=== PATIENT | male | born 1940 | race Caucasian/White ===

== ENCOUNTER 2023-04-24 10:33 | Emergency (ER) | payer MEDICARE, BC, SELFPAY ==
[2023-04-24 10:34] VITALS: BP 146/92; PULSE 73; RESP 14; TEMP 35.7; O2SAT 97; BMI 31.5
--- NOTE | 2023-04-24 11:03 | EKG12_ITS ---
Test Reason : SOB Blood Pressure : / mmHG Vent. Rate : 070 BPM Atrial Rate : 070 BPM P-R Int : 166 ms QRS Dur : 102 ms QT Int : 424 ms P-R-T Axes : 000 011 245 degrees QTc Int : 457 ms Atrial-paced rhythm Inferior infarct , age undetermined ST & T wave abnormality, consider lateral ischemia Abnormal ECG Confirmed by ANCA DAVISON, CASSIE ([id number]), continuity editor YESSI VALDEZ ([id number]) on 04/29/2023 12:28:07 PM Referred By: Confirmed By:CASSIE MARCH MD
--- NOTE | 2023-04-24 11:17 | EDS_ITS ---
HPI HPI - URI History of Present Illness Chief Complaint: Cough Detail of Chief Complaint: Cough with hemoptysis. Informant: patient and family Onset/Context/Timing Onset: Days Context: Gradual Onset Timing: Intermittent Maximum Severity: Mild Narrative Narrative: 80-year-old male history of asbestos ptosis, four-way CABG, cardiac stents and a pacemaker. He has had a cough for the last 3 days. Today he coughed up some blood. No significant chest pain. Only mild shortness of breath. No fever. No vomiting. No recent travel or surgery. No history of DVT or PE. He is not on any blood thinners besides aspirin. He has no history of prior lung cancer. Prior similar symptoms: No Recent Illness/Hospitalization: No ROS ROS ED ROS Narrative Cough. Review of Systems ROS Unobtainable: Denies due to encephalopathy Constitutional Constitutional ED: Denies chills or fever(s) Eyes Eyes: Denies blurry vision ENT ENT ED: Denies ear pain Cardiovascular Cardiovascular: Denies chest pain Respiratory/Chest Respiratory/Chest: Denies cough or dyspnea Gastrointestinal Gastrointestinal: Denies abdominal pain Genitourinary Genitourinary ED: Denies dysuria Musculoskeletal Musculoskeletal: Denies arthralgias Integumentary Denies abscess or Abrasions Neurologic Neurologic: Denies headache(s) Psychiatric Psychiatric: Denies anxiety or depression Endocrine Endocrinology: Denies cold intolerance Hematologic/Lymphatic Hematologic/Lymphatic: Denies easy bleeding or easy bruising Allergic/Immunologic Allergic/Immunologic ED: Denies mouth swelling or tongue swelling PFSH PFSH Allergy/AdvReac Type Severity Reaction Status Date / Time No Known Allergies Allergy Verified 04/24/23 10:34 EXAM Physical Exam Narrative Exam Narrative: Well-appearing 82-year-old male. Vital signs stable afebrile. Pulse ox 97% on room air no signs hypoxia. H EENT exam unremarkable. Neck nontender. Lungs clear to auscultation bilaterally. Heart regular rhythm rate about 70 no murmur appreciated. Chest wall nontender. Abdomen soft nontender. Moving all 4 extremities. Calves are nontender without edema or cords. Neurologically he is awake and alert. No focal motor deficits. Const Vital Signs: 04/24/23 10:34 04/24/23 11:03 04/24/23 12:00 Temperature 96.3 F L Temperature Source Temporal Pulse Rate 73 68 Respiratory Rate 14 18 Respiratory Effort Short of Breath Blood Pressure 146/92 H 141/73 H Blood Pressure Mean 110 95 Pulse Ox 97 94 Oxygen Delivery Method Room Air Room Air 04/24/23 15:00 Temperature Temperature Source Pulse Rate 61 Respiratory Rate Respiratory Effort Blood Pressure Blood Pressure Mean Pulse Ox 94 Oxygen Delivery Method Room Air Positive well nourished and well developed; Negative for cachectic or contractures General Appearance ED: well developed and NAD; Negative for cachectic, contractures, cyanotic, diaphoretic or pallor Nutritional Appearance: Negative for cachectic HEENT Reports moist mucous membranes normocephalic and atraumatic Face and Sinus: Negative for sinus tenderness or maxillary instability Throat: posterior oropharynx normal; Negative for tonsils abnormal or posterior oropharynx abnormal Eyes PERRL and EOMs intact bilaterally General Eye ED: Negative for pale conjunctiva or scleral icterus Neck no lymphadenopathy, supple, no meningeal signs and no JVD General: Negative for anterior neck swelling or lymphadenopathy Resp normal respiratory effort and clear to auscultation bilaterally Effort and Inspection: Negative for retractions or pain with movement Auscultation: Negative for rales, rhonchi, wheezes or diminished lung sounds Cardio S1 normal heart sound, S2 normal heart sound and no murmurs Rate: regular rate Rhythm: regular rhythm GI non-tender, non-distended and no masses Inspection: Negative for abdominal distention Auscultation: normoactive bowel sounds Palpation: soft; Negative for tender or guarding Back/Spine no CVA tenderness and normal ROM General Back: Negative for CVA tenderness Cervical Spine: Negative for cervical spine tenderness Thoracic Spine / Upper Back: Negative for thoracic spinal tenderness Lumbar Spine / Lower Back: Negative for lumbar spinal tenderness Sacrum: Negative for tenderness Extremity normal to inspection and full ROM General Extremety ED: Negative for cyanosis or tenderness General Extremity: Negative for cyanosis Neuro oriented x3 and CN's II-XII intact bilaterally Sensorium / Orientation: alert, oriented to person, oriented to place and oriented to time; Negative for orientation impaired Motor Exam: strength 5/5 throughout Psych mental status grossly normal Attitude: No agitated Mood & Affect: Negative for depressed, anxious or tearful Skin General Skin Exam: Negative for jaundice or pallor Lesions: no lesions Rashes: no rashes MDM MDM MDM Narrative Medical decision making narrative: 82-year-old with cough and hemoptysis. No DVT or PE risk factors. He is on aspirin but no other blood thinners. I think this could just be from him coughing and possibly broke a small blood vessel in his lung. Obviously PE, pneumonia or malignancy are possibilities. Chest x-ray and labs are pending. Repeat exam patient doing well at 4:20 PM. I went over all the test results and CAT scan with both the patient and his and son. He will be discharged home. Started on Zithromax for suspected right-sided pneumonia. Follow-up with his primary care physician. He will be given his first dose of Zithromax here. Prescription sent to the pharmacy. Return if he is feeling worse. History & Record Review Discussion w/independent historian: Patient Additional record(s) reviewed:: Prior inpatient record, Prior outpatient record, Prior ED visit and Prior labs Lab Data Attestation: I reviewed the patient's lab results. Lab results narrative: CBC shows a white count 9.2. H&H of 13.9 and 43. Platelets 173. Chemistries show gap of 1. Normal BUN and creatinine of 12 and 1.1. Glucose 124. No old labs available for comparison at this time. D-dimer elevated at 0.82. CAT scan of the chest shows no PE. Suspected right- sided pneumonia. Chronic changes and scarring. Labs: Laboratory Results - last 24 hr 04/24/23 11:20 WBC 9.2 RBC 4.21 L Hgb 13.9 Hct 43.0 MCV 102.1 H MCH 33.0 H MCHC 32.3 RDW Std Deviation 47.9 H RDW Coeff of Harvinder 12.9 Plt Count 173 MPV 9.7 Immature Gran % (Auto) 0.300 Neut % (Auto) 73.1 H Lymph % (Auto) 12.8 L [place] % (Auto) 12.7 H Eos % (Auto) 0.8 Baso % (Auto) 0.3 Absolute Neuts (auto) 6.8 Absolute Lymphs (auto) 1.18 Nucleated RBC % 0 D-Dimer Quant (PE/DVT) 0.82 H* Sodium 140 Potassium 4.2 Chloride 109 H Carbon Dioxide 30.0 Anion Gap 1 L BUN 12 Creatinine 1.11 Estim Creat Clear Calc 44.63 Est GFR (MDRD) Af Amer 82 Est GFR (MDRD) Non-Af 67 BUN/Creatinine Ratio 10.8 Glucose 124 H Calcium 8.7 Radiography Chest X-Ray - ED: 1 View, Read by ED Physician, Read by Radiologist, Heart, Mediastinum, Bony Structures and Chronic Changes Diagnostic Testing: Clinical Impression(s) from Imaging Studies Chest X-Ray 04/24/23 11:30 IMPRESSION: Findings suggestive of a right perihilar mass with a scarring and/or infiltrate in the right lung and scarring at the left lung base with calcified pleural plaques. Correlation with a CT scan is recommended for further evaluation. Electronically Signed: Valentin Ovalle MD at 12:05 EDT , Chest CTA 04/24/23 12:13 IMPRESSION: Bilateral pleural effusions right greater than left with bibasilar atelectasis superimposed on scarring at the lung bases. Focal areas of irregular infiltrate seen in the right hemithorax as described superimposed on chronic changes. Radiographic follow-up is recommended. No evidence of pulmonary embolism. Electronically Signed: Valentin Ovalle MD at 12:56 EDT , Chest x-ray, portable, single view interpreted myself and radiologist was concerning for possible right hilar mass or infiltrate. Prior sternotomy. Left-sided pacemaker. CAT scan is pending. Rhythm Strip Rhythm Strip: Paced Rate: 70 Ectopy: None EKG Initial EKG: Attestation: I personally reviewed and interpreted this EKG as follows: Interpretation: Paced Comments: Paced rhythm. Rate is 70. Discharge Plan Triage Chief Complaint: Cough ED Provider: Thor Doherty Dx/Rx/DC Orders Primary Care Provider: Gino Hardin Referrals: Gino Hardin DO [Primary Care Provider] -
[2023-04-24 11:29] LABS: Absolute Lymphocyte Count 1.18 X10^3/uL (0.83-4.51); Absolute Neutrophil Count 6.8 X10^3/uL (2.0-7.7); Basophil# 0.03 X10^3/uL; Basophil% 0.3 % (0-1); Eosinophil# 0.07 X10^3/uL; Eosinophils% 0.8 % (0-5); Hemoglobin 13.9 g/dL (13.0-16.5); Lymphocyte # 1.18 X10^3/ul (0.83-4.51); Lymphocyte % 12.8 % (19-41); Mean Corp Hgb Conc 32.3 g/dL (32-36); Mean Corpuscular Volume 102.1 fL (80-94); Mean Platelet Vol. 9.7 fl (6.2-12.0); Monocyte# 1.17 X10^3/uL; Monocyte% 12.7 % (0-10); NRBC Flagged by Analyzer 0 % (0-5); Neutrophil # 6.76 X10^3/uL (2.7-7.7); Neutrophil % 73.1 % (47-70); Platelet Count 173 K/mm3 (150-450); RBC Distribution Width CV 12.9 % (11.6-14.6); RBC Distribution Width SD 47.9 fl (35.1-43.9); Red Blood Count 4.21 M/mm3 (4.6-6.2); White Blood Count 9.2 K/mm3 (4.4-11.0)
--- NOTE | 2023-04-24 11:30 | RAD_ITS ---
STUDY: X-RAY CHEST REASON FOR EXAM: Male, 82 years old. Cough and hemoptysis TECHNIQUE: PA and lateral views of the chest. COMPARISON: None. FINDINGS: Elevation of the right hemidiaphragm. There is a 2.8 cm x 2.6 cm rounded nodular mass in the medial right upper lobe adjacent to the right hilum. Diffuse increased interstitial markings in the right lung suggestive of scarring with superimposed infiltrate and/or atelectasis. Scarring at the left lung base. Calcified left pleural plaques. Sternal cerclage wires and vascular clips are present from a prior sternotomy and coronary artery bypass graft procedure (CABG). Cardiomegaly. A left-sided dual-chamber pacemaker is seen. Normal mediastinum and jose guadalupe. Normal visualized pulmonary arteries. There is atherosclerotic calcification of the aortic arch with tortuosity. There are diffuse degenerative changes of the visualized thoracic spine. Normal visualized ribs, clavicles, and shoulders. There is no demonstrated abnormality of the visualized soft tissue structures of the upper abdomen. RAD/Chest PA and Lateral IMPRESSION: Findings suggestive of a right perihilar mass with a scarring and/or infiltrate in the right lung and scarring at the left lung base with calcified pleural plaques. Correlation with a CT scan is recommended for further evaluation. Electronically Signed: Valentin Ovalle MD at 12:05 EDT ,
[2023-04-24 11:41] LABS: Anion Gap 1 (5-15); BUN 12 mg/dL (7-18); BUN/Creat Ratio 10.8 RATIO (10-20); Calcium,Total 8.7 mg/dL (8.5-10.1); Chloride 109 mmol/L (98-107); Creatinine, Serum 1.11 mg/dL (0.70-1.30); EST Glomerular Filtration Rate 67 mL/min (>60); Est Glom Filt Rate - Afr Amer 82 mL/min (>60); Estimated Creatinine Clearance 44.63 ml/min; Glucose 124 mg/dL (74-106); Potassium 4.2 mmol/L (3.5-5.1); Sodium Level 140 mmol/L (136-145)
[2023-04-24 12:00] VITALS: BP 141/73; PULSE 68; RESP 18; O2SAT 94
[2023-04-24 12:00] LABS: D-Dimer Quantitative (DVT/PE) 0.82 FEU/ug/m (0.27-0.49)
--- NOTE | 2023-04-24 12:13 | CT_ITS ---
STUDY: CTA CHEST REASON FOR EXAM: Male, 82 years old. hemoptysis. Pneumonia vs Mass vs PE RADIATION DOSAGE (If Supplied By Facility): CTDIvol = ( 17.05 ) mGy, DLP = ( 413.75 ) mGycm TECHNIQUE: The examination was performed with the intravenous administration of IV 100mL Isovue-370. Post-processing of the angiographic images was performed, with multiplanar reformation and 3D reconstruction. Individualized dose optimization techniques were used for this CT. COMPARISON: Comparison is made with prior chest radiograph done earlier in the day. FINDINGS: Normal enhancement of the main pulmonary artery and right and left pulmonary arteries. Normal enhancement of the bilateral peripheral pulmonary arteries. There is no demonstrated pulmonary embolism. Normal thoracic aorta and visualized great vessels. There is no demonstrated aortic dissection. There are calcifications of the coronary arteries. There is cardiomegaly. A left-sided dual-chamber pacemaker is seen. Normal mediastinum. Normal hilar regions. Normal visualized trachea and bronchi. The lungs are well expanded. Infiltrates are seen in the right upper lobe superimposed on scarring. There is also evidence of a irregular infiltrate in the anterior aspect of the right upper lobe. This may represent a focal area of pneumonia superimposed on scarring. No signs of bronchiectasis. Patchy irregular infiltrate is also seen in the posterior aspect of the right upper lobe adjacent to the minor fissure. Increased interstitial markings at the right lung base. Increased linear markings at the left lung base. Small bilateral pleural effusions right greater than left. Calcified pleural plaques bilaterally. Normal chest wall structures. There are degenerative changes of thoracic spine. Demineralization of the thoracic vertebrae with minimal loss of height of an upper dorsal vertebrae. Findings suggestive of tiny gallstones in the gallbladder lumen. CT/CTA Chest W/WO Contrast IMPRESSION: Bilateral pleural effusions right greater than left with bibasilar atelectasis superimposed on scarring at the lung bases. Focal areas of irregular infiltrate seen in the right hemithorax as described superimposed on chronic changes. Radiographic follow-up is recommended. No evidence of pulmonary embolism. Electronically Signed: Valentin Ovalle MD at 12:56 EDT ,
[2023-04-24 15:00] VITALS: PULSE 61; O2SAT 94
[2023-04-24] MEDS: Azithromycin 250 MG Tablet 500 MG PO (16:39)
[2023-04-24 16:44] VITALS: RESP 65; O2SAT 96
== END 2023-04-24 16:46 | disposition home or self-care (01) ==
PROVIDERS: Emergency Provider Emergency Medicine; PCP Family Medicine; Visit Provider Emergency Medicine
DX: R05.9 Cough, unspecified (principal); R04.2 Hemoptysis; Z95.5 Presence of coronary angioplasty implant and graft; Z95.1 Presence of aortocoronary bypass graft; Z95.0 Presence of cardiac pacemaker
CPT/HCPCS: 71046; 71275; 80048; 85025; 85379; 87811; 93005; 99283; Q9967

== ENCOUNTER → 2023-07-30 | Outpatient (CLI) | payer MEDICARE, BC, SELFPAY ==
--- NOTE | 2023-07-30 14:03 | ECHOD_ITS ---
Reason For Study: Ischemic CM Procedure This was a 2D Doppler, Color Flow transthoracic echocardiogram. Exam performed in department. Left Ventricle Normal LV size. Mild concentric left ventricular hypertrophy. Left ventricular systolic function is lower limits of normal. The estimated ejection fraction is 50 %. There are regional wall motion abnormalities as specified. Posterior-Basal: Akinetic. Mid-Posterior: Hypokinetic. Basal inferoseptal: Hypokinetic. Right Ventricle Normal RV size. ICD or pacer leads identified within the right ventricle. Normal systolic function. Atria The left atrium is mildly enlarged. Normal right atrium. Mitral Valve Bileaflet diffuse mitral valve thickening. Moderate (2+) eccentric mitral valve insufficiency. Tricuspid Valve Normal tricuspid valve. Moderate (2+) tricuspid valve insufficiency. Pulmonary artery systolic pressure is 54 mmHg. Aortic Valve Trisinus/trileaflet aortic valve. Mild (1+) eccentric aortic valve insufficiency. Pulmonic Valve Normal pulmonic valve. Mild (1+) pulmonic valve insufficiency. Great Vessels Normal aortic root. Pericardium/Pleural No pericardial effusion. MMode/2D Measurements & Calculations LVIDd: 6.0 cm IVSd: 1.2 cm Ao root diam: 3.6 cm LVIDs: 5.2 cm LVPWd: 1.2 cm RVDd: 4.3 cm FS: 13.4 % LAV(MOD-bp): 87.6 ml LVAd ap4: 26.0 cm2 LVAd ap2: 32.3 cm2 LAV(MOD-bp) Indexed: 46.3 ml/m2 LVLd ap4: 7.6 cm LVLd ap2: 8.0 cm LAV(MOD-sp2): 90.4 ml EDV(MOD-sp4): 74.4 ml EDV(MOD-sp2): 112.5 ml LAV(MOD-sp4): 82.5 ml EDV(sp4-el): 75.0 ml EDV(sp2-el): 110.7 ml LVAs ap4: 16.3 cm2 LVAs ap2: 20.9 cm2 LVLs ap4: 6.4 cm LVLs ap2: 7.1 cm ESV(MOD-sp4): 35.7 ml ESV(MOD-sp2): 54.9 ml ESV(sp4-el): 35.5 ml ESV(sp2-el): 52.1 ml EF(MOD-sp4): 52.1 % EF(MOD-sp2): 51.2 % EF(sp4-el): 52.8 % SV(MOD-sp4): 38.8 ml SV(MOD-sp2): 57.6 ml SV(sp4-el): 39.6 ml LA dimension(2D): 5.6 cm LA A4 area: 25.7 cm2 RA A4 area: 19.2 cm2 TAPSE: 1.9 cm Time Measurements MV dec time: 0.17 sec Doppler Measurements & Calculations MV E max slick: 94.4 cm/sec Lat Peak E' Slick: 6.3 cm/sec Med Peak E' Slick: 4.5 cm/sec MV A max slick: 33.1 cm/sec E/E' lat: 14.9 E/E' med: 20.8 MV E/A: 2.9 MV dec slope: 546.3 cm/sec2 Ao V2 max: 94.4 cm/sec AI max slick: 358.4 cm/sec Ao max P.6 mmHg AI max P.4 mmHg Ao V2 mean: 67.2 cm/sec AI dec slope: 188.3 cm/sec2 Ao mean P.0 mmHg AI P1/2t: 557.6 msec Ao V2 VTI: 19.9 cm AV (velocity ratio): 0.87 LV V1 max: 83.3 cm/sec PA V2 max: 75.6 cm/sec PI end-d slick: 139.9 cm/sec LV V1 max P.8 mmHg LV V1 mean P.6 mmHg LV V1 mean: 60.0 cm/sec LV V1 VTI: 17.2 cm TR max slick: 358.8 cm/sec TR max P.5 mmHg ECHO/Echo Complete Interpretation Summary Normal LV size. Left ventricular systolic function is lower limits of normal. The estimated ejection fraction is 50 %. Moderate (2+) eccentric mitral valve insufficiency. Mild (1+) eccentric aortic valve insufficiency. Mild concentric left ventricular hypertrophy. Pulmonary artery systolic pressure is 54 mmHg. Ordering Physician: Selene Orellana Referring Physician: Gino Hardin Performed By: Charis Tristan RDCS, RVT
== END | disposition home or self-care (01) ==
LOC: CVS 14:01
PROVIDERS: PCP Family Medicine; Referring Provider Nurse Practitioner Family; Visit Provider Nurse Practitioner Family
DX: I25.5 Ischemic cardiomyopathy (principal)
CPT/HCPCS: 93306

== ENCOUNTER 2024-03-02 03:12 | Emergency (ER) | payer MEDICARE, BC, SELFPAY ==
[2024-03-02 03:12] VITALS: BP 165/92; PULSE 72; RESP 18; TEMP 36.8; O2SAT 98; BMI 31.4
--- NOTE | 2024-03-02 03:30 | CT_ITS ---
EXAM: CT ABDOMEN AND PELVIS WITH INTRAVENOUS CONTRAST CLINICAL INDICATION: abd pain abd pain TECHNIQUE: Helically acquired images were obtained of the abdomen and pelvis with intravenous contrast. This CT exam was performed using one or more of the following dose reduction techniques: automated exposure control, adjustment of the mA and/or kV according to patient size, and/or use of iterative reconstruction technique. CONTRAST: IV 100mL Isovue-370 RADIATION DOSE: CTDIvol = 21.27 mGy, DLP = 1015.17 mGy-cm COMPARISON: CTA chest 04/24/2023. FINDINGS: LOWER THORAX: There are calcified pleural plaques within the visualized lower lung ayoub. There are small bilateral pleural effusions. There are coronary artery calcifications. No cardiomegaly. ABDOMEN: LIVER: There are small cysts in the right lobe of the liver, for which no further evaluation is necessary. Is a calcified granuloma in the right lobe of the liver. GALLBLADDER AND BILE DUCTS: There are multiple gallstones. No gallbladder distention or wall edema. No intra- or extrahepatic biliary ductal dilation. PANCREAS: Unremarkable. No focal cystic or solid mass. SPLEEN: Unremarkable. Normal size without focal cystic or solid mass. ADRENALS: Unremarkable. No nodules. KIDNEYS AND URETERS: As seen on axial images 96-97, there is a 2.5 mm wide distal left ureteral calculus at the ureterovesical junction. There is associated left hydroureter and mild hydronephrosis left kidney as well as left perinephric fat infiltration. There is a 3.5 mm nonobstructive left renal calculus. There is simple appearing renal cysts as well as cysts are too small to reliably characterize. No follow-up imaging is necessary for simple renal cysts or cysts that are too small to characterize. Normal renal size and position. STOMACH AND BOWEL: There is a 1.8 cm diverticulum of the duodenal sweep. There is no evidence for diverticulitis. There are colonic diverticula. There is no evidence for colonic diverticulitis. No stomach or bowel distention. PELVIS: APPENDIX: A normal-appearing appendix is seen on axial images 72-81. BLADDER: Unremarkable. REPRODUCTIVE: The prostate gland is enlarged. ABDOMEN and PELVIS: INTRAPERITONEAL SPACE: Unremarkable. No ascites or other fluid collection. No free air. BONES/JOINTS: There are multilevel degenerative changes in the visualized spine. No suspicious lytic or blastic abnormality. SOFT TISSUES: Unremarkable. No discrete abdominal or pelvic wall hernia. VASCULATURE: There is atherosclerotic calcification of the abdominal aorta. LYMPH NODES: Unremarkable. No enlarged lymph nodes. TUBES, LINES AND DEVICES: There is an atrioventricular pacemaker. CT/Abdomen/Pelvis W IV Cont ONLY IMPRESSION: 1. 2.5 mm wide distal left ureteral calculus in the UVJ. There is associated mild left hydronephrosis. 2. Small nonobstructive left renal calculus. 3. Small bilateral pleural effusions and bilateral pleural plaques, also present on 2022 study. 4. Gallstones. 5. Enlarged prostate. 6. Atherosclerosis. 7. Colonic and duodenal diverticula. No evidence for acute diverticulitis. Electronically Signed: Jeff Webster MD at 4:59 EDT Reading Location ID and State: [facility] / [place] , Service support ,
[2024-03-02 03:39] LABS: Bacteria 0 SEEN /hpf (None Seen); Mucous, Urine 0 SEEN /hpf (<or=2+); Squamous Epithelial Cells - UA 0 SEEN /hpf (0-5); White Blood Cells 0 SEEN /hpf (0-5)
[2024-03-02] MEDS: Morphine 4 MG/ML Syringe IV (03:41)
[2024-03-02] MEDS: Ondansetron 4 MG/2 ML Vial IV (03:42)
[2024-03-02] MEDS: 0.9% Normal Saline (500mL Bag) 500 ML 999 ML IV (03:42)
[2024-03-02 03:43] LABS: Absolute Lymphocyte Count 1.32 X10^3/uL (0.83-4.51); Absolute Neutrophil Count 7.7 X10^3/uL (2.0-7.7); Basophil# 0.03 X10^3/uL; Basophil% 0.3 % (0-1); Hematocrit 43.9 % (40-54); Hemoglobin 14.3 g/dL (13.0-16.5); Lymphocyte # 1.32 X10^3/ul (0.83-4.51); Lymphocyte % 13.1 % (19-41); Mean Corp Hgb Conc 32.6 g/dL (32-36); Mean Corpuscular Hgb 33.3 pg (27.0-32.0); Mean Corpuscular Volume 102.1 fL (80-94); Mean Platelet Vol. 9.7 fl (6.2-12.0); Monocyte# 0.96 X10^3/uL; Monocyte% 9.5 % (0-10); NRBC Flagged by Analyzer 0 % (0-5); Neutrophil # 7.71 X10^3/uL (2.7-7.7); Neutrophil % 76.7 % (47-70); Platelet Count 156 K/mm3 (150-450); RBC Distribution Width CV 12.8 % (11.6-14.6); RBC Distribution Width SD 48.5 fl (35.1-43.9); White Blood Count 10.1 K/mm3 (4.4-11.0)
[2024-03-02 03:44] LABS: Color, Urine Yellow (Yellow); Glucose, Dipstick Normal (Normal); Ketone-Dipstick 5 mg/dl (Negative); Leukocyte Esterase-Dipstick Negative /ul (Negative); Nitrite-Dipstick Negative (Negative); Occult Blood-Urine 250 /ul (Negative); Protein-Dipstick 100 mg/dl (Negative); Specific Gravity, Urine 1.015 (1.002-1.030); Urine Bilirubin Dipstick Negative (Negative); Urine Clarity Clear (Clear); Urine Urobilinogen 4 mg/dl (Normal)
[2024-03-02 03:49] VITALS: O2SAT 86
[2024-03-02 03:51] VITALS: O2SAT 96
[2024-03-02 04:00] LABS: AST(SGOT) 17 U/L (15-37); Alanine Aminotransfer ALT/SGPT 21 U/L (16-61); Albumin, Serum 3.3 g/dL (3.2-5.0); Alkaline Phosphatase 78 U/L (45-117); Anion Gap 5 (5-15); BUN 19 mg/dL (7-18); BUN/Creat Ratio 13.5 RATIO (10-20); Bilirubin, Direct 0.58 mg/dL (0.00-0.30); Calcium,Total 8.8 mg/dL (8.5-10.1); Chloride 106 mmol/L (98-107); Creatinine, Serum 1.41 mg/dL (0.70-1.30); EST Glomerular Filtration Rate 51 mL/min (>60); Est Glom Filt Rate - Afr Amer 62 mL/min (>60); Estimated Creatinine Clearance 39.99 ml/min; Globulin 3.1 g/dL (2.2-4.2); Glucose 133 mg/dL (74-106); Lipase 30 U/L (13-75); Potassium 4.1 mmol/L (3.5-5.1); Protein, Total 6.4 g/dL (6.4-8.2); Sodium Level 138 mmol/L (136-145)
[2024-03-02 04:19] LABS: Red Blood Cells-Urine 25-50 SEEN /hpf (0-5)
[2024-03-02 05:12] VITALS: BP 139/74; PULSE 64; RESP 16; O2SAT 92
--- NOTE | 2024-03-02 05:25 | EX.ED.DYSGE1 ---
HPI History of Present Illness Chief Complaint: Abd Pain Informant: patient Narrative Narrative: Patient is an 83-year-old male with past medical history of CAD and hyperlipidemia and BPH and previous pacemaker placement. He states roughly 5 to 6 hours prior to arrival he noticed abdominal pain that was more sharp in nature and located around the left lower quadrant. He states that there is mild nausea associated with the pain but denies any vomiting he also denies any diarrhea dysuria hematuria or constipation. However as the pain has continued to worsen he presents for evaluation [facility] Medical History (Updated 03/03/24 @ 02:[address] Kelvin Odell DO) Skin cancer Myocardial infarction Presence of combination internal cardiac defibrillator (ICD) and pacemaker Home Medications ?Medication ?Instructions ?Recorded ?Last Taken ?Type aspirin 81 mg capsule 81 mg PO DAILY 03/02/24 Unknown History famotidine 40 mg tablet 40 mg PO DAILY 03/02/24 Unknown History hydralazine 100 mg tablet 100 mg PO BID 03/02/24 Unknown History isosorbide mononitrate 30 mg 30 mg PO DAILY 03/02/24 Unknown History tablet,extended release 24 hr ketorolac 10 mg tablet 10 mg PO 4X/DAY PRN pain 5 days 03/02/24 Unknown Rx #20 tabs metoprolol tartrate 100 mg tablet 100 mg PO BID 03/02/24 Unknown History ondansetron 4 mg disintegrating 4 mg PO TID PRN nausea and 03/02/24 Unknown Rx tablet vomiting #21 tabs oxycodone-acetaminophen 5 mg-325 1 tab PO Q6H PRN pain 3 days #12 03/02/24 Unknown Rx mg tablet (Percocet) tabs ramipril 10 mg capsule 10 mg PO BID 03/02/24 Unknown History rosuvastatin 40 mg tablet 40 mg PO DAILY 03/02/24 Unknown History tamsulosin 0.4 mg capsule 0.4 mg PO DAILY 03/02/24 Unknown History Allergy/AdvReac Type Severity Reaction Status Date / Time No Known Allergies Allergy Verified 03/02/24 03:13 Surgical History (Updated 03/02/24 @ 03:19 by Basilia Andersen) S/P triple vessel bypass Social History Smoking Status: Never smoker ROS ROS ED Constitutional Constitutional ED: Denies chills or fever(s) ENT ENT ED: Denies sore throat Cardiovascular Cardiovascular: Denies chest pain, palpitations or racing heartbeat Respiratory/Chest Respiratory/Chest: Denies cough or dyspnea Gastrointestinal Gastrointestinal: Reports abdominal pain and nausea; Denies constipation, diarrhea or vomiting Genitourinary Genitourinary ED: Denies dysuria or hematuria Musculoskeletal Musculoskeletal: Denies back pain or myalgias Integumentary Denies rash Neurologic Neurologic: Denies headache(s) Hematologic/Lymphatic Hematologic/Lymphatic: Denies easy bleeding or easy bruising EXAM Physical Exam Const Vital Signs: 03/02/24 03:12 03/02/24 03:49 03/02/24 03:51 Temperature 98.2 F Temperature Source Oral Pulse Rate 72 Respiratory Rate 18 Blood Pressure 165/92 H Blood Pressure Mean 116 Pulse Ox 98 86 96 Oxygen Delivery Method Room Air Room Air Nasal Cannula Oxygen Flow Rate (L/min) 2 03/02/24 05:12 03/02/24 05:43 Temperature 98.3 F Temperature Source Pulse Rate 64 67 Respiratory Rate 16 18 Blood Pressure 139/74 H 150/77 H Blood Pressure Mean 95 101 Pulse Ox 92 94 Oxygen Delivery Method Room Air Oxygen Flow Rate (L/min) Positive well nourished and well developed General Appearance ED: well developed; Negative for pallor HEENT Reports moist mucous membranes HEENT Narrative: No tongue or lip swelling no oral lesions no airway edema or compromise No signs of infection noted in the posterior pharynx Eyes PERRL and EOMs intact bilaterally General Eye ED: Negative for scleral icterus Neck supple and no JVD Neck Narrative: No nuchal rigidity or meningeal signs Chest Wall palpation of chest normal Resp normal respiratory effort and clear to auscultation bilaterally Cardio regular rate and regular rhythm Rate: other Other Details: Radial and carotid pulses are equal and symmetric GI GI Narrative: Abdomen is slightly distended with hypoactive bowel sounds. There is mild diffuse pain on palpation but this is greatest in the left lower quadrant with mild guarding at the site. No fluid wave or pulsatile mass. Auscultation: normoactive bowel sounds Palpation: soft Back/Spine Back/Spine Narrative: Left CVA pain is noted as well Extremity normal to inspection Extremity Narrative: Negative Homans' sign bilaterally Neuro oriented x3, CN's II-XII intact bilaterally and no sensory deficits noted Sensorium / Orientation: alert Motor Exam: strength 5/5 throughout Psych mental status grossly normal Skin no rashes or lesions noted General Skin Exam: Negative for jaundice or pallor MDM MDM MDM Narrative Medical decision making narrative: Patient presented to ER hypertensive but otherwise with stable vitals. He reported persistent abdominal pain greatest in the left lower quadrant without trauma or excessive activity. Differential diagnosis is for small bowel obstruction versus pancreatitis versus biliary colic or acute cholecystitis versus diverticulitis or kidney stone or UTI or pyelonephritis. Secondary to this basic lab work was obtained with urine sample and a CT scan with IV contrast was ordered. CT scan showed a kidney stone on the left side causing hydroureteronephrosis which would correlate with his left-sided pain. There is no signs of perforation or obstruction and laboratory studies do not show findings concerning for acute kidney injury or urosepsis. After patient was given Toradol and morphine his pain improved to a value of a 2. Therefore at this time as he does not have acute kidney injury or urosepsis and his pain is controlled there is no need for admission or emergent urology consultation and patient is otherwise safe for discharge with outpatient follow-up History & Record Review Discussion w/independent historian: Patient Lab Data Attestation: I reviewed the patient's lab results. Labs: Laboratory Results - last 24 hr 03/02/24 03/02/24 03/02/24 03:27 03:32 03:38 WBC 10.1 RBC 4.30 L Hgb 14.3 Hct 43.9 MCV 102.1 H MCH 33.3 H MCHC 32.6 RDW Std Deviation 48.5 H RDW Coeff of Harvinder 12.8 Plt Count 156 MPV 9.7 Immature Gran % (Auto) 0.400 Neut % (Auto) 76.7 H Lymph % (Auto) 13.1 L Hyde % (Auto) 9.5 Eos % (Auto) 0.0 Baso % (Auto) 0.3 Absolute Neuts (auto) 7.7 Absolute Lymphs (auto) 1.32 Nucleated RBC % 0 Sodium 138 Potassium 4.1 Chloride 106 Carbon Dioxide 27.0 Anion Gap 5 BUN 19 H Creatinine 1.41 H Estim Creat Clear Calc 39.99 Est GFR (MDRD) Af Amer 62 Est GFR (MDRD) Non-Af 51 L BUN/Creatinine Ratio 13.5 Glucose 133 H Lactic Acid 2.0 Calcium 8.8 Total Bilirubin 1.70 H Direct Bilirubin 0.58 H AST 17 ALT 21 Alkaline Phosphatase 78 Total Protein 6.4 Albumin 3.3 Globulin 3.1 Lipase 30 Urine Color Yellow Urine Clarity Clear Urine pH 7.0 Ur Specific [place] 1.015 Urine Protein 100 H Urine Glucose (UA) Normal Urine Ketones 5 H Urine Occult Blood 250 H Urine Nitrite Negative Urine Bilirubin Negative Urine Urobilinogen 4 H Ur Leukocyte Esterase Negative Urine RBC 25-50 SEEN Urine WBC 0 SEEN Ur Squamous Epith Cells 0 SEEN Urine Bacteria 0 SEEN Urine Mucus 0 SEEN Radiography Diagnostic Testing: Clinical Impression(s) from Imaging Studies Abdomen/Pelvis CT 03/02/24 03:30 IMPRESSION: 1. 2.5 mm wide distal left ureteral calculus in the UVJ. There is associated mild left hydronephrosis. 2. Small nonobstructive left renal calculus. 3. Small bilateral pleural effusions and bilateral pleural plaques, also present on 2022 study. 4. Gallstones. 5. Enlarged prostate. 6. Atherosclerosis. 7. Colonic and duodenal diverticula. No evidence for acute diverticulitis. Electronically Signed: Jeff Webster MD at 4:59 EDT , Discharge Plan Triage Chief Complaint: Abd Pain ED Provider: Kelvin Odell Dx/Rx/DC Orders Clinical Impression: Kidney stone on left side, Renal colic, Hypertension, Benign prostatic hyperplasia, Hyperlipidemia Instructions: ED Kidney Stone with Pain Prescriptions: New oxycodone-acetaminophen [Percocet] 5-325 mg tablet 1 tab PO Q6H PRN (Reason: pain) 3 Days Qty: 12 0RF ketorolac 10 mg tablet 10 mg PO 4X/DAY PRN (Reason: pain) 5 Days Qty: 20 0RF ondansetron 4 mg tablet,disintegrating 4 mg PO TID PRN (Reason: nausea and vomiting) Qty: 21 0RF No Action ramipril 10 mg capsule 10 mg PO BID tamsulosin 0.4 mg capsule 0.4 mg PO DAILY hydralazine 100 mg tablet 100 mg PO BID metoprolol tartrate 100 mg tablet 100 mg PO BID famotidine 40 mg tablet 40 mg PO DAILY isosorbide mononitrate 30 mg tablet extended release 24 hr 30 mg PO DAILY rosuvastatin 40 mg tablet 40 mg PO DAILY aspirin 81 mg capsule 81 mg PO DAILY Primary Care Provider: Gino Hardin Referrals: Gino Hardin DO [Primary Care Provider] - Toy العلي MD [Med Staff - Active Staff] - Activity Restrictions/Additional Instructions: Please take 1 Percocet and 1 Toradol together to help control pain. Continue all of your other medications as directed by your doctor. Follow-up with urology for repeat evaluation and to discuss the possibility of stent placement if you do not pass your kidney stone spontaneously. If you develop a fever of 100.4 or higher or your pain is not controlled to prescribed medication please return to the ER for repeat evaluation. Print Language: [place] Disposition Disposition: Home, Self Care Discharge Date/Time: 03/02/24 06:09
[2024-03-02] MEDS: Ketorolac 15 MG/ML Vial IV (05:41)
[2024-03-02 05:43] VITALS: BP 150/77; PULSE 67; RESP 18; TEMP 36.8; O2SAT 94
[2024-03-02 07:41] LABS: Reflex Lactate? Y
== END 2024-03-02 06:09 | disposition home or self-care (01) ==
PROVIDERS: Emergency Provider Emergency Medicine; PCP Family Medicine; Visit Provider Emergency Medicine
DX: N13.2 Hydronephrosis with renal and ureteral calculous obstruction (principal); I25.10 Atherosclerotic heart disease of native coronary artery without angina pectoris; N23 Unspecified renal colic; I10 Essential (primary) hypertension; N40.0 Benign prostatic hyperplasia without lower urinary tract symptoms; E78.5 Hyperlipidemia, unspecified; I25.2 Old myocardial infarction; Z79.82 Long term (current) use of aspirin; Z79.899 Other long term (current) drug therapy; Z95.810 Presence of automatic (implantable) cardiac defibrillator
CPT/HCPCS: 74177; 80048; 80076; 81001; 83605; 83690; 85025; 96361; 96374; 96375; 96376; 99283; J7030; Q9967; A4216; J2405

== ENCOUNTER → 2024-04-21 | Outpatient (CLI) | payer MEDICARE, BC, SELFPAY ==
--- NOTE | 2024-04-21 06:41 | ECHOD_ITS ---
Reason For Study: SOB Procedure This was a 2D Doppler, Color Flow transthoracic echocardiogram. Exam performed in department. Left Ventricle Normal LV size. The left ventricular ejection fraction is 50 %. Mild to moderate segmental systolic dysfunction (see wall motion). Stage 2 diastolic dysfunction. Infero-Basal: Akinetic. Mid-Posterior: Mildly hypokinetic. Mid-Inferior: Mildly hypokinetic. Basal inferoseptal: Hypokinetic. Right Ventricle Normal RV size. ICD or pacer leads identified within the right ventricle. Normal systolic function. Atria The left atrium is mildly enlarged. The right atrium is mildly enlarged. Mitral Valve Normal mitral valve. Mild-Moderate (1-2+) eccentric mitral valve insufficiency. Tricuspid Valve Normal tricuspid valve. Moderate (2+) tricuspid valve insufficiency. Pulmonary artery systolic pressure is 70 mmHg. Moderate pulmonary hypertension. Aortic Valve Normal aortic valve. Trisinus/trileaflet aortic valve. Mild (1+) aortic valve insufficiency. Pulmonic Valve Normal pulmonic valve. Great Vessels Normal aortic root. The pulmonary artery is normal size. Normal inferior vena cava. Pericardium/Pleural No pericardial effusion. MMode/2D Measurements & Calculations RVDd: 3.9 cm Ao root diam: 3.4 cm LAV(MOD-bp): 101.3 ml LAV(MOD-bp) Indexed: 53.6 ml/m2 LAV(MOD-sp2): 102.6 ml LAV(MOD-sp4): 99.5 ml SV(MOD-sp4): 53.0 ml SV(sp4-el): 56.0 ml LVAd ap4: 32.9 cm2 LVLd ap4: 7.6 cm EDV(MOD-sp4): 117.6 ml EDV(sp4-el): 120.7 ml LVAs ap4: 22.9 cm2 LVLs ap4: 6.9 cm ESV(MOD-sp4): 64.6 ml ESV(sp4-el): 64.7 ml EF(MOD-sp4): 45.0 % EF(sp4-el): 46.4 % LA A4 area: 28.3 cm2 LA dimension(2D): 4.0 cm RA A4 area: 26.3 cm2 TAPSE: 1.6 cm Time Measurements MV dec time: 0.17 sec Doppler Measurements & Calculations MV E max slick: 88.5 cm/sec Lat Peak E' Slick: 5.6 cm/sec Med Peak E' Slick: 5.3 cm/sec MV A max slick: 41.0 cm/sec E/E' lat: 15.7 E/E' med: 16.6 MV E/A: 2.2 Ao V2 max: 88.3 cm/sec AI max slick: 394.0 cm/sec LV V1 max: 89.5 cm/sec Ao max P.1 mmHg AI max P.1 mmHg LV V1 max P.2 mmHg AI dec slope: 272.0 cm/sec2 AI P1/2t: 424.2 msec PA V2 max: 73.2 cm/sec TR max slick: 397.5 cm/sec TR max P.2 mmHg ECHO/Echo Complete Interpretation Summary The left ventricular ejection fraction is 50 %. Normal LV size. Mild to moderate segmental systolic dysfunction (see wall motion). Stage 2 diastolic dysfunction. Pulmonary artery systolic pressure is 70 mmHg. Moderate pulmonary hypertension. Compared to previous study, the left ventricular systolic function is the same. . Ordering Physician: Selene Orellana Referring Physician: HOLLY YODER Performed By: Marianna Coleman RDCS
--- NOTE | 2024-04-22 13:56 | STRESSREP ---
Stress Test Report Date: 04/21/2004 Procedure: Pharmacologic stress nuclear imaging study Indications: CAD, dyspnea Consent: Per the patient Procedure: The patient underwent pharmacologic (Regadenoson) evaluation with a peak heart rate of 80 beats per minute (58%predicted maximal heart rate) and a peak blood pressure of 142/80 mmHg. The baseline ECG demonstrated atrial paced rhythm, left bundle branch block. EKG during lexiscan infusion revealed no significant ischemic changes. EKG post infusion revealed no significant ischemic changes [There were no cardiac dysrhythmias pretest, during pharmacologic infusion, or recovery]. [There was no complaint of chest discomfort during pharmacologic infusion or recovery]. The examination was discontinued secondary to completion of protocol. Impression: 1. Lexiscan stress test test is negative for Lexiscan infusion induced EKG changes of ischemia. 2. Lexiscan stress test test is negative for Lexiscan infusion induced chest pain. 3. Results of the nuclear portion of the test is as below Myocardial perfusion imaging study: Technique: The patient was injected with 11.4 millicuries of technetium 99m Cardiolite and subsequently rest SPECT Cardiolite nuclear imaging was obtained in the horizontal long, vertical long, and short axis views. The patient underwent pharmacologic [Regadenoson 0.4mg] evaluation. Please see above for details. The patient was injected with 34.1 millicuries of technetium 99m Cardiolite and subsequently stress SPECT Cardiolite nuclear imaging was obtained in the horizontal long, vertical long, and short axis views. A gated Cardiolite study at peak stress was obtained. Interpretation: Rest and stress SPECT Cardiolite nuclear imaging status post realignment, normalization, and attenuation correction demonstrate moderate decrease in the radioisotope uptake in the inferior wall on the rest images that is mildly worse on the stress images suggestive of prior inferior myocardial infarction with mild mundo-infarct ischemia. Gated images reveal hypokinesis of the inferior wall and septum. The reported LVEF is 42%. Impression: 1. There is evidence of prior inferior NC with mild mundo-infarct ischemia. 2. Estimated ejection fraction is 42%. This note was generated with [place] [employer] software. It may contain incorrect words, spelling, and punctuation that were not noted in checking the note before signing.
== END | disposition home or self-care (01) ==
LOC: CVS 06:41
PROVIDERS: PCP Family Medicine; Referring Provider Nurse Practitioner Family; Visit Provider Nurse Practitioner Family
DX: I34.0 Nonrheumatic mitral (valve) insufficiency (principal); I11.0 Hypertensive heart disease with heart failure; I50.22 Chronic systolic (congestive) heart failure; I47.20 Ventricular tachycardia, unspecified; R06.02 Shortness of breath; I25.10 Atherosclerotic heart disease of native coronary artery without angina pectoris; I25.5 Ischemic cardiomyopathy
CPT/HCPCS: 78452; 93017; 93306; A9500; A4216; J2785

== ENCOUNTER 2024-09-20 12:44 | Inpatient (IN) | payer MEDICARE, BC, SELFPAY ==
[2024-09-20] VITALS (40 sets, daily range): BP systolic 52–170; BP diastolic 27–95; PULSE 61–81; RESP 10–22; TEMP 36.3–37.9; O2SAT 65–100; BMI 34.1; BMI 31.1
--- NOTE | 2024-09-20 12:46 | CT_ITS ---
EXAM: BRAIN/HEAD WITHOUT CONTRAST CLINICAL HISTORY: Head injury due to syncopal episode. COMPARISON: None TECHNIQUE: Multiple axial tomographic images were obtained without intravenous contrast administration. Coronal and sagittal reconstruction was obtained as well. FINDINGS: There is a mild degree of cerebral atrophy in keeping with the patient's age. There is evidence of decreased attenuation in the periventricular white matter bilaterally suggestive of chronic ischemic small- vessel disease. No acute abnormality is seen. CT/Brain/Head without Contrast IMPRESSION: Cerebral atrophy in keeping with patient's age. No acute abnormality is seen. Reading Location: [id number]
--- NOTE | 2024-09-20 12:46 | EKG12_ITS ---
Test Reason : CODE BLUE Blood Pressure : */* mmHG Vent. Rate : 79 BPM Atrial Rate : 79 BPM P-R Int : 216 ms QRS Dur : 166 ms QT Int : 502 ms P-R-T Axes : 87 -12 139 degrees QTcB Int : 575 ms Sinus rhythm with 1st degree A-V block Left bundle branch block Abnormal ECG Confirmed by Beto Connell ([id number]), editor sound SOFI MARIE ([id number]) on 09/21/2024 10:59:54 AM Referred By: Confirmed By: Beto Connell
--- NOTE | 2024-09-20 12:50 | EX.ED.DYSGE1 ---
HPI History of Present Illness Chief Complaint: CPR Limited: other (altered LOC) Narrative Narrative: 83-year-old male came into the ER to be with his who is a new patient here, allegedly has been ill and his is here for respiratory illness. According to staff, he walked into the room awake and alert, but then passed out, losing postural stability falling to the floor and hitting his head, was able to talk with nurses right after this, telling them that he was on a blood thinner, but then lost consciousness. I evaluated him stat in his 's ED room. Allegedly on a blood thinner, although 81 mg aspirin is the only antiplatelet or anticoagulant on his EMR preexisting list. [facility] Medical History Skin cancer Myocardial infarction Presence of combination internal cardiac defibrillator (ICD) and pacemaker Home Medications ?Medication ?Instructions ?Recorded ?Last Taken ?Type aspirin 81 mg capsule 81 mg PO DAILY 03/02/24 Unknown History famotidine 40 mg tablet 40 mg PO DAILY 03/02/24 Unknown History hydralazine 100 mg tablet 100 mg PO BID 03/02/24 Unknown History isosorbide mononitrate 30 mg 30 mg PO DAILY 03/02/24 Unknown History tablet,extended release 24 hr ketorolac 10 mg tablet 10 mg PO 4X/DAY PRN pain 5 days 03/02/24 Unknown Rx #20 tabs metoprolol tartrate 100 mg tablet 100 mg PO BID 03/02/24 Unknown History ondansetron 4 mg disintegrating 4 mg PO TID PRN nausea and 03/02/24 Unknown Rx tablet vomiting #21 tabs oxycodone-acetaminophen 5 mg-325 1 tab PO Q6H PRN pain 3 days #12 03/02/24 Unknown Rx mg tablet (Percocet) tabs ramipril 10 mg capsule 10 mg PO BID 03/02/24 Unknown History rosuvastatin 40 mg tablet 40 mg PO DAILY 03/02/24 Unknown History tamsulosin 0.4 mg capsule 0.4 mg PO DAILY 03/02/24 Unknown History amiodarone 200 mg tablet 200 mg PO Q12H 09/20/24 Unknown History rivaroxaban 20 mg tablet (Xarelto) 20 mg PO DAILY 09/20/24 Unknown History Allergy/AdvReac Type Severity Reaction Status Date / Time No Known Allergies Allergy Verified 03/02/24 03:13 Surgical History S/P triple vessel bypass Social History Smoking Status: Never smoker ROS ROS ED Review of Systems ROS Unobtainable: due to mental status EXAM Physical Exam Const Vital Signs: 09/20/24 12:47 09/20/24 12:57 09/20/24 13:11 Temperature 97.4 F L Temperature Source Temporal Pulse Rate 71 Respiratory Rate 10 L Respiratory Pattern Gasping Blood Pressure 159/27 H Blood Pressure Mean 71 Pulse Ox 70 Oxygen Delivery Method Nasal Cannula Ambu-Bag Oxygen Flow Rate (L/min) 2 09/20/24 13:15 09/20/24 13:30 09/20/24 13:52 Temperature Temperature Source Pulse Rate 68 61 80 Respiratory Rate 22 H Respiratory Pattern Blood Pressure 142/76 H 121/85 H 82/53 L Blood Pressure Mean 98 97 62 Pulse Ox 86 78 Oxygen Delivery Method Mechanical Ventilator Mechanical Ventilator Oxygen Flow Rate (L/min) 09/20/24 13:52 09/20/24 14:02 09/20/24 14:17 Temperature Temperature Source Pulse Rate 81 81 Respiratory Rate Respiratory Pattern Blood Pressure 74/52 L 64/48 L 82/49 L Blood Pressure Mean 59 53 60 Pulse Ox 80 71 Oxygen Delivery Method Mechanical Ventilator Mechanical Ventilator Oxygen Flow Rate (L/min) 09/20/24 14:21 Temperature Temperature Source Pulse Rate 81 Respiratory Rate Respiratory Pattern Blood Pressure 63/45 L Blood Pressure Mean 51 Pulse Ox 65 Oxygen Delivery Method Oxygen Flow Rate (L/min) Positive well nourished and well developed Constitutional Narrative: Obtunded. Couple dry heaves during initial evaluation. General Appearance ED: well developed HEENT Reports moist mucous membranes HEENT Narrative: Dentures upper and lower present. No intraoral lesions or abnormalities. Poor gag reflex but present. normocephalic and atraumatic Eyes PERRL Eyes Narrative: No nystagmus. No forced deviation. Neck full ROM and supple Resp Resp Narrative: Sonorous shallow breathing, not especially slow or fast. Lungs are equal and relatively clear but limited evaluation due to not taking deep breaths. Cardio regular rate and regular rhythm Rate: other Other Details: Faint heart sounds present. Thready pulses present. GI non-tender and non-distended Auscultation: normoactive bowel sounds Palpation: soft Back/Spine no CVA tenderness General Back: other FROM Extremity normal to inspection General Extremety ED: Negative for edema, pulses abnormal or tenderness General Extremity: Negative for edema or pulses abnormal Neuro Siva Coma Scale: document GCS findings None Withdraws to Pain None 6 Sensorium / Orientation: stuporous Skin no rashes or lesions noted Skin Narrative: Abrasions on top of scalp without boggy hematoma or palpable depression/crepitance, no lacerations to repair no active bleeding Sepsis Attestation Sepsis Alert: Yes Sepsis Attestation: Agree w/Sepsis Date exam was performed: 09/20/24 Time exam was performed: 14:00 Possible Source of Sepsis: Pulmonary Sepsis Organ Dysfunction Criteria Present: SBP < 90 mmHg or MAP < 65 mmHg and Acute Respiratory Failure (New need for BiPAP/CPAP or MV) Fluid Resuscitation Fluid resuscitation indicated?: Yes Fluid Resuscitation ordered: 30 ml/kg fluid bolus ordered Sepsis Note Date exam was performed: 09/20/24 Time exam was performed: 14:25 Sepsis Attestation: Sepsis re-evaluation was performed Response to fluids: Non Fluid responsive hypotension and Vasopressors started MDM MDM MDM Narrative Medical decision making narrative: Seemed to be withdrawing to pain initially, poor gag reflex, but breathing. CT was available, and so nurses supported him with oxygen, had a finger on his pulse, and escorted him to CT for emergent imaging of the brain. Upon coming back he started to breathe poorly, and I already had respiratory setting up for intubation as he left for CT. He has a paced rhythm and capture on the monitor in the 70s, in and out of pacing. Nursing bagged him with BVM while we were continuing to prep for intubation emergently, and then he seemed to stop exerting effort to breathe on his own. In feeling a carotid at this time he has no pulse and nursing is not able to feel a radial, so we started CPR immediately and gave the patient a milligram of epinephrine, intubating him at the first rhythm check, at which point he has a pulse. He did code after dropping his blood pressure again, again with a pulse in the 70s paced on the monitor, responded well to 1 round of CPR and a dose of epinephrine so I ordered an epinephrine drip and placed a central line see the procedure note this was uncomplicated. At that point we had a chest x-ray performed, one-view portable on my interpretation shows bilateral severe pneumonia in addition to good ETT placement and good central line placement without pneumothorax. At this point family arrived discussed all this with them and brought them up to date, they state that he has been feeling ill for the last few days or a week or so, but was more concerned about his who is also a patient here for respiratory illness. While on the ventilator, we had trouble with his oxygen saturations, so I adjusted his ramp down, tidal volume up, RR up, and PEEP up to 14 (all incrementally). He was given a milligram of Ativan since you starting to wake up and follow commands in order to tolerate this better. Discussed with intensive care, hospitalist, he started dropping his pressure little later so we started the epinephrine drip and give him another half milligram bolus of epinephrine. I had nursing query his pacemaker, the company called us with the interpretation, he is having episodes of A-fib which family confirms that is why he was on Xarelto, no events. Therefore I suspect he passed out due to either hypoxemia, hypotension, or both. ABG shows hypoxemia but he is not significantly hypercapnic and his pH is just a little low. EKG shows no STEMI. He has a left bundle branch block. I discussed with hospitalist we both agree that since we are continuing to suction amount of blood from his ETT, and with the significant difficulty of oxygenating him and the appearance of fluid in both lungs of his x-ray, we are giving him Kcentra to reverse his anticoagulation. Lab Data Attestation: I reviewed the patient's lab results. Labs: Laboratory Results - last 24 hr 09/20/24 12:50 WBC 8.3 RBC 3.69 L Hgb 12.8 L Hct 39.2 L MCV 106.2 H MCH 34.7 H MCHC 32.7 RDW Std Deviation 57.4 H RDW Coeff of Harvinder 14.6 Plt Count 130 L MPV 9.9 Immature Gran % (Auto) 0.500 Neut % (Auto) 64.4 Lymph % (Auto) 22.8 [place] % (Auto) 12.2 H Eos % (Auto) 0.0 Baso % (Auto) 0.1 Absolute Neuts (auto) 5.4 Absolute Lymphs (auto) 1.89 Nucleated RBC % 0.2 PT 32.5 H INR 3.1 APTT 41.5 H Sodium 138 Potassium 4.1 Chloride Direct 103 Carbon Dioxide 19.8 L Anion Gap 15 BUN 25 H Creatinine 1.57 H Estim Creat Clear Calc 37.38 L Est GFR (MDRD) Non-Af 43 L BUN/Creatinine Ratio 16.1 Glucose 100 H Calcium 8.7 Troponin T High Sens 64 H* ABG Data ABG results: ABG 09/20/24 14:12 Specimen Type ART Sample Site R Brach pH 7.26 L Bicarbonate Actual 16.9 L Total CO2 18 Base Excess -10 L O2 Saturation 87 L O2 % 100.0 ABG pCO2 37.3 ABG pO2 59 L Respiration Rate 16 O2 Delivery Device Adult Vent Vent Mode AC Tidal Volume 600.0 POC PEEP 14 Radiography Diagnostic Testing: Clinical Impression(s) from Imaging Studies Brain CT 09/20/24 12:46 IMPRESSION: Cerebral atrophy in keeping with patient's age. No acute abnormality is seen. Reading Location: [facility] Chest X-Ray 09/20/24 13:40 IMPRESSION: 1. High positioning of the endotracheal tube at the thoracic inlet, recommend advancement of 4-5 cm for optimal placement with radiographic confirmation. Otherwise appropriate positioning of support apparatus. No visible pneumothorax. 2. Patchy bilateral opacities are new/increased from 04/24/2023 and may reflect multifocal pneumonia and/or pulmonary edema. Given vaguely nodular appearance on the left, recommend follow-up to radiographic resolution to ensure no underlying lesion. 3. Cardiomegaly with suspected trace to small left pleural effusion. 4. Additional description as above. Reading Location: [facility] Rhythm Strip Rhythm Strip: afib, intermittent vent pacing Rate: 72 Ectopy: None EKG Initial EKG: Attestation: I personally reviewed and interpreted this EKG as follows: Interpretation: Sinus Rhythm, No Acute Injury Pattern and LBBB Management Discussion w/another healthcare provider: Hospitalist and Curtain Worker (lucy mendez) Procedures Intubations Intubation Method: orotracheal (8.0F ETT, placed via GlideScope, there was blood at the cords without active bleeding prior to intubating, which was done without medications, patient taking slow breaths, and to visualize passing through the cords as he attempted to inhale and abducted the cords.) Intubation Verification: Positive color change and Bilateral breath sounds confirmed (Along with blood in the ETT which is suctioned by respiratory) Intubation Complications: no complications (1 view chest x-ray shows good ETT placement on my interpretation; tip is a little high, at 22 cm so I had respiratory push at 1 cm further and at 23 at the lip.) Other Procedures Procedure(s): Central line placement: Central line indicated due to persistent hypotension. Informed consent not obtainable, emergent procedure. Right internal jugular vein site prepped and draped in a sterile fashion, full body sheet placed, locally anesthetized with 4 cc of plain 1% lidocaine, found dark red nonpulsatile blood via finder needle under direct visualization using sterile vascular ultrasound with Doppler and visualizing needle entering the vein. 16 cm triple-lumen catheter placed via modified Seldinger technique, all 3 ports vince back dark red nonpulsatile blood and flushed easily. Chlorhexidine disc placed at the site of entry against the skin, sutured into place, and dressed with a Tegaderm. 1 view chest x-ray confirms placement and no sign of pneumothorax/complication on my interpretation. Tolerated well, no complications. Critical Care Time Critical Care Time: Yes Critical care time (excluding procedures): 30-74 minutes (41 min, not including procedure time), Including time spent:, Discussing w/Patient &/or Family/Public Affairs Specialist, Discussing w/Consultants, Arranging Admission or Transfer and Performing Direct Patient Care at Bedside Discharge Plan Dx/Rx/DC Orders Clinical Impression: Septic shock, Pneumonia, Acute hypoxemic respiratory failure, Cardiopulmonary arrest with successful resuscitation, Paroxysmal A-fib Disposition Disposition: Acute Care [facility]
--- NOTE | 2024-09-20 12:54 | ED.RN ---
daughter called by this RN
[2024-09-20] MEDS: 0.9% Normal Saline (1000mL) 1,000 ML 999 ML IV ×2 (13:10→14:10)
--- NOTE | 2024-09-20 13:15 | ED.RN ---
pt. returned from CT scan at 1256 and appeared cyanotic with agonal breathing
[2024-09-20 13:21] LABS: Absolute Lymphocyte Count 1.89 X10^3/uL (0.83-4.51); Absolute Neutrophil Count 5.4 X10^3/uL (2.0-7.7); Basophil# 0.01 X10^3/uL; Basophil% 0.1 % (0-1); Hematocrit 39.2 % (40-54); Hemoglobin 12.8 g/dL (13.0-16.5); Lymphocyte # 1.89 X10^3/ul (0.83-4.51); Lymphocyte % 22.8 % (19-41); Mean Corp Hgb Conc 32.7 g/dL (32-36); Mean Corpuscular Hgb 34.7 pg (27.0-32.0); Mean Corpuscular Volume 106.2 fL (80-94); Mean Platelet Vol. 9.9 fl (6.2-12.0); Monocyte# 1.01 X10^3/uL; Monocyte% 12.2 % (0-10); NRBC Flagged by Analyzer 0.2 % (0-5); Neutrophil # 5.35 X10^3/uL (2.7-7.7); Neutrophil % 64.4 % (47-70); Platelet Count 130 K/mm3 (150-450); RBC Distribution Width CV 14.6 % (11.6-14.6); RBC Distribution Width SD 57.4 fl (35.1-43.9); Red Blood Count 3.69 M/mm3 (4.6-6.2); White Blood Count 8.3 K/mm3 (4.4-11.0)
[2024-09-20 13:28] LABS: International Normalized Ratio 3.1; Partial Thromboplast Time 41.5 Seconds (24.1-36.2); Prothrombin Time (Protime)PT. 32.5 SECONDS (11.7-14.9)
[2024-09-20 13:35] LABS: Anion Gap 15 (5-15); BUN 25 mg/dL (4-19); BUN/Creat Ratio 16.1 RATIO (10-20); Calcium 8.7 mg/dL (7.6-11.0); Carbon Dioxide 19.8 mmol/L (22.0-29.0); Chloride 103 mmol/L (96-108); Creatinine, Serum 1.57 mg/dL (0.70-1.20); EST Glomerular Filtration Rate 43 (>60); Estimated Creatinine Clearance 37.38 ml/min (50-250); Glucose 100 mg/dL (70-99); Potassium 4.1 mmol/L (3.3-5.1); Sodium Level 138 mmol/L (133-145)
--- NOTE | 2024-09-20 13:40 | RAD_ITS ---
PROCEDURE: CHEST 1 VIEW (PORTABLE) REASON FOR EXAM: syncope TECHNIQUE: Single portable frontal view of the chest. COMPARISON: 04/24/2023 FINDINGS: Lines/devices: Endotracheal tube tip projects over the proximal thoracic trachea, roughly 8.5 cm from the ammy. Right IJ CVC with tip projecting over the mid SVC. Enteric tube extends into the stomach and below the field of view. Heart/mediastinum: Similar cardiomegaly and left chest wall dual lead pacer/defibrillator. Sternotomy. Aortic atherosclerosis. Lungs/pleura: Increased interstitial and alveolar opacities bilaterally, greatest in the right mid and upper lung. More focal area of vaguely nodular consolidation in the left mid lung is also probably new from prior although this region was previously obscured by the pacer/defibrillator generator. Suspect trace to small left pleural effusion. Areas of pleural thickening/calcification again noted. No sizable right pleural effusion or visible pneumothorax. Bones: Suspected demineralization. Subacute left lateral rib fracture inferiorly. RAD/Chest 1 View (Portable) IMPRESSION: 1. High positioning of the endotracheal tube at the thoracic inlet, recommend a dvancement of 4-5 cm for optimal placement with radiographic confirmation. Otherwise appropriate positioning of support appara tus. No visible pneumothorax. 2. Patchy bilateral opacities are new/increased from 04/24/2023 and may reflect multifocal pneumonia and/or pulmonary edema. Given vaguely nodular appearance on the left, recommend follow-up to radiograph ic resolution to ensure no underlying lesion. 3. Cardiomegaly with suspected trace to small left pleural effusion. 4. Additional description as above. Reading Location: [facility]
[2024-09-20 13:58] LABS: Troponin T High Sensitivity 64 ng/L (<=22)
[2024-09-20] MEDS: NORMAL SALINE 0.9% CONT INF (14:05)
[2024-09-20] MEDS: EPINEPHRINE CONT INF (14:05)
[2024-09-20] MEDS: Lorazepam 2 MG/ML WCH Syringe 1 MG IV (14:07)
[2024-09-20] MEDS: Norepinephrine 8 MG in 0.9% Normal Saline (250mL Bag) 242 ML 9.4 MG CONT INF (14:16)
[2024-09-20 14:17] LABS: Base Excess -10 mmol/L (-2 to +2); Bicarbonate 16.9 mmol/L (22-26); Blood Gas Specimen Type ART; Mode AC; O2 Delivery Device Adult Vent; PEEP 14; PO2 59 mmHG (75-100); RR 16; SITE R Brach; SO2 87 % (95-99); Total Carbon Dioxide 18 mmol/L; pCO2 37.3 mmHg (35-45); pH 7.26 (7.35-7.45)
[2024-09-20] MEDS: Ceftriaxone 2 GM in 0.9% Normal Saline (50mL MB+) 50 ML IV (14:23)
--- NOTE | 2024-09-20 14:44 | ECHOD_ITS ---
Reason For Study Reason For Study: CHF Procedure This was a 2D Doppler, Color Flow transthoracic echocardiogram. The study was technically difficult. Exam performed portable in ED. Left Ventricle Normal LV size. Mild concentric left ventricular hypertrophy. Severe LV systolic dysfunction. Posterior basal and inferior akinesis. Severe septal hypokinesis. Estimated LVEF 20-25%. Stage III diastolic dysfunction. Increased left atrial filling pressures. Septal wall motion consistent with RV volume and pressure overload. Right Ventricle Normal RV size. ICD or pacer leads identified within the right ventricle. Moderate RV systolic dysfunction. Atria The left atrium is moderately enlarged. The right atrium is mildly enlarged. ICD or pacer leads identified within the right atrium. Mitral Valve Moderate (2+) posteriorly directed mitral valve insufficiency. Tricuspid Valve Mild tricuspid valve insufficiency. Right ventricular systolic pressure estimated to be 52 mmHg. Aortic Valve Trisinus/trileaflet aortic valve. Trivial aortic valve insufficiency. Pulmonic Valve The pulmonic valve is not well visualized. Great Vessels Normal sized aortic root. Pericardium/Pleural Trivial pericardial effusion. MMode/2D Measurements & Calculations LVIDd: 5.5 cm IVSd: 1.3 cm Ao root diam: 3.3 cm LVIDs: 4.5 cm LVPWd: 1.3 cm RVDd: 3.6 cm FS: 19.3 % LAV(MOD-bp): 65.6 ml LVAd ap4: 22.2 cm2 SV(MOD-sp4): 23.4 ml LAV(MOD-bp) Indexed: 32.8 ml/m2 LVLd ap4: 7.0 cm SI(MOD-sp4): 11.7 ml/m2 LAV(MOD-sp2): 63.3 ml EDV(MOD-sp4): 58.1 ml LAV(MOD-sp4): 57.9 ml EDV(sp4-el): 59.4 ml LVAs ap4: 16.1 cm2 LVLs ap4: 6.3 cm ESV(MOD-sp4): 34.6 ml ESV(sp4-el): 34.8 ml EF(MOD-sp4): 40.4 % EF(sp4-el): 41.5 % SV(sp4-el): 24.6 ml LA A4 area: 20.9 cm2 LA dimension(2D): 3.5 cm RA A4 area: 18.4 cm2 TAPSE: 1.3 cm Time Measurements MV dec time: 0.19 sec Doppler Measurements & Calculations MV E max slick: 71.8 cm/sec Lat Peak E' Slick: 7.8 cm/sec Med Peak E' Slick: 7.7 cm/sec MV A max slick: 56.0 cm/sec E/E' lat: 9.2 E/E' med: 9.3 MV E/A: 1.3 Ao V2 max: 86.8 cm/sec LV V1 max: 87.0 cm/sec PA V2 max: 88.6 cm/sec Ao max P.0 mmHg LV V1 max P.0 mmHg TR max slick: 344.6 cm/sec TR max P.5 mmHg ECHO/Echo Complete Interpretation Summary Severe LV systolic dysfunction. Posterior basal and inferior akinesis. Severe s eptal hypokinesis. Estimated LVEF 20-25%. Stage III diastolic dysfunction. Increased left atrial filling pressures. Septal wall motion consistent with RV volume and pressure overload. Moderate RV systolic dysfunction. The left atrium is moderately enlarged. The right atrium is mildly enlarged. Moderate (2+) posteriorly directed mitral valve insufficiency. Mild tricuspid valve insufficiency. Right ventricular systolic pressure estimated to be 52 mmHg. Ordering Physician: Dileep Stanton Referring Physician: HOLLY YODER Performed By: Marianna Coleman RDCS
--- NOTE | 2024-09-20 14:47 | ED.RN ---
son in law took pt. car keys. Pt. will be transported to ICU with his dentures, 2 hearing aids, watch, glasses, wallet, and remaining clothes that were not cut off during CPR
[2024-09-20 14:49] LABS: Pro- Brain NATRIURETIC PEPTIDE 4777 pg/mL (<=1800)
[2024-09-20 14:54] LABS: Bacteria 0 SEEN /hpf (None Seen); Mucous, Urine 0 SEEN /hpf (<or=2+); Squamous Epithelial Cells - UA 0 SEEN /hpf (0-5)
[2024-09-20] MEDS: VIAFLEX IV (14:55)
[2024-09-20] MEDS: HUM PROTHROMBIN CPLX LANS IV (14:55)
[2024-09-20 14:56] LABS: Color, Urine Amber (Yellow); Glucose, Dipstick 50 mg/dl (Normal); Ketone-Dipstick Negative (Negative); Leukocyte Esterase-Dipstick 25 /ul (Negative); Nitrite-Dipstick Negative (Negative); Occult Blood-Urine 250 /ul (Negative); Protein-Dipstick 500 mg/dl (Negative); Specific Gravity, Urine 1.015 (1.002-1.030); Urine Bilirubin Dipstick Negative (Negative); Urine Clarity Sl. Cloudy (Clear); Urine Urobilinogen 8 mg/dl (Normal)
[2024-09-20 15:03] LABS: Lactic Acid 5.5 mmol/L (0.0-2.0)
[2024-09-20] MEDS: Azithromycin 500 MG in 0.9% Normal Saline (250mL Bag) 250 ML 255 MG IV (15:10)
[2024-09-20] MEDS: Furosemide 40 MG/4 ML Vial IV (15:24)
[2024-09-20] MEDS: Lorazepam 2 MG/ML WCH Syringe 0.5 MG IV (15:29)
--- NOTE | 2024-09-20 15:32 | CHAPLAIN ---
Type of Pastoral Visit ___ Initial Visit ___ Follow-up Visit ___ On-call Visit ___ General Patient Visit ___ Spiritual Assessment ___ Family Conference ___ Bereavement ___ Rapid Response _x__ Code Blue ___ Other (describe below) Pastoral Care Referral From ___ Patient ___ Family ___ Nurse ___ Physician ___ Contact Clerk ___ Mold Clamper _x__ Other (describe below) Sacrament/Intervention ___ Active listening ___ Anointing ___ Episcopalian ___ Bereavement ___ Communion ___ Arminda exploration ___ ___ Life review ___ Prayer ___ Reconciliation ___ Sacrament of Sick _x__ Supportive presence ___ Wedding ___ Other (describe below) Pastoral Comments arrived in the ED for this code blue and was told that he had collapsed in the room where his was being treated; sat with the spouse for a time as team worked on this patient; went back and forth occasionally to check on this patient and what was needed for spiritual care there; was present during arrival of other family members; offered support to daughter and son-in-law; stayed with spouse of this patient as process unfolded; will stay available as needed for this family
--- NOTE | 2024-09-20 15:34 | ED.RN ---
1333 triple lumen CVC cath placed in right IF 1341 pt. following commands, trying to speak around tube. Pt. is redirectable
[2024-09-20] MEDS: MethylPREDNISolone 125 MG/2 ML Vial IV (15:47)
[2024-09-20 15:48] LABS: White Blood Cells 0-5 SEEN /hpf (0-5)
[2024-09-20 15:49] LABS: Red Blood Cells-Urine > 100 SEEN /hpf (0-5)
[2024-09-20 15:50] LABS: Coarse Granular Cast 0-5 SEEN /lpf (0-5 /lpf); Fine Granular Cast- Urine 0-5 SEEN /lpf (0-5); Hyaline Cast 0-5 SEEN /lpf (0-5)
--- NOTE | 2024-09-20 15:51 | ED.RN ---
pt daughter took his wallet and pocket knife home
[2024-09-20 15:59] LABS: Base Excess -7 mmol/L (-2 to +2); Bicarbonate 19.1 mmol/L (22-26); Blood Gas Specimen Type ART; Mode AC; O2 Delivery Device Adult Vent; PEEP 14; PO2 51 mmHG (75-100); RR 20; SITE R Brach; SO2 84 % (95-99); Total Carbon Dioxide 20 mmol/L; pCO2 34.8 mmHg (35-45); pH 7.35 (7.35-7.45)
[2024-09-20 16:01] LABS: Bedside Glucose 106 mg/dL (74-106)
--- NOTE | 2024-09-20 16:22 | CASEMGMT ---
Care Management Face to Face with patient for initial transition planning/care coordination assessment in the ED. This telegraphic typewriter repairer introduced self and role at [facility] to patient's daughter, Eliza, who was bedside. Patient on a ventilator following CPR; patient's daughter willing to participate in assessment and is able to answer all questions appropriately. Care providers, pharmacy, and demographics verified. Admitting Diagnosis: Septic shock, Pneumonia, Acute hypoxemic respiratory failure Other diagnosis history: Skin cancer, Myocardial infarction PCP: Gino Hardin Specialists: Shannan Skin, wwe wrestler. Mona, qa internship. Preferred Pharmacy: [facility] ([place]) Insurance: Medicare A B (primary). [place] (secondary). Prescription Benefit: yes Living Will/HPOA: (daughter Eliza is bringing in paperwork; it is believed that Daina is listed first followed by children, Eliza and Gene, though order is unknown; daughter Eliza did express interest in redoing paperwork should patient agree and be able to be considered alert and oriented). LNOK: Daina. DaughterEliza. Son, Gene. Living Arrangements: with in a split level home; 4 steps to enter main level (with kitchen and living room); 7 or 8 steps up to bedroom and bathroom; independent at baseline. Transportation: patient drives DME: pacemaker, blood pressure cuff HHC: none SNF/Rehab: none Community Resources: none Patient goals: Patient's daughter states patient will likely wish to discharge home, but patient's daughter states a desire for patient to go to a SNF. Disposition Plan: admission to acute; RN CM/SW to follow for discharge planning needs that may arise. Irina Hudson, MICRO PALEONTOLOGIST, STAKING TECHNICIAN
[2024-09-20] MEDS: Propofol 10MG/Ml 1,000 MG/100 ML Bottle 5.6 MG CONT INF (16:23)
--- NOTE | 2024-09-20 17:05 | CM.ED ---
Social work Reason for referral: code blue 1315: This SW responded to code graciela called in [facility] ED. Patient was reportedly present in patient's 's room when patient collapsed and went into cardiac arrest. Patient was undergoing CPR when SW arrived to patient's room. Dacia MCHUGH asked this SW to call patient's daughter, Eliza, to update Eliza on patient's current status as Eliza had only been told of patient's collapse and loss of consciousness. This SW called Eliza ([phone]) and updated Eliza on patient's status. Eliza stated being on her way to [facility] ED, but currently being about 30 minutes away due to coming from [place]. Eliza stated Eliza's , Aftab Red, would be arriving before Eliza as Aftab was coming from [place]. This SW encouraged Eliza to drive safely and waited for Aftab's arrival. Aftab arrived a short time later and received an update from this SW and Dacia MCHUGH. This SW provided active listening and supportive presence to Aftab as necessary. 1350: Eliza arrived and this SW greeted Eliza and prepared Eliza to see patient, who was on the ventilator. Eliza and Aftab were updated by Dacia MCHUHG and Dr. Wilkinson on patient's status. This SW provided active listening and supportive presence to Eliza and Aftab as necessary, as well as offered further supports. Throughout time spent with this SW, Eliza asked about HCPOA paperwork and whether or not patient would be alert and oriented enough to make changes to the documents. Eliza shared belief that patient's , Daina, was listed as primary HCPOA with either Eliza or patient's son, Gene, listed next. Eliza voiced feeling as if Daina may not be able to make decisions for patient due to Daina's condition (also present in the ED). This SW encouraged Eliza to bring in current HCPOA paperwork to start and advised Eliza that patient's doctor would help make the determination on whether or not patient could make patient's own medical decisions and change current HCPOA paperwork. SW provided education that acute SWs could help with patient completing new advance directives should patient desire to do so. Eliza stated understanding. Eliza stated patient's son, Gene, should be arriving from [place] around 0500 on 09/21/24. Eliza also stated patient would likely want to go home despite going into cardiac arrest today, though Eliza stated desire for patient to go to SNF upon discharge. SW educated Eliza that patient would undergo PT/OT evaluations that would help to determine necessary discharge plans and acute RN CM/SW team would be available to help facilitate discharge. SW to follow as needed. Irina Hudson, SHEET METAL WORK FURNACE INSTALLER, JEWELRY DRILLING MACHINE OPERATOR
[2024-09-20 17:34] LABS: TROPONIN VARIANCE 2 HR 5; Troponin T High Sens 2 HR 69 ng/L (<=22)
[2024-09-20 17:57] LABS: Allen Test Positive; Base Excess -5 mmol/L (-2 to +2); Bicarbonate 18.7 mmol/L (22-26); Blood Gas Specimen Type ART; Mode AC; O2 Delivery Device Adult Vent; PEEP 14; PO2 83 mmHG (75-100); RR 20; SITE R Radial; SO2 97 % (95-99); Total Carbon Dioxide 20 mmol/L; pCO2 27.7 mmHg (35-45); pH 7.44 (7.35-7.45)
[2024-09-20] MEDS: TITRATION PARAMETER CHANGE 1 EACH IV (18:45)
[2024-09-20 19:33] LABS: Lactic Acid 1.5 mmol/L (0.0-2.0)
[2024-09-20] MEDS: Oseltamivir Phosphate 30 MG Capsule GT (21:34)
[2024-09-21] VITALS (49 sets, daily range): BP systolic 88–147; BP diastolic 58–82; PULSE 60–83; RESP 16–17; TEMP 37.1–37.9; O2SAT 93–100; BMI 30.4
--- NOTE | 2024-09-21 00:16 | PCM.HP.STD ---
HPI - General General Date of Admission: 09/20/24 Date of Service: 09/20/24 Chief Complaint: URI symptoms HPI Narrative JD COSBY, is a 83 M who presented to [facility] ED on 09/20/2024 with worsening URI symptoms. Patient presented to the ED with his who also had URI symptoms. He was able to walk into the ED on his own. Shortly after arrival here, patient passed out and fell to the floor and hit his head. He did wake up and was able to talk to nurses right after this and told them that he was on a blood thinner, but he then lost consciousness. At that time ED physician noted that he was breathing and protecting his airway and withdrawing to pain, so with oxygen support he was transported over to CT. CT brain showed no concerning findings. On arrival back to the room he had poor respiratory excursion and he was emergently intubated at that time. Started after intubation, he was found to have no pulse and CPR was initiated. 1 round of CPR was done and patient was given a dose of epinephrine with recovery of a pulse. Further labs and imaging were obtained and chest x-ray showed severe pulmonary infiltrates bilaterally. He was found to be positive for influenza A. Patient had a central line placed and was initially started on epinephrine drip and then transitioned over to a Levophed drip. He did regain consciousness postintubation and was interacting with staff. However, his oxygen saturations were fairly poor despite being on 100% oxygen so sedation was initiated to improve his oxygen level. He was also given a dose of IV Lasix for this reason. Given these findings, hospitalist was contacted for admission. I saw the patient at bedside in the ED. Patient's was only a few rooms over and the patient's daughter and son-in-law were with her. I spoke with all of them in the 's room at that time. notably has Parkinson disease and is very hard of hearing and did not have her hearing aids in. I spoke primarily to the daughter who was able to write some things down for the , who would then write questions on paper for me. Noted to them that the patient is very sick and is on multiple forms of life support at this time. They were understanding of this. I did clarify CODE STATUS with them and they noted that patient would wish to be full code at this time. Will be admitted for further management. [facility] Medical History Skin cancer Myocardial infarction Presence of combination internal cardiac defibrillator (ICD) and pacemaker Home Medications ?Medication ?Instructions ?Recorded ?Last Taken ?Type aspirin 81 mg capsule 81 mg PO DAILY 03/02/24 Unknown History famotidine 40 mg tablet 40 mg PO DAILY 03/02/24 Unknown History hydralazine 100 mg tablet 100 mg PO BID 03/02/24 Unknown History isosorbide mononitrate 30 mg 30 mg PO DAILY 03/02/24 Unknown History tablet,extended release 24 hr ketorolac 10 mg tablet 10 mg PO 4X/DAY PRN pain 5 days 03/02/24 Unknown Rx #20 tabs metoprolol tartrate 100 mg tablet 100 mg PO BID 03/02/24 Unknown History ondansetron 4 mg disintegrating 4 mg PO TID PRN nausea and 03/02/24 Unknown Rx tablet vomiting #21 tabs oxycodone-acetaminophen 5 mg-325 1 tab PO Q6H PRN pain 3 days #12 03/02/24 Unknown Rx mg tablet (Percocet) tabs ramipril 10 mg capsule 10 mg PO BID 03/02/24 Unknown History rosuvastatin 40 mg tablet 40 mg PO DAILY 03/02/24 Unknown History tamsulosin 0.4 mg capsule 0.4 mg PO DAILY 03/02/24 Unknown History amiodarone 200 mg tablet 200 mg PO Q12H 09/20/24 Unknown History rivaroxaban 20 mg tablet (Xarelto) 20 mg PO DAILY 09/20/24 Unknown History Allergy/AdvReac Type Severity Reaction Status Date / Time No Known Allergies Allergy Verified 03/02/24 03:13 Surgical History S/P triple vessel bypass Social History Smoking Status: Never smoker ROS Review of Systems ROS Unobtainable: due to endotracheal tube Vital Signs Vital Signs Vital Signs: 09/20/24 12:47 09/20/24 12:57 09/20/24 13:11 Temperature 97.4 F L Temperature Source Temporal Pulse Rate 71 Pulse Rate [1] Respiratory Rate 10 L Respiratory Rate [2] Respiratory Effort Respiratory Depth Respiratory Pattern Gasping Blood Pressure 159/27 H Blood Pressure [1] Blood Pressure [2] Blood Pressure Mean 71 Blood Pressure Source Blood Pressure Position Blood Pressure Location Pulse Ox 70 Oxygen Delivery Method Nasal Cannula Ambu-Bag Oxygen Flow Rate (L/min) 2 Fraction of Inspired Oxygen (FIO2) 09/20/24 13:15 09/20/24 13:20 09/20/24 13:30 Temperature Temperature Source Pulse Rate 68 70 61 Pulse Rate [1] Respiratory Rate 22 H 22 H Respiratory Rate [2] Respiratory Effort Respiratory Depth Respiratory Pattern Blood Pressure 142/76 H 121/85 H Blood Pressure [1] Blood Pressure [2] Blood Pressure Mean 98 97 Blood Pressure Source Blood Pressure Position Blood Pressure Location Pulse Ox 92 86 Oxygen Delivery Method Mechanical Ventilator Oxygen Flow Rate (L/min) Fraction of Inspired Oxygen (FIO2) 100 09/20/24 13:52 09/20/24 13:52 09/20/24 14:02 Temperature Temperature Source Pulse Rate 80 81 Pulse Rate [1] Respiratory Rate Respiratory Rate [2] Respiratory Effort Respiratory Depth Respiratory Pattern Blood Pressure 82/53 L 74/52 L 64/48 L Blood Pressure [1] Blood Pressure [2] Blood Pressure Mean 62 59 53 Blood Pressure Source Blood Pressure Position Blood Pressure Location Pulse Ox 78 80 Oxygen Delivery Method Mechanical Ventilator Mechanical Ventilator Oxygen Flow Rate (L/min) Fraction of Inspired Oxygen (FIO2) 09/20/24 14:09 09/20/24 14:14 09/20/24 14:17 Temperature Temperature Source Pulse Rate 77 79 81 Pulse Rate [1] Respiratory Rate Respiratory Rate [2] Respiratory Effort Respiratory Depth Respiratory Pattern Blood Pressure 170/87 H 90/51 L 82/49 L Blood Pressure [1] Blood Pressure [2] Blood Pressure Mean 114 64 60 Blood Pressure Source Blood Pressure Position Blood Pressure Location Pulse Ox 74 72 71 Oxygen Delivery Method Mechanical Ventilator Mechanical Ventilator Oxygen Flow Rate (L/min) Fraction of Inspired Oxygen (FIO2) 09/20/24 14:21 09/20/24 14:26 09/20/24 14:26 Temperature Temperature Source Pulse Rate 81 Pulse Rate [1] 66 Respiratory Rate Respiratory Rate [2] 21 H Respiratory Effort Respiratory Depth Respiratory Pattern Blood Pressure 63/45 L 76/51 L Blood Pressure [1] 76/45 L Blood Pressure [2] 52/42 L Blood Pressure Mean 51 59 Blood Pressure Source Blood Pressure Position Blood Pressure Location Pulse Ox 65 Oxygen Delivery Method Room Air Oxygen Flow Rate (L/min) Fraction of Inspired Oxygen (FIO2) 09/20/24 14:27 09/20/24 14:30 09/20/24 14:30 Temperature Temperature Source Pulse Rate 80 80 75 Pulse Rate [1] Respiratory Rate 20 H Respiratory Rate [2] Respiratory Effort Respiratory Depth Respiratory Pattern Normal Blood Pressure 93/59 L 93/59 L Blood Pressure [1] Blood Pressure [2] Blood Pressure Mean 70 70 Blood Pressure Source Monitor Blood Pressure Position Blood Pressure Location Pulse Ox 73 Oxygen Delivery Method Mechanical Ventilator Oxygen Flow Rate (L/min) Fraction of Inspired Oxygen (FIO2) 100 09/20/24 14:45 09/20/24 14:49 09/20/24 14:52 Temperature 97.4 F L Temperature Source Axillary Pulse Rate 77 Pulse Rate [1] Respiratory Rate 20 H Respiratory Rate [2] Respiratory Effort Respiratory Depth Respiratory Pattern Blood Pressure 110/70 110/70 Blood Pressure [1] Blood Pressure [2] Blood Pressure Mean 83 83 Blood Pressure Source Monitor Blood Pressure Position Blood Pressure Location Pulse Ox 76 Oxygen Delivery Method Mechanical Ventilator Oxygen Flow Rate (L/min) Fraction of Inspired Oxygen (FIO2) 100 09/20/24 15:00 09/20/24 15:00 09/20/24 15:15 Temperature Temperature Source Pulse Rate 77 79 78 Pulse Rate [1] Respiratory Rate Respiratory Rate [2] Respiratory Effort Respiratory Depth Respiratory Pattern Blood Pressure 121/69 H 113/95 H 113/95 H Blood Pressure [1] Blood Pressure [2] Blood Pressure Mean 86 101 101 Blood Pressure Source Monitor Monitor Blood Pressure Position Blood Pressure Location Pulse Ox Oxygen Delivery Method Oxygen Flow Rate (L/min) Fraction of Inspired Oxygen (FIO2) 09/20/24 15:30 09/20/24 15:30 09/20/24 15:52 Temperature Temperature Source Pulse Rate 77 77 76 Pulse Rate [1] Respiratory Rate 20 H 20 H Respiratory Rate [2] Respiratory Effort Respiratory Depth Respiratory Pattern Blood Pressure 126/78 H 126/78 H 108/72 Blood Pressure [1] Blood Pressure [2] Blood Pressure Mean 94 94 84 Blood Pressure Source Monitor Blood Pressure Position Blood Pressure Location Pulse Ox 83 82 Oxygen Delivery Method Mechanical Ventilator Mechanical Ventilator Oxygen Flow Rate (L/min) Fraction of Inspired Oxygen (FIO2) 100 100 09/20/24 16:00 09/20/24 16:00 09/20/24 16:03 Temperature Temperature Source Pulse Rate 70 77 Pulse Rate [1] Respiratory Rate 20 H Respiratory Rate [2] Respiratory Effort Respiratory Depth Respiratory Pattern Blood Pressure 127/77 H 127/77 H Blood Pressure [1] Blood Pressure [2] Blood Pressure Mean 93 93 Blood Pressure Source Monitor Blood Pressure Position Blood Pressure Location Pulse Ox 85 88 Oxygen Delivery Method Mechanical Ventilator Mechanical Ventilator Oxygen Flow Rate (L/min) Fraction of Inspired Oxygen (FIO2) 100 09/20/24 16:15 09/20/24 16:30 09/20/24 17:14 Temperature 97.4 F L Temperature Source Pulse Rate 78 80 Pulse Rate [1] Respiratory Rate 20 H Respiratory Rate [2] Respiratory Effort Respiratory Depth Respiratory Pattern Blood Pressure 130/85 H 128/77 H 112/51 L Blood Pressure [1] Blood Pressure [2] Blood Pressure Mean 100 94 71 Blood Pressure Source Monitor Monitor Blood Pressure Position Blood Pressure Location Pulse Ox 88 Oxygen Delivery Method Oxygen Flow Rate (L/min) Fraction of Inspired Oxygen (FIO2) 09/20/24 17:15 09/20/24 17:30 09/20/24 17:45 Temperature 98.8 F 98.8 F Temperature Source Core Core Pulse Rate 79 77 63 Pulse Rate [1] Respiratory Rate 14 18 18 Respiratory Rate [2] Respiratory Effort Respiratory Depth Respiratory Pattern Blood Pressure 144/86 H 122/79 H 106/73 Blood Pressure [1] Blood Pressure [2] Blood Pressure Mean 105 93 84 Blood Pressure Source Monitor Monitor Monitor Blood Pressure Position Semi-Fowlers Semi-Fowlers Semi-Fowlers Blood Pressure Location Left Arm Left Arm Left Arm Pulse Ox 97 96 99 Oxygen Delivery Method Mechanical Ventilator Mechanical Ventilator Mechanical Ventilator Oxygen Flow Rate (L/min) Fraction of Inspired Oxygen (FIO2) 100 100 100 09/20/24 17:55 09/20/24 18:00 09/20/24 18:00 Temperature 99.1 F Temperature Source Core Pulse Rate 74 74 Pulse Rate [1] Respiratory Rate 20 H 16 Respiratory Rate [2] Respiratory Effort Mechanically Ventilated Respiratory Depth Normal Respiratory Pattern Normal Normal Blood Pressure 109/70 Blood Pressure [1] Blood Pressure [2] Blood Pressure Mean 83 Blood Pressure Source Monitor Blood Pressure Position Semi-Fowlers Blood Pressure Location Left Arm Pulse Ox 99 98 Oxygen Delivery Method Mechanical Ventilator Mechanical Ventilator Oxygen Flow Rate (L/min) Fraction of Inspired Oxygen (FIO2) 90 90 90 09/20/24 18:00 03/03/25 18:30 09/20/24 19:00 Temperature Temperature Source Pulse Rate 73 74 Pulse Rate [1] Respiratory Rate 16 Respiratory Rate [2] Respiratory Effort Respiratory Depth Respiratory Pattern Blood Pressure 105/65 123/75 H Blood Pressure [1] Blood Pressure [2] Blood Pressure Mean 78 91 Blood Pressure Source Monitor Blood Pressure Position Blood Pressure Location Pulse Ox 99 Oxygen Delivery Method Mechanical Ventilator Oxygen Flow Rate (L/min) Fraction of Inspired Oxygen (FIO2) 100 09/20/24 19:59 09/20/24 20:00 09/20/24 20:00 Temperature 99.8 F H Temperature Source Core Pulse Rate 81 66 Pulse Rate [1] Respiratory Rate 16 16 Respiratory Rate [2] Respiratory Effort Mechanically Ventilated Respiratory Depth Normal Respiratory Pattern Normal Normal Blood Pressure 110/67 Blood Pressure [1] Blood Pressure [2] Blood Pressure Mean 81 Blood Pressure Source Monitor Blood Pressure Position Blood Pressure Location Pulse Ox 99 100 Oxygen Delivery Method Mechanical Ventilator Oxygen Flow Rate (L/min) Fraction of Inspired Oxygen (FIO2) 80 100 09/20/24 21:00 09/20/24 22:00 09/20/24 23:00 Temperature 100.3 F H Temperature Source Core Pulse Rate 66 65 69 Pulse Rate [1] Respiratory Rate 16 16 16 Respiratory Rate [2] Respiratory Effort Respiratory Depth Respiratory Pattern Blood Pressure 122/72 H 127/71 H 140/75 H Blood Pressure [1] Blood Pressure [2] Blood Pressure Mean 88 89 96 Blood Pressure Source Monitor Monitor Monitor Blood Pressure Position Blood Pressure Location Pulse Ox 99 99 99 Oxygen Delivery Method Mechanical Ventilator Mechanical Ventilator Mechanical Ventilator Oxygen Flow Rate (L/min) Fraction of Inspired Oxygen (FIO2) 80 80 80 09/20/24 23:30 09/20/24 23:45 09/21/24 00:00 Temperature 100.2 F H Temperature Source Core Pulse Rate 68 71 68 Pulse Rate [1] Respiratory Rate 16 Respiratory Rate [2] Respiratory Effort Respiratory Depth Respiratory Pattern Blood Pressure 136/76 H 126/75 H 126/72 H Blood Pressure [1] Blood Pressure [2] Blood Pressure Mean 96 92 90 Blood Pressure Source Monitor Monitor Monitor Blood Pressure Position Blood Pressure Location Pulse Ox 99 Oxygen Delivery Method Mechanical Ventilator Oxygen Flow Rate (L/min) Fraction of Inspired Oxygen (FIO2) 70 09/21/24 00:00 Temperature 100.2 F H Temperature Source Core Pulse Rate 68 Pulse Rate [1] Respiratory Rate 16 Respiratory Rate [2] Respiratory Effort Respiratory Depth Respiratory Pattern Blood Pressure 126/72 H Blood Pressure [1] Blood Pressure [2] Blood Pressure Mean 90 Blood Pressure Source Monitor Blood Pressure Position Blood Pressure Location Pulse Ox 99 Oxygen Delivery Method Mechanical Ventilator Oxygen Flow Rate (L/min) Fraction of Inspired Oxygen (FIO2) 70 Weight Weight: 84.822 kg Body Mass Index (BMI) 31.1 Physical Exam Const Constitutional Narrative: Intubated and sedated, not following commands. HEENT HEENT Narrative: Small abrasions noted on top of scalp, no lacerations to repair. ET tube in place. Neck supple Resp normal respiratory effort and no use of accessory muscles Resp Narrative: Breathing comfortably on mechanical ventilation. Significant decreased breath sounds bilaterally with crackles noted throughout. Cardio regular rate, regular rhythm and no murmurs GI normal to inspection, nondistended, normoactive bowel sounds, soft to palpation and non-distended Extremity normal to inspection Results Lab / Micro Data 09/20/24 12:50 09/20/24 12:50 Labs: Laboratory Results - last 24 hr 09/20/24 12:49: POC Glucose 106 09/20/24 12:50: WBC 8.3, RBC 3.69 L, Hgb 12.8 L, Hct 39.2 L, MCV 106.2 H, MCH 34.7 H, MCHC 32.7, RDW Std Deviation 57.4 H, RDW Coeff of Harvinder 14.6, Plt Count 130 L, MPV 9.9, Immature Gran % (Auto) 0.500, Neut % (Auto) 64.4, Lymph % (Auto) 22.8, [place] % (Auto) 12.2 H, Eos % (Auto) 0.0, Baso % (Auto) 0.1, Absolute Neuts (auto) 5.4, Absolute Lymphs (auto) 1.89, Nucleated RBC % 0.2, PT 32.5 H, INR 3.1, APTT 41.5 H, Sodium 138, Potassium 4.1, Chloride Direct 103, Carbon Dioxide 19.8 L, Anion Gap 15, BUN 25 H, Creatinine 1.57 H, Estim Creat Clear Calc 37.38 L, Est GFR (MDRD) Non-Af 43 L, BUN/Creatinine Ratio 16.1, Glucose 100 H, Calcium 8.7, Troponin T High Sens 64 H*, B-Natriuretic Peptide Cancelled, NT pro BNP II 4777 H 09/20/24 13:49: Lactic Acid 5.5 H* 09/20/24 14:00: Urine Color Carley, Urine Clarity Sl. Cloudy, Urine pH 6.0, Ur Specific [place] 1.015, Urine Protein 500 H, Urine Glucose (UA) 50 H, Urine Ketones Negative, Urine Occult Blood 250 H, Urine Nitrite Negative, Urine Bilirubin Negative, Urine Urobilinogen 8 H, Ur Leukocyte Esterase 25 H, Urine RBC > 100 SEEN, Urine WBC 0-5 SEEN, Ur Squamous Epith Cells 0 SEEN, Urine Bacteria 0 SEEN, Hyaline Casts 0-5 SEEN, Fine Granular Casts 0-5 SEEN, Coarse Granular Casts 0-5 SEEN, Urine Mucus 0 SEEN 09/20/24 15:40: Troponin T Hi Sens 2 Hr 69 H*, Troponin T Hi Sens 2Hr Delta 5 09/20/24 18:50: Lactic Acid 1.5 Micro: Microbiology 09/20/24 14:00 Urine Catheter - Rowe Legionella Antigen - Final 09/20/24 14:00 Urine Catheter - Rowe Streptococcus pneumoniae Antigen (M - Final 09/20/24 13:49 Mucosa - Nose SARS-CoV-2, Influenza & RSV (PCR) - Final Influenzae A ABG Data ABG results: ABG 09/20/24 09/20/24 09/20/24 14:12 15:35 17:53 Specimen Type ART ART ART Sample Site R Brach R Brach R Radial pH 7.26 L 7.35 7.44 Bicarbonate Actual 16.9 L 19.1 L 18.7 L Total CO2 18 20 20 Base Excess -10 L -7 L -5 L O2 Saturation 87 L 84 L 97 O2 % 100.0 100.0 100.0 ABG pCO2 37.3 34.8 L 27.7 L ABG pO2 59 L 51 L 83 Jamari Test N/A Positive Respiration Rate 16 20 20 O2 Delivery Device Adult Vent Adult Vent Adult Vent Vent Mode AC AC AC Tidal Volume 600.0 600.0 600.0 POC PEEP 14 14 14 Rhythm Strip Rhythm Strip: afib, intermittent vent pacing Rate: 72 Ectopy: None Imaging Radiology Impression Brain CT 09/20/24 12:46 IMPRESSION: Cerebral atrophy in keeping with patient's age. No acute abnormality is seen. Reading Location: [id number] Chest X-Ray 09/20/24 13:40 IMPRESSION: 1. High positioning of the endotracheal tube at the thoracic inlet, recommend advancement of 4-5 cm for optimal placement with radiographic confirmation. Otherwise appropriate positioning of support apparatus. No visible pneumothorax. 2. Patchy bilateral opacities are new/increased from 04/24/2023 and may reflect multifocal pneumonia and/or pulmonary edema. Given vaguely nodular appearance on the left, recommend follow-up to radiographic resolution to ensure no underlying lesion. 3. Cardiomegaly with suspected trace to small left pleural effusion. 4. Additional description as above. Reading Location: [id number] Assessment & Plan Assessment/Plan (1) Influenza A: (2) Cardiopulmonary arrest with successful resuscitation: (3) Acute hypoxemic respiratory failure: (4) Septic shock: (5) Pneumonia: PLAN: Plan Patient is an 83-year-old male who presented [facility] ED on 09/20/2024 with worsening upper respiratory symptoms. 1. Acute hypoxic respiratory failure suspected secondary to influenza A infection with concern for ARDS; cardiac arrest; undifferentiated shock ? Admit under patient status to ICU. Airline Flight Attendant consulted. Patient had cardiac arrest x 2 in the ED requiring 2 doses of epinephrine and 2 rounds of CPR. Chest x-ray with severe bilateral infiltrates concerning for ARDS. Influenza A positive in the ED. Continue mechanical ventilation and wean supplemental oxygen as able. Suspect primarily due to bilateral pneumonia but cannot rule out cardiogenic shock. Stat echo obtained in the ED, read pending. Continue treatment with Levophed for now, wean as able. Treat influenza A infection with Tamiflu. Will continue IV ceftriaxone and azithromycin for antibiotic coverage as well. Appreciate track grinder operator recommendations. 2. Paroxysmal A-fib on Xarelto ? Heart rate normal sinus rhythm in the ED. Did have an elevated INR of 3.1 and patient notably did have blood output from both the ET tube with suctioning and from his urinary catheter. Because of this, was given a dose of Kcentra in the ED. Holding Xarelto for now. Holding home Lopressor as well. Continue cardiac monitoring. 3. Elevated creatinine ? Creatinine 1.57 on admit, baseline unclear but appears to be around 1.2-1.4. Monitor daily BMP and urine output. 4. History of OH, history of pacemaker and ICD placement, hypertension, hyperlipidemia ? Pacemaker was interrogated in the ED and there were no signs of cardiac arrhythmia. Holding home antihypertensives for now in setting of shock. Continue home statin. 5. BPH with obstructive symptoms ? Holding home Flomax for now. 6. Class I obesity ? BMI 31 on admit. Complicates hospital course, care and prognosis. DVT prophylaxis: SCDs CODE STATUS: Full code, verified Expected disposition: TBD Total clinical time spent by myself addressing the patient's medical issues, reviewing all the data, and collaborating with patient's care team: 75 minutes. Charges/Coding Visit Charges Inpatient E&M: 55276 Init Hosp L3
[2024-09-21 03:30] LABS: CPK Total, Creatine Kinase 511 U/L (24-195); Triglycerides 81 mg/dL
[2024-09-21] MEDS: 0.9% Saline Lock 10 ML Syringe IV (03:50)
[2024-09-21] MEDS: Propofol 10MG/Ml 1,000 MG/100 ML Bottle 5.1 MG CONT INF ×2 (03:50→15:33)
[2024-09-21 04:18] LABS: Hemoglobin 10.8 g/dL (13.0-16.5); Mean Corp Hgb Conc 33.8 g/dL (32-36); Mean Corpuscular Hgb 35.1 pg (27.0-32.0); Mean Corpuscular Volume 103.9 fL (80-94); Mean Platelet Vol. 10.1 fl (6.2-12.0); Platelet Count 123 K/mm3 (150-450); RBC Distribution Width SD 56.6 fl (35.1-43.9); Red Blood Count 3.08 M/mm3 (4.6-6.2); White Blood Count 12.2 K/mm3 (4.4-11.0)
[2024-09-21 05:18] LABS: Anion Gap 15 (5-15); BUN 37 mg/dL (4-19); BUN/Creat Ratio 21.4 RATIO (10-20); Calcium,Total 7.8 mg/dL (7.6-11.0); Carbon Dioxide 19.6 mmol/L (21.0-32.0); Chloride 105 mmol/L (98-108); Creatinine, Serum 1.75 mg/dL (0.70-1.20); EST Glomerular Filtration Rate 38 (>60); Estimated Creatinine Clearance 31.42 ml/min (50-250); Glucose 134 mg/dL (70-99); Potassium 3.9 mmol/L (3.3-5.1); Sodium Level 139 mmol/L (133-145)
[2024-09-21] MEDS: Norepinephrine 8 MG in 0.9% Normal Saline (250mL Bag) 242 ML 9.4 MG CONT INF (05:51)
--- NOTE | 2024-09-21 07:38 | EX.PCM.CONCC ---
Assessment & Plan Assessment/Plan (1) Acute hypoxemic respiratory failure: (2) Influenza A: PLAN: Plan RECOMMENDATIONS: 1. Continue to wean FiO2 and PEEP to maintain saturations at or above 90%. 2. Continue to wean Levophed to maintain a mean arterial pressure at or above 65 mmHg. 3. Continue empiric antimicrobials. 4. Continue to hold Xarelto. 5. Continue PPI therapy twice daily. 6. Continue Tamiflu to complete treatment course. 7. Obtain cardiology consultation. Device interrogation was completed yesterday. IMPRESSIONS: 1. Acute hypoxemic respiratory failure The patient was initially evaluated in the emergency department after developing a syncopal event of unclear etiology, with resultant acute hypoxemic respiratory failure, which is likely the consequence of influenza A coupled with possible superimposed decompensated congestive heart failure. The patient does have a known history of coronary artery disease status post CABG and is status post ICD. In light of his presenting symptoms, device interrogation was completed. He did demonstrate an acute drop in his LVEF on echocardiogram, for which cardiology consultation will be obtained. In the interim, the patient will be maintained on Tamiflu. Although there is lower suspicion for secondary bacterial pneumonia, we will continue empiric antibiotics, pending culture results. Given improving respiratory status, recommend holding off on diuresis, given ongoing need for Levophed and evidence of renal insufficiency. 2. Undifferentiated shock I do suspect that this is likely the consequence of the vasodilatory properties of the sedation regimen that the patient is currently on while being ventilated. However, underlying sepsis related to pneumonia and for influenza A is a possibility as well. The patient remains on antimicrobial therapy, pending culture results. Lastly, a cardiogenic etiology is also a possibility, given the patient's acute change in his LVEF. Will await review by cardiology regarding the patient's device interrogation. 3. Acute decompensated congestive heart failure/brief cardiac arrest with ROSC Continue current supportive measures. Given the patient's acute change in his LVEF noted on echocardiogram, will obtain cardiology consultation. 4. Acute on chronic kidney disease Most likely prerenal in etiology in the setting of #2. Continue supportive measures including vasopressor support to maintain hemodynamic stability. Continue to hold nephrotoxic medications. Will continue to monitor urine output. There is no current indication for renal replacement therapy. 5. Anemia/thrombocytopenia The patient did develop blood output from his endotracheal and OG tubes overnight in the setting of systemic anticoagulation with Xarelto, which has been placed on hold. The patient's hemoglobin did drop 2 g over the last 24 hours. Gastroenterology consultation is currently pending. Will continue PPI therapy twice daily for now. 6. History of atrial fibrillation/history of four-vessel CABG/hypertension/hyperlipidemia Complicates care, management, recovery and prognosis. Agree with holding Xarelto. Continue supportive measures as noted above. Antihypertensives will remain on hold. TIME: 42 minutes of critical care time, independent of procedures, was spent addressing the patient's acute hypoxemic respiratory failure, undifferentiated shock, acute decompensated heart failure, acute on chronic kidney disease, anemia, review of all data and collaboration with the care team. HPI Consult Data Date of Consult: 09/21/24 HPI Narrative Reason for Consultation: Respiratory failure HPI Narrative: The patient is an 83-year-old male, with a history as outlined below, who was initially visiting his while in the emergency department on September 20, only to develop a syncopal event which led to him falling to the floor and hitting his head. The patient was immediately attended to by ED personnel. According to family, the patient, much like his , has been dealing with URI symptoms over the course of the last week. The patient has a known history of paroxysmal atrial fibrillation on Xarelto along with history of myocardial infarction status post pacemaker and ICD placement. His family was able to confirm to me that the patient underwent a four-vessel CABG approximately 20 years ago and is currently followed by a celebrity manager at [facility]. Shortly after his initial evaluation by the ED provider, the patient became pulseless and ACLS was initiated. We did receive 1 round of epinephrine with subsequent ROSC. The patient was ultimately intubated in this process. Following ROSC, the patient was persistently hypotensive, for which Levophed was initiated and a central venous catheter was placed. Laboratory evaluation was notable for a normal white blood cell count. Hemoglobin was within normal limits. Platelet count was low at 130,000. Coagulation profile was notable for an INR of 3.1. Initial arterial blood gas was notable for a pH of 7.26 with a pCO2 of 37 and pO2 of 59. Chemistry profile was notable for a bicarbonate of 20, BUN of 25 and creatinine of 1.57. Lactate was elevated at 5.5. Troponin was increased at 64 with a BNP of 4777. CT head revealed no acute intracranial abnormality. Chest x-ray demonstrated cardiomegaly with bilateral pulmonary opacities. Influenza A PCR was positive. The patient was placed on antimicrobials and admitted to the medical intensive care unit for further management. Surface echocardiogram demonstrated mild concentric LVH with severe LV dysfunction and an ejection fraction of 20 to 25%. Right ventricular systolic pressure was estimated to be 52 mmHg. Previously, in April 2024, the patient was noted to have an ejection fraction of approximately 50%. This morning, the patient's respiratory status is slowly improving. He remains on assist-control mode mechanical ventilation with an FiO2 requirement of 40% and PEEP of 10. He remains sedated on propofol but is alert and appropriately interactive. He remains on Levophed at 5 mcg/min. Overnight, the patient did have bright red blood noted from his endotracheal tube and OG tube. His hemoglobin has dropped approximately 2 g since yesterday. His creatinine has increased to 1.75. His home Xarelto is on hold, accordingly. [facility] Medical History Skin cancer Myocardial infarction Presence of combination internal cardiac defibrillator (ICD) and pacemaker Home Medications ?Medication ?Instructions ?Recorded ?Last Taken ?Type aspirin 81 mg capsule 81 mg PO DAILY heart 03/02/24 Unknown History famotidine 40 mg tablet 40 mg PO DAILY gi 03/02/24 Unknown History hydralazine 100 mg tablet 100 mg PO BID bp 03/02/24 Unknown History isosorbide mononitrate 30 mg 30 mg PO DAILY heart 03/02/24 Unknown History tablet,extended release 24 hr metoprolol tartrate 100 mg tablet 100 mg PO BID bp 03/02/24 Unknown History ramipril 10 mg capsule 10 mg PO BID heart 03/02/24 Unknown History rosuvastatin 40 mg tablet 40 mg PO DAILY cholestrol 03/02/24 Unknown History tamsulosin 0.4 mg capsule 0.4 mg PO DAILY bph 03/02/24 Unknown History amiodarone 200 mg tablet 200 mg PO DAILY cardiac 09/20/24 Unknown History rivaroxaban 20 mg tablet (Xarelto) 20 mg PO DAILY blood thinner 09/20/24 Unknown History Allergy/AdvReac Type Severity Reaction Status Date / Time No Known Allergies Allergy Verified 03/02/24 03:13 Surgical History S/P triple vessel bypass Social History Smoking Status: Never smoker ROS Review of Systems ROS Unobtainable: due to endotracheal tube Physical Exam Const Constitutional Narrative: Intubated, sedated and mechanically ventilated. No ventilator dyssynchrony noted. HEENT head/scalp atraumatic and moist oral mucous membranes Mouth: endotracheal tube in place and OG tube in place Eyes EOMs intact bilaterally and conjunctivae normal Neck supple General: trachea midline and CVC in place Chest inspection of chest normal Resp normal respiratory effort Auscultation: diminished lung sounds Cardio regular rate and regular rhythm GI soft to palpation and non-tender Extremity General Extremity: edema bilateral lower extremity; Negative for clubbing Skin no rashes or lesions noted Neuro no focal motor deficits Sensorium / Orientation: sedated on vent Lab / Micro Data 09/21/24 03:55 09/21/24 03:55 Labs: Laboratory Results - last 24 hr 09/20/24 12:49: POC Glucose 106 09/20/24 12:50: WBC 8.3, RBC 3.69 L, Hgb 12.8 L, Hct 39.2 L, MCV 106.2 H, MCH 34.7 H, MCHC 32.7, RDW Std Deviation 57.4 H, RDW Coeff of Harvinder 14.6, Plt Count 130 L, MPV 9.9, Immature Gran % (Auto) 0.500, Neut % (Auto) 64.4, Lymph % (Auto) 22.8, [place] % (Auto) 12.2 H, Eos % (Auto) 0.0, Baso % (Auto) 0.1, Absolute Neuts (auto) 5.4, Absolute Lymphs (auto) 1.89, Nucleated RBC % 0.2, PT 32.5 H, INR 3.1, APTT 41.5 H, Sodium 138, Potassium 4.1, Chloride Direct 103, Carbon Dioxide 19.8 L, Anion Gap 15, BUN 25 H, Creatinine 1.57 H, Estim Creat Clear Calc 37.38 L, Est GFR (MDRD) Non-Af 43 L, BUN/Creatinine Ratio 16.1, Glucose 100 H, Calcium 8.7, Total Creatine Kinase 511 H, Troponin T High Sens 64 H*, B-Natriuretic Peptide Cancelled, NT pro BNP II 4777 H, Triglycerides 81 09/20/24 13:49: Lactic Acid 5.5 H* 09/20/24 14:00: Urine Color Carley, Urine Clarity Sl. Cloudy, Urine pH 6.0, Ur Specific [place] 1.015, Urine Protein 500 H, Urine Glucose (UA) 50 H, Urine Ketones Negative, Urine Occult Blood 250 H, Urine Nitrite Negative, Urine Bilirubin Negative, Urine Urobilinogen 8 H, Ur Leukocyte Esterase 25 H, Urine RBC > 100 SEEN, Urine WBC 0-5 SEEN, Ur Squamous Epith Cells 0 SEEN, Urine Bacteria 0 SEEN, Hyaline Casts 0-5 SEEN, Fine Granular Casts 0-5 SEEN, Coarse Granular Casts 0-5 SEEN, Urine Mucus 0 SEEN 09/20/24 15:40: Troponin T Hi Sens 2 Hr 69 H*, Troponin T Hi Sens 2Hr Delta 5 09/20/24 18:50: Lactic Acid 1.5 09/21/24 03:55: WBC 12.2 H, RBC 3.08 L, Hgb 10.8 L, Hct 32.0 L, MCV 103.9 H, MCH 35.1 H, MCHC 33.8, RDW Std Deviation 56.6 H, RDW Coeff of Harvinder 15.0 H, Plt Count 123 L, MPV 10.1, Sodium 139, Potassium 3.9, Chloride 105, Carbon Dioxide 19.6 L, Anion Gap 15, BUN 37 H, Creatinine 1.75 H, Estim Creat Clear Calc 31.42 L, Est GFR (MDRD) Non-Af 38 L, BUN/Creatinine Ratio 21.4 H, Glucose 134 H, Calcium 7.8 Micro: Microbiology 09/20/24 14:00 Urine Catheter - Rowe Legionella Antigen - Final 09/20/24 14:00 Urine Catheter - Rowe Streptococcus pneumoniae Antigen (M - Final 09/20/24 13:49 Mucosa - Nose SARS-CoV-2, Influenza & RSV (PCR) - Final Influenzae A ABG Data ABG results: ABG 09/20/24 09/20/24 09/20/24 14:12 15:35 17:53 Specimen Type ART ART ART Sample Site R Brach R Brach R Radial pH 7.26 L 7.35 7.44 Bicarbonate Actual 16.9 L 19.1 L 18.7 L Total CO2 18 20 20 Base Excess -10 L -7 L -5 L O2 Saturation 87 L 84 L 97 O2 % 100.0 100.0 100.0 ABG pCO2 37.3 34.8 L 27.7 L ABG pO2 59 L 51 L 83 Jamari Test N/A Positive Respiration Rate 16 20 20 O2 Delivery Device Adult Vent Adult Vent Adult Vent Vent Mode AC AC AC Tidal Volume 600.0 600.0 600.0 POC PEEP 14 14 14 Rhythm Strip Rhythm Strip: afib, intermittent vent pacing Rate: 72 Ectopy: None Imaging Radiology Impression Brain CT 09/20/24 12:46 IMPRESSION: Cerebral atrophy in keeping with patient's age. No acute abnormality is seen. Reading Location: [facility] Chest X-Ray 09/20/24 13:40 IMPRESSION: 1. High positioning of the endotracheal tube at the thoracic inlet, recommend advancement of 4-5 cm for optimal placement with radiographic confirmation. Otherwise appropriate positioning of support apparatus. No visible pneumothorax. 2. Patchy bilateral opacities are new/increased from 04/24/2023 and may reflect multifocal pneumonia and/or pulmonary edema. Given vaguely nodular appearance on the left, recommend follow-up to radiographic resolution to ensure no underlying lesion. 3. Cardiomegaly with suspected trace to small left pleural effusion. 4. Additional description as above. Reading Location: [facility] Charges/Coding Procedures Hospitalists Procedures: 52368 Critical Care 1st Hr
[2024-09-21] MEDS: Ceftriaxone 2 GM in 0.9% Normal Saline (50mL MB+) 50 ML IV (07:40)
[2024-09-21] MEDS: Azithromycin 500 MG in 0.9% Normal Saline (250mL Bag) 250 ML 255 MG IV (07:51)
[2024-09-21] MEDS: OSELTAMIVIR PHOSPHATE 6 MG/ML BOTTLE 30 MG GT ×2 (08:28→20:33)
[2024-09-21] MEDS: Pantoprazole Sodium 40 MG in 0.9% Normal Saline (100mL MB+) 100 ML 330 MG IV ×2 (08:28→20:33)
[2024-09-21] MEDS: Chlorhexidine 15 ML PO ×2 (08:33→20:32)
--- NOTE | 2024-09-21 08:37 | PN.HOSP_ITS ---
Subjective Subjective Intubated seems a little bit alert today though. Indicating he is having some belly pain Objective Data Objective Data Vital Signs: Vital Signs Temp Pulse Resp BP Pulse Ox O2 Del Method O2 Flow Rate 98.8 F 66 16 115/68 98 Mechanical Ventilator 2 09/21/24 08:00 09/21/24 08:00 09/21/24 08:00 09/21/24 08:32 09/21/24 08:00 09/21/24 08:00 09/20/24 12:47 FiO2 40 09/21/24 08:00 Oxygen Flow Rate (L/min) 2 Oxygen Delivery Method Mechanical Ventilator Weight: 182 lb 12.211 oz Body Mass Index (BMI) 30.4 Intake & Output: Intake and Output for Last 24 Hours 09/20/24 09/21/24 09/22/24 03:59 03:59 03:59 Intake Total 2845.24 / 2855.49 111.20 / 111.20 Output Total 1150 / 1150 450 / 450 Balance 1695.24 / 1705.49 -338.80 / -338.80 Lab / Micro Data 09/21/24 03:55 09/21/24 03:55 Labs: Laboratory Results - last 24 hr 09/20/24 12:49: POC Glucose 106 09/20/24 12:50: WBC 8.3, RBC 3.69 L, Hgb 12.8 L, Hct 39.2 L, MCV 106.2 H, MCH 34.7 H, MCHC 32.7, RDW Std Deviation 57.4 H, RDW Coeff of Harvinder 14.6, Plt Count 130 L, MPV 9.9, Immature Gran % (Auto) 0.500, Neut % (Auto) 64.4, Lymph % (Auto) 22.8, [place] % (Auto) 12.2 H, Eos % (Auto) 0.0, Baso % (Auto) 0.1, Absolute Neuts (auto) 5.4, Absolute Lymphs (auto) 1.89, Nucleated RBC % 0.2, PT 32.5 H, INR 3.1, APTT 41.5 H, Sodium 138, Potassium 4.1, Chloride Direct 103, Carbon Dioxide 19.8 L, Anion Gap 15, BUN 25 H, Creatinine 1.57 H, Estim Creat Clear Calc 37.38 L, Est GFR (MDRD) Non-Af 43 L, BUN/Creatinine Ratio 16.1, Glucose 100 H, Calcium 8.7, Total Creatine Kinase 511 H, Troponin T High Sens 64 H*, B-Natriuretic Peptide Cancelled, NT pro BNP II 4777 H, Triglycerides 81 09/20/24 13:49: Lactic Acid 5.5 H* 09/20/24 14:00: Urine Color Carley, Urine Clarity Sl. Cloudy, Urine pH 6.0, Ur Specific [place] 1.015, Urine Protein 500 H, Urine Glucose (UA) 50 H, Urine Ketones Negative, Urine Occult Blood 250 H, Urine Nitrite Negative, Urine Bilirubin Negative, Urine Urobilinogen 8 H, Ur Leukocyte Esterase 25 H, Urine RBC > 100 SEEN, Urine WBC 0-5 SEEN, Ur Squamous Epith Cells 0 SEEN, Urine Bacteria 0 SEEN, Hyaline Casts 0-5 SEEN, Fine Granular Casts 0-5 SEEN, Coarse Granular Casts 0-5 SEEN, Urine Mucus 0 SEEN 09/20/24 15:40: Troponin T Hi Sens 2 Hr 69 H*, Troponin T Hi Sens 2Hr Delta 5 09/20/24 18:50: Lactic Acid 1.5 09/21/24 03:55: WBC 12.2 H, RBC 3.08 L, Hgb 10.8 L, Hct 32.0 L, MCV 103.9 H, MCH 35.1 H, MCHC 33.8, RDW Std Deviation 56.6 H, RDW Coeff of Harvinder 15.0 H, Plt Count 123 L, MPV 10.1, Sodium 139, Potassium 3.9, Chloride 105, Carbon Dioxide 19.6 L, Anion Gap 15, BUN 37 H, Creatinine 1.75 H, Estim Creat Clear Calc 31.42 L, Est GFR (MDRD) Non-Af 38 L, BUN/Creatinine Ratio 21.4 H, Glucose 134 H, Calcium 7.8 Micro: Microbiology 09/20/24 14:00 Urine Catheter - Rowe Legionella Antigen - Final 09/20/24 14:00 Urine Catheter - Rowe Streptococcus pneumoniae Antigen (M - Final 09/20/24 13:49 Mucosa - Nose SARS-CoV-2, Influenza & RSV (PCR) - Final Influenzae A ABG Data ABG results: ABG 09/20/24 09/20/24 09/20/24 14:12 15:35 17:53 Specimen Type ART ART ART Sample Site R Brach R Brach R Radial pH 7.26 L 7.35 7.44 Bicarbonate Actual 16.9 L 19.1 L 18.7 L Total CO2 18 20 20 Base Excess -10 L -7 L -5 L O2 Saturation 87 L 84 L 97 O2 % 100.0 100.0 100.0 ABG pCO2 37.3 34.8 L 27.7 L ABG pO2 59 L 51 L 83 Jamari Test N/A Positive Respiration Rate 16 20 20 O2 Delivery Device Adult Vent Adult Vent Adult Vent Vent Mode AC AC AC Tidal Volume 600.0 600.0 600.0 POC PEEP 14 14 14 Radiography Diagnostic Testing: Radiology Impression Brain CT 09/20/24 12:46 IMPRESSION: Cerebral atrophy in keeping with patient's age. No acute abnormality is seen. Reading Location: [id number] Chest X-Ray 09/20/24 13:40 IMPRESSION: 1. High positioning of the endotracheal tube at the thoracic inlet, recommend advancement of 4-5 cm for optimal placement with radiographic confirmation. Otherwise appropriate positioning of support apparatus. No visible pneumothorax. 2. Patchy bilateral opacities are new/increased from 04/24/2023 and may reflect multifocal pneumonia and/or pulmonary edema. Given vaguely nodular appearance on the left, recommend follow-up to radiographic resolution to ensure no underlying lesion. 3. Cardiomegaly with suspected trace to small left pleural effusion. 4. Additional description as above. Reading Location: [id number] Rhythm Strip Rhythm Strip: afib, intermittent vent pacing Rate: 72 Ectopy: None Physical Exam Const General Appearance: intubated and patient mechanically ventilated HEENT normocephalic Eyes PERRL and conjunctivae normal Neck supple and no JVD Resp normal respiratory effort, no retractions and no use of accessory muscles Auscultation: Negative for crackles, rales, rhonchi or wheezes Cardio regular rate, regular rhythm, S1 normal heart sound, S2 normal heart sound and no murmurs GI soft to palpation and non-distended; Negative for hepatosplenomegaly Extremity no clubbing, cyanosis or edema Skin no rashes or lesions noted Neuro Sensorium / Orientation: sedated on vent Psych Appearance: intubated Assessment & Plan Assessment/Plan (1) Influenza A: (2) Cardiopulmonary arrest with successful resuscitation: (3) Acute hypoxemic respiratory failure: (4) Septic shock: (5) Pneumonia: PLAN: Plan Patient is an 83-year-old male who presented [facility] ED on 09/20/2024 with worsening upper respiratory symptoms. 1. Acute hypoxic respiratory failure suspected secondary to influenza A infection with concern for ARDS; cardiac arrest; undifferentiated shock/GI bleed ? Admit under patient status to ICU. Audiovisual Technician consulted. Patient had cardiac arrest x 2 in the ED requiring 2 doses of epinephrine and 2 rounds of CPR. Chest x-ray with severe bilateral infiltrates concerning for ARDS. Influenza A positive in the ED. Continue mechanical ventilation and wean supplemental oxygen as able. Suspect primarily due to bilateral pneumonia but cannot rule out cardiogenic shock. Stat echo obtained in the ED, read pending. Continue treatment with Levophed for now, wean as able. Treat influenza A infection with Tamiflu. Will continue IV ceftriaxone and azithromycin for antibiotic coverage as well. Appreciate production machine operator recommendations. 09/21/2024: Remain intubated today, appreciate production machine operator assistance. Will consult gastroenterology for possibility of a bedside EGD given the blood coming out of the NG tube, there is some discrepancy as to whether or not there was bleeding before her after CPR was initiated and the emergency room. Continue with PPI 2. Paroxysmal A-fib on Xarelto ? Heart rate normal sinus rhythm in the ED. Did have an elevated INR of 3.1 and patient notably did have blood output from both the ET tube with suctioning and from his urinary catheter. Because of this, was given a dose of Kcentra in the ED. Holding Xarelto for now. Holding home Lopressor as well. Continue cardiac monitoring. 09/21/2024: Continue to hold Xarelto as well as his aspirin secondary to blood in his NG tube. 3. Elevated creatinine ? Creatinine 1.57 on admit, baseline unclear but appears to be around 1.2-1.4. Monitor daily BMP and urine output. 4. History of UT, history of pacemaker and ICD placement, hypertension, hyperlipidemia ? Pacemaker was interrogated in the ED and there were no signs of cardiac arrhythmia. Holding home antihypertensives for now in setting of shock. Continue home statin. 5. BPH with obstructive symptoms ? Holding home Flomax for now. 6. Class I obesity ? BMI 31 on admit. Complicates hospital course, care and prognosis. DVT: SCDs Charges/Coding Visit Charges Inpatient E&M: 32229 Subs Hosp L2
--- NOTE | 2024-09-21 10:41 | CASEMGMT ---
Addendum entered by Sherley Valdez 09/21/24 12:52: Social Work SW did send initial clinical information to check on bed availability for pt, and they would have a bed for pt. SW will continue to follow. CEZAR Noe Original Note: Social Work SW participated in ICU rounds, then spoke w/son Gene, daughter Eliza and daughter in law Maynor after rounds. Family does feel pt will need to go to SNF after his hospital stay, but will push to go home. Pt normally takes care of his at home. She is currently in the hospital as well and plan will be for SNF for her. SW did provide to family a list from [facility] of care home facilities in network with pt's insurance, in pt's preferred geographic area, and complete w/quality and resource use data. Family states they would want pt to go to [facility]. They also think pt and need 24/7 care at home and want to ecourage this. SW explained will make referral when appropriate. SW will continue to follow. CEZAR Noe
--- NOTE | 2024-09-21 12:49 | CON.PCM.CA_ITS ---
Assessment & Plan Assessment/Plan (1) Paroxysmal A-fib: PLAN: We are having the ICD device interrogated to see if we can determine the duration of his atrial fibrillation and when it started. It does not appear that he had a ventricular arrhythmia as witnessed during the resuscitation effort. However we should be able to determine that by evaluating the electrograms from the device. The patient was on amiodarone in the home environment and Xarelto suggesting that his atrial fibrillation was probably at least paroxysmal if not longstanding. I did obtain the report from the device interrogation the patient has 2 VT zones of greater than 170 bpm. He has been 100% atrial fibs flutter from May to July 2024. Since that time he has been 32% in atrial tach atrial flutter. He has a controlled ventricular rate of 70 bpm when he goes into atrial tach. He is 90% atrially paced and 15% ventricular paced. There was no VT or VF on the day of his arrest. (2) Cardiopulmonary arrest with successful resuscitation: PLAN: Patient arrested in the emergency department when he was there with his . He fell and hit his head but his CT was negative for any intracranial new event. He is now alert intubated and awake. Initially his lactic acid was 5.5 it did come down to normal range. And his renal function has deteriorated slightly. (3) Acute hypoxemic respiratory failure: PLAN: Patient remains intubated on the ventilator he is being weaned and managed by the security operations center operator. (4) Influenza A: PLAN: Patient's nasal swab was positive for influenza A. (5) HFrEF (heart failure with reduced ejection fraction): PLAN: Patient's EF is dropped down to around 20%. He is already on good guideline directed medical therapy with combination hydralazine and Isorbid mononitrate he is also on metoprolol ramipril and amiodarone to control his rhythm. The only thing left to consider would be adding an SGLT2 inhibitor and/or spironolactone. Given his rising renal insufficiency I would defer spironolactone at this time. (6) CAD (coronary atherosclerotic disease) without angina pectoris: QUALIFIERS: Coronary Disease-Associated Artery/Lesion type: [place] artery [place] vs. transplanted heart: [place] heart Qualified Code(s): I25.10 - Atherosclerotic heart disease of [place] coronary artery without angina pectoris PLAN: Patient status post remote four-vessel coronary bypass graft surgery receiving a JUDD to the LAD vein graft to the OM branch of the circumflex and vein graft to the diagonal branch he also had a radial graft to the distal right coronary which did not develop completely. His last catheterization was 2017 that showed all the graft to be patent but the radial graft was underdeveloped but patent. The patient historically has had an old inferior wall infarct EF was 45% on an echocardiogram done back in 2023. I do not feel that the minimal increase in his high-sensitivity troponin T's represent a primary ischemic event. He does have small vessel distal disease and with his arrest you would expect some bump in his enzymes. His EKG is not consistent with an acute coronary STEMI. PLAN: Plan 1. The patient's LV dysfunction will need to be addressed with aggressive guideline directed medical therapy. 2. The patient's CHILLER HAND-D appears to be functioning normally. He is 32% of the time in atrial fibs/atrial tachycardia. When he goes into this rate his ventricular rate defaults to 70 bpm biventricular pacing BiV. Normally he is atrially paced 90% of the time and ventricular paced 15% of the time. Usually for someone to get maximum benefit from resynchronization therapy they need to be 95 to 99% of the time ventricular paced. This will be addressed by the patient's EP physicians at [facility]. 3. I will follow-up with you as directed once the patient is extubated he should be able to be followed up by his primary under cutting machine operator at [facility] in [place]. HPI Consult Data Date of Consult: 09/21/24 HPI Narrative Reason for Consultation: Presumed PEA arrest. HPI Narrative: JD COSBY, is a 83 M who presents patient presented yesterday to the hospital with his who had influenza. While in the hospital the patient became dizzy he had a syncopal episode and hit his head. He was alert and then went out again CTA did not show any significant intracerebral issues. His device which was an ICD did not fire his best anyone could tell. It did not appear that he was in a tachyarrhythmia at the time of his event. Interrogation of the device was performed I am trying to review the device materials and get an automotive center manager to evaluate this as well. Currently the patient is intubated he is alert and can write answers to questions on the piece of paper. He is aware of who his physicians are at [facility] and I was able to get some information. The patient had remote bypass graft surgery receiving a JUDD to the LAD a vein graft to the diagonal and a vein graft to the OM branch of the circumflex as well as a radial graft to the right coronary artery. He had a repeat catheterization in 2017 which showed the JUDD graft in the to vein graft to be widely patent. His radial graft was underdeveloped but patent. It goes to a PDA which is occluded and he had a 50-60% in-stent restenosis of an old stent in the right coronary artery. This was unchanged from a previous catheterization. The patient's last office visit he was noted to be complaining of some dyspnea on exertion which apparently has been chronic but progressive. He had an echocardiogram done April 2024 which showed an LV ejection fraction of 50% with inferior wall wall motion abnormalities. He had mild mitral and tricuspid regurgitation with a pulmonary artery pressure estimated 70 mmHg. The patient is echocardiogram done on this admission showed a significant fall and his ejection fraction to 20%. He had RV changes consistent with volume and pressure overload his pulmonary artery pressure was estimated 52. He did have stage III diastolic dysfunction and severe global as well as segmental wall motion abnormality of his left ventricle. Currently the patient is resting comfortably remains intubated but alert. [facility] Medical History Skin cancer Myocardial infarction Presence of combination internal cardiac defibrillator (ICD) and pacemaker Home Medications ?Medication ?Instructions ?Recorded ?Last Taken ?Type aspirin 81 mg capsule 81 mg PO DAILY heart 4 Unknown History famotidine 40 mg tablet 40 mg PO DAILY gi 03/02/24 U nknown History hydralazine 100 mg tablet 100 mg PO BID bp 03/02/24 Un known History isosorbide mononitrate 30 mg 30 mg PO DAILY heart 02/18 10/11 Unknown History tablet,extended release 24 hr metoprolol tartrate 100 mg tablet 100 mg PO BID bp Unknown History ramipril 10 mg capsule 10 mg PO BID heart 03/02/24 Unknown History rosuvastatin 40 mg tablet 40 mg PO DAILY cholestrol Unknown History tamsulosin 0.4 mg capsule 0.4 mg PO DAILY bph 03/02/24 Unknown History amiodarone 200 mg tablet 200 mg PO DAILY cardiac 10/12 Unknown History rivaroxaban 20 mg tablet (Xarelto) 20 mg PO DAILY bloo d thinner 09/20/24 Unknown History Allergy/AdvReac Type Severity Reaction Status Date / Time No Known Allergies Allergy Verified 03/02/24 03:13 Surgical History S/P triple vessel bypass Social History Smoking Status: Never smoker ROS Review of Systems ROS Unobtainable: due to endotracheal tube Physical Exam Narrative Patient is intubated but can respond by writing answers to some questions. The patient's upper extremity show multiple ecchymotic areas and are mildly edematous. Const Constitutional Narrative: Arousable HEENT normocephalic HEENT Narrative: Endotracheal tube in place. Eyes PERRL Neck no JVD Chest Chest: midline sternotomy incision and left pectoral incision Resp normal respiratory effort Resp Narrative: Scattered rhonchi due to the endotracheal intubation. Cardio Cardio Narrative: Distant heart tones and difficult to auscultate but no obvious murmurs. Rate: regular rate Rhythm: regular rhythm Heart Sounds: S1 normal and S2 normal; Negative for click, gallop or murmur GI soft to palpation Extremity General Extremity: edema bilateral lower extremity Details: trace Skin General Skin Exam: ecchymosis Psych Psych Narrative: Patient is intubated. Risk Stratification Risk Stratification Applicable: Yes Age >/= 65: Yes >/= 3 CAD Risk Factors (HTN, HLD, DM, family hx of CAD, or current smoker): Yes Aspirin Use in the Past 7 Days: Yes Severe Angina (>/= episodes in 24 hours): No EKG ST Changes >/= 0.5mm: No Positive Cardiac Marker: Yes GABY Risk Stratification Score: 4 GABY % Risk: 20% Risk Charges/Coding Visit Charges Inpatient E&M: 60125 Init Hosp L3 Objective Data Vital Signs: Vital Signs Temp Pulse Resp BP Pulse Ox O2 Del Method O2 Flow Rate 98.9 F 81 16 108/61 98 Mechanical Ventilator 2 09/21/24 12:00 09/21/24 12:05 09/21/24 12:09/21/24 12:00 09/21/24 12:05 09/21/24 12:00 09/20/24 12:47 FiO2 40 09/21/24 12:05 Oxygen Flow Rate (L/min) 2 Oxygen Delivery Method Mechanical Ventilator Weight: 182 lb 12.211 oz Body Mass Index (BMI) 30.4 Intake & Output: Intake and Output for Last 24 Hours 09/19/24 09/20/24 09/21/24 23:59 23:59 23:59 Intake Total 2767.09 / 2804.54 569.65 / 569.65 Output Total 800 / 1150 925 / 925 Balance 1967.09 / 1654.54 -355.35 / -355.35 Lab / Micro Data Attestation: I reviewed the patient's lab results. 09/21/24 13:35 09/21/24 03:55 Labs: Laboratory Results - last 24 hr 09/20/24 12:49: POC Glucose 106 09/20/24 12:50: WBC 8.3, RBC 3.69 L, Hgb 12.8 L, Hct 39.2 L, MCV 106.2 H, MCH 34.7 H, MCHC 32.7, RDW Std Deviation 57.4 H, RDW Coeff of Harvinder 14.6, Plt Count 130 L, MPV 9.9, Immature Gran % (Auto) 0.500, Neut % (Auto) 64.4, Lymph % (Auto) 22.8, [place] % (Auto) 12.2 H, Eos % (Auto) 0.0, Baso % (Auto) 0.1, Absolute Neuts (auto) 5.4, Absolute Lymphs (auto) 1.89, Nucleated RBC % 0.2, PT 32.5 H, INR 3.1, APTT 41.5 H, Sodium 138, Potassium 4.1, Chloride Direct 103, Carbon Dioxide 19.8 L, Anion Gap 15, BUN 25 H, Creatinine 1.57 H, Estim Creat Clear Calc 37.38 L, Est GFR (MDRD) Non-Af 43 L, BUN/Creatinine Ratio 16.1, Glucose 100 H, Calcium 8.7, Total Creatine Kinase 511 H, Troponin T High Sens 64 H*, B-Natriuretic Peptide Cancelled, NT pro BNP II 4777 H, Triglycerides 81 09/20/24 13:49: Lactic Acid 5.5 H* 09/20/24 14:00: Urine Color Carley, Urine Clarity Sl. Cloudy, Urine pH 6.0, Ur Specific [place] 1.015, Urine Protein 500 H, Urine Glucose (UA) 50 H, Urine Ketones Negative, Urine Occult Blood 250 H, Urine Nitrite Negative, Urine Bilirubin Negative, Urine Urobilinogen 8 H, Ur Leukocyte Esterase 25 H, Urine RBC > 100 SEEN, Urine WBC 0-5 SEEN, Ur Squamous Epith Cells 0 SEEN, Urine Bacteria 0 SEEN, Hyaline Casts 0-5 SEEN, Fine Granular Casts 0-5 SEEN, Coarse Granular Casts 0-5 SEEN, Urine Mucus 0 SEEN 09/20/24 15:40: Troponin T Hi Sens 2 Hr 69 H*, Troponin T Hi Sens 2Hr Delta 5 09/20/24 18:50: Lactic Acid 1.5 09/21/24 03:55: WBC 12.2 H, RBC 3.08 L, Hgb 10.8 L, Hct 32.0 L, MCV 103.9 H, MCH 35.1 H, MCHC 33.8, RDW Std Deviation 56.6 H, RDW Coeff of Harvinder 15.0 H, Plt Count 123 L, MPV 10.1, Sodium 139, Potassium 3.9, Chloride 105, Carbon Dioxide 19.6 L, Anion Gap 15, BUN 37 H, Creatinine 1.75 H, Estim Creat Clear Calc 31.42 L, Est GFR (MDRD) Non-Af 38 L, BUN/Creatinine Ratio 21.4 H, Glucose 134 H, Calcium 7.8 Micro: Microbiology 09/20/24 14:00 Urine Catheter - Rowe Legionella Antigen - Final 09/20/24 14:00 Urine Catheter - Rowe Streptococcus pneumoniae Antigen (M - Final 09/20/24 13:49 Mucosa - Nose SARS-CoV-2, Influenza & RSV (PCR) - Final Influenzae A ABG Data ABG results: ABG 09/20/24 09/20/24 09/20/24 14:12 15:35 17:53 Specimen Type ART ART ART Sample Site R Brach R Brach R Radial pH 7.26 L 7.35 7.44 Bicarbonate Actual 16.9 L 19.1 L 18.7 L Total CO2 18 20 20 Base Excess -10 L -7 L -5 L O2 Saturation 87 L 84 L 97 O2 % 100.0 100.0 100.0 ABG pCO2 37.3 34.8 L 27.7 L ABG pO2 59 L 51 L 83 Jamari Test N/A Positive Respiration Rate 16 20 20 O2 Delivery Device Adult Vent Adult Vent Adult Vent Vent Mode AC AC AC Tidal Volume 600.0 600.0 600.0 POC PEEP 14 14 14 Rhythm Strip Rhythm Strip: afib, intermittent vent pacing Rate: 72 Ectopy: None Cardiology Labs/Tests 09/20/24 12:50: WBC 8.3, RBC 3.69 L, Hgb 12.8 L, Hct 39.2 L, MCV 106.2 H, MCH 34.7 H, MCHC 32.7, Plt Count 130 L, MPV 9.9, Immature Gran % (Auto) 0.500, Neut % (Auto) 64.4, Lymph % (Auto) 22.8, [place] % (Auto) 12.2 H, Eos % (Auto) 0.0, Baso % (Auto) 0.1, Absolute Neuts (auto) 5.4, Nucleated RBC % 0.2, PT 32.5 H, INR 3.1, APTT 41.5 H, Sodium 138, Potassium 4.1, Carbon Dioxide 19.8 L, Anion Gap 15, BUN 25 H, Creatinine 1.57 H, Est GFR (MDRD) Non-Af 43 L, BUN/Creatinine Ratio 16.1, Glucose 100 H, Calcium 8.7, B-Natriuretic Peptide Cancelled, Triglycerides 81 09/20/24 13:49: Lactic Acid 5.5 H* 09/20/24 14:00: Urine Color Carley, Urine Clarity Sl. Cloudy, Urine pH 6.0, Ur Specific [place] 1.015, Urine Protein 500 H, Urine Glucose (UA) 50 H, Urine Ketones Negative, Urine Occult Blood 250 H, Urine Nitrite Negative, Urine Bilirubin Negative, Urine Urobilinogen 8 H, Ur Leukocyte Esterase 25 H, Urine RBC > 100 SEEN, Urine WBC 0-5 SEEN 09/20/24 14:12: pH 7.26 L, Bicarbonate Actual 16.9 L, Base Excess -10 L, O2 Saturation 87 L, ABG pCO2 37.3, ABG pO2 59 L 09/20/24 15:35: pH 7.35, Bicarbonate Actual 19.1 L, Base Excess -7 L, O2 Saturation 84 L, ABG pCO2 34.8 L, ABG pO2 51 L, Jamari Test N/A 09/20/24 17:53: pH 7.44, Bicarbonate Actual 18.7 L, Base Excess -5 L, O2 Saturation 97, ABG pCO2 27.7 L, ABG pO2 83, Jamari Test Positive 09/20/24 18:50: Lactic Acid 1.5 09/21/24 03:55: WBC 12.2 H, RBC 3.08 L, Hgb 10.8 L, Hct 32.0 L, MCV 103.9 H, MCH 35.1 H, MCHC 33.8, Plt Count 123 L, MPV 10.1, Sodium 139, Potassium 3.9, Chloride 105, Carbon Dioxide 19.6 L, Anion Gap 15, BUN 37 H, Creatinine 1.75 H, Est GFR (MDRD) Non-Af 38 L, BUN/Creatinine Ratio 21.4 H, Glucose 134 H, Calcium 7.8 Rhythm: EKG: ECHO: Stress Test: Cardiac Cath: PCI: CT Surgery: Holter monitor: EPS: PPM: CXR: Chest CT Scan: Radiography Diagnostic Testing: Radiology Impression Brain CT 09/20/24 12:46 IMPRESSION: Cerebral atrophy in keeping with patient's age. No acute abnormality is seen. Reading Location: [facility] Chest X-Ray 09/20/24 13:40 IMPRESSION: 1. High positioning of the endotracheal tube at the thoracic inlet, recommend advancement of 4-5 cm for optimal placement with radiographic confirmation. Otherwise appropriate positioning of support apparatus. No visible pneumothorax. 2. Patchy bilateral opacities are new/increased from 04/24/2023 and may reflect multifocal pneumonia and/or pulmonary edema. Given vaguely nodular appearance on the left, recommend follow-up to radiographic resolution to ensure no underlying lesion. 3. Cardiomegaly with suspected trace to small left pleural effusion. 4. Additional description as above. Reading Location: [facility] Echocardiogram 09/20/24 14:44 Interpretation Summary Severe LV systolic dysfunction. Posterior basal and inferior akinesis. Severe septal hypokinesis. Estimated LVEF 20-25%. Stage III diastolic dysfunction. Increased left atrial filling pressures. Septal wall motion consistent with RV volume and pressure overload. Moderate RV systolic dysfunction. The left atrium is moderately enlarged. The right atrium is mildly enlarged. Moderate (2+) posteriorly directed mitral valve insufficiency. Mild tricuspid valve insufficiency. Right ventricular systolic pressure estimated to be 52 mmHg. Ordering Physician: Dileep Stanton Referring Physician: HOLLY YODER Performed By: Marianna Coleman RDCS
[2024-09-21 13:45] LABS: Hematocrit 30.3 % (40-54); Hemoglobin 10.4 g/dL (13.0-16.5)
--- NOTE | 2024-09-21 14:50 | CASEMGMT ---
Social Work Pt was accepted at [facility], SW called daughter Eliza to let her know. CEZAR Noe
--- NOTE | 2024-09-21 15:53 | CHAPLAIN ---
Type of Pastoral Visit ___ Initial Visit _x__ Follow-up Visit ___ On-call Visit ___ General Patient Visit ___ Spiritual Assessment ___ Family Conference ___ Bereavement ___ Rapid Response ___ Code Blue ___ Other (describe below) Pastoral Care Referral From ___ Patient _x__ Family ___ Nurse ___ Physician ___ [place] Boss ___ Orchestra Teacher ___ Other (describe below) Sacrament/Intervention _x__ Active listening ___ Anointing ___ Restoration ___ Bereavement ___ Communion ___ [place] exploration ___ ___ Life review _x__ Prayer ___ Reconciliation ___ Sacrament of Sick ___ Supportive presence ___ Wedding ___ Other (describe below) Pastoral Comments met several family members in the hallway who reported that patient is making improvement although still on the ventilator; offered support and assurance of follow up and prayers for the patient; later went to patient's room and he was 'sleeping'; gave a silent prayer and left a calling card
--- NOTE | 2024-09-21 18:03 | EX.PCM.CON.G ---
HPI Consult Data Date of Consult: 09/21/24 HPI Narrative Reason for Consultation: GI bleed HPI Narrative: JD OCSBY, is a 83 M who presented to [facility] ED on 09/20/2024 with worsening URI symptoms. Patient presented to the ED with his who also had URI symptoms. Shortly after arrival here, patient passed out and fell to the floor and hit his head. He did wake up and was able to talk to nurses right after this and told them that he was on a blood thinner, but he then lost consciousness. At that time ED physician noted that he was breathing and protecting his airway and withdrawing to pain, so with oxygen support he was transported over to CT. CT brain showed no concerning findings. On arrival back to the room he had poor respiratory excursion and he was emergently intubated at that time. Started after intubation, he was found to have no pulse and CPR was initiated. 1 round of CPR was done and patient was given a dose of epinephrine with recovery of a pulse. Further labs and imaging were obtained and chest x-ray showed severe pulmonary infiltrates bilaterally. He was found to be positive for influenza A. Patient had a central line placed and was initially started on epinephrine drip and then transitioned over to a Levophed drip. He did regain consciousness postintubation and was interacting with staff. However, his oxygen saturations were fairly poor despite being on 100% oxygen so sedation was initiated to improve his oxygen level. Cardiology is seeing him for history of proximal atrial fibrillation, cardiopulmonary arrest with successful resuscitation, history of VT status post AICD on appropriate medical therapy. The patient did develop blood output from his endotracheal and OG tubes overnight in the setting of systemic anticoagulation with Xarelto, which has been placed on hold. The patient's hemoglobin did drop 2 g over the last 24 hours. I was consulted to evaluate upper GI bleed so patient can be placed on anticoagulation. He is currently on PPI therapy at this time. [facility] Medical History Skin cancer Myocardial infarction Presence of combination internal cardiac defibrillator (ICD) and pacemaker Home Medications ?Medication ?Instructions ?Recorded ?Last Taken ?Type aspirin 81 mg capsule 81 mg PO DAILY heart 03/02/24 Unknown History famotidine 40 mg tablet 40 mg PO DAILY gi 03/02/24 Unknown History hydralazine 100 mg tablet 100 mg PO BID bp 03/02/24 Unknown History isosorbide mononitrate 30 mg 30 mg PO DAILY heart 03/02/24 Unknown History tablet,extended release 24 hr metoprolol tartrate 100 mg tablet 100 mg PO BID bp 03/02/24 Unknown History ramipril 10 mg capsule 10 mg PO BID heart 03/02/24 Unknown History rosuvastatin 40 mg tablet 40 mg PO DAILY cholestrol 03/02/24 Unknown History tamsulosin 0.4 mg capsule 0.4 mg PO DAILY bph 03/02/24 Unknown History amiodarone 200 mg tablet 200 mg PO DAILY cardiac 09/20/24 Unknown History rivaroxaban 20 mg tablet (Xarelto) 20 mg PO DAILY blood thinner 09/20/24 Unknown History Allergy/AdvReac Type Severity Reaction Status Date / Time No Known Allergies Allergy Verified 03/02/24 03:13 Surgical History S/P triple vessel bypass Social History Smoking Status: Never smoker ROS Review of Systems ROS Unobtainable: due to endotracheal tube Physical Exam Const General Appearance: intubated and patient mechanically ventilated HEENT normocephalic Eyes PERRL and conjunctivae normal Neck supple and no JVD Resp normal respiratory effort, no retractions and no use of accessory muscles Auscultation: Negative for crackles, rales, rhonchi or wheezes Cardio regular rate, regular rhythm, S1 normal heart sound, S2 normal heart sound and no murmurs GI soft to palpation and non-distended; Negative for hepatosplenomegaly Extremity no clubbing, cyanosis or edema Skin no rashes or lesions noted Neuro Sensorium / Orientation: sedated on vent Psych Appearance: intubated Lab / Micro Data 09/21/24 13:35 09/21/24 03:55 Labs: Laboratory Results - last 24 hr 09/20/24 12:50: Total Creatine Kinase 511 H, Triglycerides 81 09/20/24 18:50: Lactic Acid 1.5 09/21/24 03:55: WBC 12.2 H, RBC 3.08 L, Hgb 10.8 L, Hct 32.0 L, MCV 103.9 H, MCH 35.1 H, MCHC 33.8, RDW Std Deviation 56.6 H, RDW Coeff of Harvinder 15.0 H, Plt Count 123 L, MPV 10.1, Sodium 139, Potassium 3.9, Chloride 105, Carbon Dioxide 19.6 L, Anion Gap 15, BUN 37 H, Creatinine 1.75 H, Estim Creat Clear Calc 31.42 L, Est GFR (MDRD) Non-Af 38 L, BUN/Creatinine Ratio 21.4 H, Glucose 134 H, Calcium 7.8 09/21/24 13:35: Hgb 10.4 L, Hct 30.3 L Micro: Microbiology 09/20/24 17:15 Sputum, Induced/Lukens Gram Stain - Final 09/20/24 14:00 Urine Catheter - Rowe Legionella Antigen - Final 09/20/24 14:00 Urine Catheter - Rowe Streptococcus pneumoniae Antigen (M - Final 09/20/24 13:49 Mucosa - Nose SARS-CoV-2, Influenza & RSV (PCR) - Final Influenzae A Rhythm Strip Rhythm Strip: afib, intermittent vent pacing Rate: 72 Ectopy: None Imaging Radiology Impression Echocardiogram 09/20/24 14:44 Interpretation Summary Severe LV systolic dysfunction. Posterior basal and inferior akinesis. Severe septal hypokinesis. Estimated LVEF 20-25%. Stage III diastolic dysfunction. Increased left atrial filling pressures. Septal wall motion consistent with RV volume and pressure overload. Moderate RV systolic dysfunction. The left atrium is moderately enlarged. The right atrium is mildly enlarged. Moderate (2+) posteriorly directed mitral valve insufficiency. Mild tricuspid valve insufficiency. Right ventricular systolic pressure estimated to be 52 mmHg. Ordering Physician: Dileep Stanton Referring Physician: HOLLY YODER Performed By: Marianna Coleman RDCS Assessment & Plan Assessment/Plan (1) Influenza A: (2) Cardiopulmonary arrest with successful resuscitation: (3) Acute hypoxemic respiratory failure: (4) Septic shock: (5) Pneumonia: (6) Anemia: (7) Thrombocytopenia: PLAN: Plan Patient is an 83-year-old male who presented [facility] ED on 09/20/2024 with worsening upper respiratory symptoms. He went into acute respiratory failure likely secondary to influenza A with possible ARDS status post cardiac arrest and successful resuscitation currently intubated and sedated on the vent. He was placed on Xarelto therapy. He developed bleeding from OG tube. He will need to undergo an upper endoscopy to evaluate his upper GI tract. He is still on 100% FiO2 on Levophed and ceftriaxone azithromycin for influenza A and possible commune acquired pneumonia. Patient will likely undergo upper endoscopy tomorrow. Charges/Coding Visit Charges Inpatient E&M: 22819 Init Hosp L3
[2024-09-21] MEDS: Atorvastatin Calcium 80 MG Tablet GT (20:33)
[2024-09-22] VITALS (40 sets, daily range): BP systolic 118–152; BP diastolic 63–79; PULSE 63–85; RESP 16–26; TEMP 36.7–37.9; O2SAT 90–97; BMI 30.7
[2024-09-22] MEDS: 0.9% Saline Lock 10 ML Syringe IV ×2 (04:02→09:51)
[2024-09-22] MEDS: Propofol 10MG/Ml 1,000 MG/100 ML Bottle 5.1 MG CONT INF (04:02)
[2024-09-22 04:18] LABS: Absolute Neutrophil Count 8.1 X10^3/uL (2.0-7.7); Basophil# 0.01 X10^3/uL; Basophil% 0.1 % (0-1); Hematocrit 29.7 % (40-54); Hemoglobin 9.9 g/dL (13.0-16.5); Lymphocyte % 7.4 % (19-41); Mean Corp Hgb Conc 33.3 g/dL (32-36); Mean Corpuscular Hgb 34.1 pg (27.0-32.0); Mean Corpuscular Volume 102.4 fL (80-94); Mean Platelet Vol. 9.9 fl (6.2-12.0); Monocyte% 6.3 % (0-10); NRBC Flagged by Analyzer 0 % (0-5); Neutrophil # 8.07 X10^3/uL (2.7-7.7); Neutrophil % 85.5 % (47-70); Platelet Count 103 K/mm3 (150-450); RBC Distribution Width CV 14.7 % (11.6-14.6); RBC Distribution Width SD 55.4 fl (35.1-43.9); White Blood Count 9.5 K/mm3 (4.4-11.0)
[2024-09-22 04:37] LABS: Anion Gap 12 (5-15); BUN 46 mg/dL (4-19); BUN/Creat Ratio 28.9 RATIO (10-20); Calcium,Total 7.7 mg/dL (7.6-11.0); Carbon Dioxide 22.2 mmol/L (21.0-32.0); Chloride 109 mmol/L (98-108); EST Glomerular Filtration Rate 42 (>60); Estimated Creatinine Clearance 33.98 ml/min (50-250); Glucose 90 mg/dL (70-99); Potassium 3.8 mmol/L (3.3-5.1); Sodium Level 143 mmol/L (133-145)
--- NOTE | 2024-09-22 07:43 | PCM.PN.INT ---
Assessment & Plan Assessment/Plan (1) Acute hypoxemic respiratory failure: (2) Influenza A: PLAN: Plan RECOMMENDATIONS: 1. Continue to wean FiO2 and PEEP to maintain saturations at or above 90%. 2. Continue empiric antimicrobials and Tamiflu. 3. Continue to hold Xarelto. 4. Continue PPI therapy twice daily. 5. Defer spontaneous breathing trial until endoscopic evaluation is completed by gastroenterology. IMPRESSIONS: 1. Acute hypoxemic respiratory failure The patient was initially evaluated in the emergency department after developing a syncopal event of unclear etiology, with resultant acute hypoxemic respiratory failure, which is likely the consequence of influenza A coupled with possible superimposed decompensated congestive heart failure. The patient does have a known history of coronary artery disease status post CABG and is status post ICD. In light of his presenting symptoms, device interrogation was completed. He did demonstrate an acute drop in his LVEF on echocardiogram, for which cardiology was consulted. The patient will be continued on assist-control mode of mechanical ventilation with a goal to wean FiO2 to maintain saturations at or above 90%. Once the patient's hemodynamic status has improved, will initiate diuretics. The patient will be continued on Tamiflu to complete treatment course. Although there is lower suspicion for secondary bacterial pneumonia, we will continue empiric antibiotics, pending culture results. 2. Acute decompensated congestive heart failure/brief cardiac arrest with ROSC Continue current supportive measures. Given the patient's acute change in his LVEF noted on echocardiogram, cardiology is currently following to assist with medical management. There was no evidence of VT or VF noted on interrogation of his device on the day of his arrest. 3. Acute on chronic kidney disease Most likely prerenal in etiology in the setting of #2. Continue to hold nephrotoxic medications. Will continue to monitor urine output. There is no current indication for renal replacement therapy. 4. Anemia/thrombocytopenia The patient did develop blood output from his endotracheal and OG tubes shortly after intubation. Xarelto remains on hold, accordingly. Given the hemoglobin drop noted during this hospitalization, gastroenterology is tentatively planning to proceed with endoscopic evaluation. Will plan to continue PPI therapy for now. Continue to monitor blood counts and transfuse if hemoglobin drops below 7 g/dL. 5. History of atrial fibrillation/history of four-vessel CABG/hypertension/hyperlipidemia Complicates care, management, recovery and prognosis. Agree with holding Xarelto. Continue supportive measures as noted above. Antihypertensives will remain on hold. TIME: 35 minutes of critical care time, independent of procedures, was spent addressing the patient's acute hypoxemic respiratory failure, acute decompensated heart failure, acute on chronic kidney disease, anemia, review of all data and collaboration with the care team. Subjective Subjective The patient was seen and examined at the bedside this morning. Events from the last 24 hours have been reviewed. The patient is currently afebrile, hemodynamically stable and maintaining appropriate oxygen saturations on assist-control mode mechanical ventilation with an FiO2 requirement of 45% and PEEP of 5. White blood cell count is normal this morning. Hemoglobin is stable at 9.9 g/dL. Platelet count is low at 103,000. Creatinine has improved to 1.6. There are apparently plans for gastroenterology to proceed with endoscopic evaluation today. Therefore, plans to move forward with a spontaneous breathing trial were placed on hold until endoscopic evaluation is completed. Objective Data Objective Data The patient's most recent lab work, culture data and imaging studies have all been personally reviewed. Surface echocardiogram demonstrated severe LV systolic dysfunction with an ejection fraction of 20 to 25% Influenza A PCR was positive on September 20. Blood, urine and sputum cultures are pending. Vital Signs: Vital Signs Temp Pulse Resp BP Pulse Ox O2 Del Method O2 Flow Rate 98.1 F 67 16 118/70 91 Mechanical Ventilator 2 09/22/24 04:00 09/22/24 07:20 09/22/24 07:20 09/22/24 07:00 09/22/24 07:20 09/22/24 07:00 09/20/24 12:47 FiO2 45 09/22/24 07:20 Oxygen Flow Rate (L/min) 2 Oxygen Delivery Method Mechanical Ventilator Weight: 184 lb 11.958 oz Body Mass Index (BMI) 30.7 Intake & Output: Intake and Output for Last 24 Hours 09/20/24 09/21/24 09/22/24 23:59 23:59 23:59 Intake Total 2767.09 / 2804.54 770.86 / 775.96 40.80 / 40.80 Output Total 800 / 1150 1930 / 1930 300 / 300 Balance 1967.09 / 1654.54 -1159.14 / -1154.04 -259.20 / -259.20 Lab / Micro Data Attestation: I reviewed the patient's lab results. 09/22/24 04:00 09/22/24 04:00 Labs: Laboratory Results - last 24 hr 09/21/24 13:35: Hgb 10.4 L, Hct 30.3 L 09/22/24 04:00: WBC 9.5, RBC 2.90 L, Hgb 9.9 L, Hct 29.7 L, MCV 102.4 H, MCH 34.1 H, MCHC 33.3, RDW Std Deviation 55.4 H, RDW Coeff of Harvinder 14.7 H, Plt Count 103 L, MPV 9.9, Immature Gran % (Auto) 0.700, Neut % (Auto) 85.5 H, Lymph % (Auto) 7.4 L, [place] % (Auto) 6.3, Eos % (Auto) 0.0, Baso % (Auto) 0.1, Absolute Neuts (auto) 8.1 H, Absolute Lymphs (auto) 0.70 L, Nucleated RBC % 0, Sodium 143, Potassium 3.8, Chloride 109 H, Carbon Dioxide 22.2, Anion Gap 12, BUN 46 H, Creatinine 1.60 H, Estim Creat Clear Calc 33.98 L, Est GFR (MDRD) Non-Af 42 L, BUN/Creatinine Ratio 28.9 H, Glucose 90, Calcium 7.7 Micro: Microbiology 09/20/24 17:15 Sputum, Induced/Lukens Gram Stain - Final 09/20/24 14:00 Urine Catheter - Rowe Legionella Antigen - Final 09/20/24 14:00 Urine Catheter - Rowe Streptococcus pneumoniae Antigen (M - Final 09/20/24 13:49 Mucosa - Nose SARS-CoV-2, Influenza & RSV (PCR) - Final Influenzae A Radiography Diagnostic Testing: Radiology Impression Echocardiogram 09/20/24 14:44 Interpretation Summary Severe LV systolic dysfunction. Posterior basal and inferior akinesis. Severe septal hypokinesis. Estimated LVEF 20-25%. Stage III diastolic dysfunction. Increased left atrial filling pressures. Septal wall motion consistent with RV volume and pressure overload. Moderate RV systolic dysfunction. The left atrium is moderately enlarged. The right atrium is mildly enlarged. Moderate (2+) posteriorly directed mitral valve insufficiency. Mild tricuspid valve insufficiency. Right ventricular systolic pressure estimated to be 52 mmHg. Ordering Physician: Dileep Stanton Referring Physician: HOLLY YODER Performed By: Marianna Coleman RDCS Rhythm Strip Rhythm Strip: afib, intermittent vent pacing Rate: 72 Ectopy: None Physical Exam Const Constitutional Narrative: Intubated, sedated and mechanically ventilated. No ventilator dyssynchrony noted. HEENT head/scalp atraumatic and moist oral mucous membranes Mouth: endotracheal tube in place and OG tube in place Eyes EOMs intact bilaterally and conjunctivae normal Neck supple General: trachea midline and CVC in place Chest inspection of chest normal Resp normal respiratory effort Auscultation: diminished lung sounds Cardio regular rate and regular rhythm GI soft to palpation and non-tender Extremity General Extremity: edema bilateral lower extremity; Negative for clubbing Skin no rashes or lesions noted Neuro no focal motor deficits Sensorium / Orientation: sedated on vent Charges/Coding Procedures Hospitalists Procedures: 63791 Critical Care 1st Hr
--- NOTE | 2024-09-22 09:05 | PN.HOSP_ITS ---
Reason for Visit Reason for Visit: Diagnoses Sepsis, unspecified organism (09/20/24) Anemia, unspecified (09/20/24) Thrombocytopenia, unspecified (09/20/24) Atherosclerotic heart disease of [place] coronary artery without angina pectoris (09/20/24) Cardiac arrest, cause unspecified (09/20/24) Paroxysmal atrial fibrillation (09/20/24) Unspecified systolic (congestive) heart failure (09/20/24) Influenza due to other identified influenza virus with other respiratory manifestations (09/20/24) Pneumonia, unspecified organism (09/20/24) Acute respiratory failure with hypoxia (09/20/24) Severe sepsis with septic shock (09/20/24) Subjective Subjective Intubated on mechanical ventilation Appropriately responsive to questions and stimulation No apparent distress Objective Data Objective Data Vital Signs: Vital Signs Temp Pulse Resp BP Pulse Ox O2 Del Method O2 Flow Rate 98.4 F 69 16 141/74 H 93 Mechanical Ventilator 2 09/22/24 08:00 09/22/24 08:42 09/22/24 08:42 09/22/24 08:00 09/22/24 08:42 09/22/24 08:00 09/20/24 12:47 FiO2 45 09/22/24 08:42 Oxygen Flow Rate (L/min) 2 Oxygen Delivery Method Mechanical Ventilator Weight: 184 lb 11.958 oz Body Mass Index (BMI) 30.7 Intake & Output: Intake and Output for Last 24 Hours 09/20/24 09/21/24 09/22/24 23:59 23:59 23:59 Intake Total 2767.09 / 2804.54 770.86 / 775.96 100.80 / 100.80 Output Total 800 / 1150 1930 / 1930 300 / 300 Balance 1967.09 / 1654.54 -1159.14 / -1154.04 -199.20 / -199.20 Lab / Micro Data Attestation: I reviewed the patient's lab results. 09/22/24 04:00 09/22/24 04:00 Labs: Laboratory Results - last 24 hr 09/21/24 13:35: Hgb 10.4 L, Hct 30.3 L 09/22/24 04:00: WBC 9.5, RBC 2.90 L, Hgb 9.9 L, Hct 29.7 L, MCV 102.4 H, MCH 34.1 H, MCHC 33.3, RDW Std Deviation 55.4 H, RDW Coeff of Harvinder 14.7 H, Plt Count 103 L, MPV 9.9, Immature Gran % (Auto) 0.700, Neut % (Auto) 85.5 H, Lymph % (Auto) 7.4 L, [place] % (Auto) 6.3, Eos % (Auto) 0.0, Baso % (Auto) 0.1, Absolute Neuts (auto) 8.1 H, Absolute Lymphs (auto) 0.70 L, Nucleated RBC % 0, Sodium 143, Potassium 3.8, Chloride 109 H, Carbon Dioxide 22.2, Anion Gap 12, BUN 46 H, Creatinine 1.60 H, Estim Creat Clear Calc 33.98 L, Est GFR (MDRD) Non-Af 42 L, B UN/Creatinine Ratio 28.9 H, Glucose 90, Calcium 7.7 Micro: Microbiology 09/20/24 17:15 Sputum, Induced/Lukens Gram Stain - Final 09/20/24 14:00 Urine Catheter - Rowe Legionella Antigen - Final 09/20/24 14:00 Urine Catheter - Rowe Streptococcus pneumoniae Antigen (M - Final 09/20/24 13:49 Mucosa - Nose SARS-CoV-2, Influenza & RSV (PCR) - Final Influenzae A Radiography Diagnostic Testing: Radiology Impression Echocardiogram 09/20/24 14:44 Interpretation Summary Severe LV systolic dysfunction. Posterior basal and inferior akinesis. Severe septal hypokinesis. Estimated LVEF 20-25%. Stage III diastolic dysfunction. Increased left atrial filling pressures. Septal wall motion consistent with RV volume and pressure overload. Moderate RV systolic dysfunction. The left atrium is moderately enlarged. The right atrium is mildly enlarged. Moderate (2+) posteriorly directed mitral valve insufficiency. Mild tricuspid valve insufficiency. Right ventricular systolic pressure estimated to be 52 mmHg. Ordering Physician: Dileep Stanton Referring Physician: HOLLY YODER Performed By: Marianna Coleman, BRIAN Rhythm Strip Rhythm Strip: afib, intermittent vent pacing Rate: 72 Ectopy: None Physical Exam Const alert Constitutional Narrative: Intubated, ongoing sedation HEENT head/scalp atraumatic Eyes PERRL Neck no lymphadenopathy Resp Resp Narrative: Bilateral respiratory sounds well heard, minimal crepitations on the right side GI normal to inspection, nondistended, normoactive bowel sounds Extremity normal to inspection Extremity Narrative: Mild bilateral pitting edema Neuro Neuro Narrative: Ongoing sedation Assessment & Plan Assessment/Plan (1) HFrEF (heart failure with reduced ejection fraction): PLAN: Plan Patient is an 83-year-old male who presented [facility] ED on 09/20/2024 with worsening upper respiratory symptoms in the setting of severe underlying heart failure with reduced ejection fraction. Patient had cardiac arrest x 2 in the ED requiring 2 doses of epinephrine and 2 rounds of CPR. Given his overall presentation and clinical course,mostly patient had acute decompensated heart failure with volume overload that responded very well to positive pressure ventilation. He is off pressors and requiring minimal ventilatory support. #Acute hypoxic respiratory failure suspected secondary to influenza A infection #initial concerns for ARDS #Cardiogenic shock (resolved) -Appreciate management in the ICU, air intelligence specialist input -Continue mechanical ventilation and wean supplemental oxygen as able. -Given the severe underlying cardiac function, arrest in the ED, suspect ADHF secondary to the infection -No levophed requirement -Treat influenza A infection with Tamiflu. -continue IV ceftriaxone and azithromycin for antibiotic coverage as well. 09/21/2024: Remain intubated today, appreciate air intelligence specialist assistance. Will consult gastroenterology for possibility of a bedside EGD given the blood coming out of the NG tube, there is some discrepancy as to whether or not there was bleeding before her after CPR was initiated and the emergency room. Continue with PPI 09/22/24: Minimal ventilator requirement, PEEP of 5. Plan for EGD today. Off levophed. No significant drop in hemoglobin. #Paroxysmal A-fib on Xarelto ?Heart rate normal sinus rhythm in the ED. -Did have an elevated INR of 3.1 and patient notably did have blood output from both the ET tube with suctioning and from his urinary catheter. Because of this, was given a dose of Kcentra in the ED. Holding Xarelto for now. Holding home Lopressor as well. -Continue cardiac monitoring. 09/21/24: Continue to hold Xarelto as well as his aspirin secondary to blood in his NG tube. 09/22/24: Will restart Xarelto if EGD is normal #Acute on chronic anemia #Suspected upper GI bleeding -Presented to the ED and was found to have blood in his NG tube suction -No significant hemoglobin drop, but has been off anticoagulation and received Kcentra in the ED -Plan for EGD today in the ICU #MUSA ?Creatinine 1.57 on admit, baseline unclear but appears to be around 1.2-1.4. Monitor daily BMP and urine output. -Creatinine on 09/22/24 is 1.6 #Ischemic cardiomyopathy #AICD in place #Severe diastolic dysfunction #Heart failure reduced ejection fraction EF of 20% ? Pacemaker was interrogated in the ED and there were no signs of cardiac arrhythmia. - Holding home antihypertensives for now in setting of shock. Continue home statin. #BPH with obstructive symptoms ? Holding home Flomax for now. # Class I obesity ? BMI 31 on admit. Complicates hospital course, care and prognosis. # DVT prophylaxis -Not on any anticoagulation at this time given the concerns regarding GI bleed -Will restart home anticoagulation after the EGD Charges/Coding Visit Charges Inpatient E&M: 46336 Init Hosp L2
[2024-09-22] MEDS: Pantoprazole Sodium 40 MG in 0.9% Normal Saline (100mL MB+) 100 ML 330 MG IV ×2 (09:15→20:51)
[2024-09-22] MEDS: Ceftriaxone 2 GM in 0.9% Normal Saline (50mL MB+) 50 ML IV (09:50)
[2024-09-22] MEDS: Chlorhexidine 15 ML PO ×2 (09:51→20:51)
[2024-09-22] MEDS: Azithromycin 500 MG in 0.9% Normal Saline (250mL Bag) 250 ML 255 MG IV (10:41)
[2024-09-22] MEDS: 0.9% Normal Saline (100mL Bag) 100 ML 15 ML IV (10:43)
--- NOTE | 2024-09-22 13:07 | PCM.PN.BLA ---
Progress Note The patient is still intubated and sedated. Hemoglobin is slightly down to 9.9. Physical Exam Const alert Constitutional Narrative: Intubated, ongoing sedation HEENT head/scalp atraumatic Eyes PERRL Neck no lymphadenopathy Resp Resp Narrative: Bilateral respiratory sounds well heard, minimal crepitations on the right side GI normal to inspection, nondistended, normoactive bowel sounds Extremity normal to inspection Extremity Narrative: Mild bilateral pitting edema Neuro Neuro Narrative: Ongoing sedation Assessment & Plan Assessment/Plan (1) Influenza A: (2) Cardiopulmonary arrest with successful resuscitation: (3) Acute hypoxemic respiratory failure: (4) Septic shock: (5) Pneumonia: (6) Anemia: (7) Thrombocytopenia: PLAN: Plan Patient is an 83-year-old male who presented [facility] ED on 09/20/2024 with worsening upper respiratory symptoms. He went into acute respiratory failure likely secondary to influenza A with possible ARDS status post cardiac arrest and successful resuscitation currently intubated and sedated on the vent. He was placed on Xarelto therapy. He developed bleeding from OG tube. He will need to undergo an upper endoscopy to evaluate his upper GI tract. He is still on 100% FiO2 on Levophed and ceftriaxone azithromycin for influenza A and possible [place] acquired pneumonia. Patient will likely undergo upper endoscopy tomorrow. 09/22/2024-patient will undergo an upper endoscopy at the bedside. Further recommendation to follow after he undergoes an upper endoscopy. Visit Charges Inpatient E&M: 06607 Subs Hosp L2
--- NOTE | 2024-09-22 13:57 | OP.EGD_ITS ---
Patient Name: Patrick Mcgovern Procedure Date: 09/22/2024 1:28 PM Date of : 1940 Age: 83 Procedure: Upper GI endoscopy Indications: Coffee-ground emesis Providers: Urban Stanley DO Medicines: Monitored Anesthesia Care Patient Profile: This is an 83 year old male. Refer to note in patient chart for documentation of history and physical. Patient has symptoms of acute vomiting. Complications: No immediate complications. Procedure: Pre-Anesthesia Assessment: - Prior to the procedure, a History and Physical was performed, and patient medications and allergies were reviewed. The patient is competent. The risks and benefits of the procedure and the sedation options and risks were discussed with the patient. All questions were answered and informed consent was obtained. Patient identification and proposed procedure were verified by the physician in the pre-procedure area. Mental Status Examination: alert and oriented. Airway Examination: normal oropharyngeal airway and neck mobility. Respiratory Examination: clear to auscultation. CV Examination: normal. ASA Grade Assessment: IV - A patient with severe systemic disease that is a constant threat to life. After reviewing the risks and benefits, the patient was deemed in satisfactory condition to undergo the procedure. The anesthesia plan was to use moderate sedation / analgesia (conscious sedation). Immediately prior to administration of medications, the patient was re-assessed for adequacy to receive sedatives. The heart rate, respiratory rate, oxygen saturations, blood pressure, adequacy of pulmonary ventilation, and response to care were monitored throughout the procedure. The physical status of the patient was re-assessed after the procedure. After obtaining informed consent, the endoscope was passed under direct vision. Throughout the procedure, the patient's blood pressure, pulse, and oxygen saturations were monitored continuously. The Endoscope was introduced through the mouth, and advanced to the second part of duodenum. The upper GI endoscopy was accomplished without difficulty. The patient tolerated the procedure well. Moderate Sedation: Moderate (conscious) sedation was administered by the nurse and supervised by the endoscopist. The following parameters were monitored: oxygen saturation, heart rate, blood pressure, respiratory rate, EKG, adequacy of pulmonary ventilation, and response to care. Total physician intraservice time was 15 minutes. Scope In: 1:34:55 PM Scope Out: 1:41:52 PM Total Procedure Duration Time 0 hours 6 minutes 57 seconds Findings: Grade I varices were found in the upper third of the esophagus. They were 5 mm in largest diameter. Two oozing cratered gastric ulcers with a visible vessel were found in the cardia. The largest lesion was 10 mm in largest dimension. For hemostasis, one hemostatic clip was successfully placed. Clip enameler: [facility]. There was no bleeding at the end of the procedure. The second portion of the duodenum was normal. Impression: - Grade I esophageal varices. - Oozing gastric ulcers with a visible vessel. Clip was placed. Clip enameler: [employer]. - Normal second portion of the duodenum. - No specimens collected. Recommendation: - Return patient to ICU for ongoing care. - Resume previous diet today. - Continue present medications. Procedure Code(s): --- Professional --- 36168, Esophagogastroduodenoscopy, flexible, transoral; with control of bleeding, any method 96935, 59, Moderate sedation services provided by the same physician or other qualified health healthcare consultant performing the diagnostic or therapeutic service that the sedation supports, requiring the presence of an independent trained observer to assist in the monitoring of the patient's level of consciousness and physiological status; initial 15 minutes of intraservice time, patient age 5 years or older CPT copyright 2021 [employer]. All rights reserved. The codes documented in this report are preliminary and upon rolling machine tender review may be revised to meet current compliance requirements. Urban Stanley DO 09/22/2024 1:56:39 PM This report has been signed electronically. Number of Addenda: 0 Note Initiated On: 09/22/2024 1:28 PM
--- NOTE | 2024-09-22 13:57 | OP.CCLET_ITS ---
09/22/2024 Gino Hardin Re : Upper GI endoscopy procedure for Patrick Mcgovern Dear Wilfred This procedure was performed on Sunday, September 22, 2024. My impressions and recommendations are as follows: Impressions : - Grade I esophageal varices. - Oozing gastric ulcers with a visible vessel. Clip was placed. Clip orthopedic technician: [employer]. - Normal second portion of the duodenum. - No specimens collected. Recommendations : - Return patient to ICU for ongoing care. - Resume previous diet today. - Continue present medications. My findings are described in the full procedure note, which is enclosed. If I can be of further assistance, please feel free to contact me at . Sincerely, Urban Stanley, 09/22/2024 1:56:39 PM This report has been signed electronically.
[2024-09-22] MEDS: Propofol 10MG/Ml 1,000 MG/100 ML Bottle 7.6 MG CONT INF (16:16)
[2024-09-22] MEDS: OSELTAMIVIR PHOSPHATE 6 MG/ML BOTTLE 30 MG GT (20:51)
[2024-09-23] VITALS (35 sets, daily range): BP systolic 112–171; BP diastolic 61–115; PULSE 64–79; RESP 15–29; TEMP 37.5–37.9; O2SAT 89–100; BMI 30.4
[2024-09-23] MEDS: Propofol 10MG/Ml 1,000 MG/100 ML Bottle 7.6 MG CONT INF (03:39)
[2024-09-23 03:47] LABS: Absolute Lymphocyte Count 0.83 X10^3/uL (0.83-4.51); Absolute Neutrophil Count 5.5 X10^3/uL (2.0-7.7); Basophil# 0.01 X10^3/uL; Basophil% 0.1 % (0-1); Eosinophil# 0.01 X10^3/uL; Eosinophils% 0.1 % (0-5); Hematocrit 29.6 % (40-54); Hemoglobin 9.8 g/dL (13.0-16.5); Lymphocyte # 0.83 X10^3/ul (0.83-4.51); Lymphocyte % 11.8 % (19-41); Mean Corp Hgb Conc 33.1 g/dL (32-36); Mean Corpuscular Hgb 34.3 pg (27.0-32.0); Mean Corpuscular Volume 103.5 fL (80-94); Mean Platelet Vol. 9.8 fl (6.2-12.0); Monocyte# 0.58 X10^3/uL; Monocyte% 8.3 % (0-10); NRBC Flagged by Analyzer 0 % (0-5); Neutrophil # 5.52 X10^3/uL (2.7-7.7); Neutrophil % 78.8 % (47-70); Platelet Count 106 K/mm3 (150-450); RBC Distribution Width CV 14.6 % (11.6-14.6); Red Blood Count 2.86 M/mm3 (4.6-6.2)
[2024-09-23 04:48] LABS: Anion Gap 11 (5-15); BUN 36 mg/dL (4-19); BUN/Creat Ratio 26.3 RATIO (10-20); Calcium,Total 7.8 mg/dL (7.6-11.0); Carbon Dioxide 22.7 mmol/L (21.0-32.0); Chloride 111 mmol/L (98-108); Creatinine, Serum 1.36 mg/dL (0.70-1.20); EST Glomerular Filtration Rate 52 (>60); Estimated Creatinine Clearance 39.98 ml/min (50-250); Glucose 70 mg/dL (70-99); Potassium 3.8 mmol/L (3.3-5.1); Sodium Level 145 mmol/L (133-145)
--- NOTE | 2024-09-23 07:42 | PCM.PN.INT ---
Assessment & Plan Assessment/Plan (1) Acute hypoxemic respiratory failure: (2) Influenza A: PLAN: Plan RECOMMENDATIONS: 1. Proceed with a trial of extubation this morning. 2. Once extubated, wean supplemental oxygen to maintain saturations at or above 90%. 3. Swallow evaluation prior to advancement of diet. 4. Continue empiric antibiotics and Tamiflu. 5. Continue to hold Xarelto. 6. Continue PPI therapy. 7. Encourage incentive spirometer use and mobilize patient as tolerated. IMPRESSIONS: 1. Acute hypoxemic respiratory failure The patient was initially evaluated in the emergency department after developing a syncopal event of unclear etiology, with resultant acute hypoxemic respiratory failure, which is likely the consequence of influenza A coupled with possible superimposed decompensated congestive heart failure. The patient does have a known history of coronary artery disease status post CABG and is status post ICD. In light of his presenting symptoms, device interrogation was completed. He did demonstrate an acute drop in his LVEF on echocardiogram, for which cardiology was consulted. The patient has improved with supportive care from a respiratory perspective. He passed his spontaneous breathing trial this morning. Therefore, we will plan to proceed with extubation. The patient will be continued on Tamiflu and empiric antibiotics to complete treatment course. 2. Acute decompensated congestive heart failure/brief cardiac arrest with ROSC Continue current supportive measures. Given the patient's acute change in his LVEF noted on echocardiogram, cardiology is currently following to assist with medical management. There was no evidence of VT or VF noted on interrogation of his device on the day of his arrest. 3. Acute on chronic kidney disease Improving. Most likely prerenal in etiology in the setting of #2. Continue to hold nephrotoxic medications. Will continue to monitor urine output. There is no current indication for renal replacement therapy. 4. Anemia/thrombocytopenia The patient did develop blood output from his endotracheal and OG tubes shortly after intubation. Xarelto remains on hold, accordingly. The patient was evaluated by gastroenterology with EGD performed, which revealed grade 1 esophageal varices and an oozing gastric ulcer which was clipped. Will plan to continue PPI therapy. Continue to monitor blood counts and transfuse if hemoglobin drops below 7 g/dL. 5. History of atrial fibrillation/history of four-vessel CABG/hypertension/hyperlipidemia Complicates care, management, recovery and prognosis. Agree with holding Xarelto. Continue supportive measures as noted above. Antihypertensives will remain on hold. Physical therapy to continue to work with the patient. TIME: 33 minutes of critical care time, independent of procedures, was spent addressing the patient's acute hypoxemic respiratory failure, acute decompensated heart failure, acute on chronic kidney disease, anemia, review of all data and collaboration with the care team. Subjective Subjective The patient was seen and examined at the bedside this morning. Events from the last 24 hours have been reviewed. The patient currently has a low-grade fever but remains otherwise hemodynamically stable on assist-control mode mechanical ventilation with an FiO2 requirement of 35% and PEEP of 5. The patient underwent EGD yesterday which revealed grade 1 esophageal varices and an oozing gastric ulcer which was clipped. The patient did well this morning with his spontaneous awakening trial. He subsequently completed a spontaneous breathing trial without complication. White blood cell count remains normal. Hemoglobin is stable at 9.8 g/dL. Platelet count is stable at 106,000. Creatinine has improved to 1.36. Objective Data Objective Data The patient's most recent lab work, culture data and imaging studies have all been personally reviewed. Surface echocardiogram demonstrated severe LV systolic dysfunction with an ejection fraction of 20 to 25% Influenza A PCR was positive on September 20. Blood, urine and sputum cultures are pending. Vital Signs: Vital Signs Temp Pulse Resp BP Pulse Ox O2 Del Method O2 Flow Rate 100.3 F H 70 16 133/66 H 93 Mechanical Ventilator 2 09/23/24 06:00 09/23/24 07:00 09/23/24 07:00 09/23/24 07:00 09/23/24 07:00 09/23/24 07:00 09/20/24 12:47 FiO2 35 09/23/24 07:00 Oxygen Flow Rate (L/min) 2 Oxygen Delivery Method Mechanical Ventilator Weight: 182 lb 12.211 oz Body Mass Index (BMI) 30.4 Intake & Output: Intake and Output for Last 24 Hours 09/21/24 09/22/24 09/23/24 23:59 23:59 23:59 Intake Total 770.86 / 775.96 867.28 / 904.88 120.80 / 120.80 Output Total 1930 / 1930 1325 / 1725 800 / 800 Balance -1159.14 / -1154.04 -457.72 / -820.12 -679.20 / -679.20 Lab / Micro Data Attestation: I reviewed the patient's lab results. 09/23/24 03:35 09/23/24 03:35 Labs: Laboratory Results - last 24 hr 09/23/24 03:35: WBC 7.0, RBC 2.86 L, Hgb 9.8 L, Hct 29.6 L, MCV 103.5 H, MCH 34.3 H, MCHC 33.1, RDW Std Deviation 56.0 H, RDW Coeff of Harvinder 14.6, Plt Count 106 L, MPV 9.8, Immature Gran % (Auto) 0.900, Neut % (Auto) 78.8 H, Lymph % (Auto) 11.8 L, Wolfe % (Auto) 8.3, Eos % (Auto) 0.1, Baso % (Auto) 0.1, Absolute Neuts (auto) 5.5, Absolute Lymphs (auto) 0.83, Nucleated RBC % 0, Sodium 145, Potassium 3.8, Chloride 111 H, Carbon Dioxide 22.7, Anion Gap 11, BUN 36 H, Creatinine 1.36 H, Estim Creat Clear Calc 39.98 L, Est GFR (MDRD) Non-Af 52 L, BUN/Creatinine Ratio 26.3 H, Glucose 70, Calcium 7.8 Micro: Microbiology 09/20/24 13:53 Blood Culture (Wb) - Anticubital Right Blood Culture - Preliminary No growth in 48 hours. 09/20/24 13:49 Blood Culture (Wb) - Line Draw Blood Culture - Preliminary No growth in 48 hours. 09/20/24 14:00 Urine, Catheterized Urine Culture - Final Culture exhibits no growth. 09/20/24 17:15 Sputum, Induced/Lukens Gram Stain - Final 09/20/24 14:00 Urine Catheter - Rowe Legionella Antigen - Final 09/20/24 14:00 Urine Catheter - Rowe Streptococcus pneumoniae Antigen (M - Final 09/20/24 13:49 Mucosa - Nose SARS-CoV-2, Influenza & RSV (PCR) - Final Influenzae A Radiography Diagnostic Testing: Radiology Impression Echocardiogram 09/20/24 14:44 Interpretation Summary Severe LV systolic dysfunction. Posterior basal and inferior akinesis. Severe septal hypokinesis. Estimated LVEF 20-25%. Stage III diastolic dysfunction. Increased left atrial filling pressures. Septal wall motion consistent with RV volume and pressure overload. Moderate RV systolic dysfunction. The left atrium is moderately enlarged. The right atrium is mildly enlarged. Moderate (2+) posteriorly directed mitral valve insufficiency. Mild tricuspid valve insufficiency. Right ventricular systolic pressure estimated to be 52 mmHg. Ordering Physician: Dileep Stanton Referring Physician: HOLLY YODER Performed By: Marianna Coleman RDCS Rhythm Strip Rhythm Strip: afib, intermittent vent pacing Rate: 72 Ectopy: None Physical Exam Const Constitutional Narrative: Remains intubated and mechanically ventilated. HEENT head/scalp atraumatic and moist oral mucous membranes Mouth: endotracheal tube in place and OG tube in place Eyes EOMs intact bilaterally and conjunctivae normal Neck supple General: trachea midline and CVC in place Chest inspection of chest normal Resp normal respiratory effort Auscultation: diminished lung sounds Cardio regular rate and regular rhythm GI soft to palpation and non-tender Extremity General Extremity: edema bilateral lower extremity; Negative for clubbing Skin no rashes or lesions noted Neuro no focal motor deficits Neuro Narrative: Alert and able to follow simple commands. Charges/Coding Procedures Hospitalists Procedures: 42135 Critical Care 1st Hr
[2024-09-23] MEDS: OSELTAMIVIR PHOSPHATE 6 MG/ML BOTTLE 30 MG GT (08:09)
[2024-09-23] MEDS: Chlorhexidine 15 ML PO (08:10)
[2024-09-23] MEDS: Atorvastatin Calcium 80 MG Tablet GT (08:12)
[2024-09-23] MEDS: Pantoprazole Sodium 40 MG in 0.9% Normal Saline (100mL MB+) 100 ML 330 MG IV ×2 (08:12→20:16)
[2024-09-23] MEDS: Aspirin 81 MG TAB.CHEW GT (08:12)
[2024-09-23] MEDS: 0.9% Saline Lock 10 ML Syringe IV (08:20)
[2024-09-23] MEDS: Ceftriaxone 2 GM in 0.9% Normal Saline (50mL MB+) 50 ML IV (09:00)
[2024-09-23] MEDS: Azithromycin 500 MG in 0.9% Normal Saline (250mL Bag) 250 ML 255 MG IV (09:35)
--- NOTE | 2024-09-23 09:38 | PCM.PN.HOSP ---
Reason for Visit Reason for Visit: Diagnoses Sepsis, unspecified organism (09/20/24) Anemia, unspecified (09/20/24) Thrombocytopenia, unspecified (09/20/24) Atherosclerotic heart disease of [place] coronary artery without angina pectoris (09/20/24) Cardiac arrest, cause unspecified (09/20/24) Paroxysmal atrial fibrillation (09/20/24) Unspecified systolic (congestive) heart failure (09/20/24) Influenza due to other identified influenza virus with other respiratory manifestations (09/20/24) Pneumonia, unspecified organism (09/20/24) Acute respiratory failure with hypoxia (09/20/24) Severe sepsis with septic shock (09/20/24) Subjective Subjective Intubated, off of sedation, responding appropriately question Objective Data Objective Data Vital Signs: Vital Signs Temp Pulse Resp BP Pulse Ox O2 Del Method O2 Flow Rate 100.3 F H 73 16 133/66 H 94 Mechanical Ventilator 2 09/23/24 06:00 09/23/24 07:58 09/23/24 07:58 09/23/24 07:00 09/23/24 07:58 09/23/24 07:00 09/20/24 12:47 FiO2 35 09/23/24 07:58 Oxygen Flow Rate (L/min) 2 Oxygen Delivery Method Mechanical Ventilator Weight: 182 lb 12.211 oz Body Mass Index (BMI) 30.4 Intake & Output: Intake and Output for Last 24 Hours 09/21/24 09/22/24 09/23/24 23:59 23:59 23:59 Intake Total 770.86 / 775.96 867.28 / 904.88 286.50 / 286.50 Output Total 1930 / 1930 1325 / 1725 800 / 800 Balance -1159.14 / -1154.04 -457.72 / -820.12 -513.50 / -513.50 Lab / Micro Data 09/23/24 03:35 09/23/24 03:35 Labs: Laboratory Results - last 24 hr 09/23/24 03:35: WBC 7.0, RBC 2.86 L, Hgb 9.8 L, Hct 29.6 L, MCV 103.5 H, MCH 34.3 H, MCHC 33.1, RDW Std Deviation 56.0 H, RDW Coeff of Harvinder 14.6, Plt Count 106 L, MPV 9.8, Immature Gran % (Auto) 0.900, Neut % (Auto) 78.8 H, Lymph % (Auto) 11.8 L, Curry % (Auto) 8.3, Eos % (Auto) 0.1, Baso % (Auto) 0.1, Absolute Neuts (auto) 5.5, Absolute Lymphs (auto) 0.83, Nucleated RBC % 0, Sodium 145, Potassium 3.8, Chloride 111 H, Carbon Dioxide 22.7, Anion Gap 11, BUN 36 H, Creatinine 1.36 H, Estim Creat Clear Calc 39.98 L, Est GFR (MDRD) Non-Af 52 L, BUN/Creatinine Ratio 26.3 H, Glucose 70, Calcium 7.8 Micro: Microbiology 09/20/24 13:53 Blood Culture (Wb) - Anticubital Right Blood Culture - Preliminary No growth in 48 hours. 09/20/24 13:49 Blood Culture (Wb) - Line Draw Blood Culture - Preliminary No growth in 48 hours. 09/20/24 14:00 Urine, Catheterized Urine Culture - Final Culture exhibits no growth. 09/20/24 17:15 Sputum, Induced/Lukens Gram Stain - Final 09/20/24 14:00 Urine Catheter - Rowe Legionella Antigen - Final 09/20/24 14:00 Urine Catheter - Rowe Streptococcus pneumoniae Antigen (M - Final 09/20/24 13:49 Mucosa - Nose SARS-CoV-2, Influenza & RSV (PCR) - Final Influenzae A Rhythm Strip Rhythm Strip: afib, intermittent vent pacing Rate: 72 Ectopy: None Physical Exam Const alert, no apparent distress and average body habitus Neck no lymphadenopathy Resp normal respiratory effort Cardio regular rate and regular rhythm GI normal to inspection, nondistended, normoactive bowel sounds and soft to palpation Extremity normal to inspection Neuro CN's II-XII intact bilaterally, moves all extremities and no focal motor deficits Psych affect normal Assessment & Plan Assessment/Plan (1) Anemia: PLAN: Plan Patient is an 83-year-old male who presented to [facility] ED on 09/20/2024 with worsening upper respiratory symptoms in the setting of severe underlying heart failure with reduced ejection fraction. Patient had cardiac arrest x 2 in the ED requiring 2 doses of epinephrine and 2 rounds of CPR. Given his overall presentation and clinical course,mostly patient had acute decompensated heart failure with volume overload that responded very well to positive pressure ventilation. He is off pressors and requiring minimal ventilatory support. #Acute hypoxic respiratory failure suspected secondary to influenza A infection #initial concerns for ARDS #Cardiogenic shock (resolved) -Appreciate management in the ICU, antique clocks repairer input -Spontaneous breathing trial today -Given the severe underlying cardiac function, arrest in the ED, suspect ADHF secondary to the infection -No levophed requirement -Treat influenza A infection with Tamiflu. -continue IV ceftriaxone and azithromycin for antibiotic coverage as well. 09/21/2024: Remain intubated today, appreciate antique clocks repairer assistance. Will consult gastroenterology for possibility of a bedside EGD given the blood coming out of the NG tube, there is some discrepancy as to whether or not there was bleeding before her after CPR was initiated and the emergency room. Continue with PPI 09/22/24: Minimal ventilator requirement, PEEP of 5. EGD today. Off levophed. No significant drop in hemoglobin. 09/23/24: EGD done yesterday, gastric bleeding ulcer was clipped. Hemoglobin stable. Plan for spontaneous breathing trial today #Paroxysmal A-fib on Xarelto ?Heart rate normal sinus rhythm in the ED. -Did have an elevated INR of 3.1 and patient notably did have blood output from both the ET tube with suctioning and from his urinary catheter. Because of this, was given a dose of Kcentra in the ED. Holding Xarelto for now. Holding home Lopressor as well. -Continue cardiac monitoring. 09/21/24: Continue to hold Xarelto as well as his aspirin secondary to blood in his NG tube. 09/22/24: Will restart Xarelto if EGD is normal 09/23/24: Start Xarelto tomorrow [48 hours after intervention] #Acute on chronic anemia #Suspected upper GI bleeding -Presented to the ED and was found to have blood in his NG tube suction -No significant hemoglobin drop, but has been off anticoagulation and received Kcentra in the ED -Bleeding ulcer found in the stomach s/p hemostatic clip placement [09/22/2024] #MUSA ?Creatinine 1.57 on admit, baseline unclear but appears to be around 1.2-1.4. Monitor daily BMP and urine output. -Creatinine improved to 1.36 #Ischemic cardiomyopathy #AICD in place #Severe diastolic dysfunction #Heart failure reduced ejection fraction EF of 20% ? Pacemaker was interrogated in the ED and there were no signs of cardiac arrhythmia. - Continue home statin. -Will restart outpatient medications after extubation #BPH with obstructive symptoms ? Holding home Flomax for now. # Class I obesity ? BMI 31 on admit. Complicates hospital course, care and prognosis. # DVT prophylaxis -Restart Eliquis tomorrow
--- NOTE | 2024-09-23 11:12 | CASEMGMT ---
Discharge Planning Updates sent to Kel. Marcella Mata DC Planning Asst.
[2024-09-23] MEDS: hydrALAZINE 50 MG Tablet 100 MG PO ×2 (13:26→20:16)
--- NOTE | 2024-09-23 14:51 | CHAPLAIN ---
Type of Pastoral Visit ___ Initial Visit _x__ Follow-up Visit ___ On-call Visit ___ General Patient Visit ___ Spiritual Assessment ___ Family Conference ___ Bereavement ___ Rapid Response ___ Code Blue ___ Other (describe below) Pastoral Care Referral From ___ Patient _x__ Family ___ Nurse ___ Physician ___ Speech And Language Assistant ___ Partner Alliance Manager ___ Other (describe below) Sacrament/Intervention _x__ Active listening ___ Anointing ___ Advent ___ Bereavement ___ Communion ___ [place] exploration ___ ___ Life review _x__ Prayer ___ Reconciliation ___ Sacrament of Sick _x__ Supportive presence ___ Wedding ___ Other (describe below) Pastoral Comments met family members again as they were leaving room of this patient; pt was extubated this morning; family is encouraged and expresses gratitude and hope for care and answers to prayer; met with patient in the room as he was being moved to a chair; patient gives thumbs up and speaks in short phrases in answer to questions; pt sounds hopeful and gives credit to God who has brought me through again; pt welcomes presence and prayer
[2024-09-23] MEDS: Metoprolol Tartrate 100 MG Tablet PO (20:16)
[2024-09-23] MEDS: OSELTAMIVIR PHOSPHATE 6 MG/ML BOTTLE 30 MG PO (20:16)
[2024-09-24] VITALS (28 sets, daily range): BP systolic 112–159; BP diastolic 59–81; PULSE 64–84; RESP 20–28; TEMP 35.8–37.8; O2SAT 86–99; BMI 30.1
[2024-09-24 03:31] LABS: Absolute Lymphocyte Count 0.71 X10^3/uL (0.83-4.51); Absolute Neutrophil Count 5.6 X10^3/uL (2.0-7.7); Basophil# 0.02 X10^3/uL; Basophil% 0.3 % (0-1); Hematocrit 30.2 % (40-54); Lymphocyte # 0.71 X10^3/ul (0.83-4.51); Lymphocyte % 9.7 % (19-41); Mean Corp Hgb Conc 33.1 g/dL (32-36); Mean Corpuscular Hgb 34.1 pg (27.0-32.0); Mean Corpuscular Volume 103.1 fL (80-94); Monocyte# 0.79 X10^3/uL; Monocyte% 10.8 % (0-10); NRBC Flagged by Analyzer 0.3 % (0-5); Neutrophil # 5.64 X10^3/uL (2.7-7.7); Platelet Count 106 K/mm3 (150-450); RBC Distribution Width CV 14.4 % (11.6-14.6); Red Blood Count 2.93 M/mm3 (4.6-6.2); White Blood Count 7.3 K/mm3 (4.4-11.0)
[2024-09-24 06:04] LABS: Anion Gap 11 (5-15); BUN 26 mg/dL (4-19); BUN/Creat Ratio 26.2 RATIO (10-20); Calcium,Total 7.8 mg/dL (7.6-11.0); Carbon Dioxide 22.5 mmol/L (21.0-32.0); Chloride 112 mmol/L (98-108); Creatinine, Serum 0.99 mg/dL (0.70-1.20); EST Glomerular Filtration Rate 76 (>60); Estimated Creatinine Clearance 54.92 ml/min (50-250); Glucose 108 mg/dL (70-99); Potassium 3.7 mmol/L (3.3-5.1); Sodium Level 146 mmol/L (133-145)
--- NOTE | 2024-09-24 07:45 | PCM.PN.INT ---
Assessment & Plan Assessment/Plan (1) Acute hypoxemic respiratory failure: (2) Influenza A: PLAN: Plan RECOMMENDATIONS: 1. Supplemental oxygen to maintain saturations at or above 90%. 2. Gentle diuresis as tolerated by hemodynamics and renal function. 3. Continue antimicrobials and Tamiflu. 4. Continue to hold Xarelto. 5. Continue PPI therapy. 6. Encourage incentive spirometer use and mobilize patient as tolerated. IMPRESSIONS: 1. Acute hypoxemic respiratory failure The patient was initially evaluated in the emergency department after developing a syncopal event of unclear etiology, with resultant acute hypoxemic respiratory failure, which is likely the consequence of influenza A coupled with possible superimposed decompensated congestive heart failure. The patient does have a known history of coronary artery disease status post CABG and is status post ICD. In light of his presenting symptoms, device interrogation was completed. He did demonstrate an acute drop in his LVEF on echocardiogram, for which cardiology was consulted. The patient has improved with supportive care from a respiratory perspective. The patient was ultimately able to be extubated on September 23. The patient will be continued on Tamiflu and empiric antibiotics to complete treatment course. Continue to wean supplemental oxygen to maintain saturations at or above 90%. Encourage incentive spirometer use and mobilize patient as tolerated. 2. Acute decompensated congestive heart failure/brief cardiac arrest with ROSC Continue current supportive measures. Given the patient's acute change in his LVEF noted on echocardiogram, cardiology is currently following to assist with medical management. There was no evidence of VT or VF noted on interrogation of his device on the day of his arrest. Will attempt gentle diuresis today as tolerated by hemodynamics and renal function. 3. Anemia/thrombocytopenia The patient did develop blood output from his endotracheal and OG tubes shortly after intubation. Xarelto remains on hold, accordingly. The patient was evaluated by gastroenterology with EGD performed, which revealed grade 1 esophageal varices and an oozing gastric ulcer which was clipped. Will plan to continue PPI therapy. Continue to monitor blood counts and transfuse if hemoglobin drops below 7 g/dL. 4. History of atrial fibrillation/history of four-vessel CABG/hypertension/hyperlipidemia Complicates care, management, recovery and prognosis. Agree with holding Xarelto. Continue supportive measures as noted above. Physical therapy to continue to work with the patient. This note was generated with [employer]ation software. It may contain incorrect words, spelling, and punctuation that were not noted in checking the note before signing. Subjective Subjective The patient was seen and examined at the bedside this morning. Events from the last 24 hours have been reviewed. The patient is currently afebrile, hemodynamically stable and maintaining appropriate oxygen saturations on 5 L/min via nasal cannula. The patient is currently documented to be overall net -2.2 L for the hospitalization. White blood cell count is normal. Hemoglobin and platelet count are stable. Creatinine has normalized. Objective Data Objective Data The patient's most recent lab work, culture data and imaging studies have all been personally reviewed. Surface echocardiogram demonstrated severe LV systolic dysfunction with an ejection fraction of 20 to 25% Influenza A PCR was positive on September 20. Blood, urine and sputum cultures have not demonstrated any growth to date. Vital Signs: Vital Signs Temp Pulse Resp BP Pulse Ox O2 Del Method O2 Flow Rate 99.3 F H 69 21 H 152/70 H 97 High Flow 7 09/24/24 07:00 09/24/24 07:00 09/24/24 07:00 09/24/24 07:00 09/24/24 07:00 09/24/24 07:00 09/24/24 07:00 FiO2 35 09/23/24 09:00 Oxygen Flow Rate (L/min) 7 Oxygen Delivery Method High Flow Weight: 180 lb 12.465 oz Body Mass Index (BMI) 30.1 Intake & Output: Intake and Output for Last 24 Hours 09/22/24 09/23/24 09/24/24 23:59 23:59 23:59 Intake Total 867.28 / 904.88 973.50 / 973.50 Output Total 1325 / 1725 1950 / 1950 500 / 500 Balance -457.72 / -820.12 -976.50 / -976.50 -500 / -500 Lab / Micro Data Attestation: I reviewed the patient's lab results. 09/24/24 03:24 09/24/24 03:24 Labs: Laboratory Results - last 24 hr 09/24/24 03:24: WBC 7.3, RBC 2.93 L, Hgb 10.0 L, Hct 30.2 L, MCV 103.1 H, MCH 34.1 H, MCHC 33.1, RDW Std Deviation 54.0 H, RDW Coeff of Harvinder 14.4, Plt Count 106 L, MPV 10.0, Immature Gran % (Auto) 2.200 H, Neut % (Auto) 77.0 H, Lymph % (Auto) 9.7 L, Delta % (Auto) 10.8 H, Eos % (Auto) 0.0, Baso % (Auto) 0.3, Absolute Neuts (auto) 5.6, Absolute Lymphs (auto) 0.71 L, Nucleated RBC % 0.3, Sodium 146 H, Potassium 3.7, Chloride 112 H, Carbon Dioxide 22.5, Anion Gap 11, BUN 26 H, Creatinine 0.99, Estim Creat Clear Calc 54.92, Est GFR (MDRD) Non-Af 76, BUN/Creatinine Ratio 26.2 H, Glucose 108 H, Calcium 7.8 Micro: Microbiology 09/20/24 17:15 Sputum, Induced/Lukens Gram Stain - Final 09/20/24 17:15 Sputum, Induced/Lukens Respiratory Culture - Final Mixed normal respiratory sridhar. No Streptococcus pneumoniae, beta-hemolytic Streptococcus or Staphylococcus aureus isolated. 09/20/24 13:53 Blood Culture (Wb) - Anticubital Right Blood Culture - Preliminary No growth in 48 hours. 09/20/24 13:49 Blood Culture (Wb) - Line Draw Blood Culture - Preliminary No growth in 48 hours. 09/20/24 14:00 Urine, Catheterized Urine Culture - Final Culture exhibits no growth. 09/20/24 14:00 Urine Catheter - Rowe Legionella Antigen - Final 09/20/24 14:00 Urine Catheter - Rowe Streptococcus pneumoniae Antigen (M - Final 09/20/24 13:49 Mucosa - Nose SARS-CoV-2, Influenza & RSV (PCR) - Final Influenzae A Radiography Diagnostic Testing: Radiology Impression Echocardiogram 09/20/24 14:44 Interpretation Summary Severe LV systolic dysfunction. Posterior basal and inferior akinesis. Severe septal hypokinesis. Estimated LVEF 20-25%. Stage III diastolic dysfunction. Increased left atrial filling pressures. Septal wall motion consistent with RV volume and pressure overload. Moderate RV systolic dysfunction. The left atrium is moderately enlarged. The right atrium is mildly enlarged. Moderate (2+) posteriorly directed mitral valve insufficiency. Mild tricuspid valve insufficiency. Right ventricular systolic pressure estimated to be 52 mmHg. Ordering Physician: Dileep Stanton Referring Physician: HOLLY YODER Performed By: Marianna Coleman RDCS Rhythm Strip Rhythm Strip: afib, intermittent vent pacing Rate: 72 Ectopy: None Physical Exam Const alert and no apparent distress Constitutional Narrative: Hard of hearing. General Appearance: cooperative HEENT head/scalp atraumatic and moist oral mucous membranes Mouth: endotracheal tube in place Eyes EOMs intact bilaterally, conjunctivae normal and no scleral icterus Neck supple General: trachea midline and CVC in place Chest inspection of chest normal Resp normal respiratory effort Auscultation: rales and diminished lung sounds Cardio regular rate and regular rhythm GI soft to palpation and non-tender Extremity General Extremity: edema bilateral lower extremity; Negative for clubbing Skin no rashes or lesions noted Neuro CN's II-XII intact bilaterally, moves all extremities and no focal motor deficits Psych cooperative and affect normal Charges/Coding Visit Charges Inpatient E&M: 19514 Subs Hosp L3
[2024-09-24] MEDS: hydrALAZINE 50 MG Tablet 100 MG PO ×2 (08:43→21:39)
[2024-09-24] MEDS: Atorvastatin Calcium 80 MG Tablet PO (08:43)
[2024-09-24] MEDS: Furosemide 40 MG/4 ML Vial IV (08:43)
[2024-09-24] MEDS: Aspirin 81 MG TAB.CHEW PO (08:43)
[2024-09-24] MEDS: 0.9% Saline Lock 10 ML Syringe IV ×2 (08:43→16:36)
[2024-09-24] MEDS: Metoprolol Tartrate 100 MG Tablet PO ×2 (08:43→21:39)
[2024-09-24] MEDS: OSELTAMIVIR PHOSPHATE 6 MG/ML BOTTLE 30 MG PO ×2 (08:44→21:40)
[2024-09-24] MEDS: Pantoprazole Sodium 40 MG in 0.9% Normal Saline (100mL MB+) 100 ML 330 MG IV ×2 (08:44→21:40)
[2024-09-24] MEDS: Ceftriaxone 2 GM in 0.9% Normal Saline (50mL MB+) 50 ML IV (08:51)
[2024-09-24] MEDS: Azithromycin 500 MG in 0.9% Normal Saline (250mL Bag) 250 ML 255 MG IV (09:56)
--- NOTE | 2024-09-24 10:56 | PN.HOSP_ITS ---
Reason for Visit Reason for Visit: Diagnoses Sepsis, unspecified organism (09/20/24) Anemia, unspecified (09/20/24) Thrombocytopenia, unspecified (09/20/24) Atherosclerotic heart disease of [place] coronary artery without angina pectoris (09/20/24) Cardiac arrest, cause unspecified (09/20/24) Paroxysmal atrial fibrillation (09/20/24) Unspecified systolic (congestive) heart failure (09/20/24) Influenza due to other identified influenza virus with other respiratory manifestations (09/20/24) Pneumonia, unspecified organism (09/20/24) Acute respiratory failure with hypoxia (09/20/24) Severe sepsis with septic shock (09/20/24) Subjective Subjective Alert, has good appetite, subjective dyspnea is improved Objective Data Objective Data Vital Signs: Vital Signs Temp Pulse Resp BP Pulse Ox O2 Del Method O2 Flow Rate 99.4 F H 66 23 H 159/72 H 93 Nasal Cannula 8 09/24/24 09:00 09/24/24 09:00 09/24/24 09:00 09/24/24 09:00 09/24/24 10:00 09/24/24 10:00 09/24/24 10:00 FiO2 35 09/23/24 09:00 Oxygen Flow Rate (L/min) 8 Oxygen Delivery Method Nasal Cannula Weight: 180 lb 12.465 oz Body Mass Index (BMI) 30.1 Intake & Output: Intake and Output for Last 24 Hours 09/22/24 09/23/24 09/24/24 23:59 23:59 23:59 Intake Total 867.28 / 904.88 973.50 / 973.50 160 / 160 Output Total 1325 / 1725 1950 / 1950 1800 / 1800 Balance -457.72 / -820.12 -976.50 / -976.50 -1640 / -1640 Lab / Micro Data Attestation: I reviewed the patient's lab results. 09/24/24 03:24 09/24/24 03:24 Labs: Laboratory Results - last 24 hr 09/24/24 03:24: WBC 7.3, RBC 2.93 L, Hgb 10.0 L, Hct 30.2 L, MCV 103.1 H, MCH 34.1 H, MCHC 33.1, RDW Std Deviation 54.0 H, RDW Coeff of Harvinder 14.4, Plt Count 106 L, MPV 10.0, Immature Gran % (Auto) 2.200 H, Neut % (Auto) 77.0 H, Lymph % (Auto) 9.7 L, [place] % (Auto) 10.8 H, Eos % (Auto) 0.0, Baso % (Auto) 0.3, Absolute Neuts (auto) 5.6, Absolute Lymphs (auto) 0.71 L, Nucleated RBC % 0.3, S odium 146 H, Potassium 3.7, Chloride 112 H, Carbon Dioxide 22.5, Anion Gap 11, B UN 26 H, Creatinine 0.99, Estim Creat Clear Calc 54.92, Est GFR (MDRD) Non-Af 76, BUN/Creatinine Ratio 26.2 H, Glucose 108 H, Calcium 7.8 Micro: Microbiology 09/20/24 17:15 Sputum, Induced/Lukens Gram Stain - Final 09/20/24 17:15 Sputum, Induced/Lukens Respiratory Culture - Final Mixed normal respiratory sridhar. No Streptococcus pneumoniae, beta-hemolytic Streptococcus or Staphylococcus aureus isolated. 09/20/24 13:53 Blood Culture (Wb) - Anticubital Right Blood Culture - Preliminary No growth in 48 hours. 09/20/24 13:49 Blood Culture (Wb) - Line Draw Blood Culture - Preliminary No growth in 48 hours. 09/20/24 14:00 Urine, Catheterized Urine Culture - Final Culture exhibits no growth. 09/20/24 14:00 Urine Catheter - Rowe Legionella Antigen - Final 09/20/24 14:00 Urine Catheter - Rowe Streptococcus pneumoniae Antigen (M - Final 09/20/24 13:49 Mucosa - Nose SARS-CoV-2, Influenza & RSV (PCR) - Final Influenzae A Rhythm Strip Rhythm Strip: afib, intermittent vent pacing Rate: 72 Ectopy: None Physical Exam Const alert, oriented x3 and no apparent distress Eyes PERRL Neck no lymphadenopathy Resp Resp Narrative: Bilateral crepitations Auscultation: crackles bilateral Cardio regular rate and regular rhythm GI normal to inspection, nondistended, normoactive bowel sounds Extremity normal to inspection Neuro oriented x3, CN's II-XII intact bilaterally and no focal motor deficits Psych affect normal Assessment & Plan Assessment/Plan (1) HFrEF (heart failure with reduced ejection fraction): PLAN: Plan Patient is an 83-year-old male who presented to [facility] ED on 09/20/2024 with worsening upper respiratory symptoms in the setting of severe underlying heart failure with reduced ejection fraction. Patient had cardiac arrest x 2 in the ED requiring 2 doses of epinephrine and 2 rounds of CPR. Given his overall presentation and clinical course,mostly patient had acute decompensated heart failure with volume overload that responded very well to positive pressure ventilation. 09/21/2024: Remain intubated today, appreciate system operation superintendent assistance. Will consult gastroenterology for possibility of a bedside EGD given the blood coming out of the NG tube, there is some discrepancy as to whether or not there was bleeding before her after CPR was initiated and the emergency room. Continue with PPI 09/22/24: Minimal ventilator requirement, PEEP of 5. EGD today. Off levophed. No significant drop in hemoglobin. 09/23/24: EGD done yesterday, gastric bleeding ulcer was clipped. Hemoglobin stable. Plan for spontaneous breathing trial today 09/24/2024: Patient extubated yesterday, presently on nasal cannula using 6 to 8 L of oxygen, no other active concerns. Negative fluid balance maintained #Acute hypoxic respiratory failure suspected secondary to influenza A infection # Acute decompensated heart failure #Cardiogenic shock (resolved) -Appreciate management in the ICU, system operation superintendent input -Wean down oxygen requirement for target 88 to 92% saturation -Continue influenza A treatment with Tamiflu. -continue IV ceftriaxone and azithromycin for antibiotic coverage as well. -1 dose of Lasix 40 mg IV #Paroxysmal A-fib on Xarelto ?Heart rate normal sinus rhythm in the ED. -Did have an elevated INR of 3.1 and patient notably did have blood output from both the ET tube with suctioning and from his urinary catheter. Because of this, was given a dose of Kcentra in the ED. -Restart Xarelto today #Acute on chronic anemia #Suspected upper GI bleeding -Presented to the ED and was found to have blood in his NG tube suction -No significant hemoglobin drop, but has been off anticoagulation and received Kcentra in the ED -Bleeding ulcer found in the stomach s/p hemostatic clip placement [09/22/2024] -Hemoglobin has been stable # Cardiorenal syndrome # MUSA ?Creatinine 1.57 on admit, baseline unclear but appears to be around 1.2-1.4. Monitor daily BMP and urine output. -Creatinine improved to baseline #Ischemic cardiomyopathy #AICD in place #Severe diastolic dysfunction #Heart failure reduced ejection fraction EF of 20% ? Pacemaker was interrogated in the ED and there were no signs of cardiac arrhythmia. - Continue home statin. -Will restart outpatient medications once more stable and requiring less oxygen #BPH with obstructive symptoms ?Continue Flomax # Class I obesity ? BMI 31 on admit. Complicates hospital course, care and prognosis. # DVT prophylaxis -Xarelto restarted
--- NOTE | 2024-09-24 11:07 | CASEMGMT ---
THANH met with patient's daughter Eliza. Eliza said she spoke with patient about going to [facility] and he seemed okay with it. Eliza denied any further needs at this time. Plan: d/c to [facility] under skilled level of care when medically ready. Sanam Hale ANNUAL GIVING MANAGER SHAW
--- NOTE | 2024-09-24 12:12 | CASEMGMT ---
Patient and family were interested in completing Healthcare Power of Storeroom Attendant papers. SW assisted patient in completing document. Copies were made and given to patient along with original. A copy was also placed in patient's chart. Patient named his daughter Eliza and then as his first alternate. SW did talk with patient's daughter to obtain her and patient's son's addresses. Therefore she is aware documents were done. Sanam Hale PROFESSIONAL BONDSMAN SHAW
[2024-09-24] MEDS: Rivaroxaban 20 MG Tablet PO (13:32)
[2024-09-24] MEDS: Senna Tablet 1 TABLET PO ×2 (14:54→21:39)
[2024-09-24] MEDS: Polyethylene Glycol 3350 17 GM PACKET PO (14:55)
[2024-09-25] VITALS (9 sets, daily range): BP systolic 119–132; BP diastolic 60–76; PULSE 67–83; RESP 18; TEMP 35.9–36.9; O2SAT 90–94; BMI 29.3
[2024-09-25] MEDS: Acetaminophen 325 MG Tablet 650 MG PO (03:05)
--- NOTE | 2024-09-25 07:46 | PCM.PN.HOSP ---
Reason for Visit Reason for Visit: Diagnoses Sepsis, unspecified organism (09/20/24) Anemia, unspecified (09/20/24) Thrombocytopenia, unspecified (09/20/24) Atherosclerotic heart disease of [place] coronary artery without angina pectoris (09/20/24) Cardiac arrest, cause unspecified (09/20/24) Paroxysmal atrial fibrillation (09/20/24) Unspecified systolic (congestive) heart failure (09/20/24) Influenza due to other identified influenza virus with other respiratory manifestations (09/20/24) Pneumonia, unspecified organism (09/20/24) Acute respiratory failure with hypoxia (09/20/24) Severe sepsis with septic shock (09/20/24) Objective Data Objective Data Vital Signs: Vital Signs Temp Pulse Resp BP Pulse Ox O2 Del Method O2 Flow Rate 96.7 F L 83 18 131/69 H 94 High Flow 8 09/25/24 02:00 09/25/24 02:00 09/25/24 02:00 09/25/24 02:00 09/25/24 02:00 09/25/24 03:00 09/25/24 03:00 FiO2 35 09/23/24 09:00 Oxygen Flow Rate (L/min) 8 Oxygen Delivery Method High Flow Weight: 180 lb 12.465 oz Body Mass Index (BMI) 30.1 Intake & Output: Intake and Output for Last 24 Hours 09/23/24 09/24/24 09/25/24 23:59 23:59 23:59 Intake Total 973.50 / 973.50 1005 / 1005 100 / 100 Output Total 1950 / 1950 2600 / 2600 250 / 250 Balance -976.50 / -976.50 -1595 / -1595 -150 / -150 Lab / Micro Data 09/24/24 03:24 09/24/24 03:24 Micro: Microbiology 09/20/24 17:15 Sputum, Induced/Lukens Gram Stain - Final 09/20/24 17:15 Sputum, Induced/Lukens Respiratory Culture - Final Mixed normal respiratory sridhar. No Streptococcus pneumoniae, beta-hemolytic Streptococcus or Staphylococcus aureus isolated. 09/20/24 13:53 Blood Culture (Wb) - Anticubital Right Blood Culture - Preliminary No growth in 48 hours. 09/20/24 13:49 Blood Culture (Wb) - Line Draw Blood Culture - Preliminary No growth in 48 hours. 09/20/24 14:00 Urine, Catheterized Urine Culture - Final Culture exhibits no growth. 09/20/24 14:00 Urine Catheter - Rowe Legionella Antigen - Final 09/20/24 14:00 Urine Catheter - Rowe Streptococcus pneumoniae Antigen (M - Final 09/20/24 13:49 Mucosa - Nose SARS-CoV-2, Influenza & RSV (PCR) - Final Influenzae A Rhythm Strip Rhythm Strip: afib, intermittent vent pacing Rate: 72 Ectopy: None Physical Exam Narrative Did not move bowels since Friday. Passing flatus. Abdomen distended Physical exam: General: Alert, Oriented x3, Cooperative HEENT: Atraumatic, PERRLA, EOMI, Normocephalic Oral: No Gingival or Mucosal Lesions/ Ulcerations Neck: Supple, No JVD, Negative Carotid Bruits Chest wall/Lungs: Air entry diminished in bilateral lung bases. Mild coarse crepitation Cardiovascular: Sinus rhythm with PAC, irregular rhythm normal S1, Normal S2, systolic murmur right second ICS LSB Abdomen: Bowel Sounds Present, Soft, Non Tender, distended. Tympanic on percussion : No dysuria. No renal angle tenderness. No suprapubic tenderness. Extremities: No edema, Capillary Refill Less than 3 Seconds Skin: Ulcers over scalp covered with dressing. Has skin cancer, patient does not know details Musculoskeletal: No Tenderness to Palpation of Joints or Extremities Neurological: Cranial nerves II-XII grossly intact, DTR 2+/4. No acute focal neurological deficit. Psych/Mental Status: Flat affect Assessment & Plan Assessment/Plan (1) HFrEF (heart failure with reduced ejection fraction): PLAN: Plan Patient is an 83-year-old male who presented to [facility] ED on 09/20/2024 with worsening upper respiratory symptoms in the setting of severe underlying heart failure with reduced ejection fraction. Patient had cardiac arrest x 2 in the ED requiring 2 doses of epinephrine and 2 rounds of CPR. Given his overall presentation and clinical course,mostly patient had acute decompensated heart failure with volume overload that responded very well to positive pressure ventilation. Acute hypoxic respiratory failure secondary to influenza A infection and bilateral multifocal pneumonia: Patient was intubated on 09/21. Subsequently was extubated on 09/23. Still on high flow oxygen 8 L/min. Chest x-ray newly reviewed and shows patchy bilateral opacity, increased from 10/5 and pulmonary edema. Infectious workup shows mixed normal respiratory sridhar on sputum culture. Blood culture negative for 48 hours. Urine culture no growth. # Acute decompensated heart failure due to cardiogenic shock: Patient transferred to PCU yesterday. -Continue influenza A treatment with Tamiflu. -continue IV ceftriaxone and azithromycin for antibiotic coverage as well. -1 dose of Lasix 40 mg IV #Paroxysmal A-fib on Xarelto ?Heart rate normal sinus rhythm in the ED. -Did have an elevated INR of 3.1 and patient notably did have blood output from both the ET tube with suctioning and from his urinary catheter. Because of this, was given a dose of Kcentra in the ED. -Restart Xarelto today #Acute on chronic anemia due to suspected upper GI bleed: Patient had some blood in the NG tube suction on presentation in the ED. -No significant hemoglobin drop, but has been off anticoagulation and received Kcentra in the ED -Bleeding ulcer found in the stomach s/p hemostatic clip placement [09/22/2024] -Hemoglobin has been stable # Cardiorenal syndrome # MUSA ?Creatinine 1.57 on admit, baseline unclear but appears to be around 1.2-1.4. Monitor daily BMP and urine output. -Creatinine improved to baseline 09/25: #Ischemic cardiomyopathy #AICD in place #Severe diastolic dysfunction #Heart failure reduced ejection fraction EF of 20% ? Pacemaker was interrogated in the ED and there were no signs of cardiac arrhythmia. - Continue home statin. -Will restart outpatient medications once more stable and requiring less oxygen #BPH with obstructive symptoms ?Continue Flomax # Class I obesity ? BMI 31 on admit. Complicates hospital course, care and prognosis. # DVT prophylaxis -Xarelto restarted Charges/Coding Visit Charges Inpatient E&M: 93910 Subs Hosp L2
[2024-09-25] MEDS: Metoprolol Tartrate 100 MG Tablet PO ×2 (08:50→22:00)
[2024-09-25] MEDS: Polyethylene Glycol 3350 17 GM PACKET PO (08:50)
[2024-09-25] MEDS: Atorvastatin Calcium 80 MG Tablet PO (08:51)
[2024-09-25] MEDS: hydrALAZINE 50 MG Tablet 100 MG PO ×2 (08:51→22:01)
[2024-09-25] MEDS: Aspirin 81 MG TAB.CHEW PO (08:51)
[2024-09-25] MEDS: Senna Tablet 1 TABLET PO (08:52)
[2024-09-25] MEDS: Azithromycin 500 MG in 0.9% Normal Saline (250mL Bag) 250 ML 255 MG IV (09:05)
[2024-09-25] MEDS: Ceftriaxone 2 GM in 0.9% Normal Saline (50mL MB+) 50 ML IV (09:05)
--- NOTE | 2024-09-25 09:50 | RAD_ITS ---
PROCEDURE: ABD INC DECUB AND/OR ERECT REASON FOR EXAM: 83-year-old male, abdominal distention, concern for ileus. TECHNIQUE: Supine and upright views of the abdomen. COMPARISON: Chest radiograph 09/20/2024, CT abdomen pelvis 03/02/2024. FINDINGS: Partially visualized left chest wall cardiac conduction device. Prior median sternotomy. Endoscopic metallic clip overlying the stomach. Left lung pleural calcifications, unchanged. Partially visualized bilateral interstitial and alveolar opacities. The small bowel loops are decompressed. The large bowel loops are normal in caliber. No obvious pneumoperitoneum, however visualization is limited by pulmonary opacities. There are degenerative changes of the spine. Bilateral hip and SI joint arthrosis. Urinary catheter or temperature probe overlying the pelvis. RAD/Abd Inc Decub and/or Erect IMPRESSION: 1. No acute abdominal radiographic findings. 2. Partially visualized bilateral interstitial and alveolar opacities, grossly stable since comparison chest radiograph. Reading Location: [id number]
[2024-09-25] MEDS: Pantoprazole Sodium 40 MG in 0.9% Normal Saline (100mL MB+) 100 ML 330 MG IV ×2 (10:32→21:59)
[2024-09-25] MEDS: Bisacodyl 5 MG Tablet 10 MG PO (10:32)
[2024-09-25] MEDS: Senna Tablet 2 TABLET PO ×2 (10:32→22:00)
[2024-09-25] MEDS: Oseltamivir Phosphate 30 MG Capsule PO ×2 (10:43→22:00)
[2024-09-25] MEDS: guaiFENesin/D-Methorphan TAB.SR.12H 2 TABLET PO ×2 (11:21→21:59)
[2024-09-25] MEDS: Rivaroxaban 20 MG Tablet PO (17:05)
[2024-09-25] MEDS: 0.9% Saline Lock 10 ML Syringe IV (22:02)
[2024-09-26] VITALS (19 sets, daily range): BP systolic 107–137; BP diastolic 53–67; PULSE 60–82; RESP 18–20; TEMP 36.1–37.1; O2SAT 87–95; BMI 29.9
[2024-09-26 04:52] LABS: Absolute Lymphocyte Count 0.92 X10^3/uL (0.83-4.51); Absolute Neutrophil Count 8.6 X10^3/uL (2.0-7.7); Basophil# 0.02 X10^3/uL; Basophil% 0.2 % (0-1); Eosinophil# 0.02 X10^3/uL; Eosinophils% 0.2 % (0-5); Hematocrit 31.9 % (40-54); Hemoglobin 10.6 g/dL (13.0-16.5); Lymphocyte # 0.92 X10^3/ul (0.83-4.51); Lymphocyte % 8.3 % (19-41); Mean Corp Hgb Conc 33.2 g/dL (32-36); Mean Corpuscular Hgb 34.1 pg (27.0-32.0); Mean Corpuscular Volume 102.6 fL (80-94); Monocyte# 1.37 X10^3/uL; Monocyte% 12.3 % (0-10); NRBC Flagged by Analyzer 0.2 % (0-5); Neutrophil % 77.2 % (47-70); Platelet Count 177 K/mm3 (150-450); RBC Distribution Width CV 14.5 % (11.6-14.6); RBC Distribution Width SD 54.3 fl (35.1-43.9); Red Blood Count 3.11 M/mm3 (4.6-6.2); White Blood Count 11.1 K/mm3 (4.4-11.0)
[2024-09-26 06:10] LABS: Anion Gap 11 (5-15); BUN 27 mg/dL (4-19); BUN/Creat Ratio 25.9 RATIO (10-20); Calcium,Total 8.4 mg/dL (7.6-11.0); Carbon Dioxide 23.9 mmol/L (21.0-32.0); Chloride 109 mmol/L (98-108); Creatinine, Serum 1.04 mg/dL (0.70-1.20); EST Glomerular Filtration Rate 71 (>60); Estimated Creatinine Clearance 51.92 ml/min (50-250); Glucose 114 mg/dL (70-99); Potassium 3.4 mmol/L (3.3-5.1); Sodium Level 144 mmol/L (133-145)
[2024-09-26] MEDS: Albuterol 2.5 MG/3 ML VIAL.NEB. INHALATION (07:22)
--- NOTE | 2024-09-26 09:45 | PN.HOSP_ITS ---
Reason for Visit Reason for Visit: Diagnoses Sepsis, unspecified organism (09/20/24) Anemia, unspecified (09/20/24) Thrombocytopenia, unspecified (09/20/24) Atherosclerotic heart disease of [place] coronary artery without angina pectoris (09/20/24) Cardiac arrest, cause unspecified (09/20/24) Paroxysmal atrial fibrillation (09/20/24) Unspecified systolic (congestive) heart failure (09/20/24) Influenza due to other identified influenza virus with other respiratory manifestations (09/20/24) Pneumonia, unspecified organism (09/20/24) Acute respiratory failure with hypoxia (09/20/24) Severe sepsis with septic shock (09/20/24) Objective Data Objective Data Vital Signs: Vital Signs Temp Pulse Resp BP Pulse Ox O2 Del Method O2 Flow Rate 97.0 F L 76 20 H 125/62 H 93 Nasal Cannula 8 09/26/24 04:00 09/26/24 07:23 09/26/24 07:23 09/26/24 04:00 09/26/24 07:23 09/26/24 07:23 09/26/24 07:23 FiO2 92 09/25/24 13:56 Oxygen Flow Rate (L/min) 8 Oxygen Delivery Method Nasal Cannula Weight: 180 lb 1.883 oz Body Mass Index (BMI) 29.9 Intake & Output: Intake and Output for Last 24 Hours 09/24/24 09/25/24 09/27/24 23:59 23:59 00:59 Intake Total 1005 / 1005 1045 / 1045 Output Total 2600 / 2600 750 / 1100 750 / 750 Balance -1595 / -1595 295 / -55 -750 / -750 Lab / Micro Data 09/26/24 04:04 09/26/24 04:04 Labs: Laboratory Results - last 24 hr 09/26/24 04:04: WBC 11.1 H, RBC 3.11 L, Hgb 10.6 L, Hct 31.9 L, MCV 102.6 H, MCH 34.1 H, MCHC 33.2, RDW Std Deviation 54.3 H, RDW Coeff of Harvinder 14.5, Plt Count 177, MPV 11.0, Immature Gran % (Auto) 1.800 H, Neut % (Auto) 77.2 H, Lymph % (Auto) 8.3 L, [place] % (Auto) 12.3 H, Eos % (Auto) 0.2, Baso % (Auto) 0.2, A bsolute Neuts (auto) 8.6 H, Absolute Lymphs (auto) 0.92, Nucleated RBC % 0.2, Sodium 144, Potassium 3.4, Chloride 109 H, Carbon Dioxide 23.9, Anion Gap 11, B UN 27 H, Creatinine 1.04, Estim Creat Clear Calc 51.92, Est GFR (MDRD) Non-Af 71, BUN/Creatinine Ratio 25.9 H, Glucose 114 H, Calcium 8.4 Micro: Microbiology 09/20/24 13:49 Blood Culture (Wb) - Line Draw Blood Culture - Final No growth in 5 days. 09/20/24 13:53 Blood Culture (Wb) - Anticubital Right Blood Culture - Final No growth in 5 days. 09/20/24 17:15 Sputum, Induced/Lukens Gram Stain - Final 09/20/24 17:15 Sputum, Induced/Lukens Respiratory Culture - Final Mixed normal respiratory sridhar. No Streptococcus pneumoniae, beta-hemolytic Streptococcus or Staphylococcus aureus isolated. 09/20/24 14:00 Urine, Catheterized Urine Culture - Final Culture exhibits no growth. 09/20/24 14:00 Urine Catheter - Rowe Legionella Antigen - Final 09/20/24 14:00 Urine Catheter - Rowe Streptococcus pneumoniae Antigen (M - Final 09/20/24 13:49 Mucosa - Nose SARS-CoV-2, Influenza & RSV (PCR) - Final Influenzae A Radiography Diagnostic Testing: Radiology Impression Abdomen X-Ray 09/25/24 09:50 IMPRESSION: 1. No acute abdominal radiographic findings. 2. Partially visualized bilateral interstitial and alveolar opacities, grossly stable since comparison chest radiograph. Reading Location: [facility] Rhythm Strip Rhythm Strip: afib, intermittent vent pacing Rate: 72 Ectopy: None Physical Exam Narrative Did not move bowels since Friday. Had Dulcolax 10 mg oral and senna S still did not move bowel but passing flatus. Abdomen distended. Abdominal x-ray reviewed Physical exam: General: Alert, Oriented x3, Cooperative HEENT: Atraumatic, PERRLA, EOMI, Normocephalic Oral: No Gingival or Mucosal Lesions/ Ulcerations Neck: Supple, No JVD, Negative Carotid Bruits Chest wall/Lungs: Air entry diminished in bilateral lung bases. Mild coarse crepitation Cardiovascular: Sinus rhythm with PAC, irregular rhythm normal S1, Normal S2, systolic murmur right second ICS LSB Abdomen: Bowel Sounds Present, Soft, Non Tender, distended. Tympanic on percussion : No dysuria. No renal angle tenderness. No suprapubic tenderness. Extremities: No edema, Capillary Refill Less than 3 Seconds Skin: Ulcers over scalp covered with dressing. Has skin cancer, patient does not know details Musculoskeletal: No Tenderness to Palpation of Joints or Extremities Neurological: Cranial nerves II-XII grossly intact, DTR 2+/4. No acute focal neurological deficit. Psych/Mental Status: Flat affect Assessment & Plan Assessment/Plan (1) HFrEF (heart failure with reduced ejection fraction): PLAN: Plan Patient is an 83-year-old male who presented to [facility] ED on 09/20/2024 with worsening upper respiratory symptoms in the setting of severe underlying heart failure with reduced ejection fraction. Patient had cardiac arrest x 2 in the ED requiring 2 doses of epinephrine and 2 rounds of CPR. Given his overall presentation and clinical course,mostly patient had acute decompensated heart failure with volume overload that responded very well to positive pressure ventilation. Acute hypoxic respiratory failure secondary to influenza A infection and bilateral multifocal pneumonia: Patient was intubated on 09/21. Subsequently was extubated on 09/23. Still on high flow oxygen 8 L/min. Chest x-ray newly reviewed and shows patchy bilateral opacity, increased from 10/5 and pulmonary edema. Infectious workup shows mixed normal respiratory sridhar on sputum culture. Blood culture negative for 48 hours. Urine culture no growth. 09/26: Continue the antibiotic to complete 7 days. Azithromycin discontinued after 5 doses. Continue IV ceftriaxone for. Discussed with the pharmacist to make sure that he completes the full course of oseltamivir for influenza A # Acute decompensated heart failure due to cardiogenic shock: Patient transferred to PCU yesterday. -Continue influenza A treatment with Tamiflu. -continue IV ceftriaxone and azithromycin for antibiotic coverage as well. -1 dose of Lasix 40 mg IV Abdominal distention, did not move bowel for 6 to 7 days. Abdominal x-ray reviewed and shows nonspecific colonic gas shadow with fecal matter. No acute abdominal radiographic finding. Lactulose 30 mL, Dulcolax 10 mg and Dulcolax suppository ordered. Follow-up for bowel movement. #Paroxysmal A-fib on Xarelto ?Heart rate normal sinus rhythm in the ED. -Did have an elevated INR of 3.1 and patient notably did have blood output from both the ET tube with suctioning and from his urinary catheter. Because of this, was given a dose of Kcentra in the ED. -Restart Xarelto today #Acute on chronic anemia due to suspected upper GI bleed: Patient had some blood in the NG tube suction on presentation in the ED. -No significant hemoglobin drop, but has been off anticoagulation and received Kcentra in the ED -Bleeding ulcer found in the stomach s/p hemostatic clip placement [09/22/2024] -Hemoglobin has been stable # Cardiorenal syndrome # MUSA ?Creatinine 1.57 on admit, baseline unclear but appears to be around 1.2-1.4. Monitor daily BMP and urine output. -Creatinine improved to baseline 09/26: Creatinine normal. #Ischemic cardiomyopathy #AICD in place #Severe diastolic dysfunction #Heart failure reduced ejection fraction EF of 20% ? Pacemaker was interrogated in the ED and there were no signs of cardiac arrhythmia. - Continue home statin. -Will restart outpatient medications once more stable and requiring less oxygen #BPH with obstructive symptoms ?Continue Flomax # Class I obesity ? BMI 31 on admit. Complicates hospital course, care and prognosis. # DVT prophylaxis -Xarelto restarted Charges/Coding Visit Charges Inpatient E&M: 13362 [facility] Hosp L3
[2024-09-26] MEDS: guaiFENesin/D-Methorphan TAB.SR.12H 2 TABLET PO ×2 (10:09→23:35)
[2024-09-26] MEDS: Metoprolol Tartrate 100 MG Tablet PO ×2 (10:09→23:36)
[2024-09-26] MEDS: Aspirin 81 MG TAB.CHEW PO (10:10)
[2024-09-26] MEDS: Atorvastatin Calcium 80 MG Tablet PO (10:10)
[2024-09-26] MEDS: hydrALAZINE 50 MG Tablet 100 MG PO ×2 (10:10→23:36)
[2024-09-26] MEDS: Polyethylene Glycol 3350 17 GM PACKET PO (10:10)
[2024-09-26] MEDS: Senna Tablet 2 TABLET PO ×2 (10:10→23:36)
[2024-09-26] MEDS: Acetaminophen 325 MG Tablet 650 MG PO (10:23)
[2024-09-26] MEDS: Pantoprazole Sodium 40 MG in 0.9% Normal Saline (100mL MB+) 100 ML 330 MG IV ×2 (10:28→23:33)
--- NOTE | 2024-09-26 12:40 | RAD_ITS ---
PROCEDURE: CHEST 1 VIEW (PORTABLE) REASON FOR EXAM: 83-year-old male, increased oxygen requirement. TECHNIQUE: Frontal view of the chest. COMPARISON: Chest radiograph 09/20/2024. FINDINGS: Interval endotracheal and gastric tube removals. Stable right internal jugular central venous catheter and left chest wall pacemaker. Prior median sternotomy and CABG. Stable mild cardiomegaly with prominent vascular markings. Interval improvement in the patchy bilateral pulmonary opacities. Probable trace bilateral pleural effusions. No pneumothorax. Degenerative changes are identified within the thoracic spine. RAD/Chest 1 View (Portable) IMPRESSION: 1. Improvement in the patchy bilateral pulmonary opacities. 2. Development of probable trace bilateral pleural effusions. 3. Support devices as described. Reading Location: [id number]
[2024-09-26] MEDS: Ceftriaxone 2 GM in 0.9% Normal Saline (50mL MB+) 50 ML IV (12:54)
[2024-09-26] MEDS: Rivaroxaban 20 MG Tablet PO (17:35)
[2024-09-26] MEDS: 0.9% Saline Lock 10 ML Syringe IV (23:33)
[2024-09-27] VITALS (12 sets, daily range): BP systolic 105–120; BP diastolic 53–65; PULSE 69–85; RESP 15–23; TEMP 36.6–37.3; O2SAT 88–97
[2024-09-27 03:36] LABS: Absolute Lymphocyte Count 0.73 X10^3/uL (0.83-4.51); Absolute Neutrophil Count 8.1 X10^3/uL (2.0-7.7); Basophil# 0.02 X10^3/uL; Basophil% 0.2 % (0-1); Eosinophil# 0.05 X10^3/uL; Eosinophils% 0.5 % (0-5); Hematocrit 31.4 % (40-54); Hemoglobin 10.4 g/dL (13.0-16.5); Lymphocyte # 0.73 X10^3/ul (0.83-4.51); Mean Corp Hgb Conc 33.1 g/dL (32-36); Mean Corpuscular Volume 102.6 fL (80-94); Mean Platelet Vol. 10.4 fl (6.2-12.0); Monocyte# 1.33 X10^3/uL; Monocyte% 12.7 % (0-10); NRBC Flagged by Analyzer 0.2 % (0-5); Neutrophil # 8.08 X10^3/uL (2.7-7.7); Neutrophil % 77.2 % (47-70); Platelet Count 201 K/mm3 (150-450); RBC Distribution Width CV 14.6 % (11.6-14.6); RBC Distribution Width SD 54.9 fl (35.1-43.9); Red Blood Count 3.06 M/mm3 (4.6-6.2); White Blood Count 10.5 K/mm3 (4.4-11.0)
[2024-09-27 04:02] LABS: Anion Gap 10 (5-15); BUN 29 mg/dL (4-19); Calcium,Total 8.4 mg/dL (7.6-11.0); Carbon Dioxide 25.8 mmol/L (21.0-32.0); Chloride 110 mmol/L (98-108); Creatinine, Serum 1.09 mg/dL (0.70-1.20); EST Glomerular Filtration Rate 67 (>60); Estimated Creatinine Clearance 49.53 ml/min (50-250); Glucose 92 mg/dL (70-99); Potassium 3.4 mmol/L (3.3-5.1); Sodium Level 146 mmol/L (133-145)
--- NOTE | 2024-09-27 08:09 | PCM.PN.HOSP ---
Reason for Visit Reason for Visit: Diagnoses Sepsis, unspecified organism (09/20/24) Anemia, unspecified (09/20/24) Thrombocytopenia, unspecified (09/20/24) Atherosclerotic heart disease of [place] coronary artery without angina pectoris (09/20/24) Cardiac arrest, cause unspecified (09/20/24) Paroxysmal atrial fibrillation (09/20/24) Unspecified systolic (congestive) heart failure (09/20/24) Influenza due to other identified influenza virus with other respiratory manifestations (09/20/24) Pneumonia, unspecified organism (09/20/24) Acute respiratory failure with hypoxia (09/20/24) Severe sepsis with septic shock (09/20/24) Subjective Subjective Reports he is feeling little bit better than he was, breathing a little bit better though still does not feel well and is still short of breath, presently on Airvo, just receiving his Lasix ordered this a.m. Does report he has had a bowel movement. Has some chronic swelling in his lower extremities right greater than left and does not feel it is worse than usual, no abdominal pain Objective Data Objective Data Vital Signs: Vital Signs Temp Pulse Resp BP Pulse Ox O2 Del Method O2 Flow Rate 98.8 F 69 20 H 114/53 L 95 Airvo 60 09/27/24 04:00 09/27/24 04:00 09/27/24 04:00 09/27/24 04:00 09/27/24 04:00 09/27/24 04:29 09/27/24 04:29 FiO2 60 09/27/24 04:29 Oxygen Flow Rate (L/min) 60 Oxygen Delivery Method Airvo Weight: 81.7 kg Body Mass Index (BMI) 29.9 Intake & Output: Intake and Output for Last 24 Hours 09/25/24 09/27/24 09/27/24 23:59 00:59 23:59 Intake Total 1045 / 1045 880 / 1230 760 / 760 Output Total 750 / 1100 1500 / 1700 400 / 400 Balance 295 / -55 -620 / -470 360 / 360 Lab / Micro Data 09/27/24 03:13 09/27/24 03:13 Labs: Laboratory Results - last 24 hr 09/27/24 03:13: WBC 10.5, RBC 3.06 L, Hgb 10.4 L, Hct 31.4 L, MCV 102.6 H, MCH 34.0 H, MCHC 33.1, RDW Std Deviation 54.9 H, RDW Coeff of Harvinder 14.6, Plt Count 201, MPV 10.4, Immature Gran % (Auto) 2.400 H, Neut % (Auto) 77.2 H, Lymph % (Auto) 7.0 L, [place] % (Auto) 12.7 H, Eos % (Auto) 0.5, Baso % (Auto) 0.2, Absolute Neuts (auto) 8.1 H, Absolute Lymphs (auto) 0.73 L, Nucleated RBC % 0.2, Sodium 146 H, Potassium 3.4, Chloride 110 H, Carbon Dioxide 25.8, Anion Gap 10, BUN 29 H, Creatinine 1.09, Estim Creat Clear Calc 49.53 L, Est GFR (MDRD) Non-Af 67, BUN/Creatinine Ratio 27.0 H, Glucose 92, Calcium 8.4 Micro: Microbiology 09/20/24 13:49 Blood Culture (Wb) - Line Draw Blood Culture - Final No growth in 5 days. 09/20/24 13:53 Blood Culture (Wb) - Anticubital Right Blood Culture - Final No growth in 5 days. 09/20/24 17:15 Sputum, Induced/Lukens Gram Stain - Final 09/20/24 17:15 Sputum, Induced/Lukens Respiratory Culture - Final Mixed normal respiratory sridhar. No Streptococcus pneumoniae, beta-hemolytic Streptococcus or Staphylococcus aureus isolated. 09/20/24 14:00 Urine, Catheterized Urine Culture - Final Culture exhibits no growth. 09/20/24 14:00 Urine Catheter - Rowe Legionella Antigen - Final 09/20/24 14:00 Urine Catheter - Rowe Streptococcus pneumoniae Antigen (M - Final 09/20/24 13:49 Mucosa - Nose SARS-CoV-2, Influenza & RSV (PCR) - Final Influenzae A Radiography Diagnostic Testing: Radiology Impression Chest X-Ray 09/26/24 12:40 IMPRESSION: 1. Improvement in the patchy bilateral pulmonary opacities. 2. Development of probable trace bilateral pleural effusions. 3. Support devices as described. Reading Location: [facility] Rhythm Strip Rhythm Strip: afib, intermittent vent pacing Rate: 72 Ectopy: None Physical Exam Narrative General: Alert, no apparent distress HEENT: Atraumatic, normocephalic Eyes: Anicteric, normal conjunctiva, extraocular movements grossly intact Neck: Supple Respiratory: Slight increased respiratory effort, coarse especially at the bases Cardiovascular: Regular rate GI: Soft, nontender, nondistended Extremities: Trace lower extremity edema right greater than left Musculoskeletal: Moving all extremities Neuro: No overt focal neurological deficits Skin: No rashes appreciated Psych: Cooperative Assessment & Plan Assessment/Plan (1) HFrEF (heart failure with reduced ejection fraction): PLAN: Plan Patient is an 83-year-old male who presented to [facility] ED on 09/20/2024 with worsening upper respiratory symptoms in the setting of severe underlying heart failure with reduced ejection fraction. Patient had cardiac arrest x 2 in the ED requiring 2 doses of epinephrine and 2 rounds of CPR. Given his overall presentation and clinical course,mostly patient had acute decompensated heart failure with volume overload that responded very well to positive pressure ventilation. # Acute hypoxic respiratory failure secondary to influenza A infection and superimposed bilateral multifocal pneumonia and decompensated heart failure -Patient intubated 09/21 with subsequent extubation 09/23 -Continues to have high O2 requirement, patient presently on Airvo, will give another dose of IV Lasix -Also concern for pulmonary edema -Continue Rocephin, will give another dose of lasix # Cardiogenic shock secondary to acute decompensated heart failure with preserved ejection fraction with a reduced EF and AICD -Patient presented with cardiac arrest requiring 2 doses of epi and 2 rounds of CPR -Patient being monitored on telemetry -Chest x-ray with bilateral multifocal pneumonia and/or pulmonary edema -Patient received IV Lasix x 1, -Last echo 04/2024 with EF of 50% but all motion abnormalities and stage II diastolic dysfunction -Repeat echo ordered and demonstrated now decreased EF of 20 to 25% and stage III diastolic dysfunction -Daily weights, I's and O's -heart healthy diet -Patient on beta-isabel, hydralazine, resume home Imdur and home GALE, if renal function on blood pressure tolerates can consider spironolactone and/or SGLT2 inhibitor moving forward -Will need follow-up with his project architect and his EP doctor on discharge # Acute on chronic anemia secondary to upper GI bleed -There is blood in NG tube on presentation patient EGD was found to have bleeding ulcer in stomach status post hemostatic clip placement 09/22/2024 -Patient's Xarelto restarted with stable hemoglobin -Continue patient on PPI # History of paroxysmal atrial fibrillation -Patient on Xarelto -Patient remains on beta-isabel, patient was on amnio at home however this has not been continued here #Hx CAD s/p CABG -Patient on beta-isabel and Xarelto #Chronic BPH with obstruction -Resume home tamsulosin #DVT ppx: Patient on Xarelto Charmaine Machuca MD Charges/Coding Visit Charges Inpatient E&M: 79642 Subs Hosp L2
[2024-09-27] MEDS: guaiFENesin/D-Methorphan TAB.SR.12H 2 TABLET PO ×2 (09:58→22:07)
[2024-09-27] MEDS: Furosemide 40 MG/4 ML Vial IV (09:59)
[2024-09-27] MEDS: Aspirin 81 MG TAB.CHEW PO (09:59)
[2024-09-27] MEDS: Atorvastatin Calcium 80 MG Tablet PO (09:59)
[2024-09-27] MEDS: 0.9% Saline Lock 10 ML Syringe IV ×3 (10:00→22:20)
[2024-09-27] MEDS: Pantoprazole Sodium 40 MG in 0.9% Normal Saline (100mL MB+) 100 ML 330 MG IV ×2 (10:01→22:12)
[2024-09-27] MEDS: Ceftriaxone 2 GM in 0.9% Normal Saline (50mL MB+) 50 ML IV (10:29)
--- NOTE | 2024-09-27 11:24 | CASEMGMT ---
Addendum entered by Marcella Mata 09/27/24 12:08: [facility] can accommodate up to 5L O2. Marcella Mata DC Planning Asst. Original Note: Discharge Planning Updates sent to [facility] with note asking how much O2 they can accommodate. Marcella Mata DC Planning Asst.
--- NOTE | 2024-09-27 12:00 | CASEMGMT ---
Social Work- In regards to parameters for oxygen requirements at discharge: Per Kel, We can technically do up to 10 but that typically results in a rehospitalization so we prefer less than 5 just for the safety and stability of the guest. RNCM updated. SW remains available to follow. Plan: Kel; when medically ready RALPH Champagne
[2024-09-27] MEDS: Tamsulosin HCl 0.4 MG Capsule PO (17:18)
[2024-09-27] MEDS: Rivaroxaban 20 MG Tablet PO (17:18)
[2024-09-27] MEDS: hydrALAZINE 50 MG Tablet PO (22:07)
[2024-09-27] MEDS: Metoprolol Tartrate 50 MG Tablet PO (22:11)
[2024-09-28] VITALS (19 sets, daily range): BP systolic 99–126; BP diastolic 57–70; PULSE 60–83; RESP 17–24; TEMP 36.4–36.9; O2SAT 88–98; BMI 29.5
[2024-09-28 05:51] LABS: Hematocrit 29.9 % (40-54); Mean Corp Hgb Conc 33.4 g/dL (32-36); Mean Corpuscular Hgb 34.2 pg (27.0-32.0); Mean Corpuscular Volume 102.4 fL (80-94); Mean Platelet Vol. 10.5 fl (6.2-12.0); Platelet Count 200 K/mm3 (150-450); RBC Distribution Width CV 14.5 % (11.6-14.6); RBC Distribution Width SD 54.5 fl (35.1-43.9); Red Blood Count 2.92 M/mm3 (4.6-6.2); White Blood Count 8.7 K/mm3 (4.4-11.0)
[2024-09-28 06:27] LABS: Anion Gap 9 (5-15); BUN 35 mg/dL (4-19); BUN/Creat Ratio 25.3 RATIO (10-20); Carbon Dioxide 27.9 mmol/L (21.0-32.0); Chloride 109 mmol/L (98-108); Creatinine, Serum 1.38 mg/dL (0.70-1.20); EST Glomerular Filtration Rate 51 (>60); Estimated Creatinine Clearance 39.12 ml/min (50-250); Glucose 98 mg/dL (70-99); Potassium 3.2 mmol/L (3.3-5.1); Sodium Level 146 mmol/L (133-145)
--- NOTE | 2024-09-28 08:12 | PN.HOSP_ITS ---
Reason for Visit Reason for Visit: Diagnoses Sepsis, unspecified organism (09/20/24) Anemia, unspecified (09/20/24) Thrombocytopenia, unspecified (09/20/24) Atherosclerotic heart disease of [place] coronary artery without angina pectoris (09/20/24) Cardiac arrest, cause unspecified (09/20/24) Paroxysmal atrial fibrillation (09/20/24) Unspecified systolic (congestive) heart failure (09/20/24) Influenza due to other identified influenza virus with other respiratory manifestations (09/20/24) Pneumonia, unspecified organism (09/20/24) Acute respiratory failure with hypoxia (09/20/24) Severe sepsis with septic shock (09/20/24) Subjective Subjective Patient resting comfortably in bed, did have increased O2 requirements but reports he feels like his breathing is slowly improving, no chest pain, does have some cough Objective Data Objective Data Vital Signs: Vital Signs Temp Pulse Resp BP Pulse Ox O2 Del Method O2 Flow Rate 97.5 F L 72 22 H 126/62 H 88 Airvo 60 09/28/24 04:00 09/28/24 04:00 09/28/24 04:00 09/28/24 04:00 09/28/24 02:00 09/28/24 04:00 09/27/24 16:14 FiO2 70 09/28/24 04:00 Oxygen Flow Rate (L/min) 60 Oxygen Delivery Method Airvo Weight: 80.2 kg Body Mass Index (BMI) 29.5 Intake & Output: Intake and Output for Last 24 Hours 09/27/24 09/27/24 09/28/24 00:59 23:59 23:59 Intake Total 880 / 1230 1430 / 1530 100 / 100 Output Total 1500 / 1700 900 / 1450 850 / 850 Balance -620 / -470 530 / 80 -750 / -750 Lab / Micro Data 09/28/24 05:25 09/28/24 05:25 Labs: Laboratory Results - last 24 hr 09/28/24 05:25: WBC 8.7, RBC 2.92 L, Hgb 10.0 L, Hct 29.9 L, MCV 102.4 H, MCH 34.2 H, MCHC 33.4, RDW Std Deviation 54.5 H, RDW Coeff of Harvinder 14.5, Plt Count 200, MPV 10.5, Sodium 146 H, Potassium 3.2 L, Chloride 109 H, Carbon Dioxide 27.9, Anion Gap 9, BUN 35 H, Creatinine 1.38 H, Estim Creat Clear Calc 39.12 L, Est GFR (MDRD) Non-Af 51 L, BUN/Creatinine Ratio 25.3 H, Glucose 98, Calcium 8.0 Micro: Microbiology 09/20/24 13:49 Blood Culture (Wb) - Line Draw Blood Culture - Final No growth in 5 days. 09/20/24 13:53 Blood Culture (Wb) - Anticubital Right Blood Culture - Final No growth in 5 days. 09/20/24 17:15 Sputum, Induced/Lukens Gram Stain - Final 09/20/24 17:15 Sputum, Induced/Lukens Respiratory Culture - Final Mixed normal respiratory sridhar. No Streptococcus pneumoniae, beta-hemolytic Streptococcus or Staphylococcus aureus isolated. 09/20/24 14:00 Urine, Catheterized Urine Culture - Final Culture exhibits no growth. 09/20/24 14:00 Urine Catheter - Rowe Legionella Antigen - Final 09/20/24 14:00 Urine Catheter - Rowe Streptococcus pneumoniae Antigen (M - Final 09/20/24 13:49 Mucosa - Nose SARS-CoV-2, Influenza & RSV (PCR) - Final Influenzae A Rhythm Strip Rhythm Strip: afib, intermittent vent pacing Rate: 72 Ectopy: None Physical Exam Narrative General: Alert, no apparent distress HEENT: Atraumatic, normocephalic Eyes: Anicteric, normal conjunctiva, extraocular movements grossly intact Neck: Supple Respiratory: Slight increased respiratory effort, coarse especially at the bases Cardiovascular: Regular rate GI: Soft, nontender, nondistended Extremities: Trace lower extremity edema right greater than left Musculoskeletal: Moving all extremities Neuro: No overt focal neurological deficits Skin: No rashes appreciated Psych: Cooperative Assessment & Plan Assessment/Plan (1) HFrEF (heart failure with reduced ejection fraction): PLAN: Plan Patient is an 83-year-old male who presented to [facility] ED on 09/20/2024 with worsening upper respiratory symptoms in the setting of severe underlying heart failure with reduced ejection fraction. Patient had cardiac arrest x 2 in the ED requiring 2 doses of epinephrine and 2 rounds of CPR. Given his overall presentation and clinical course,mostly patient had acute decompensated heart failure with volume overload that responded very well to positive pressure ventilation. # Acute hypoxic respiratory failure secondary to influenza A infection and superimposed bilateral multifocal pneumonia and decompensated heart failure -Patient intubated 09/21 with subsequent extubation 09/23 -Continues to have high O2 requirement, patient presently on Airvo, will give another dose of IV Lasix -Also concern for pulmonary edema -Continue Rocephin, will give another dose of lasix -09/28: Patient remains on Airvo, middle of the night did have O2 sat down to 88 so Airvo was increased, patient on Rocephin and was given a dose of Lasix 09/27/2024. Repeat chest x-ray with increased pulmonary congestion and edema, another dose of Lasix ordered #MUSA -09/28:-MUSA, unclear etiology as there is concern for fluid overload but kidney function did worsen with Lasix. Will check urine studies # Cardiogenic shock secondary to acute decompensated heart failure with preserved ejection fraction with a reduced EF and AICD -Patient presented with cardiac arrest requiring 2 doses of epi and 2 rounds of CPR -Patient being monitored on telemetry -Chest x-ray with bilateral multifocal pneumonia and/or pulmonary edema -Patient received IV Lasix x 1, -Last echo 04/2024 with EF of 50% but all motion abnormalities and stage II diastolic dysfunction -Repeat echo ordered and demonstrated now decreased EF of 20 to 25% and stage III diastolic dysfunction -Daily weights, I's and O's -heart healthy diet -Patient on beta-isabel, hydralazine, resume home Imdur and home GALE, if renal function on blood pressure tolerates can consider spironolactone and/or SGLT2 inhibitor moving forward -Will need follow-up with his motor adjuster and 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 Repeat dose of IV Lasix today # Acute on chronic anemia secondary to upper GI bleed -There is blood in NG tube on presentation patient EGD was found to have bleeding ulcer in stomach status post hemostatic clip placement 09/22/2024 -Patient's Xarelto restarted with stable hemoglobin -Continue patient on PPI -09/28: Hemoglobin 10, will continue to monitor daily monitor for any signs or symptoms of blood loss Chronic medical problems: # History of paroxysmal atrial fibrillation -Patient on Xarelto -Patient remains on beta-isabel, patient was on amio at home however this has not been continued here #Hx CAD s/p CABG -Patient on beta-isabel and Xarelto #Chronic BPH with obstruction -Resume home tamsulosin #DVT ppx: Patient on Xarelto Charmaine Machuca MD Time spent in the patient's overall evaluation,decision-making process, review of diagnostic data, adjustment of management, discussion with other providers, nursing nursing and ancillary staff involved in patient's care documentation, 37 minutes Charges/Coding Visit Charges Inpatient E&M: 64973 Subs Hosp L2
--- NOTE | 2024-09-28 08:12 | RAD_ITS ---
EXAM: XR Chest, 1 View CLINICAL INDICATION: INCREASING O2 REQUIREMENTS TECHNIQUE: Frontal view of the chest. COMPARISON: XR Chest dated 09/26/2024 FINDINGS: LUNGS AND PLEURAL SPACES: Increasing pulmonary congestion and edema, predominantly in the right lung field. No pneumothorax. HEART: Unremarkable. No cardiomegaly. MEDIASTINUM: Unremarkable. Normal mediastinal contour. BONES/JOINTS: Unremarkable. No acute fracture. TUBES, LINES AND DEVICES: Right internal jugular central venous catheter tip in the superior vena cava. Left-sided cardiac pacemaker. RAD/Chest 1 View (Portable) IMPRESSION: Increasing pulmonary congestion and edema, predominantly in the right lung casie gonzalez Reading [facility]
[2024-09-28] MEDS: Aspirin 81 MG TAB.CHEW PO (08:23)
[2024-09-28] MEDS: Potassium Chloride Oral Tablet 20 MEQ 40 MEQ PO (08:28)
[2024-09-28 10:57] LABS: Magnesium 2.3 mg/dL (1.5-2.2)
[2024-09-28] MEDS: Pantoprazole Sodium 40 MG in 0.9% Normal Saline (100mL MB+) 100 ML 330 MG IV ×2 (11:15→22:50)
[2024-09-28] MEDS: hydrALAZINE 50 MG Tablet PO (11:16)
[2024-09-28] MEDS: guaiFENesin/D-Methorphan TAB.SR.12H 2 TABLET PO ×2 (11:16→22:56)
[2024-09-28] MEDS: Isosorbide Mononitrate 30 MG Tablet PO (11:16)
[2024-09-28] MEDS: Atorvastatin Calcium 80 MG Tablet PO (11:16)
[2024-09-28] MEDS: Metoprolol Tartrate 50 MG Tablet PO ×2 (11:27→22:55)
[2024-09-28 11:43] LABS: Urea Nitrogen, Urine 874 mg/dL (NO RANGE EST.); Urine Chloride < 20 mmol/L (Not Establ.); Urine Potassium 34.4 mmol/L (Not Establ.); Urine Sodium < 20 mmol/L (Not Establ.)
[2024-09-28] MEDS: Furosemide 40 MG/4 ML Vial IV (12:22)
[2024-09-28] MEDS: Ceftriaxone 2 GM in 0.9% Normal Saline (50mL MB+) 50 ML IV (12:24)
[2024-09-28] MEDS: Tamsulosin HCl 0.4 MG Capsule PO (17:21)
[2024-09-28] MEDS: Rivaroxaban 20 MG Tablet PO (17:21)
[2024-09-28] MEDS: 0.9% Saline Lock 10 ML Syringe IV ×2 (22:50→23:23)
[2024-09-28] MEDS: Senna Tablet 2 TABLET PO (22:57)
[2024-09-29] VITALS (19 sets, daily range): BP systolic 95–132; BP diastolic 48–80; PULSE 60–81; RESP 18–200; TEMP 35.9–37; O2SAT 92–99; BMI 29.5
[2024-09-29 04:46] LABS: Hematocrit 29.7 % (40-54); Hemoglobin 9.8 g/dL (13.0-16.5); Mean Corpuscular Hgb 34.4 pg (27.0-32.0); Mean Corpuscular Volume 104.2 fL (80-94); Platelet Count 216 K/mm3 (150-450); RBC Distribution Width CV 14.6 % (11.6-14.6); RBC Distribution Width SD 55.9 fl (35.1-43.9); Red Blood Count 2.85 M/mm3 (4.6-6.2); White Blood Count 9.4 K/mm3 (4.4-11.0)
[2024-09-29 05:10] LABS: Anion Gap 8 (5-15); BUN 39 mg/dL (4-19); BUN/Creat Ratio 23.7 RATIO (10-20); Carbon Dioxide 29.9 mmol/L (21.0-32.0); Chloride 108 mmol/L (98-108); Creatinine, Serum 1.63 mg/dL (0.70-1.20); EST Glomerular Filtration Rate 42 (>60); Estimated Creatinine Clearance 32.85 ml/min (50-250); Glucose 103 mg/dL (70-99); Potassium 3.4 mmol/L (3.3-5.1); Sodium Level 146 mmol/L (133-145)
--- NOTE | 2024-09-29 07:23 | PCM.PN.HOSP ---
Reason for Visit Reason for Visit: Diagnoses Sepsis, unspecified organism (09/20/24) Anemia, unspecified (09/20/24) Thrombocytopenia, unspecified (09/20/24) Atherosclerotic heart disease of [place] coronary artery without angina pectoris (09/20/24) Cardiac arrest, cause unspecified (09/20/24) Paroxysmal atrial fibrillation (09/20/24) Unspecified systolic (congestive) heart failure (09/20/24) Influenza due to other identified influenza virus with other respiratory manifestations (09/20/24) Pneumonia, unspecified organism (09/20/24) Acute respiratory failure with hypoxia (09/20/24) Severe sepsis with septic shock (09/20/24) Subjective Subjective Patient feeling tired, still short of breath, thinks it may be slightly better but still is on Airvo Objective Data Objective Data Vital Signs: Vital Signs Temp Pulse Resp BP Pulse Ox O2 Del Method O2 Flow Rate 97.4 F L 68 21 H 132/62 H 94 Airvo 50 09/29/24 06:54 09/29/24 06:59 09/29/24 06:54 09/29/24 06:54 09/29/24 06:54 09/29/24 06:54 09/29/24 06:54 FiO2 73 09/29/24 06:54 Oxygen Flow Rate (L/min) 50 Oxygen Delivery Method Airvo Weight: 80.3 kg Body Mass Index (BMI) 29.5 Intake & Output: Intake and Output for Last 24 Hours 09/27/24 09/28/24 09/29/24 23:59 23:59 23:59 Intake Total 1430 / 1530 370 / 370 600 / 600 Output Total 900 / 1450 1875 / 1875 250 / 250 Balance 530 / 80 -1505 / -1505 350 / 350 Lab / Micro Data 09/29/24 03:45 09/29/24 03:45 Labs: Laboratory Results - last 24 hr 09/28/24 05:25: Magnesium 2.3 H 09/28/24 09:20: Ur Random Sodium < 20, Urine Creatinine 97.90, Urine Potassium 34.4, Urine Chloride < 20, Urine Urea Nitrogen 874 09/29/24 03:45: WBC 9.4, RBC 2.85 L, Hgb 9.8 L, Hct 29.7 L, MCV 104.2 H, MCH 34.4 H, MCHC 33.0, RDW Std Deviation 55.9 H, RDW Coeff of Harvinder 14.6, Plt Count 216, MPV 11.0, Sodium 146 H, Potassium 3.4, Chloride 108, Carbon Dioxide 29.9, Anion Gap 8, BUN 39 H, Creatinine 1.63 H, Estim Creat Clear Calc 32.85 L, Est GFR (MDRD) Non-Af 42 L, BUN/Creatinine Ratio 23.7 H, Glucose 103 H, Calcium 8.0 Micro: Microbiology 09/20/24 13:49 Blood Culture (Wb) - Line Draw Blood Culture - Final No growth in 5 days. 09/20/24 13:53 Blood Culture (Wb) - Anticubital Right Blood Culture - Final No growth in 5 days. 09/20/24 17:15 Sputum, Induced/Lukens Gram Stain - Final 09/20/24 17:15 Sputum, Induced/Lukens Respiratory Culture - Final Mixed normal respiratory sridhar. No Streptococcus pneumoniae, beta-hemolytic Streptococcus or Staphylococcus aureus isolated. 09/20/24 14:00 Urine, Catheterized Urine Culture - Final Culture exhibits no growth. 09/20/24 14:00 Urine Catheter - Rowe Legionella Antigen - Final 09/20/24 14:00 Urine Catheter - Rowe Streptococcus pneumoniae Antigen (M - Final 09/20/24 13:49 Mucosa - Nose SARS-CoV-2, Influenza & RSV (PCR) - Final Influenzae A Radiography Diagnostic Testing: Radiology Impression Chest X-Ray 09/28/24 08:12 IMPRESSION: Increasing pulmonary congestion and edema, predominantly in the right lung field. Reading Location: [facility] Rhythm Strip Rhythm Strip: afib, intermittent vent pacing Rate: 72 Ectopy: None Physical Exam Narrative General: Alert, no apparent distress HEENT: Atraumatic, normocephalic Eyes: Anicteric, normal conjunctiva, extraocular movements grossly intact Neck: Supple Respiratory: Slight increased respiratory effort, coarse especially at the bases Cardiovascular: Regular rate GI: Soft, nontender, nondistended Extremities: Bilateral lower extremity edema Musculoskeletal: Moving all extremities Neuro: No overt focal neurological deficits Skin: No rashes appreciated Psych: Cooperative Assessment & Plan Assessment/Plan (1) HFrEF (heart failure with reduced ejection fraction): PLAN: Plan Patient is an 83-year-old male who presented to [facility] ED on 09/20/2024 with worsening upper respiratory symptoms in the setting of severe underlying heart failure with reduced ejection fraction. Patient had cardiac arrest x 2 in the ED requiring 2 doses of epinephrine and 2 rounds of CPR. Given his overall presentation and clinical course,mostly patient had acute decompensated heart failure with volume overload that responded very well to positive pressure ventilation. # Acute hypoxic respiratory failure secondary to influenza A infection and superimposed bilateral multifocal pneumonia and decompensated heart failure -Patient intubated 09/21 with subsequent extubation 09/23 -Continues to have high O2 requirement, patient presently on Airvo, will give another dose of IV Lasix -Also concern for pulmonary edema -Continue Rocephin, will give another dose of lasix -09/28: Patient remains on Airvo, middle of the night did have O2 sat down to 88 so Airvo was increased, patient on Rocephin and was given a dose of Lasix 09/27/2024. Repeat chest x-ray with increased pulmonary congestion and edema, another dose of Lasix ordered -09/29: Patient on IV Lasix, he continues to be on Airvo and slowly has had increasing requirements despite interventions, remains on Rocephin, given inability to wean Airvo with increasing requirements pulmonology consulted #MUSA -09/28:-MUSA, unclear etiology as there is concern for fluid overload but kidney function did worsen with Lasix. Will check urine studies -09/29: FEUrea calculated as patient is on diuretics, FE urea is 35.5, borderline but would suggest intrinsic in nature, nephrology consulted # Cardiogenic shock secondary to acute decompensated heart failure with preserved ejection fraction with a reduced EF and AICD -Patient presented with cardiac arrest requiring 2 doses of epi and 2 rounds of CPR -Patient being monitored on telemetry -Chest x-ray with bilateral multifocal pneumonia and/or pulmonary edema -Patient received IV Lasix x 1, -Last echo 04/2024 with EF of 50% but all motion abnormalities and stage II diastolic dysfunction -Repeat echo ordered and demonstrated now decreased EF of 20 to 25% and stage III diastolic dysfunction -Daily weights, I's and O's -heart healthy diet -Patient on beta-isabel, hydralazine, resume home Imdur and home GALE, if renal function on blood pressure tolerates can consider spironolactone and/or SGLT2 inhibitor moving forward -Will need follow-up with his agricultural engineering technician and 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 Repeat dose of IV Lasix today -09/29: Patient remains on Airvo despite Lasix, continue metoprolol, hydralazine, Imdur, hold starting GALE given MUSA, also reconsulting cardiology # Acute on chronic anemia secondary to upper GI bleed -There is blood in NG tube on presentation patient EGD was found to have bleeding ulcer in stomach status post hemostatic clip placement 09/22/2024 -Patient's Xarelto restarted with stable hemoglobin -Continue patient on PPI -09/28: Hemoglobin 10, will continue to monitor daily monitor for any signs or symptoms of blood loss -09/29: Hemoglobin 9.8, remained stable Chronic medical problems: # History of paroxysmal atrial fibrillation -Patient on Xarelto -Patient remains on beta-isabel, patient was on amio at home however this has not been continued here #Hx CAD s/p CABG -Patient on beta-isabel and Xarelto #Chronic BPH with obstruction -Resume home tamsulosin #DVT ppx: Patient on Xarelto Charmaine Machuca MD Time spent in the patient's overall evaluation,decision-making process, review of diagnostic data, adjustment of management, discussion with other providers, nursing nursing and ancillary staff involved in patient's care documentation, 42 minutes Charges/Coding Visit Charges Inpatient E&M: 86588 Subs Hosp L2
[2024-09-29 08:34] LABS: Procalcitonin 0.16 ng/mL (<=0.10)
[2024-09-29] MEDS: 0.9% Saline Lock 10 ML Syringe IV ×2 (09:29→13:55)
[2024-09-29] MEDS: Pantoprazole Sodium 40 MG in 0.9% Normal Saline (100mL MB+) 100 ML 330 MG IV ×2 (09:29→22:25)
[2024-09-29] MEDS: guaiFENesin/D-Methorphan TAB.SR.12H 2 TABLET PO ×2 (09:37→22:19)
[2024-09-29] MEDS: Aspirin 81 MG TAB.CHEW PO (09:37)
[2024-09-29] MEDS: Metoprolol Tartrate 50 MG Tablet PO ×2 (09:37→22:24)
[2024-09-29] MEDS: Atorvastatin Calcium 80 MG Tablet PO (09:38)
[2024-09-29] MEDS: Furosemide 40 MG/4 ML Vial IV (09:38)
[2024-09-29] MEDS: hydrALAZINE 50 MG Tablet PO ×2 (09:38→22:23)
[2024-09-29] MEDS: Isosorbide Mononitrate 30 MG Tablet PO (09:38)
[2024-09-29] MEDS: Ceftriaxone 2 GM in 0.9% Normal Saline (50mL MB+) 50 ML IV (09:49)
[2024-09-29 10:07] LABS: Pro- Brain NATRIURETIC PEPTIDE 2334 pg/mL (<=1800)
--- NOTE | 2024-09-29 10:19 | PN.CC_ITS ---
Assessment & Plan Assessment/Plan (1) Acute hypoxemic respiratory failure: (2) Influenza A: PLAN: Plan RECOMMENDATIONS: 1. Supplemental oxygen to maintain saturations at or above 90%. 2. Continue attempts at diuresis as tolerated by hemodynamics and renal function. 3. Continue antimicrobials, pending repeat sputum culture results. 4. Obtain respiratory viral panel. 5. Continue Xarelto. 6. Encourage incentive spirometer use and mobilize patient as tolerated. 7. Start empiric corticosteroids as ordered. IMPRESSIONS: 1. Acute hypoxemic respiratory failure The patient was initially evaluated in the emergency department after developing a syncopal event of unclear etiology, with resultant acute hypoxemic respiratory failure, which is likely the consequence of influenza A coupled with possible superimposed decompensated congestive heart failure. The patient does have a known history of coronary artery disease status post CABG and is status post ICD. In light of his presenting symptoms, device interrogation was completed. He did demonstrate an acute drop in his LVEF on echocardiogram, for which cardiology was consulted. The patient has improved with supportive care from a respiratory perspective. The patient was ultimately able to be extubated on September 23. The patient completed a treatment course of Tamiflu and remains on antimicrobials. Unfortunately, the patient continues to have a high supplemental oxygen requirement. His repeat chest imaging continues to demonstrate stigmata of congestive heart failure. Recommend continuing diuresis as tolerated by hemodynamics and renal function. Although infection seems unlikely, given the patient's lack of fever or leukocytosis, antibiotics will be continued pending repeat sputum culture results. Lastly, the only other possible consideration would be a postinfectious inflammatory process, which may respond to corticosteroids. Therefore, we will place the patient on IV Solu- Medrol 40 mg twice daily to assess symptom response. Pulmonary embolism seems extremely unlikely, given the patient remains systemically anticoagulated on Xarelto. 2. Acute decompensated congestive heart failure/brief cardiac arrest with ROSC Continue current supportive measures. There was no evidence of VT or VF noted on interrogation of his device on the day of his arrest. 3. Anemia/thrombocytopenia The patient was evaluated by gastroenterology with EGD performed, which revealed grade 1 esophageal varices and an oozing gastric ulcer which was clipped. The patient will be continued on PPI therapy per plan. 4. History of atrial fibrillation/history of four-vessel CABG/hypertension/hyperlipidemia Complicates care, management, recovery and prognosis. Continue supportive measures as noted above. Physical therapy to continue to work with the patient. This note was generated with [employer] dictation software. It may contain incorrect words, spelling, and punctuation that were not noted in checking the note before signing. Subjective Subjective I had previously signed off of this patient from a pulmonary perspective on September 24, but was asked to reevaluate the patient due to persistent hypoxemia. The patient was seen and examined at the bedside this morning. The patient is currently maintaining appropriate oxygen saturations on heated high flow with an FiO2 requirement of 73% and flow rate of 50 L/min. If you recall, the patient has completed a treatment course of Tamiflu and remains on antimicrobials. He is currently documented to be overall net -3 L for the hospitalization. White blood cell count is normal. Hemoglobin and platelet count are stable. Creatinine is elevated at 1.63. BNP remains elevated at 2334. The patient does endorse the presence of shortness of breath, but denies a cough. Objective Data Objective Data The patient's most recent lab work, culture data and imaging studies have all been personally reviewed. Surface echocardiogram demonstrated severe LV systolic dysfunction with an ejection fraction of 20 to 25% Influenza A PCR was positive on September 20. Blood, urine and sputum cultures have not demonstrated any growth to date. Repeat sputum culture dated September 28 is currently pending. Vital Signs: Vital Signs Temp Pulse Resp BP Pulse Ox O2 Del Method O2 Flow Rate 98.6 F 60 18 121/80 H 98 Airvo 50 09/29/24 08:54 09/29/24 09:38 09/29/24 08:54 09/29/24 08:54 09/29/24 08:54 09/29/24 08:54 09/29/24 06:54 FiO2 73 09/29/24 07:24 Oxygen Flow Rate (L/min) 50 Oxygen Delivery Method Airvo Weight: 177 lb 0.499 oz Body Mass Index (BMI) 29.5 Intake & Output: Intake and Output for Last 24 Hours 09/27/24 09/28/24 09/29/24 23:59 23:59 23:59 Intake Total 1430 / 1530 370 / 370 710 / 710 Output Total 900 / 1450 1875 / 1875 250 / 250 Balance 530 / 80 -1505 / -1505 460 / 460 Lab / Micro Data Attestation: I reviewed the patient's lab results. 09/29/24 03:45 03/12/25 03:45 Labs: Laboratory Results - last 24 hr 09/28/24 05:25: Magnesium 2.3 H 09/28/24 09:20: Ur Random Sodium < 20, Urine Creatinine 97.90, Urine Potassium 34.4, Urine Chloride < 20, Urine Urea Nitrogen 874 09/29/24 03:45: WBC 9.4, RBC 2.85 L, Hgb 9.8 L, Hct 29.7 L, MCV 104.2 H, MCH 34.4 H, MCHC 33.0, RDW Std Deviation 55.9 H, RDW Coeff of Harvinder 14.6, Plt Count 216, MPV 11.0, Sodium 146 H, Potassium 3.4, Chloride 108, Carbon Dioxide 29.9, Anion Gap 8, BUN 39 H, Creatinine 1.63 H, Estim Creat Clear Calc 32.85 L, Est GFR (MDRD) Non-Af 42 L, BUN/Creatinine Ratio 23.7 H, Glucose 103 H, Calcium 8.0, NT pro BNP II 2334 H, Procalcitonin 0.16 H Micro: Microbiology 09/20/24 13:49 Blood Culture (Wb) - Line Draw Blood Culture - Final No growth in 5 days. 09/20/24 13:53 Blood Culture (Wb) - Anticubital Right Blood Culture - Final No growth in 5 days. 09/20/24 17:15 Sputum, Induced/Lukens Gram Stain - Final 09/20/24 17:15 Sputum, Induced/Lukens Respiratory Culture - Final Mixed normal respiratory sridhar. No Streptococcus pneumoniae, beta-hemolytic Streptococcus or Staphylococcus aureus isolated. 09/20/24 14:00 Urine, Catheterized Urine Culture - Final Culture exhibits no growth. 09/20/24 14:00 Urine Catheter - Rowe Legionella Antigen - Final 09/20/24 14:00 Urine Catheter - Rowe Streptococcus pneumoniae Antigen (M - Final 09/20/24 13:49 Mucosa - Nose SARS-CoV-2, Influenza & RSV (PCR) - Final Influenzae A Radiography Diagnostic Testing: Radiology Impression Echocardiogram 09/20/24 14:44 Interpretation Summary Severe LV systolic dysfunction. Posterior basal and inferior akinesis. Severe septal hypokinesis. Estimated LVEF 20-25%. Stage III diastolic dysfunction. Increased left atrial filling pressures. Septal wall motion consistent with RV volume and pressure overload. Moderate RV systolic dysfunction. The left atrium is moderately enlarged. The right atrium is mildly enlarged. Moderate (2+) posteriorly directed mitral valve insufficiency. Mild tricuspid valve insufficiency. Right ventricular systolic pressure estimated to be 52 mmHg. Ordering Physician: Dileep Stanton Referring Physician: HOLLY YODER Performed By: Marianna Coleman RDCS Rhythm Strip Rhythm Strip: afib, intermittent vent pacing Rate: 72 Ectopy: None Physical Exam Const alert and no apparent distress Constitutional Narrative: Hard of hearing. General Appearance: cooperative HEENT normocephalic, head/scalp atraumatic and moist oral mucous membranes General Ear: hearing grossly impaired Eyes EOMs intact bilaterally, conjunctivae normal and no scleral icterus Neck supple General: trachea midline and CVC in place Chest inspection of chest normal Resp normal respiratory effort Auscultation: rales and diminished lung sounds Cardio regular rate and regular rhythm GI soft to palpation and non-tender Extremity General Extremity: edema bilateral lower extremity; Negative for clubbing Skin no rashes or lesions noted Neuro CN's II-XII intact bilaterally, moves all extremities and no focal motor deficits Psych cooperative and affect normal Charges/Coding Visit Charges Inpatient E&M: 00351 Subs Hosp L3
--- NOTE | 2024-09-29 11:38 | PN.CARD_ITS ---
Subjective Subjective I was asked to reevaluate the patient due to the fact they are having difficulty weaning his O2 requirements. Patient reports to me that he is breathing much better but he remains on Airvo. He does report that his lower extremity edema is about what it is at home he has minimal edema on the left but 1-2+ on the right. The patient denies any chest pain. He is on aggressive guideline directed medical therapy that can be tweaked slightly to assist with his severe LV dysfunction EF of 20%. It does appear that he has diuresed since his admission his N-terminal BNP was 4777 earlier in his hospitalization today it was down to 2334. And his BUN and creatinine have risen slightly since the diuresis. Pulmonary was also consulted and is continuing therapy with oxygen supplementation diuresis as tolerated and antimicrobials. They also may be adding corticosteroids. Objective Data Vital Signs: Vital Signs Temp Pulse Resp BP Pulse Ox O2 Del Method O2 Flow Rate 98.6 F 60 18 121/80 H 98 Airvo 50 09/29/24 08:54 09/29/24 09:38 09/29/24 08:54 09/29/24 08:54 09/29/24 08:54 09/29/24 08:54 09/29/24 06:54 FiO2 73 09/29/24 07:24 Oxygen Flow Rate (L/min) 50 Oxygen Delivery Method Airvo Weight: 177 lb 0.499 oz Body Mass Index (BMI) 29.5 Intake & Output: Intake and Output for Last 24 Hours 09/27/24 09/28/24 09/29/24 23:59 23:59 23:59 Intake Total 1430 / 1530 370 / 370 710 / 710 Output Total 900 / 1450 1875 / 1875 250 / 250 Balance 530 / 80 -1505 / -1505 460 / 460 Lab / Micro Data 09/29/24 03:45 09/29/24 03:45 Labs: Laboratory Results - last 24 hr 09/28/24 09:20: Ur Random Sodium < 20, Urine Creatinine 97.90, Urine Potassium 34.4, Urine Chloride < 20, Urine Urea Nitrogen 874 09/29/24 03:45: WBC 9.4, RBC 2.85 L, Hgb 9.8 L, Hct 29.7 L, MCV 104.2 H, MCH 34.4 H, MCHC 33.0, RDW Std Deviation 55.9 H, RDW Coeff of Harvinder 14.6, Plt Count 216, MPV 11.0, Sodium 146 H, Potassium 3.4, Chloride 108, Carbon Dioxide 29.9, Anion Gap 8, BUN 39 H, Creatinine 1.63 H, Estim Creat Clear Calc 32.85 L, Est GFR (MDRD) Non-Af 42 L, BUN/Creatinine Ratio 23.7 H, Glucose 103 H, Calcium 8.0, NT pro BNP II 2334 H, Procalcitonin 0.16 H Micro: Microbiology 09/28/24 23:30 Sputum, Expectorated/Coughed Gram Stain - Final 09/28/24 23:30 Sputum, Expectorated/Coughed Respiratory Culture - Preliminary Culture exhibits no growth. Rhythm Strip Rhythm Strip: Atrially paced rhythm at 80 bpm Rate: 80 Cardiology Labs/Tests 09/29/24 03:45: WBC 9.4, RBC 2.85 L, Hgb 9.8 L, Hct 29.7 L, MCV 104.2 H, MCH 34.4 H, MCHC 33.0, Plt Count 216, MPV 11.0, Sodium 146 H, Potassium 3.4, Chloride 108, Carbon Dioxide 29.9, Anion Gap 8, BUN 39 H, Creatinine 1.63 H, Est GFR (MDRD) Non-Af 42 L, BUN/Creatinine Ratio 23.7 H, Glucose 103 H, Calcium 8.0 Rhythm: EKG: ECHO: Stress Test: Cardiac Cath: PCI: CT Surgery: Holter monitor: EPS: PPM: CXR: Chest CT Scan: Physical Exam Const alert Constitutional Narrative: Answers questions appropriately. HEENT normocephalic Neck Neck Narrative: No JVD documented at 45 degrees. Supplemental Airvo oxygen in place Chest Chest: left pectoral incision Resp normal respiratory effort Auscultation: crackles left lower and diminished lung sounds bilateral lower Cardio regular rate, regular rhythm, S1 normal heart sound and S2 normal heart sound Cardio Narrative: Distant heart tones. Heart Sounds: Negative for gallop, murmur or rub GI soft to palpation Narrative: Dark urine in the Rowe bag. Extremity General Extremity: edema right lower extremity mild and left lower extremity trace Neuro Neuro Narrative: Alert and answers questions. Psych mental status grossly normal Assessment & Plan Assessment/Plan (1) HFrEF (heart failure with reduced ejection fraction): PLAN: It is difficult to wean the patient from his significant oxygen requirements. It does appear from the telemetry the patient is in an atrially paced rhythm with [place] bundle branch block conduction. It does not appear that he is BiV pacing. In order to get the most appropriate benefit the BiV pacing needs to be in the 95 to 99% range. I will get the device to be interrogated and see if we can optimize his device to BiV pacing. I would also recommend increasing his hydralazine to 50 mg 3 times daily as blood pressure will tolerate it, continuing his IV diuresis, and consider adding Aldactone 25 mg daily to his medical regimen. His potassium has been low normal and although his creatinine is 1.65 I do feel that spironolactone would be of benefit in his LV dysfunction. Just need to monitor his potassium closely. Would also consider if tolerated the above alterations adding Farxiga or one of the other SGLT2 inhibitors to his medical regiment. Would prefer to have him stabilize before adding this if possible. (2) Paroxysmal A-fib: PLAN: Patient has a history of paroxysmal atrial fibrillation heart rate is appropriately controlled with a combination of amiodarone and metoprolol. He has remained in an atrially paced rhythm. And he is on Xarelto 20 mg daily. (3) Acute hypoxemic respiratory failure: PLAN: Patient's respiratory failure appears to be multifactorial he came in with influenza A positive swab and profoundly hypoxic. Pulmonary is evaluating and assisting with further recommendations for treatment options. PLAN: Plan 1. We will interrogate and optimize PATIENT PORTAL CONCIERGE-D implant to provide biventricular pacing. 2. Would recommend increasing hydralazine to 50 mg 3 times daily as blood pressure will tolerate. 3. Continue diuretics at this point in time. Monitoring the BUN and creatinine closely. He is making progress as his N-terminal BNP is down to 2334. At his age under 1800 would be considered euvolemic. 4. Will add spironolactone 25 mg every morning to the medical regiment and monitor his potassium closely. 5. Consider addition of SGLT2 inhibitor in the ambulatory setting or prior to discharge if volume status and renal function is stabilized. Charges/Coding Visit Charges Inpatient E&M: 01985 Subs Hosp L3
[2024-09-29] MEDS: MethylPREDNISolone 125 MG/2 ML Vial 40 MG IV ×2 (13:54→22:19)
--- NOTE | 2024-09-29 14:54 | PCM.CONS.R ---
Assessment & Plan Assessment/Plan (1) MUSA (acute kidney injury): (2) Acute hypoxemic respiratory failure: (3) HFrEF (heart failure with reduced ejection fraction): PLAN: Plan This is an 83-year-old male with past medical history significant for A-fib on Xarelto, BPH, hypertension, CAD status post CABG, ICD and pacemaker admitted to hospital on September 20 for acute hypoxic respiratory failure, influenza A, initially admitted to ICU for acute hypoxemic respiratory failure, influenza A, acute decompensated congestive heart failure with brief cardiac arrest with successful ROSC. Nephrology consulted in view of rising serum creatinine. In reviewing past serum creatinine trends baseline creatinine may be ranging around 1 to 1.4 mg/dL. Patient's creatinine on March 02, 2024 was 1.41 mg/dL. Since admission there has been some fluctuations in serum creatinine. Today creatinine is slightly up to 1.63mg/dL. MUSA possibly from cardiorenal syndrome physiology. Echo from this admission shows significant drop in EF, previous EF 50% (April 2024), now estimated LVEF 20 to 25%, stage III diastolic dysfunction. Last chest x-ray which was from yesterday still showing increasing pulmonary congestion, edema. Patient is currently diuresing with furosemide 40 mg IV daily and Aldactone was added today. We will continue to monitor renal function with diuretics. We may have to allow for higher serum creatinine trends to be able to achieve better volume status. We will obtain renal ultrasound to complete workup; patient does have a Rowe therefore doubt any obstructive process contributing to MUSA. Urine output today already around 1 L, cumulative I&O's net -3.7 L for this admission. Admission weight 84.8 kg, today's weight 80.3 kg. Further orders forthcoming as hospitalization evolves, thank you for letting us to participate in the care of Mr. Cosby. HPI Consult Data Date of Consult: 09/29/24 HPI Narrative HPI Narrative: JD COSBY, is a 83 M who was brought to the emergency room as patient's was concerned that patient was experiencing upper respiratory symptoms. Patient was admitted for influenza A, acute hypoxic respiratory failure secondary to influenza A. Patient had syncopal episode with dizziness in the emergency room, presumed PEA arrest, he fell and hit his head. Patient was admitted to ICU. Patient has past medical history significant for A-fib on Xarelto, BPH, hypertension, CAD status post CABG, ICD and pacemaker. Nephrology consulted in view of elevated creatinine. 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 In reviewing past creatinine trend patient has noted fluctuating creatinine trends with possible baseline creatinine ranging around 1 to 1.4 mg/dL. At time of hospital admission on September 20 creatinine was 1.57, creatinine improved to 0.99 on September 24, yesterday creatinine 1.38 and today creatinine is 1.63. Patient denies NSAIDs, denies noting hematuria at home. No rash. States breathing has improved, patient states edema to bilateral legs is chronic and is slightly improved as well. [facility] Medical History Skin cancer Myocardial infarction Presence of combination internal cardiac defibrillator (ICD) and pacemaker Home Medications ?Medication ?Instructions ?Recorded ?Last Taken ?Type aspirin 81 mg capsule 81 mg PO DAILY heart 03/02/24 Unknown History famotidine 40 mg tablet 40 mg PO DAILY gi 03/02/24 Unknown History hydralazine 100 mg tablet 100 mg PO BID bp 03/02/24 Unknown History isosorbide mononitrate 30 mg 30 mg PO DAILY heart 03/02/24 Unknown History tablet,extended release 24 hr metoprolol tartrate 100 mg tablet 100 mg PO BID bp 03/02/24 Unknown History ramipril 10 mg capsule 10 mg PO BID heart 03/02/24 Unknown History rosuvastatin 40 mg tablet 40 mg PO DAILY cholestrol 03/02/24 Unknown History tamsulosin 0.4 mg capsule 0.4 mg PO DAILY bph 03/02/24 Unknown History amiodarone 200 mg tablet 200 mg PO DAILY cardiac 09/20/24 Unknown History rivaroxaban 20 mg tablet (Xarelto) 20 mg PO DAILY blood thinner 09/20/24 Unknown History Allergy/AdvReac Type Severity Reaction Status Date / Time No Known Allergies Allergy Verified 03/02/24 03:13 Surgical History S/P triple vessel bypass Social History Smoking Status: Never smoker ROS ROS Narrative as in HPI Physical Exam Narrative Alert and oriented x 3, no apparent stress S1, S2, rhythm regular, rate controlled Lung sounds diminished with faint rales Abdomen soft, positive bowel sounds, nondistended trace to +1 pitting edema bilateral lower legs, R>L Indwelling Rowe with yellow urine in tubing and bag Lab / Micro Data 09/29/24 03:45 09/29/24 03:45 Labs: Laboratory Results - last 24 hr 09/29/24 03:45: WBC 9.4, RBC 2.85 L, Hgb 9.8 L, Hct 29.7 L, MCV 104.2 H, MCH 34.4 H, MCHC 33.0, RDW Std Deviation 55.9 H, RDW Coeff of Harvinder 14.6, Plt Count 216, MPV 11.0, Sodium 146 H, Potassium 3.4, Chloride 108, Carbon Dioxide 29.9, Anion Gap 8, BUN 39 H, Creatinine 1.63 H, Estim Creat Clear Calc 32.85 L, Est GFR (MDRD) Non-Af 42 L, BUN/Creatinine Ratio 23.7 H, Glucose 103 H, Calcium 8.0, NT pro BNP II 2334 H, Procalcitonin 0.16 H Micro: Microbiology 09/29/24 10:05 Mucosa - Nasopharyngeal Respiratory Panel (PCR) - Final Influenza A (Subtype H1) 09/28/24 23:30 Sputum, Expectorated/Coughed Gram Stain - Final 09/28/24 23:30 Sputum, Expectorated/Coughed Respiratory Culture - Preliminary Culture exhibits no growth. Rhythm Strip Rhythm Strip: Atrially paced rhythm at 80 bpm Rate: 80 Ectopy: None
--- NOTE | 2024-09-29 15:17 | US_ITS ---
PROCEDURE: KIDNEY AND BLADDER REASON FOR EXAM: MUSA TECHNIQUE: Bilateral renal ultrasound. COMPARISON: None. FINDINGS: Right kidney measures 10.6 x 5.5 x 5.9 cm. Left kidney measures 10.6 x 5.4 x 6.2 cm. No sizable shadowing renal calculi or hydronephrosis. 2 right renal cysts, largest measuring up to 2.6 cm. Limited assessment of the urinary bladder due to underdistention and Rowe catheter in place. US/Kidney and Bladder IMPRESSION: No evidence of obstructive uropathy. Right renal cysts. Reading Location: [facility]
[2024-09-29] MEDS: Rivaroxaban 20 MG Tablet PO (17:23)
[2024-09-29] MEDS: Tamsulosin HCl 0.4 MG Capsule PO (17:23)
--- NOTE | 2024-09-29 19:56 | NURSING ---
pt transferred on 15l nrb via bed to [facility]
[2024-09-30] VITALS (25 sets, daily range): BP systolic 111–152; BP diastolic 56–70; PULSE 66–76; RESP 14–20; TEMP 35.5–36.6; O2SAT 76–100; BMI 29.5
[2024-09-30] MEDS: hydrALAZINE 50 MG Tablet PO ×3 (04:59→22:19)
[2024-09-30 05:55] LABS: Hematocrit 28.4 % (40-54); Hemoglobin 9.2 g/dL (13.0-16.5); Mean Corp Hgb Conc 32.4 g/dL (32-36); Mean Corpuscular Hgb 33.7 pg (27.0-32.0); Mean Platelet Vol. 10.8 fl (6.2-12.0); Platelet Count 219 K/mm3 (150-450); RBC Distribution Width CV 14.6 % (11.6-14.6); RBC Distribution Width SD 54.8 fl (35.1-43.9); Red Blood Count 2.73 M/mm3 (4.6-6.2); White Blood Count 9.2 K/mm3 (4.4-11.0)
[2024-09-30 06:33] LABS: Anion Gap 10 (5-15); BUN 47 mg/dL (4-19); BUN/Creat Ratio 32.1 RATIO (10-20); Calcium,Total 7.9 mg/dL (7.6-11.0); Chloride 107 mmol/L (98-108); Creatinine, Serum 1.45 mg/dL (0.70-1.20); EST Glomerular Filtration Rate 48 (>60); Estimated Creatinine Clearance 36.91 ml/min (50-250); Glucose 156 mg/dL (70-99); Potassium 3.7 mmol/L (3.3-5.1); Sodium Level 146 mmol/L (133-145)
--- NOTE | 2024-09-30 09:05 | PCM.PN.HOSP ---
Reason for Visit Reason for Visit: Diagnoses Sepsis, unspecified organism (09/20/24) Anemia, unspecified (09/20/24) Thrombocytopenia, unspecified (09/20/24) Atherosclerotic heart disease of [place] coronary artery without angina pectoris (09/20/24) Cardiac arrest, cause unspecified (09/20/24) Paroxysmal atrial fibrillation (09/20/24) Unspecified systolic (congestive) heart failure (09/20/24) Influenza due to other identified influenza virus with other respiratory manifestations (09/20/24) Pneumonia, unspecified organism (09/20/24) Acute respiratory failure with hypoxia (09/20/24) Severe sepsis with septic shock (09/20/24) Subjective Subjective Still short of breath but feels he is slowly improving, fairly edematous Objective Data Objective Data Vital Signs: Vital Signs Temp Pulse Resp BP Pulse Ox O2 Del Method O2 Flow Rate 95.9 F L 76 20 H 114/64 97 Airvo 50 09/30/24 04:45 09/30/24 04:59 09/30/24 04:45 09/30/24 04:59 09/30/24 04:45 09/30/24 05:00 09/30/24 05:00 FiO2 54 09/30/24 05:00 Oxygen Flow Rate (L/min) 50 Oxygen Delivery Method Airvo Weight: 80.2 kg Body Mass Index (BMI) 29.5 Intake & Output: Intake and Output for Last 24 Hours 09/28/24 09/29/24 09/30/24 23:59 23:59 23:59 Intake Total 370 / 370 870 / 1110 340 / 340 Output Total 1875 / 1875 1175 / 1425 475 / 475 Balance -1505 / -1505 -305 / -315 -135 / -135 Lab / Micro Data 09/30/24 05:20 09/30/24 05:20 Labs: Laboratory Results - last 24 hr 09/29/24 03:45: NT pro BNP II 2334 H 09/30/24 05:20: WBC 9.2, RBC 2.73 L, Hgb 9.2 L, Hct 28.4 L, MCV 104.0 H, MCH 33.7 H, MCHC 32.4, RDW Std Deviation 54.8 H, RDW Coeff of Harvinder 14.6, Plt Count 219, MPV 10.8, Sodium 146 H, Potassium 3.7, Chloride 107, Carbon Dioxide 29.0, Anion Gap 10, BUN 47 H, Creatinine 1.45 H, Estim Creat Clear Calc 36.91 L, Est GFR (MDRD) Non-Af 48 L, BUN/Creatinine Ratio 32.1 H, Glucose 156 H, Calcium 7.9 Micro: Microbiology 09/29/24 10:05 Mucosa - Nasopharyngeal Respiratory Panel (PCR) - Final Influenza A (Subtype H1) 09/28/24 23:30 Sputum, Expectorated/Coughed Gram Stain - Final 09/28/24 23:30 Sputum, Expectorated/Coughed Respiratory Culture - Preliminary Culture exhibits no growth. 09/20/24 13:49 Blood Culture (Wb) - Line Draw Blood Culture - Final No growth in 5 days. 09/20/24 13:53 Blood Culture (Wb) - Anticubital Right Blood Culture - Final No growth in 5 days. 09/20/24 17:15 Sputum, Induced/Lukens Gram Stain - Final 09/20/24 17:15 Sputum, Induced/Lukens Respiratory Culture - Final Mixed normal respiratory sridhar. No Streptococcus pneumoniae, beta-hemolytic Streptococcus or Staphylococcus aureus isolated. 09/20/24 14:00 Urine, Catheterized Urine Culture - Final Culture exhibits no growth. 09/20/24 14:00 Urine Catheter - Rowe Legionella Antigen - Final 09/20/24 14:00 Urine Catheter - Rowe Streptococcus pneumoniae Antigen (M - Final 09/20/24 13:49 Mucosa - Nose SARS-CoV-2, Influenza & RSV (PCR) - Final Influenzae A Radiography Diagnostic Testing: Radiology Impression Renal Ultrasound 09/29/24 15:17 IMPRESSION: No evidence of obstructive uropathy. Right renal cysts. Reading [facility] Rhythm Strip Rhythm Strip: Atrially paced rhythm at 80 bpm Rate: 80 Ectopy: None Physical Exam Narrative General: Alert, no apparent distress HEENT: Atraumatic, normocephalic Eyes: Anicteric, normal conjunctiva, extraocular movements grossly intact Neck: Supple Respiratory: Improving respiratory effort Cardiovascular: Regular rate GI: Soft, nontender, nondistended Extremities: Somewhat diffuse pitting edema Musculoskeletal: Moving all extremities Neuro: No overt focal neurological deficits Skin: No rashes appreciated Psych: Cooperative Assessment & Plan Assessment/Plan (1) HFrEF (heart failure with reduced ejection fraction): PLAN: Plan Patient is an 83-year-old male who presented to [facility] ED on 09/20/2024 with worsening upper respiratory symptoms in the setting of severe underlying heart failure with reduced ejection fraction. Patient had cardiac arrest x 2 in the ED requiring 2 doses of epinephrine and 2 rounds of CPR. Given his overall presentation and clinical course,mostly patient had acute decompensated heart failure with volume overload that responded very well to positive pressure ventilation. # Acute hypoxic respiratory failure secondary to influenza A infection and superimposed bilateral multifocal pneumonia and decompensated heart failure -Patient intubated 09/21 with subsequent extubation 09/23 -Continues to have high O2 requirement, patient presently on Airvo, will give another dose of IV Lasix -Also concern for pulmonary edema -Continue Rocephin, will give another dose of lasix -09/28: Patient remains on Airvo, middle of the night did have O2 sat down to 88 so Airvo was increased, patient on Rocephin and was given a dose of Lasix 09/27/2024. Repeat chest x-ray with increased pulmonary congestion and edema, another dose of Lasix ordered -09/29: Patient on IV Lasix, he continues to be on Airvo and slowly has had increasing requirements despite interventions, remains on Rocephin, given inability to wean Airvo with increasing requirements pulmonology consulted -09/30: Patient started on steroids by pulmonology in the event there is an inflammatory component, patient continues to be diuresed, today Airvo requirements decreasing #MUSA -09/28:-MUSA, unclear etiology as there is concern for fluid overload but kidney function did worsen with Lasix. Will check urine studies -09/29: FEUrea calculated as patient is on diuretics, FE urea is 35.5, borderline but would suggest intrinsic in nature, nephrology consulted -09/30: Kidney function down trended today to 1.45, nephrology on board and ordered renal ultrasound which was normal # Cardiogenic shock secondary to acute decompensated heart failure with preserved ejection fraction with a reduced EF and AICD -Patient presented with cardiac arrest requiring 2 doses of epi and 2 rounds of CPR -Patient being monitored on telemetry -Chest x-ray with bilateral multifocal pneumonia and/or pulmonary edema -Patient received IV Lasix x 1, -Last echo 04/2024 with EF of 50% but all motion abnormalities and stage II diastolic dysfunction -Repeat echo ordered and demonstrated now decreased EF of 20 to 25% and stage III diastolic dysfunction -Daily weights, I's and O's -heart healthy diet -Patient on beta-isabel, hydralazine, resume home Imdur and home GALE, if renal function on blood pressure tolerates can consider spironolactone and/or SGLT2 inhibitor moving forward -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 Repeat dose of IV Lasix today -09/29: Patient remains on Airvo despite Lasix, continue metoprolol, hydralazine, Imdur, hold starting GALE given MUSA, also reconsulting cardiology -09/30: Cardiology consulted, patient on Lasix, spironolactone added back, hydralazine increased to 3 times daily # History of paroxysmal atrial fibrillation -Patient on Xarelto -Patient remains on beta-isabel, patient was on amio at home however this has not been continued here -09/30: Discussed with cardiology and given this was a home medication it was advised to resume, so we added back today Chronic medical problems: # Acute on chronic anemia secondary to upper GI bleed -There is blood in NG tube on presentation patient EGD was found to have bleeding ulcer in stomach status post hemostatic clip placement 09/22/2024 -Patient's Xarelto restarted with stable hemoglobin -Continue patient on PPI -09/28: Hemoglobin 10, will continue to monitor daily monitor for any signs or symptoms of blood loss -09/29: Hemoglobin 9.8, remained stable #Hx CAD s/p CABG -Patient on beta-isabel and Xarelto #Chronic BPH with obstruction -Resume home tamsulosin #DVT ppx: Patient on Xarelto Charmaine Machuca MD Time spent in the patient's overall evaluation,decision-making process, review of diagnostic data, adjustment of management, discussion with other providers, nursing nursing and ancillary staff involved in patient's care documentation, 42 minutes Charges/Coding Visit Charges Inpatient E&M: 10589 Subs Hosp L2
--- NOTE | 2024-09-30 09:47 | PN.CC_ITS ---
Assessment & Plan Assessment/Plan (1) Acute hypoxemic respiratory failure: (2) Influenza A: PLAN: Plan RECOMMENDATIONS: 1. Supplemental oxygen to maintain saturations at or above 90%. 2. Continue attempts at diuresis as tolerated by hemodynamics and renal function. 3. Okay to discontinue antibiotics from my perspective. 4. Continue corticosteroids as ordered. 5. Continue Xarelto. 6. Encourage incentive spirometer use and mobilize patient as tolerated. IMPRESSIONS: 1. Acute hypoxemic respiratory failure The patient was initially evaluated in the emergency department after developing a syncopal event of unclear etiology, with resultant acute hypoxemic respiratory failure, which is likely the consequence of influenza A coupled with possible superimposed decompensated congestive heart failure. The patient does have a known history of coronary artery disease status post CABG and is status post ICD. In light of his presenting symptoms, device interrogation was completed. He did demonstrate an acute drop in his LVEF on echocardiogram, for which cardiology was consulted. The patient has improved with supportive care from a respiratory perspective. The patient was ultimately able to be extubated on September 23. The patient completed a treatment course of Tamiflu. With ongoing supportive care, including diuresis, the patient's oxygen requirement is slowly improving. His repeat chest imaging continues to demonstrate stigmata of congestive heart failure. Given negative infectious workup to date, antimicrobials will be discontinued. Lastly, the only other possible consideration would be a postinfectious inflammatory process, which may respond to corticosteroids. Therefore, the patient was placed on on IV Solu-Medrol 40 mg twice daily. Pulmonary embolism seems extremely unlikely, given the patient remains systemically anticoagulated on Xarelto. 2. Acute decompensated congestive heart failure/brief cardiac arrest with ROSC Continue current supportive measures. There was no evidence of VT or VF noted on interrogation of his device on the day of his arrest. 3. Anemia/thrombocytopenia The patient was evaluated by gastroenterology with EGD performed, which revealed grade 1 esophageal varices and an oozing gastric ulcer which was clipped. The patient will be continued on PPI therapy per plan. 4. History of atrial fibrillation/history of four-vessel CABG/hypertension/hyperlipidemia Complicates care, management, recovery and prognosis. Continue supportive measures as noted above. Physical therapy to continue to work with the patient. This note was generated with [employer] software. It may contain incorrect words, spelling, and punctuation that were not noted in checking the note before signing. Subjective Subjective The patient was seen and examined at the bedside this morning. Events from the last 24 hours have been reviewed. The patient is currently afebrile, hemodynamically stable and maintaining appropriate oxygen saturations on 8 L/min via nasal cannula. The patient is currently documented to be overall net -4 L for the hospitalization. White blood cell count remains normal. Hemoglobin and platelet count are stable. Creatinine has improved to 1.45. Objective Data Objective Data The patient's most recent lab work, culture data and imaging studies have all been personally reviewed. Surface echocardiogram demonstrated severe LV systolic dysfunction with an ejection fraction of 20 to 25% Influenza A PCR was positive on September 20. Blood, urine and sputum cultures have not demonstrated any growth to date. Repeat sputum culture dated September 28 is currently pending. Vital Signs: Vital Signs Temp Pulse Resp BP Pulse Ox O2 Del Method O2 Flow Rate 95.9 F L 76 20 H 114/64 97 Airvo 50 09/30/24 04:45 09/30/24 04:59 09/30/24 04:45 09/30/24 04:59 09/30/24 04:45 09/30/24 05:00 09/30/24 05:00 FiO2 54 09/30/24 05:00 Oxygen Flow Rate (L/min) 50 Oxygen Delivery Method Airvo Weight: 176 lb 12.972 oz Body Mass Index (BMI) 29.5 Intake & Output: Intake and Output for Last 24 Hours 09/28/24 09/29/24 09/30/24 23:59 23:59 23:59 Intake Total 370 / 370 870 / 1110 340 / 340 Output Total 1875 / 1875 1175 / 1425 475 / 475 Balance -1505 / -1505 -305 / -315 -135 / -135 Lab / Micro Data Attestation: I reviewed the patient's lab results. 09/30/24 05:20 09/30/24 05:20 Labs: Laboratory Results - last 24 hr 09/29/24 03:45: NT pro BNP II 2334 H 09/30/24 05:20: WBC 9.2, RBC 2.73 L, Hgb 9.2 L, Hct 28.4 L, MCV 104.0 H, MCH 33.7 H, MCHC 32.4, RDW Std Deviation 54.8 H, RDW Coeff of Harvinder 14.6, Plt Count 219, MPV 10.8, Sodium 146 H, Potassium 3.7, Chloride 107, Carbon Dioxide 29.0, Anion Gap 10, BUN 47 H, Creatinine 1.45 H, Estim Creat Clear Calc 36.91 L, Est GFR (MDRD) Non-Af 48 L, BUN/Creatinine Ratio 32.1 H, Glucose 156 H, Calcium 7.9 Micro: Microbiology 09/29/24 10:05 Mucosa - Nasopharyngeal Respiratory Panel (PCR) - Final Influenza A (Subtype H1) 09/28/24 23:30 Sputum, Expectorated/Coughed Gram Stain - Final 09/28/24 23:30 Sputum, Expectorated/Coughed Respiratory Culture - Preliminary Culture exhibits no growth. 09/20/24 13:49 Blood Culture (Wb) - Line Draw Blood Culture - Final No growth in 5 days. 09/20/24 13:53 Blood Culture (Wb) - Anticubital Right Blood Culture - Final No growth in 5 days. 09/20/24 17:15 Sputum, Induced/Lukens Gram Stain - Final 09/20/24 17:15 Sputum, Induced/Lukens Respiratory Culture - Final Mixed normal respiratory sridhar. No Streptococcus pneumoniae, beta-hemolytic Streptococcus or Staphylococcus aureus isolated. 09/20/24 14:00 Urine, Catheterized Urine Culture - Final Culture exhibits no growth. 09/20/24 14:00 Urine Catheter - Rowe Legionella Antigen - Final 09/20/24 14:00 Urine Catheter - Rowe Streptococcus pneumoniae Antigen (M - Final 09/20/24 13:49 Mucosa - Nose SARS-CoV-2, Influenza & RSV (PCR) - Final Influenzae A Radiography Diagnostic Testing: Radiology Impression Renal Ultrasound 09/29/24 15:17 IMPRESSION: No evidence of obstructive uropathy. Right renal cysts. Reading [facility] Rhythm Strip Rhythm Strip: Atrially paced rhythm at 80 bpm Rate: 80 Ectopy: None Physical Exam Const alert and no apparent distress Constitutional Narrative: Hard of hearing. General Appearance: cooperative HEENT normocephalic, head/scalp atraumatic and moist oral mucous membranes General Ear: hearing grossly impaired Eyes EOMs intact bilaterally, conjunctivae normal and no scleral icterus Neck supple General: trachea midline and CVC in place Chest inspection of chest normal Resp Resp Narrative: Poor patient depending inspiratory effort. Auscultation: diminished lung sounds Cardio regular rate and regular rhythm GI soft to palpation and non-tender Extremity General Extremity: edema bilateral lower extremity; Negative for clubbing Skin no rashes or lesions noted Neuro CN's II-XII intact bilaterally, moves all extremities and no focal motor deficits Psych Mood & Affect: flat affect Charges/Coding Visit Charges Inpatient E&M: 32649 Subs Hosp L2
[2024-09-30] MEDS: Metoprolol Tartrate 50 MG Tablet PO ×2 (10:25→22:18)
[2024-09-30] MEDS: Senna Tablet 2 TABLET PO ×2 (10:25→22:18)
[2024-09-30] MEDS: Atorvastatin Calcium 80 MG Tablet PO (10:26)
[2024-09-30] MEDS: guaiFENesin/D-Methorphan TAB.SR.12H 2 TABLET PO ×2 (10:26→22:17)
[2024-09-30] MEDS: Isosorbide Mononitrate 30 MG Tablet PO (10:26)
[2024-09-30] MEDS: Aspirin 81 MG TAB.CHEW PO (10:26)
[2024-09-30] MEDS: Spironolactone 25 MG Tablet PO (10:26)
[2024-09-30] MEDS: Furosemide 40 MG/4 ML Vial IV ×2 (10:32→17:12)
[2024-09-30] MEDS: MethylPREDNISolone 125 MG/2 ML Vial 40 MG IV ×2 (10:32→22:17)
[2024-09-30] MEDS: 0.9% Saline Lock 10 ML Syringe IV ×2 (10:32→17:13)
[2024-09-30] MEDS: Amiodarone 200 MG Tablet PO (10:54)
[2024-09-30] MEDS: Pantoprazole Sodium 40 MG in 0.9% Normal Saline (100mL MB+) 100 ML 330 MG IV ×2 (10:54→22:19)
--- NOTE | 2024-09-30 14:39 | PN.RENAL_ITS ---
Subjective Subjective Sitting in chair, legs elevated. States breathing little better today. Has Soledad Objective Data Objective Data Vital Signs: Vital Signs Temp Pulse Resp BP Pulse Ox O2 Del Method O2 Flow Rate 97.6 F L 69 16 152/70 H 94 High Flow 10 09/30/24 10:15 09/30/24 10:25 09/30/24 10:15 09/30/24 10:25 09/30/24 14:09 09/30/24 14:09 09/30/24 14:09 FiO2 52 09/30/24 10:10 Oxygen Flow Rate (L/min) 10 Oxygen Delivery Method High Flow Weight: 80.2 kg Body Mass Index (BMI) 29.5 Intake & Output: Intake and Output for Last 24 Hours 09/28/24 09/29/24 09/30/24 23:59 23:59 23:59 Intake Total 370 / 370 870 / 1110 450 / 450 Output Total 1875 / 1875 1175 / 1425 475 / 475 Balance -1505 / -1505 -305 / -315 -25 / -25 Lab / Micro Data 09/30/24 05:20 09/30/24 05:20 Labs: Laboratory Results - last 24 hr 09/30/24 05:20: WBC 9.2, RBC 2.73 L, Hgb 9.2 L, Hct 28.4 L, MCV 104.0 H, MCH 33.7 H, MCHC 32.4, RDW Std Deviation 54.8 H, RDW Coeff of Harvinedr 14.6, Plt Count 219, MPV 10.8, Sodium 146 H, Potassium 3.7, Chloride 107, Carbon Dioxide 29.0, Anion Gap 10, BUN 47 H, Creatinine 1.45 H, Estim Creat Clear Calc 36.91 L, Est GFR (MDRD) Non-Af 48 L, BUN/Creatinine Ratio 32.1 H, Glucose 156 H, Calcium 7.9 Micro: Microbiology 09/28/24 23:30 Sputum, Expectorated/Coughed Gram Stain - Final 09/28/24 23:30 Sputum, Expectorated/Coughed Respiratory Culture - Preliminary Presumptive C albicans 09/29/24 10:05 Mucosa - Nasopharyngeal Respiratory Panel (PCR) - Final Influenza A (Subtype H1) 09/20/24 13:49 Blood Culture (Wb) - Line Draw Blood Culture - Final No growth in 5 days. 09/20/24 13:53 Blood Culture (Wb) - Anticubital Right Blood Culture - Final No growth in 5 days. 09/20/24 17:15 Sputum, Induced/Lukens Gram Stain - Final 09/20/24 17:15 Sputum, Induced/Lukens Respiratory Culture - Final Mixed normal respiratory sridhar. No Streptococcus pneumoniae, beta-hemolytic Streptococcus or Staphylococcus aureus isolated. 09/20/24 14:00 Urine, Catheterized Urine Culture - Final Culture exhibits no growth. 09/20/24 14:00 Urine Catheter - Rowe Legionella Antigen - Final 09/20/24 14:00 Urine Catheter - Rowe Streptococcus pneumoniae Antigen (M - Final 09/20/24 13:49 Mucosa - Nose SARS-CoV-2, Influenza & RSV (PCR) - Final Influenzae A Radiography Diagnostic Testing: Radiology Impression Renal Ultrasound 09/29/24 15:17 IMPRESSION: No evidence of obstructive uropathy. Right renal cysts. Reading [facility] Rhythm Strip Rhythm Strip: Atrially paced rhythm at 80 bpm Rate: 80 Ectopy: None Physical Exam Narrative Alert and oriented x 3, no apparent stress S1, S2, rhythm regular, rate controlled Lung sounds diminished Abdomen soft, positive bowel sounds, nondistended trace to +1 pitting edema bilateral lower legs, R>L Indwelling Rowe with yellow urine in tubing and bag Assessment & Plan Assessment/Plan (1) MUSA (acute kidney injury): (2) Acute hypoxemic respiratory failure: (3) HFrEF (heart failure with reduced ejection fraction): PLAN: Plan This is an 83-year-old male with past medical history significant for A-fib on Xarelto, BPH, hypertension, CAD status post CABG, ICD and pacemaker admitted to hospital on September 20 for acute hypoxic respiratory failure, influenza A, initially admitted to ICU for acute hypoxemic respiratory failure, influenza A, acute decompensated congestive heart failure with brief cardiac arrest with successful ROSC. Nephrology consulted in view of rising serum creatinine. - MUSA on possible CKD stage IIIa: In reviewing past serum creatinine trends baseline creatinine may be ranging around 1 to 1.4 mg/dL. Patient's creatinine on March 02, 2024 was 1.41 mg/dL. SCr 1.57 on day of hospital admission. Since admission there has been some fluctuations in serum creatinine. SCr 1.63 yesterday--> today SCr 1.45. Fluctuations in SCr possibly from cardiorenal syndrome physiology. Echo from this admission shows significant drop in EF, previous EF 50% (April 2024), now estimated LVEF 20 to 25%, stage III diastolic dysfunction. Last CXR still showing increasing pulmonary congestion, edema. Patient is requiring high flow O2. Patient is currently diuresing with furosemide 40 mg IV daily and Aldactone, recommend to increase lasix 40mg IV BID. We will continue to monitor renal function with diuretics. We may have to allow for higher serum creatinine trends to be able to achieve better volume status. Renal US no hydro. Cumulative I&O's net -3.8 L for this admission. Admission weight 84.8 kg, today's weight 80.2 kg.
[2024-09-30] MEDS: Tamsulosin HCl 0.4 MG Capsule PO (17:12)
[2024-09-30] MEDS: Rivaroxaban 20 MG Tablet PO (17:12)
[2024-09-30] MEDS: Sodium Chloride 0.65% 1 SPRAY SPRAY.BTL 2 SPRAY NASAL (17:17)
[2024-10-01] VITALS (44 sets, daily range): BP systolic 97–130; BP diastolic 56–66; PULSE 61–74; RESP 18–20; TEMP 36.4–36.5; O2SAT 85–100; BMI 29.8
[2024-10-01] MEDS: hydrALAZINE 50 MG Tablet PO ×3 (06:11→22:22)
[2024-10-01 07:35] LABS: Hematocrit 30.5 % (40-54); Mean Corp Hgb Conc 32.8 g/dL (32-36); Mean Corpuscular Hgb 33.6 pg (27.0-32.0); Mean Corpuscular Volume 102.3 fL (80-94); Mean Platelet Vol. 11.1 fl (6.2-12.0); Platelet Count 222 K/mm3 (150-450); RBC Distribution Width CV 14.2 % (11.6-14.6); RBC Distribution Width SD 53.1 fl (35.1-43.9); Red Blood Count 2.98 M/mm3 (4.6-6.2); White Blood Count 16.1 K/mm3 (4.4-11.0)
[2024-10-01] MEDS: Senna Tablet 2 TABLET PO ×2 (08:05→22:21)
[2024-10-01] MEDS: Sodium Chloride 0.65% 1 SPRAY SPRAY.BTL 2 SPRAY NASAL ×2 (08:05→22:19)
[2024-10-01] MEDS: MethylPREDNISolone 125 MG/2 ML Vial 40 MG IV (08:05)
[2024-10-01] MEDS: Spironolactone 25 MG Tablet PO (08:05)
[2024-10-01] MEDS: guaiFENesin/D-Methorphan TAB.SR.12H 2 TABLET PO ×2 (08:05→22:21)
[2024-10-01] MEDS: Aspirin 81 MG TAB.CHEW PO (08:06)
[2024-10-01] MEDS: Isosorbide Mononitrate 30 MG Tablet PO (08:06)
[2024-10-01] MEDS: Atorvastatin Calcium 80 MG Tablet PO (08:06)
[2024-10-01] MEDS: Metoprolol Tartrate 50 MG Tablet PO ×2 (08:06→22:20)
[2024-10-01] MEDS: Amiodarone 200 MG Tablet PO (08:07)
[2024-10-01] MEDS: Furosemide 40 MG/4 ML Vial IV (08:07)
--- NOTE | 2024-10-01 08:09 | PN.CC_ITS ---
Assessment & Plan Assessment/Plan (1) Acute hypoxemic respiratory failure: (2) Influenza A: PLAN: Plan RECOMMENDATIONS: 1. Supplemental oxygen to maintain saturations at or above 90%. 2. Continue attempts at diuresis as tolerated by hemodynamics and renal function. 3. Continue corticosteroids as ordered. 4. Continue Xarelto. 5. Encourage incentive spirometer use and mobilize patient as tolerated. IMPRESSIONS: 1. Acute hypoxemic respiratory failure The patient was initially evaluated in the emergency department after developing a syncopal event of unclear etiology, with resultant acute hypoxemic respiratory failure, which is likely the consequence of influenza A coupled with possible superimposed decompensated congestive heart failure. The patient does have a known history of coronary artery disease status post CABG and is status post ICD. In light of his presenting symptoms, device interrogation was completed. He did demonstrate an acute drop in his LVEF on echocardiogram, for which cardiology was consulted. The patient has improved with supportive care from a respiratory perspective. The patient was ultimately able to be extubated on September 23. The patient completed a treatment course of Tamiflu. With ongoing supportive care, including diuresis, the patient's oxygen requirement is slowly improving. His repeat chest imaging continues to demonstrate stigmata of congestive heart failure. Given negative infectious workup to date, antimicrobials will be discontinued. Lastly, we will plan to continue corticosteroids as tolerated. Pulmonary embolism seems extremely unlikely, given the patient remains systemically anticoagulated on Xarelto. 2. Acute decompensated congestive heart failure/brief cardiac arrest with ROSC Continue current supportive measures. There was no evidence of VT or VF noted on interrogation of his device on the day of his arrest. 3. Anemia/thrombocytopenia The patient was evaluated by gastroenterology with EGD performed, which revealed grade 1 esophageal varices and an oozing gastric ulcer which was clipped. The patient will be continued on PPI therapy per plan. 4. History of atrial fibrillation/history of four-vessel CABG/hypertension/hyperlipidemia Complicates care, management, recovery and prognosis. Continue supportive measures as noted above. Physical therapy to continue to work with the patient. This note was generated with Blackboardation software. It may contain incorrect words, spelling, and punctuation that were not noted in checking the note before signing. Subjective Subjective The patient was seen and examined at the bedside this morning. Events from the last 24 hours have been reviewed. The patient is currently afebrile, hemodynamically stable and maintaining appropriate oxygen saturations on 8 L/min via nasal cannula. The patient is currently documented to be overall net -4.3 L for the hospitalization. Creatinine has increased somewhat to 1.72. Objective Data Objective Data The patient's most recent lab work, culture data and imaging studies have all been personally reviewed. Surface echocardiogram demonstrated severe LV systolic dysfunction with an ejection fraction of 20 to 25% Influenza A PCR was positive on September 20. Blood, urine and sputum cultures have not demonstrated any growth to date. Repeat sputum culture dated September 28 is currently pending. Vital Signs: Vital Signs Temp Pulse Resp BP Pulse Ox O2 Del Method O2 Flow Rate 97.6 F L 61 18 111/65 89 High Flow 10 10/01/24 07:45 10/01/24 07:45 10/01/24 07:45 10/01/24 07:45 10/01/24 08:02 10/01/24 08:02 10/01/24 08:02 FiO2 52 09/30/24 10:10 Oxygen Flow Rate (L/min) 10 Oxygen Delivery Method High Flow Weight: 179 lb 3.773 oz Body Mass Index (BMI) 29.8 Intake & Output: Intake and Output for Last 24 Hours 09/29/24 09/30/24 10/01/24 23:59 23:59 23:59 Intake Total 870 / 1110 1540 / 1540 Output Total 1175 / 1425 1525 / 1625 500 / 500 Balance -305 / -315 15 / -85 -500 / -500 Lab / Micro Data Attestation: I reviewed the patient's lab results. 10/01/24 06:52 10/01/24 06:52 Labs: Laboratory Results - last 24 hr 10/01/24 06:52: WBC 16.1 H, RBC 2.98 L, Hgb 10.0 L, Hct 30.5 L, MCV 102.3 H, MCH 33.6 H, MCHC 32.8, RDW Std Deviation 53.1 H, RDW Coeff of Harvinder 14.2, Plt Count 222, MPV 11.1 Micro: Microbiology 09/28/24 23:30 Sputum, Expectorated/Coughed Gram Stain - Final 09/28/24 23:30 Sputum, Expectorated/Coughed Respiratory Culture - Preliminary Presumptive C albicans 09/29/24 10:05 Mucosa - Nasopharyngeal Respiratory Panel (PCR) - Final Influenza A (Subtype H1) 09/20/24 13:49 Blood Culture (Wb) - Line Draw Blood Culture - Final No growth in 5 days. 09/20/24 13:53 Blood Culture (Wb) - Anticubital Right Blood Culture - Final No growth in 5 days. 09/20/24 17:15 Sputum, Induced/Lukens Gram Stain - Final 09/20/24 17:15 Sputum, Induced/Lukens Respiratory Culture - Final Mixed normal respiratory sridhar. No Streptococcus pneumoniae, beta-hemolytic Streptococcus or Staphylococcus aureus isolated. 09/20/24 14:00 Urine, Catheterized Urine Culture - Final Culture exhibits no growth. 09/20/24 14:00 Urine Catheter - Rowe Legionella Antigen - Final 09/20/24 14:00 Urine Catheter - Rowe Streptococcus pneumoniae Antigen (M - Final 09/20/24 13:49 Mucosa - Nose SARS-CoV-2, Influenza & RSV (PCR) - Final Influenzae A Radiography Diagnostic Testing: Radiology Impression Renal Ultrasound 09/29/24 15:17 IMPRESSION: No evidence of obstructive uropathy. Right renal cysts. Reading Location: [facility] Rhythm Strip Rhythm Strip: Atrially paced rhythm at 80 bpm Rate: 80 Ectopy: None Physical Exam Const alert and no apparent distress Constitutional Narrative: Hard of hearing. General Appearance: cooperative HEENT normocephalic, head/scalp atraumatic and moist oral mucous membranes General Ear: hearing grossly impaired Eyes EOMs intact bilaterally, conjunctivae normal and no scleral icterus Neck supple General: trachea midline and CVC in place Chest inspection of chest normal Resp normal respiratory effort and no use of accessory muscles Auscultation: diminished lung sounds Cardio regular rate and regular rhythm GI soft to palpation and non-tender Extremity General Extremity: edema bilateral lower extremity; Negative for clubbing Skin no rashes or lesions noted Neuro CN's II-XII intact bilaterally, moves all extremities and no focal motor deficits Psych Mood & Affect: flat affect Charges/Coding Visit Charges Inpatient E&M: 17523 Subs Hosp L2
[2024-10-01] MEDS: Polyethylene Glycol 3350 17 GM PACKET PO (08:10)
[2024-10-01 08:25] LABS: Anion Gap 9 (5-15); BUN 57 mg/dL (4-19); Calcium,Total 7.9 mg/dL (7.6-11.0); Carbon Dioxide 29.2 mmol/L (21.0-32.0); Chloride 105 mmol/L (98-108); Creatinine, Serum 1.72 mg/dL (0.70-1.20); EST Glomerular Filtration Rate 39 (>60); Estimated Creatinine Clearance 31.32 ml/min (50-250); Glucose 159 mg/dL (70-99); Potassium 3.6 mmol/L (3.3-5.1); Sodium Level 143 mmol/L (133-145)
[2024-10-01] MEDS: 0.9% Saline Lock 10 ML Syringe IV ×2 (08:36→14:22)
[2024-10-01] MEDS: Pantoprazole Sodium 40 MG in 0.9% Normal Saline (100mL MB+) 100 ML 330 MG IV ×2 (08:37→22:27)
--- NOTE | 2024-10-01 09:39 | PCM.PN.HOSP ---
Reason for Visit Reason for Visit: Diagnoses Sepsis, unspecified organism (09/20/24) Anemia, unspecified (09/20/24) Thrombocytopenia, unspecified (09/20/24) Atherosclerotic heart disease of nikolai coronary artery without angina pectoris (09/20/24) Cardiac arrest, cause unspecified (09/20/24) Paroxysmal atrial fibrillation (09/20/24) Unspecified systolic (congestive) heart failure (09/20/24) Influenza due to other identified influenza virus with other respiratory manifestations (09/20/24) Pneumonia, unspecified organism (09/20/24) Acute respiratory failure with hypoxia (09/20/24) Severe sepsis with septic shock (09/20/24) Subjective Subjective Patient resting in bed, reports he feels the same as he did yesterday, no significant improvement or significant subjective worsening Objective Data Objective Data Vital Signs: Vital Signs Temp Pulse Resp BP Pulse Ox O2 Del Method O2 Flow Rate 97.6 F L 61 18 111/65 90 High Flow 8 10/01/24 07:45 10/01/24 08:06 10/01/24 07:45 10/01/24 08:06 10/01/24 08:52 10/01/24 08:52 10/01/24 08:52 FiO2 52 09/30/24 10:10 Oxygen Flow Rate (L/min) 8 Oxygen Delivery Method High Flow Weight: 81.3 kg Body Mass Index (BMI) 29.8 Intake & Output: Intake and Output for Last 24 Hours 09/29/24 09/30/24 10/01/24 23:59 23:59 23:59 Intake Total 870 / 1110 1540 / 1540 Output Total 1175 / 1425 1525 / 1625 500 / 500 Balance -305 / -315 15 / -85 -500 / -500 Lab / Micro Data 10/01/24 06:52 10/01/24 06:52 Labs: Laboratory Results - last 24 hr 10/01/24 06:52: WBC 16.1 H, RBC 2.98 L, Hgb 10.0 L, Hct 30.5 L, MCV 102.3 H, MCH 33.6 H, MCHC 32.8, RDW Std Deviation 53.1 H, RDW Coeff of Harvinder 14.2, Plt Count 222, MPV 11.1, Sodium 143, Potassium 3.6, Chloride 105, Carbon Dioxide 29.2, Anion Gap 9, BUN 57 H, Creatinine 1.72 H, Estim Creat Clear Calc 31.32 L, Est GFR (MDRD) Non-Af 39 L, BUN/Creatinine Ratio 33.0 H, Glucose 159 H, Calcium 7.9 Micro: Microbiology 09/28/24 23:30 Sputum, Expectorated/Coughed Gram Stain - Final 09/28/24 23:30 Sputum, Expectorated/Coughed Respiratory Culture - Preliminary Presumptive C albicans 09/29/24 10:05 Mucosa - Nasopharyngeal Respiratory Panel (PCR) - Final Influenza A (Subtype H1) 09/20/24 13:49 Blood Culture (Wb) - Line Draw Blood Culture - Final No growth in 5 days. 09/20/24 13:53 Blood Culture (Wb) - Anticubital Right Blood Culture - Final No growth in 5 days. 09/20/24 17:15 Sputum, Induced/Lukens Gram Stain - Final 09/20/24 17:15 Sputum, Induced/Lukens Respiratory Culture - Final Mixed normal respiratory sridhar. No Streptococcus pneumoniae, beta-hemolytic Streptococcus or Staphylococcus aureus isolated. 09/20/24 14:00 Urine, Catheterized Urine Culture - Final Culture exhibits no growth. 09/20/24 14:00 Urine Catheter - Rowe Legionella Antigen - Final 09/20/24 14:00 Urine Catheter - Rowe Streptococcus pneumoniae Antigen (M - Final 09/20/24 13:49 Mucosa - Nose SARS-CoV-2, Influenza & RSV (PCR) - Final Influenzae A Rhythm Strip Rhythm Strip: Atrially paced rhythm at 80 bpm Rate: 80 Ectopy: None Physical Exam Narrative General: Alert, no apparent distress HEENT: Atraumatic, normocephalic Eyes: Anicteric, normal conjunctiva, extraocular movements grossly intact Neck: Supple Respiratory: Respiratory effort dizziness yesterday, no overt wheezing or rhonchi Cardiovascular: Regular rate GI: Soft, nontender, nondistended Extremities: Edema is a little bit improved with some wrinkles forming Musculoskeletal: Moving all extremities Neuro: No overt focal neurological deficits Skin: No rashes appreciated Psych: Cooperative Assessment & Plan Assessment/Plan (1) HFrEF (heart failure with reduced ejection fraction): PLAN: Plan Patient is an 83-year-old male who presented to [facility] ED on 09/20/2024 with worsening upper respiratory symptoms in the setting of severe underlying heart failure with reduced ejection fraction. Patient had cardiac arrest x 2 in the ED requiring 2 doses of epinephrine and 2 rounds of CPR. Given his overall presentation and clinical course,mostly patient had acute decompensated heart failure with volume overload that responded very well to positive pressure ventilation. # Acute hypoxic respiratory failure secondary to influenza A infection and superimposed bilateral multifocal pneumonia and decompensated heart failure -Patient intubated 09/21 with subsequent extubation 09/23 -Continues to have high O2 requirement, patient presently on Airvo, will give another dose of IV Lasix -Also concern for pulmonary edema -Continue Rocephin, will give another dose of lasix -09/28: Patient remains on Airvo, middle of the night did have O2 sat down to 88 so Airvo was increased, patient on Rocephin and was given a dose of Lasix 09/27/2024. Repeat chest x-ray with increased pulmonary congestion and edema, another dose of Lasix ordered -09/29: Patient on IV Lasix, he continues to be on Airvo and slowly has had increasing requirements despite interventions, remains on Rocephin, given inability to wean Airvo with increasing requirements pulmonology consulted -09/30: Patient started on steroids by pulmonology in the event there is an inflammatory component, patient continues to be diuresed, today Airvo requirements decreasing -10/01: Patient continues to have waxing and waning O2 requirements and O2 sats, this a.m. is 90% on 8 L high flow, cannot rule out component of aspiration so patient for cookie swallow later today, pulm following, patient being diuresed and is net negative for this hospitalization #MUSA -09/28:-MUSA, unclear etiology as there is concern for fluid overload but kidney function did worsen with Lasix. Will check urine studies -09/29: FEUrea calculated as patient is on diuretics, FE urea is 35.5, borderline but would suggest intrinsic in nature, nephrology consulted -09/30: Kidney function down trended today to 1.45, nephrology on board and ordered renal ultrasound which was normal -10/01: Had discussed with nephrology yesterday and further increased patient's IV diuresis, will discuss with nephrology as thought that patient may need to have higher creatinine to allow for adequate diuresis and respiratory status, kidney function did increase again today, nephrology following, appreciate recommendations # Cardiogenic shock secondary to acute decompensated heart failure with preserved ejection fraction with a reduced EF and AICD -Patient presented with cardiac arrest requiring 2 doses of epi and 2 rounds of CPR -Patient being monitored on telemetry -Chest x-ray with bilateral multifocal pneumonia and/or pulmonary edema -Patient received IV Lasix x 1, -Last echo 04/2024 with EF of 50% but all motion abnormalities and stage II diastolic dysfunction -Repeat echo ordered and demonstrated now decreased EF of 20 to 25% and stage III diastolic dysfunction -Daily weights, I's and O's -heart healthy diet -Patient on beta-isabel, hydralazine, resume home Imdur and home GALE, if renal function on blood pressure tolerates can consider spironolactone and/or SGLT2 inhibitor moving forward -Will need follow-up with his general accounting manager and 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 Repeat dose of IV Lasix today -09/29: Patient remains on Airvo despite Lasix, continue metoprolol, hydralazine, Imdur, hold starting GALE given MUSA, also reconsulting cardiology -09/30: Cardiology consulted, patient on Lasix, spironolactone added back, hydralazine increased to 3 times daily -10/01: Patient with increased Lasix dose, -4300 for this admission Chronic medical problems: # Acute on chronic anemia secondary to upper GI bleed -There is blood in NG tube on presentation patient EGD was found to have bleeding ulcer in stomach status post hemostatic clip placement 09/22/2024 -Patient's Xarelto restarted with stable hemoglobin -Continue patient on PPI -09/28: Hemoglobin 10, will continue to monitor daily monitor for any signs or symptoms of blood loss -09/29: Hemoglobin 9.8, remained stable # History of paroxysmal atrial fibrillation -Patient on Xarelto -Patient remains on beta-isabel, patient was on amio at home however this has not been continued here -09/30: Discussed with cardiology and given this was a home medication it was advised to resume, so we added back today #Hx CAD s/p CABG -Patient on beta-isabel and Xarelto #Chronic BPH with obstruction -Resume home tamsulosin #DVT ppx: Patient on Xarelto Charmaine Machuca MD Time spent in the patient's overall evaluation,decision-making process, review of diagnostic data, adjustment of management, discussion with other providers, nursing nursing and ancillary staff involved in patient's care documentation, 36 minutes Charges/Coding Visit Charges Inpatient E&M: 29431 Subs Hosp L2
--- NOTE | 2024-10-01 10:45 | CASEMGMT ---
Discharge Planning Call placed from [facility]. They will not have bed availability until Friday and can take pt with O2 up to 10L. SW updated. Marcella Mata DC Planning Asst.
--- NOTE | 2024-10-01 15:17 | SP.FEES_ITS ---
FEES Patient Information Date of Evaluation: 10/01/24 Time of Evaluation: 13:40 Diagnosis: PNA J18.9 Referring Physician: Charmaine Machuca Staff Providing this Care/Treatment:: Caryn Jeong M.A. CCC-MANAGER WASTEWATER; Maylin Youngblood RN (assisting feeding the patient) Direct Billable Minutes: 130 History: Past Medical History:: PMH: Skin cancer, Myocardial infarction, Presence of combination internal cardiac defibrillator (ICD) and pacemaker - See EMR for full PMH. Patrick Mcgovern presented to [facility] ED on 09/20/2024 with worsening URI symptoms. He had brought his to the ED day of presentation, but shortly after arrival he passed out, fell to the floor, and hit his head. He woke, but then lost consciousness so he was taken to CT w/ O2 support. CT brain showed no concerning findings. On arrival back to the room, he required emergent intubation. After intubation, he lost his pulse and CPR was initiated. He was given a dose of epinephrine with recovery of a pulse. Chest x-ray showed severe pulmonary infiltrates bilaterally. He was found to be positive for influenza A. Patient had a central line placed and was initially started on epinephrine drip and then transitioned over to a Levophed drip. He did regain consciousness postintubation and was interacting with staff. However, his oxygen saturations were fairly poor despite being on 100% oxygen, so sedation was initiated to improve his oxygen level. He was admitted to ICU. Pt extubated 09/23/2024. ST consulted 09/29/2024 as the patient was having difficulty weaning from O2. BSE recommended Easy to Chew textures / Thin liquids w/ MANAGER WASTEWATER to follow for diet tolerance and monitor respiratory status. Pt was ultimately recommended for MBSS to assess aspiration risk; however, after breakfast this morning, the patient required increased O2, had belching, and then required transition to Airvo. RN made the patient NPO. MBSS cancelled as the patient can't transport on Airvo. MANAGER WASTEWATER recommends FEES to assess aspiration risk. Current Diet: Comment:: NPO Respiratory Status Observation:: Airvo, FiO2 68%, 60L/min Vocal Quality: Observations:: Hoarse Cognition: Observations:: WFL Position During FEES: Position During FEES:: Upright Location: In Bed Fiberoptic Endoscope: Size: 3.4 mm Nare Used:: Right Anatomical Findings: Anatomical Findings:: Minimal thin, clear pharyngeal secretions strung from the R posterior pharyngeal wall and the epiglottis. Weakness noted in the R posterior pharyngeal wall at rest; however, bilateral contraction of posterior pharyngeal wall w/ vocal glides. Brown-out during the swallow, indicative of decreased pharyngeal contraction. Whitish excrescence on R side of the posterior surface of the epiglottis, likely blister from recent intubation. Small whitish excrescences on the medial edges of the posterior portions of the vocal folds bilaterally observed during inhalation, likely intubation granulomas. Adduction of vocal folds was slightly asymmetrical, but no paresis observed. Complete true vocal fold adduction, as well as adduction of ventricular folds w/ phonation tasks. Cobblestoning on posterior pharyngeal wall concerning for GERD. Mild edema of the arytenoids, ventricular folds, and epiglottic petiole. Arytenoids and epiglottis appeared reddish. Penetration-Aspiration Scale Penetration-Aspiration Scale Thin Liquids by Teaspoon Food/Drink Provided:: Green colored water Swallow Onset Location:: Epiglottis PAS Score: PAS Score *1 Visual Analysis of Swallowing Efficiency and Safety (VASES) after the swallow: Oropharynx VASES Comments:: Residue: <5% R aryepiglottic fold Thin Liquids by Single Cup Food/Drink Provided:: Green colored water Swallow Onset Location:: Epiglottis PAS Score: PAS Score *1 Visual Analysis of Swallowing Efficiency and Safety (VASES) after the swallow: Oropharynx and Epiglottis Comments:: Residue: <5% posterior pharyngeal wall, <5% epiglottis, <5% R aryepiglottic fold Thin Liquids by Single Straw Food/Drink Provided:: Green colored water Swallow Onset Location:: Vallecula PAS Score: PAS Score *1 Visual Analysis of Swallowing Efficiency and Safety (VASES) after the swallow: Oropharynx and Hypopharynx Comments:: Residue: 5% L pyriform sinus, <5% lateral glossoepiglottic fold Thin Liquids by Sequential Straw Food/Drink Provided:: Green colored water Swallow Onset Location:: Epiglottis PAS Score: PAS Score *1 Visual Analysis of Swallowing Efficiency and Safety (VASES) after the swallow: Oropharynx Comments:: Residue: <5% lateral glossoepiglottic fold, <5% vallecula Mildly Thick Liquids by Single Cup Food/Drink Provided:: Green colored OJ Swallow Onset Location:: Epiglottis PAS Score: PAS Score *1 Visual Analysis of Swallowing Efficiency and Safety (VASES) after the swallow: Oropharynx and Hypopharynx Comments:: 10% vallecula, 5% pyriform sinuses, <5% R aryepiglottic fold, <5% posterior pharyngeal wall Puree Textures Food/Drink Provided:: Vanilla pudding Swallow Onset Location:: Tongue Base PAS Score: PAS Score *1 Visual Analysis of Swallowing Efficiency and Safety (VASES) after the swallow: Oropharynx and Epiglottis Comments:: Residue: 5% vallecula, 5% posterior surface of the epiglottis, <5% tongue base Regular Textures Food/Drink Provided:: Catarina Doone cookie Swallow Onset Location:: Tongue Base PAS Score: PAS Score *1 Visual Analysis of Swallowing Efficiency and Safety (VASES) after the swallow: Oropharynx Comments:: Residue: 10% vallecula Diagnosis/Impressions Diagnosis: Mild pharyngeal dysphagia R13.13 Impressions: -Mildly delayed swallow onset. -Mildly decrease pharyngeal contraction w/ trace-mild pharyngeal residues most notable w/ mildly thick, pudding, and cookie trial. -Overall, good airway closure w/ no aspiration observed during the study. Belching after oral intake, cobblestoning on posterior pharyngeal wall, mild edema in laryngeal vestibule, all concerning for GERD. MANAGER WASTEWATER informed hospitalist. Recommendations Diet: Easy to Chew Textures and Thin Liquids Comments: Sips 1 at a time Compensatory Strategies: Small Bites, Small Sips, Slow Rate, Alternate bites/solids and sips/liquids, Sitting upright and Remain sitting upright for 30 minutes after PO intake Supervision: 1:1 Distant Supervision Recommend Repeat Instrumental Swallow Assessment: No Need for Skilled Speech Therapy Services: Yes Comments: -Train the patient in use of strategies to decrease risk for aspiration and reflux aspiration. -Ongoing assessment of diet tolerance of recommended textures. -Train the patient in oropharyngeal exercise program to improve swallow onset and pharyngeal contraction (Talib, effortful). Education Completed: 1. Described result of evaluation., 2. Pt understands evaluation & agrees with goals and treatment plan. and 7. Pt requires further education on strategies & risks.
--- NOTE | 2024-10-01 16:34 | PCM.PN.REN ---
Subjective Subjective No new events Objective Data Objective Data Vital Signs: Vital Signs Temp Pulse Resp BP Pulse Ox O2 Del Method O2 Flow Rate 97.7 F L 66 20 H 113/60 96 Airvo 60 10/01/24 14:13 10/01/24 14:18 10/01/24 14:13 10/01/24 14:18 10/01/24 15:02 10/01/24 14:30 10/01/24 15:02 FiO2 68 10/01/24 14:13 Oxygen Flow Rate (L/min) 60 Oxygen Delivery Method Airvo Weight: 81.3 kg Body Mass Index (BMI) 29.8 Intake & Output: Intake and Output for Last 24 Hours 09/29/24 09/30/24 10/01/24 23:59 23:59 23:59 Intake Total 870 / 1110 1540 / 1540 590 / 590 Output Total 1175 / 1425 1525 / 1625 1100 / 1100 Balance -305 / -315 15 / -85 -510 / -510 Lab / Micro Data 10/01/24 06:52 10/01/24 06:52 Labs: Laboratory Results - last 24 hr 10/01/24 06:52: WBC 16.1 H, RBC 2.98 L, Hgb 10.0 L, Hct 30.5 L, MCV 102.3 H, MCH 33.6 H, MCHC 32.8, RDW Std Deviation 53.1 H, RDW Coeff of Harvinder 14.2, Plt Count 222, MPV 11.1, Sodium 143, Potassium 3.6, Chloride 105, Carbon Dioxide 29.2, Anion Gap 9, BUN 57 H, Creatinine 1.72 H, Estim Creat Clear Calc 31.32 L, Est GFR (MDRD) Non-Af 39 L, BUN/Creatinine Ratio 33.0 H, Glucose 159 H, Calcium 7.9 Micro: Microbiology 09/28/24 23:30 Sputum, Expectorated/Coughed Gram Stain - Final 09/28/24 23:30 Sputum, Expectorated/Coughed Respiratory Culture - Final Presumptive C albicans 09/29/24 10:05 Mucosa - Nasopharyngeal Respiratory Panel (PCR) - Final Influenza A (Subtype H1) 09/20/24 13:49 Blood Culture (Wb) - Line Draw Blood Culture - Final No growth in 5 days. 09/20/24 13:53 Blood Culture (Wb) - Anticubital Right Blood Culture - Final No growth in 5 days. 09/20/24 17:15 Sputum, Induced/Lukens Gram Stain - Final 09/20/24 17:15 Sputum, Induced/Lukens Respiratory Culture - Final Mixed normal respiratory sridhar. No Streptococcus pneumoniae, beta-hemolytic Streptococcus or Staphylococcus aureus isolated. 09/20/24 14:00 Urine, Catheterized Urine Culture - Final Culture exhibits no growth. 09/20/24 14:00 Urine Catheter - Rowe Legionella Antigen - Final 09/20/24 14:00 Urine Catheter - Rowe Streptococcus pneumoniae Antigen (M - Final 09/20/24 13:49 Mucosa - Nose SARS-CoV-2, Influenza & RSV (PCR) - Final Influenzae A Rhythm Strip Rhythm Strip: Atrially paced rhythm at 80 bpm Rate: 80 Ectopy: None Physical Exam Narrative Alert and oriented x 3, no apparent stress S1, S2, rhythm regular, rate controlled Lung sounds diminished Abdomen soft, positive bowel sounds, nondistended trace to +1 pitting edema bilateral lower legs, R>L Assessment & Plan Assessment/Plan (1) MUSA (acute kidney injury): (2) Acute hypoxemic respiratory failure: (3) HFrEF (heart failure with reduced ejection fraction): PLAN: Plan This is an 83-year-old male with past medical history significant for A-fib on Xarelto, BPH, hypertension, CAD status post CABG, ICD and pacemaker admitted to hospital on September 20 for acute hypoxic respiratory failure, influenza A, initially admitted to ICU for acute hypoxemic respiratory failure, influenza A, acute decompensated congestive heart failure with brief cardiac arrest with successful ROSC. Nephrology consulted in view of rising serum creatinine. - MUSA on possible CKD stage IIIa: In reviewing past serum creatinine trends baseline creatinine may be ranging around 1 to 1.4 mg/dL. Patient's creatinine on March 02, 2024 was 1.41 mg/dL. SCr 1.57 on day of hospital admission. Since admission there has been some fluctuations in serum creatinine. Renal ultrasound without any hydronephrosis Urine sodium was low, likely cardiorenal physiology Echocardiogram with low ejection fraction Urine analysis shows some proteinuria, will send for quantification Has been on IV Lasix. Has been net negative every day for the last 4 days. Okay to continue IV Lasix. Some increase in creatinine is to be expected.
[2024-10-01] MEDS: Tamsulosin HCl 0.4 MG Capsule PO (18:35)
[2024-10-01] MEDS: Rivaroxaban 20 MG Tablet PO (18:35)
[2024-10-01] MEDS: Methylprednisolone Sod Succ 40 MG/ML VIAL IV (22:23)
[2024-10-02] VITALS (20 sets, daily range): BP systolic 104–127; BP diastolic 55–66; PULSE 60–80; RESP 18–20; TEMP 36.4–36.5; O2SAT 84–95; BMI 29.9
[2024-10-02 00:57] LABS: Protein, Urine (Random) 51.6 mg/dL (0.0-12.0); Protein:Creat Ratio 697 mg/g CRE (0-200)
[2024-10-02] MEDS: hydrALAZINE 50 MG Tablet PO ×2 (05:29→21:11)
[2024-10-02 06:48] LABS: Hemoglobin 10.5 g/dL (13.0-16.5); Mean Corp Hgb Conc 33.9 g/dL (32-36); Mean Corpuscular Hgb 34.5 pg (27.0-32.0); Mean Platelet Vol. 10.6 fl (6.2-12.0); Platelet Count 215 K/mm3 (150-450); RBC Distribution Width CV 14.4 % (11.6-14.6); RBC Distribution Width SD 53.2 fl (35.1-43.9); Red Blood Count 3.04 M/mm3 (4.6-6.2)
[2024-10-02 06:56] LABS: POSITIVE DIFFERENTIAL YES
[2024-10-02 07:25] LABS: Anion Gap 10 (5-15); BUN 68 mg/dL (4-19); BUN/Creat Ratio 34.7 RATIO (10-20); Calcium,Total 7.8 mg/dL (7.6-11.0); Carbon Dioxide 29.1 mmol/L (21.0-32.0); Chloride 104 mmol/L (98-108); Creatinine, Serum 1.96 mg/dL (0.70-1.20); EST Glomerular Filtration Rate 33 (>60); Estimated Creatinine Clearance 27.53 ml/min (50-250); Glucose 167 mg/dL (70-99); Potassium 3.7 mmol/L (3.3-5.1); Sodium Level 142 mmol/L (133-145)
--- NOTE | 2024-10-02 08:29 | PCM.PN.HOSP ---
Reason for Visit Reason for Visit: Diagnoses Sepsis, unspecified organism (09/20/24) Anemia, unspecified (09/20/24) Thrombocytopenia, unspecified (09/20/24) Atherosclerotic heart disease of [place] coronary artery without angina pectoris (09/20/24) Cardiac arrest, cause unspecified (09/20/24) Paroxysmal atrial fibrillation (09/20/24) Unspecified systolic (congestive) heart failure (09/20/24) Influenza due to other identified influenza virus with other respiratory manifestations (09/20/24) Pneumonia, unspecified organism (09/20/24) Acute respiratory failure with hypoxia (09/20/24) Acute kidney failure, unspecified (09/20/24) Severe sepsis with septic shock (09/20/24) Subjective Subjective Patient reports he may feel little bit better this still short of breath Objective Data Objective Data Vital Signs: Vital Signs Temp Pulse Resp BP Pulse Ox O2 Del Method O2 Flow Rate 97.7 F L 74 20 H 119/65 92 High Flow 8 10/02/24 03:30 10/02/24 05:29 10/02/24 03:30 10/02/24 05:29 10/02/24 07:58 10/02/24 07:58 10/02/24 07:58 FiO2 68 10/01/24 17:36 Oxygen Flow Rate (L/min) 8 Oxygen Delivery Method High Flow Weight: 81.6 kg Body Mass Index (BMI) 29.9 Intake & Output: Intake and Output for Last 24 Hours 09/30/24 10/01/24 10/02/24 23:59 23:59 23:59 Intake Total 1540 / 1540 820 / 820 120 / 120 Output Total 1525 / 1625 1700 / 1700 Balance 15 / -85 -880 / -880 120 / 120 Lab / Micro Data 10/02/24 06:23 10/02/24 06:23 Labs: Laboratory Results - last 24 hr 10/01/24 23:35: U Random Total Protein 51.6 H, Urine Creatinine 74.00, Protein/Creatinin Ratio 697 H 10/02/24 06:23: WBC 16.0 H, RBC 3.04 L, Hgb 10.5 L, Hct 31.0 L, MCV 102.0 H, MCH 34.5 H, MCHC 33.9, RDW Std Deviation 53.2 H, RDW Coeff of Harvinder 14.4, Plt Count 215, MPV 10.6, Sodium 142, Potassium 3.7, Chloride 104, Carbon Dioxide 29.1, Anion Gap 10, BUN 68 H, Creatinine 1.96 H, Estim Creat Clear Calc 27.53 L, Est GFR (MDRD) Non-Af 33 L, BUN/Creatinine Ratio 34.7 H, Glucose 167 H, Calcium 7.8 Micro: Microbiology 09/28/24 23:30 Sputum, Expectorated/Coughed Gram Stain - Final 09/28/24 23:30 Sputum, Expectorated/Coughed Respiratory Culture - Final Presumptive C albicans 09/29/24 10:05 Mucosa - Nasopharyngeal Respiratory Panel (PCR) - Final Influenza A (Subtype H1) 09/20/24 13:49 Blood Culture (Wb) - Line Draw Blood Culture - Final No growth in 5 days. 09/20/24 13:53 Blood Culture (Wb) - Anticubital Right Blood Culture - Final No growth in 5 days. 09/20/24 17:15 Sputum, Induced/Lukens Gram Stain - Final 09/20/24 17:15 Sputum, Induced/Lukens Respiratory Culture - Final Mixed normal respiratory sridhar. No Streptococcus pneumoniae, beta-hemolytic Streptococcus or Staphylococcus aureus isolated. 09/20/24 14:00 Urine, Catheterized Urine Culture - Final Culture exhibits no growth. 09/20/24 14:00 Urine Catheter - Rowe Legionella Antigen - Final 09/20/24 14:00 Urine Catheter - Rowe Streptococcus pneumoniae Antigen (M - Final 09/20/24 13:49 Mucosa - Nose SARS-CoV-2, Influenza & RSV (PCR) - Final Influenzae A Rhythm Strip Rhythm Strip: Atrially paced rhythm at 80 bpm Rate: 80 Ectopy: None Physical Exam Narrative General: Alert, no apparent distress HEENT: Atraumatic, normocephalic Eyes: Anicteric, normal conjunctiva, extraocular movements grossly intact Neck: Supple Respiratory: No significant increased work of breathing, little bit diminished bilaterally Cardiovascular: Regular rate GI: Soft, nontender, nondistended Extremities: Edema continues to be a little bit improved with some wrinkles forming Musculoskeletal: Moving all extremities Neuro: No overt focal neurological deficits Skin: No rashes appreciated Psych: Cooperative Assessment & Plan Assessment/Plan (1) HFrEF (heart failure with reduced ejection fraction): PLAN: Plan Patient is an 83-year-old male who presented to [facility] ED on 09/20/2024 with worsening upper respiratory symptoms in the setting of severe underlying heart failure with reduced ejection fraction. Patient had cardiac arrest x 2 in the ED requiring 2 doses of epinephrine and 2 rounds of CPR. Given his overall presentation and clinical course,mostly patient had acute decompensated heart failure with volume overload that responded very well to positive pressure ventilation. # Acute hypoxic respiratory failure secondary to influenza A infection and superimposed bilateral multifocal pneumonia and decompensated heart failure -Patient intubated 09/21 with subsequent extubation 09/23 -Continues to have high O2 requirement, patient presently on Airvo, will give another dose of IV Lasix -Also concern for pulmonary edema -Continue Rocephin, will give another dose of lasix -09/28: Patient remains on Airvo, middle of the night did have O2 sat down to 88 so Airvo was increased, patient on Rocephin and was given a dose of Lasix 09/27/2024. Repeat chest x-ray with increased pulmonary congestion and edema, another dose of Lasix ordered -09/29: Patient on IV Lasix, he continues to be on Airvo and slowly has had increasing requirements despite interventions, remains on Rocephin, given inability to wean Airvo with increasing requirements pulmonology consulted -09/30: Patient started on steroids by pulmonology in the event there is an inflammatory component, patient continues to be diuresed, today Airvo requirements decreasing -10/01: Patient continues to have waxing and waning O2 requirements and O2 sats, this a.m. is 90% on 8 L high flow, cannot rule out component of aspiration so patient for cookie swallow later today, pulm following, patient being diuresed and is net negative for this hospitalization -10/02: Continue to have difficulty weaning O2, passed swallow study and is on regular diet again, patient being diuresed, weight has been fairly stable over the past several days #MUSA -09/28:-MUSA, unclear etiology as there is concern for fluid overload but kidney function did worsen with Lasix. Will check urine studies -09/29: FEUrea calculated as patient is on diuretics, FE urea is 35.5, borderline but would suggest intrinsic in nature, nephrology consulted -09/30: Kidney function down trended today to 1.45, nephrology on board and ordered renal ultrasound which was normal -10/01: Had discussed with nephrology yesterday and further increased patient's IV diuresis, will discuss with nephrology as thought that patient may need to have higher creatinine to allow for adequate diuresis and respiratory status, kidney function did increase again today, nephrology following, appreciate recommendations -10/02: Nephrology continues to follow, has expected increase in creatinine but did have further increase again today, patient had afternoon Lasix held yesterday due to borderline blood pressures, given worsening creatinine patient spironolactone held, will decrease Lasix to 20 twice daily to allow for continued diuresis without ideally having to hold further doses, greatly appreciate nephrology input # Cardiogenic shock secondary to acute decompensated heart failure with preserved ejection fraction with a reduced EF and AICD -Patient presented with cardiac arrest requiring 2 doses of epi and 2 rounds of CPR -Patient being monitored on telemetry -Chest x-ray with bilateral multifocal pneumonia and/or pulmonary edema -Patient received IV Lasix x 1, -Last echo 04/2024 with EF of 50% but all motion abnormalities and stage II diastolic dysfunction -Repeat echo ordered and demonstrated now decreased EF of 20 to 25% and stage III diastolic dysfunction -Daily weights, I's and O's -heart healthy diet -Patient on beta-isabel, hydralazine, resume home Imdur and home GALE, if renal function on blood pressure tolerates can consider spironolactone and/or SGLT2 inhibitor moving forward -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 Repeat dose of IV Lasix today -09/29: Patient remains on Airvo despite Lasix, continue metoprolol, hydralazine, Imdur, hold starting GALE given MUSA, also reconsulting cardiology -09/30: Cardiology consulted, patient on Lasix, spironolactone added back, hydralazine increased to 3 times daily -10/01: Patient with increased Lasix dose, -4300 for this admission -10/02: Holding spironolactone given worsening renal function, increase in creatinine to be expected but monitoring closely, patient remains on Lasix Chronic medical problems: # Acute on chronic anemia secondary to upper GI bleed -There is blood in NG tube on presentation patient EGD was found to have bleeding ulcer in stomach status post hemostatic clip placement 09/22/2024 -Patient's Xarelto restarted with stable hemoglobin -Continue patient on PPI -09/28: Hemoglobin 10, will continue to monitor daily monitor for any signs or symptoms of blood loss -09/29: Hemoglobin 9.8, remained stable # History of paroxysmal atrial fibrillation -Patient on Xarelto -Patient remains on beta-isabel, patient was on amio at home however this has not been continued here -09/30: Discussed with cardiology and given this was a home medication it was advised to resume, so we added back today #Hx CAD s/p CABG -Patient on beta-isabel and Xarelto #Chronic BPH with obstruction -Resume home tamsulosin #DVT ppx: Patient on Xarelto Charmaine Machuca MD Time spent in the patient's overall evaluation,decision-making process, review of diagnostic data, adjustment of management, discussion with other providers, nursing nursing and ancillary staff involved in patient's care documentation, 37 minutes Charges/Coding Visit Charges Inpatient E&M: 55291 Subs Hosp L2
[2024-10-02] MEDS: guaiFENesin/D-Methorphan TAB.SR.12H 2 TABLET PO ×2 (10:11→21:12)
[2024-10-02] MEDS: Polyethylene Glycol 3350 17 GM PACKET PO (10:12)
[2024-10-02] MEDS: Metoprolol Tartrate 50 MG Tablet PO ×2 (10:12→21:12)
[2024-10-02] MEDS: Atorvastatin Calcium 80 MG Tablet PO (10:13)
[2024-10-02] MEDS: Aspirin 81 MG TAB.CHEW PO (10:14)
[2024-10-02] MEDS: Senna Tablet 2 TABLET PO (10:14)
[2024-10-02] MEDS: Amiodarone 200 MG Tablet PO (10:14)
[2024-10-02] MEDS: Pantoprazole Sodium 40 MG in 0.9% Normal Saline (100mL MB+) 100 ML 330 MG IV ×2 (10:15→21:12)
[2024-10-02] MEDS: Furosemide 20 MG/2 ML VIAL IV ×2 (10:15→18:51)
[2024-10-02] MEDS: Methylprednisolone Sod Succ 40 MG/ML VIAL IV ×2 (10:16→21:12)
[2024-10-02] MEDS: 0.9% Saline Lock 10 ML Syringe IV ×4 (10:16→21:11)
[2024-10-02] MEDS: Isosorbide Mononitrate 30 MG Tablet PO (14:53)
[2024-10-02] MEDS: Tamsulosin HCl 0.4 MG Capsule PO (17:32)
[2024-10-02] MEDS: Rivaroxaban 20 MG Tablet PO (17:33)
[2024-10-03] VITALS (18 sets, daily range): BP systolic 106–138; BP diastolic 52–72; PULSE 60–82; RESP 12–22; TEMP 36.4–36.8; O2SAT 92–100; BMI 29.9
[2024-10-03] MEDS: hydrALAZINE 50 MG Tablet PO ×2 (05:38→14:24)
[2024-10-03 05:58] LABS: Hematocrit 29.6 % (40-54); Hemoglobin 9.9 g/dL (13.0-16.5); Mean Corp Hgb Conc 33.4 g/dL (32-36); Mean Corpuscular Hgb 33.9 pg (27.0-32.0); Mean Corpuscular Volume 101.4 fL (80-94); Mean Platelet Vol. 11.2 fl (6.2-12.0); Platelet Count 196 K/mm3 (150-450); RBC Distribution Width CV 14.4 % (11.6-14.6); RBC Distribution Width SD 53.6 fl (35.1-43.9); Red Blood Count 2.92 M/mm3 (4.6-6.2); White Blood Count 20.3 K/mm3 (4.4-11.0)
[2024-10-03 06:53] LABS: Anion Gap 11 (5-15); BUN 88 mg/dL (4-19); BUN/Creat Ratio 38.5 RATIO (10-20); Calcium,Total 7.9 mg/dL (7.6-11.0); Carbon Dioxide 26.9 mmol/L (21.0-32.0); Chloride 104 mmol/L (98-108); Creatinine, Serum 2.29 mg/dL (0.70-1.20); EST Glomerular Filtration Rate 28 (>60); Estimated Creatinine Clearance 23.55 ml/min (50-250); Glucose 177 mg/dL (70-99); Potassium 4.1 mmol/L (3.3-5.1); Sodium Level 142 mmol/L (133-145)
--- NOTE | 2024-10-03 09:30 | RAD_ITS ---
PROCEDURE: Chest radiograph REASON FOR EXAM: Hypoxia TECHNIQUE: Frontal view of the chest. COMPARISON: 09/28/2024 FINDINGS: Left cardiac pacer/AICD. Mild cardiomegaly. Mild scattered airspace opacities throughout the right lung and at the bilateral lung bases. Suspected small bilateral pleural effusions, slightly greater on the right. No sizable pneumothorax. RAD/Chest 1 View (Portable) IMPRESSION: Bilateral airspace opacities, greater on the right, and small bilateral pleural effusions. Reading Location: [facility]
[2024-10-03] MEDS: Pantoprazole Sodium 40 MG in 0.9% Normal Saline (100mL MB+) 100 ML 330 MG IV (09:49)
[2024-10-03] MEDS: 0.9% Saline Lock 10 ML Syringe IV ×3 (09:50→21:07)
[2024-10-03] MEDS: Aspirin 81 MG TAB.CHEW PO (09:54)
[2024-10-03] MEDS: Metoprolol Tartrate 50 MG Tablet PO ×2 (09:54→21:47)
[2024-10-03] MEDS: guaiFENesin/D-Methorphan TAB.SR.12H 2 TABLET PO ×2 (09:54→21:06)
[2024-10-03] MEDS: Isosorbide Mononitrate 30 MG Tablet PO (09:56)
[2024-10-03] MEDS: Amiodarone 200 MG Tablet PO (09:56)
[2024-10-03] MEDS: Atorvastatin Calcium 80 MG Tablet PO (09:56)
[2024-10-03] MEDS: Methylprednisolone Sod Succ 40 MG/ML VIAL IV ×2 (09:58→21:07)
[2024-10-03] MEDS: Furosemide 40 MG/4 ML Vial IV (14:24)
--- NOTE | 2024-10-03 14:54 | PCM.PN.HOSP ---
Reason for Visit Reason for Visit: Diagnoses Sepsis, unspecified organism (09/20/24) Anemia, unspecified (09/20/24) Thrombocytopenia, unspecified (09/20/24) Atherosclerotic heart disease of [place] coronary artery without angina pectoris (09/20/24) Cardiac arrest, cause unspecified (09/20/24) Paroxysmal atrial fibrillation (09/20/24) Unspecified systolic (congestive) heart failure (09/20/24) Influenza due to other identified influenza virus with other respiratory manifestations (09/20/24) Pneumonia, unspecified organism (09/20/24) Acute respiratory failure with hypoxia (09/20/24) Acute kidney failure, unspecified (09/20/24) Severe sepsis with septic shock (09/20/24) Subjective Subjective Patient feels about the same today, continues to have minimal if any complaints. Did have to be straight cathed again due to still retaining some urine Objective Data Objective Data Vital Signs: Vital Signs Temp Pulse Resp BP Pulse Ox O2 Del Method O2 Flow Rate 97.5 F L 66 16 124/72 H 100 Bi-pap 60 10/03/24 14:40 10/03/24 14:40 10/03/24 14:40 10/03/24 14:40 10/03/24 14:40 10/03/24 14:40 10/03/24 05:36 FiO2 90 10/03/24 13:37 Oxygen Flow Rate (L/min) 60 Oxygen Delivery Method Bi-pap Weight: 81.5 kg Body Mass Index (BMI) 29.9 Intake & Output: Intake and Output for Last 24 Hours 10/01/24 10/02/24 10/03/24 23:59 23:59 23:59 Intake Total 820 / 820 340 / 400 270 / 270 Output Total 1700 / 1700 850 / 850 Balance -880 / -880 340 / 250 -580 / -580 Lab / Micro Data 10/03/24 05:31 10/03/24 05:31 Labs: Laboratory Results - last 24 hr 10/03/24 05:31: WBC 20.3 H, RBC 2.92 L, Hgb 9.9 L, Hct 29.6 L, MCV 101.4 H, MCH 33.9 H, MCHC 33.4, RDW Std Deviation 53.6 H, RDW Coeff of Harvinder 14.4, Plt Count 196, MPV 11.2, Sodium 142, Potassium 4.1, Chloride 104, Carbon Dioxide 26.9, Anion Gap 11, BUN 88 H, Creatinine 2.29 H, Estim Creat Clear Calc 23.55 L, Est GFR (MDRD) Non-Af 28 L, BUN/Creatinine Ratio 38.5 H, Glucose 177 H, Calcium 7.9 Micro: Microbiology 09/28/24 23:30 Sputum, Expectorated/Coughed Gram Stain - Final 09/28/24 23:30 Sputum, Expectorated/Coughed Respiratory Culture - Final Presumptive C albicans 09/29/24 10:05 Mucosa - Nasopharyngeal Respiratory Panel (PCR) - Final Influenza A (Subtype H1) 09/20/24 13:49 Blood Culture (Wb) - Line Draw Blood Culture - Final No growth in 5 days. 09/20/24 13:53 Blood Culture (Wb) - Anticubital Right Blood Culture - Final No growth in 5 days. 09/20/24 17:15 Sputum, Induced/[place] Gram Stain - Final 09/20/24 17:15 Sputum, Induced/[place] Respiratory Culture - Final Mixed normal respiratory sridhar. No Streptococcus pneumoniae, beta-hemolytic Streptococcus or Staphylococcus aureus isolated. 09/20/24 14:00 Urine, Catheterized Urine Culture - Final Culture exhibits no growth. 09/20/24 14:00 Urine Catheter - Rowe Legionella Antigen - Final 09/20/24 14:00 Urine Catheter - Rowe Streptococcus pneumoniae Antigen (M - Final 09/20/24 13:49 Mucosa - Nose SARS-CoV-2, Influenza & RSV (PCR) - Final Influenzae A Radiography Diagnostic Testing: Radiology Impression Chest X-Ray 10/03/24 09:30 IMPRESSION: Bilateral airspace opacities, greater on the right, and small bilateral pleural effusions. [facility] Rhythm Strip Rhythm Strip: Atrially paced rhythm at 80 bpm Rate: 80 Ectopy: None Physical Exam Narrative General: Alert, no apparent distress HEENT: Atraumatic, normocephalic Eyes: Anicteric, normal conjunctiva, extraocular movements grossly intact Neck: Supple Respiratory: Slight increased work of breathing, diminished bilaterally Cardiovascular: Regular rate GI: Soft, nontender, nondistended Extremities: Edema continues to be a little bit improved with some wrinkles forming but still edematous Musculoskeletal: Moving all extremities Neuro: No overt focal neurological deficits Skin: No rashes appreciated Psych: Cooperative Assessment & Plan Assessment/Plan (1) HFrEF (heart failure with reduced ejection fraction): PLAN: Plan Patient is an 83-year-old male who presented to [facility] ED on 09/20/2024 with worsening upper respiratory symptoms in the setting of severe underlying heart failure with reduced ejection fraction. Patient had cardiac arrest x 2 in the ED requiring 2 doses of epinephrine and 2 rounds of CPR. Given his overall presentation and clinical course,mostly patient had acute decompensated heart failure with volume overload that responded very well to positive pressure ventilation. # Acute hypoxic respiratory failure secondary to influenza A infection and superimposed bilateral multifocal pneumonia and decompensated heart failure -Patient intubated 09/21 with subsequent extubation 09/23 -Continues to have high O2 requirement, patient presently on Airvo, will give another dose of IV Lasix -Also concern for pulmonary edema -Continue Rocephin, will give another dose of lasix -09/28: Patient remains on Airvo, middle of the night did have O2 sat down to 88 so Airvo was increased, patient on Rocephin and was given a dose of Lasix 09/27/2024. Repeat chest x-ray with increased pulmonary congestion and edema, another dose of Lasix ordered -09/29: Patient on IV Lasix, he continues to be on Airvo and slowly has had increasing requirements despite interventions, remains on Rocephin, given inability to wean Airvo with increasing requirements pulmonology consulted -09/30: Patient started on steroids by pulmonology in the event there is an inflammatory component, patient continues to be diuresed, today Airvo requirements decreasing -10/01: Patient continues to have waxing and waning O2 requirements and O2 sats, this a.m. is 90% on 8 L high flow, cannot rule out component of aspiration so patient for cookie swallow later today, pulm following, patient being diuresed and is net negative for this hospitalization -10/02: Continue to have difficulty weaning O2, passed swallow study and is on regular diet again, patient being diuresed, weight has been fairly stable over the past several days -10/03: Patient initially improved and was weaned down off of Airvo but has waxed and waned significantly, had increasing requirements again, suspect patient would benefit from BiPAP given his heart failure and fluid overload concurrent with his respiratory failure. Seems to worsen overnight, also does tend to breathe through his mouth when he sleeping which may affect his oxygenation when he is on Airvo or nasal cannula. Did repeat chest x-ray which has bilateral airspace opacities and small effusions, IV diuresis, given 40 IV x 1 today, appreciate nephrology recommendations and assistance moving forward, may need to renotify pulmonology tomorrow and/or cardiology if patient does not improve and remain improved with BiPAP and diuresis. Patient remains on Methylpred started by pulmonology, given his negative infectious workup his antibiotics were stopped 2 days ago as well, if patient becomes febrile or has further worsening may need to consider resuming antibiotics. Patient does have elevation of white blood cell count but this has been since steroids were started so does not necessarily indicate superimposed infectious component, also no wheezing or indication that patient would benefit from DuoNebs, very unlikely to have PE given patient has been consistently anticoagulated with Xarelto #MUSA -09/28:-MUSA, unclear etiology as there is concern for fluid overload but kidney function did worsen with Lasix. Will check urine studies -09/29: FEUrea calculated as patient is on diuretics, FE urea is 35.5, borderline but would suggest intrinsic in nature, nephrology consulted -09/30: Kidney function down trended today to 1.45, nephrology on board and ordered renal ultrasound which was normal -10/01: Had discussed with nephrology yesterday and further increased patient's IV diuresis, will discuss with nephrology as thought that patient may need to have higher creatinine to allow for adequate diuresis and respiratory status, kidney function did increase again today, nephrology following, appreciate recommendations -10/02: Nephrology continues to follow, has expected increase in creatinine but did have further increase again today, patient had afternoon Lasix held yesterday due to borderline blood pressures, given worsening creatinine patient spironolactone held, will decrease Lasix to 20 twice daily to allow for continued diuresis without ideally having to hold further doses, greatly appreciate nephrology input -10/03: Nephrology following, given 40 IV Lasix today, there is suspicion this may be cardiorenal nature, did have further uptrend in creatinine today, recent renal ultrasound without hydronephrosis, patient on BiPAP presently and IV diuresis, appreciate further recommendations # Cardiogenic shock secondary to acute decompensated heart failure with preserved ejection fraction with a reduced EF and AICD -Patient presented with cardiac arrest requiring 2 doses of epi and 2 rounds of CPR -Patient being monitored on telemetry -Chest x-ray with bilateral multifocal pneumonia and/or pulmonary edema -Patient received IV Lasix x 1, -Last echo 04/2024 with EF of 50% but all motion abnormalities and stage II diastolic dysfunction -Repeat echo ordered and demonstrated now decreased EF of 20 to 25% and stage III diastolic dysfunction -Daily weights, I's and O's -heart healthy diet -Patient on beta-isabel, hydralazine, resume home Imdur and home GALE, if renal function on blood pressure tolerates can consider spironolactone and/or SGLT2 inhibitor moving forward -Will need 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 Repeat dose of IV Lasix today -09/29: Patient remains on Airvo despite Lasix, continue metoprolol, hydralazine, Imdur, hold starting GALE given MUSA, also reconsulting cardiology -09/30: Cardiology consulted, patient on Lasix, spironolactone added back, hydralazine increased to 3 times daily -10/01: Patient with increased Lasix dose, -4300 for this admission -10/02: Holding spironolactone given worsening renal function, increase in creatinine to be expected but monitoring closely, patient remains on Lasix -10/03: Continue to monitor daily weights and I's and O's, BiPAP, Lasix # Urinary retention -10/03: Patient had Rowe removed 2 days ago, has required straight cath x 2, he is on tamsulosin, the patient continues to retain may need to place Rowe again temporarily Chronic medical problems: # Acute on chronic anemia secondary to upper GI bleed -There is blood in NG tube on presentation patient EGD was found to have bleeding ulcer in stomach status post hemostatic clip placement 09/22/2024 -Patient's Xarelto restarted with stable hemoglobin -Continue patient on PPI -09/28: Hemoglobin 10, will continue to monitor daily monitor for any signs or symptoms of blood loss -09/29: Hemoglobin 9.8, remained stable # History of paroxysmal atrial fibrillation -Patient on Xarelto -Patient remains on beta-isabel, patient was on amio at home however this has not been continued here -09/30: Discussed with cardiology and given this was a home medication it was advised to resume, so we added back today #Hx CAD s/p CABG -Patient on beta-isabel and Xarelto #Chronic BPH with obstruction -Resume home tamsulosin #DVT ppx: Patient on Xarelto Charmaine Machuca MD Time spent in the patient's overall evaluation,decision-making process, review of diagnostic data, adjustment of management, discussion with other providers, nursing nursing and ancillary staff involved in patient's care documentation, 41 minutes Charges/Coding Visit Charges Inpatient E&M: 73847 Subs Hosp L2
[2024-10-03] MEDS: Tamsulosin HCl 0.4 MG Capsule PO (17:37)
[2024-10-03] MEDS: Rivaroxaban 15 MG Tablet PO (17:41)
--- NOTE | 2024-10-03 17:43 | PCM.PN.TICU ---
Objective Data Objective Data Vital Signs: Vital Signs Last response Temperature 36.4 C L 10/03/24 14:40 Temperature Source Oral 10/03/24 14:40 Pulse Rate 66 10/03/24 14:40 Pulse Strength Weak (1+) 10/03/24 09:36 Respiratory Rate 16 10/03/24 14:40 Respiratory Effort Normal, Non-Labored 10/03/24 14:40 Respiratory Depth Normal 10/03/24 14:40 Respiratory Pattern Normal 10/03/24 14:40 Blood Pressure 124/72 H 10/03/24 14:40 Blood Pressure Mean 89 10/03/24 14:40 Blood Pressure Source Monitor 10/03/24 14:40 Blood Pressure Position Supine 10/03/24 14:40 Blood Pressure Location Left Arm 10/03/24 14:40 Pulse Ox 100 10/03/24 14:40 Oxygen Delivery Method Bi-pap 10/03/24 14:40 Oxygen Flow Rate (L/min) 60 10/03/24 05:36 Fraction of Inspired Oxygen (FIO2) 90 10/03/24 13:37 I&O: I&O Last 24 Hours 10/02/24 10/03/24 10/03/24 23:59 11:59 23:59 Intake Total 110 / 400 270 / 270 Output Total 850 / 850 Balance 110 / 250 -580 / -580 I&O: Total Stay 09/20/24 12:44 thru 10/03/24 13:47 Intake Total 52816.73 Output Total 60731 Balance -4931.27 Current Meds Ordered / Administered: Current meds ordered / Administered Generic Name Dose Route Start Last Admin Trade Name Eduardoq PRN Reason Stop Dose Admin Acetaminophen 650 mg 09/20/24 17:08 09/26/24 10:23 Acetaminophen 325 Mg Tablet PO 650 mg Q6H PRN PRN Administration Pain 1-10 Or Fever>100.7 Albuterol Sulfate 2.5 mg 09/26/24 06:45 09/26/24 07:22 Albuterol 2.5 Mg/3 Ml Vial.Neb. INHALATION 2.5 mg Q2H PRN PRN Administration Dyspnea, wheezing Amiodarone HCl 200 mg 09/30/24 10:00 10/03/24 09:56 Amiodarone 200 Mg Tablet PO 200 mg DAILY TAPAN Administration Aspirin 81 mg 09/24/24 08:00 10/03/24 09:54 Aspirin 81 Mg Tab.Chew PO 81 mg BREAKFAST TAPAN Administration Atorvastatin Calcium 80 mg 09/24/24 10:00 10/03/24 09:56 Atorvastatin Calcium 80 Mg Tablet PO 80 mg DAILY TAPAN Administration Furosemide 40 mg 10/04/24 10:00 Furosemide 40 Mg/4 Ml Vial IV DAILY TAPAN Protocol Guaifenesin 2 tablet 09/25/24 10:00 10/03/24 09:54 Guaifenesin/D-Methorphan Tab.Sr.12h PO 2 tablet BID TAPAN Administration Hydralazine HCl 50 mg 09/29/24 14:00 10/03/24 14:24 Hydralazine 50 Mg Tablet PO 50 mg TID TAPAN Administration Protocol Sodium Chloride 100 mls @ 15 mls/hr 09/20/24 17:24 09/23/24 11:14 IV Infused .Q6H40M PRN Infusion Saline Flush Sodium Chloride 100 mls @ 15 mls/hr 09/20/24 17:24 IV .Q6H40M PRN Additional IVPB Infusion Pantoprazole Sodium 40 mg/ 110 mls @ 330 mls/hr 09/21/24 10:00 10/03/24 10:58 Sodium Chloride IV Infused Q12 TAPAN Infusion Isosorbide Mononitrate 30 mg 09/27/24 10:00 10/03/24 09:56 Isosorbide Mononitrate 30 Mg Tablet PO 30 mg DAILY TAPAN Administration Protocol Methylprednisolone Sodium Succinate 40 mg 10/01/24 22:00 10/03/24 09:58 Methylprednisolone Sod Succ 40 Mg/Ml Vial IV 40 mg Q12 TAPAN Administration Metoprolol Tartrate 50 mg 09/27/24 22:00 10/03/24 09:54 Metoprolol Tartrate 50 Mg Tablet PO 50 mg BID TAPAN Administration Protocol Ondansetron HCl 4 mg 09/20/24 17:08 Ondansetron 4 Mg/2 Ml Vial IV Q8H PRN PRN NAUSEA/VOMITING Polyethylene Glycol 17 gm 09/24/24 14:15 10/03/24 10:14 Polyethylene Glycol 3350 17 Gm Packet PO Not Given DAILY TAPAN Rivaroxaban 15 mg 10/03/24 17:00 10/03/24 17:41 Rivaroxaban 15 Mg Tablet PO 15 mg DINNER TAPAN Administration Senna 2 tablet 09/25/24 10:00 10/03/24 10:13 Senna Tablet PO Not Given BID [facility] Sodium Chloride 10 - 40 ml 09/20/24 17:24 10/03/24 14:24 0.9% Saline Lock 10 Ml Syringe IV 20 ml UD PRN Administration SALINE FLUSH Sodium Chloride 2 spray 09/30/24 15:35 10/01/24 22:19 Sodium Chloride 0.65% 1 [place].Btl NASAL 2 spray BID PRN PRN Administration NASAL DRYNESS Tamsulosin HCl 0.4 mg 09/27/24 17:30 10/03/24 17:37 Tamsulosin Hcl 0.4 Mg Capsule PO 0.4 mg DAILY@1730 TAPAN Administration Lab / Micro Data 10/03/24 05:31 10/03/24 05:31 Labs: Laboratory Results - last 24 hr 10/03/24 05:31: WBC 20.3 H, RBC 2.92 L, Hgb 9.9 L, Hct 29.6 L, MCV 101.4 H, MCH 33.9 H, MCHC 33.4, RDW Std Deviation 53.6 H, RDW Coeff of Harvinder 14.4, Plt Count 196, MPV 11.2, Sodium 142, Potassium 4.1, Chloride 104, Carbon Dioxide 26.9, Anion Gap 11, BUN 88 H, Creatinine 2.29 H, Estim Creat Clear Calc 23.55 L, Est GFR (MDRD) Non-Af 28 L, BUN/Creatinine Ratio 38.5 H, Glucose 177 H, Calcium 7.9 Rhythm Strip Rhythm Strip: Atrially paced rhythm at 80 bpm Rate: 80 Ectopy: None Imaging Radiology Impression Chest X-Ray 10/03/24 09:30 IMPRESSION: Bilateral airspace opacities, greater on the right, and small bilateral pleural effusions. Reading Location: [facility] Assessment and Plan . Assessment and plan: Patient seen and examined Chart and data reviewed Awake and alert, NAD Still requiring high-flow O2 via HHFNC He looks reasonably comfortable at rest pCXR reviewed - looks like pulmonary edema EXAM GEN NAD HEENT HHFNC NECK obese COR RRR CHEST basilar crackles ABD soft EXT minimal edema BETH NF ASSESSMENT 1. Dyspnea / hypoxemia 2. Pulmonary infiltrates concerning for pulmonary edema 3. Chronic CHF / ASCVD 4. CKD 5. Recent influenza infection RECOMMENDATION -supplemental O2 as required -would intensift loop diuretics regimen - defer to nephrology and cardiology -repeat p-BNP in am -also receiving empiric steroids -VTE ppx The entirety of this encounter was done via Telemedicine
[2024-10-03] MEDS: Pantoprazole Sodium 40 MG in 0.9% Normal Saline (100mL MB+) 100 ML 100 MG IV (21:07)
[2024-10-04] VITALS (16 sets, daily range): BP systolic 109–122; BP diastolic 34–70; PULSE 60–70; RESP 14–21; TEMP 36.4–36.7; O2SAT 90–97; BMI 29.7
[2024-10-04 04:46] LABS: Mean Corp Hgb Conc 33.3 g/dL (32-36); Mean Corpuscular Hgb 34.1 pg (27.0-32.0); Mean Corpuscular Volume 102.4 fL (80-94); Mean Platelet Vol. 10.9 fl (6.2-12.0); Platelet Count 163 K/mm3 (150-450); RBC Distribution Width CV 14.6 % (11.6-14.6); RBC Distribution Width SD 54.9 fl (35.1-43.9); Red Blood Count 2.93 M/mm3 (4.6-6.2); White Blood Count 21.2 K/mm3 (4.4-11.0)
[2024-10-04 05:12] LABS: Anion Gap 9 (5-15); BUN 99 mg/dL (4-19); BUN/Creat Ratio 38.4 RATIO (10-20); Calcium,Total 8.1 mg/dL (7.6-11.0); Carbon Dioxide 29.6 mmol/L (21.0-32.0); Chloride 102 mmol/L (98-108); Creatinine, Serum 2.59 mg/dL (0.70-1.20); EST Glomerular Filtration Rate 24 (>60); Estimated Creatinine Clearance 20.82 ml/min (50-250); Glucose 157 mg/dL (70-99); Potassium 4.8 mmol/L (3.3-5.1); Sodium Level 140 mmol/L (133-145)
[2024-10-04 05:27] LABS: Pro- Brain NATRIURETIC PEPTIDE 5921 pg/mL (<=1800)
[2024-10-04] MEDS: hydrALAZINE 50 MG Tablet PO ×2 (05:54→22:04)
[2024-10-04] MEDS: Furosemide 40 MG/4 ML Vial IV ×2 (09:29→17:59)
[2024-10-04] MEDS: Atorvastatin Calcium 80 MG Tablet PO (09:29)
[2024-10-04] MEDS: guaiFENesin/D-Methorphan TAB.SR.12H 2 TABLET PO ×2 (09:30→22:13)
[2024-10-04] MEDS: Metoprolol Tartrate 50 MG Tablet PO ×2 (09:30→22:13)
[2024-10-04] MEDS: Isosorbide Mononitrate 30 MG Tablet PO (09:31)
[2024-10-04] MEDS: Aspirin 81 MG TAB.CHEW PO (09:31)
[2024-10-04] MEDS: Polyethylene Glycol 3350 17 GM PACKET PO (09:32)
[2024-10-04] MEDS: Amiodarone 200 MG Tablet PO (09:32)
[2024-10-04] MEDS: Pantoprazole Sodium 40 MG in 0.9% Normal Saline (100mL MB+) 100 ML 330 MG IV ×2 (09:33→22:02)
[2024-10-04] MEDS: Methylprednisolone Sod Succ 40 MG/ML VIAL IV ×2 (09:33→22:13)
[2024-10-04] MEDS: 0.9% Saline Lock 10 ML Syringe IV ×2 (09:40→22:06)
--- NOTE | 2024-10-04 10:01 | PCM.PN.INT ---
Assessment & Plan Assessment/Plan (1) Acute hypoxemic respiratory failure: (2) Influenza A: PLAN: Plan RECOMMENDATIONS: 1. Continue to wean FiO2 to maintain oxygen saturations at or above 90%. 2. Continue attempts at diuresis as tolerated by hemodynamics and renal function. 3. Continue corticosteroids as ordered. 4. Continue Xarelto. 5. Encourage incentive spirometer use and mobilize patient as tolerated. 6. Recommend goals of care discussion with the patient and family. IMPRESSIONS: 1. Acute hypoxemic respiratory failure The patient was initially evaluated in the emergency department after developing a syncopal event of unclear etiology, with resultant acute hypoxemic respiratory failure, which is likely the consequence of influenza A coupled with possible superimposed decompensated congestive heart failure. The patient does have a known history of coronary artery disease status post CABG and is status post ICD. In light of his presenting symptoms, device interrogation was completed. He did demonstrate an acute drop in his LVEF on echocardiogram, for which cardiology was consulted. The patient had improved with supportive care from a respiratory perspective and was ultimately able to be extubated on September 23. The patient completed a treatment course of Tamiflu. His repeat chest imaging continues to demonstrate stigmata of congestive heart failure. Given negative infectious workup to date, antimicrobials were discontinued. Pulmonary embolism seems extremely unlikely, given the patient remains systemically anticoagulated on Xarelto. The patient remains on systemic corticosteroids with ongoing diuresis. However, renal function is slowly declining with increasing creatinine. 2. Acute decompensated congestive heart failure/brief cardiac arrest with ROSC Continue current supportive measures. There was no evidence of VT or VF noted on interrogation of his device on the day of his arrest. 3. Anemia/thrombocytopenia The patient was evaluated by gastroenterology with EGD performed, which revealed grade 1 esophageal varices and an oozing gastric ulcer which was clipped. The patient will be continued on PPI therapy per plan. 4. History of atrial fibrillation/history of four-vessel CABG/hypertension/hyperlipidemia Complicates care, management, recovery and prognosis. Continue supportive measures as noted above. Physical therapy to continue to work with the patient. This note was generated with igobubbleation software. It may contain incorrect words, spelling, and punctuation that were not noted in checking the note before signing. Subjective Subjective The patient was seen and examined at the bedside this morning. Events from the last 24 hours have been reviewed. The patient is currently afebrile, hemodynamically stable and maintaining appropriate oxygen saturations on heated high flow oxygen with a flow rate of 60 L/min and FiO2 of 60%. The patient is currently documented to be overall net -5 L for the hospitalization. Unfortunately, the patient continues to demonstrate stigmata of congestive heart failure on chest imaging with a significantly elevated BNP. White blood cell count is elevated to 21,000. Hemoglobin and platelet count are stable. Creatinine has increased to 2.59. Objective Data Objective Data The patient's most recent lab work, culture data and imaging studies have all been personally reviewed. Surface echocardiogram demonstrated severe LV systolic dysfunction with an ejection fraction of 20 to 25% Influenza A PCR was positive on September 20. Blood, urine and sputum cultures have not demonstrated any growth to date. Vital Signs: Vital Signs Temp Pulse Resp BP Pulse Ox O2 Del Method O2 Flow Rate 97.6 F L 69 20 H 111/61 91 Airvo 60 10/04/24 09:22 10/04/24 09:30 10/04/24 09:22 10/04/24 09:22 10/04/24 09:22 10/04/24 09:22 10/04/24 09:22 FiO2 60 10/04/24 09:22 Oxygen Flow Rate (L/min) 60 Oxygen Delivery Method Airvo Weight: 178 lb 9.191 oz Body Mass Index (BMI) 29.7 Intake & Output: Intake and Output for Last 24 Hours 10/02/24 10/03/24 10/04/24 23:59 23:59 23:59 Intake Total 340 / 400 380 / 480 270 / 270 Output Total 850 / 1100 500 / 500 Balance 340 / 250 -470 / -620 -230 / -230 Lab / Micro Data Attestation: I reviewed the patient's lab results. 10/04/24 04:22 10/04/24 04:22 Labs: Laboratory Results - last 24 hr 10/04/24 04:22: WBC 21.2 H, RBC 2.93 L, Hgb 10.0 L, Hct 30.0 L, MCV 102.4 H, MCH 34.1 H, MCHC 33.3, RDW Std Deviation 54.9 H, RDW Coeff of Harvinder 14.6, Plt Count 163, MPV 10.9, Sodium 140, Potassium 4.8, Chloride 102, Carbon Dioxide 29.6, Anion Gap 9, BUN 99 H, Creatinine 2.59 H, Estim Creat Clear Calc 20.82 L, Est GFR (MDRD) Non-Af 24 L, BUN/Creatinine Ratio 38.4 H, Glucose 157 H, Calcium 8.1, NT pro BNP II 5921 H Micro: Microbiology 09/28/24 23:30 Sputum, Expectorated/Coughed Gram Stain - Final 09/28/24 23:30 Sputum, Expectorated/Coughed Respiratory Culture - Final Presumptive C albicans 09/29/24 10:05 Mucosa - Nasopharyngeal Respiratory Panel (PCR) - Final Influenza A (Subtype H1) 09/20/24 13:49 Blood Culture (Wb) - Line Draw Blood Culture - Final No growth in 5 days. 09/20/24 13:53 Blood Culture (Wb) - Anticubital Right Blood Culture - Final No growth in 5 days. 09/20/24 17:15 Sputum, Induced/Lukens Gram Stain - Final 09/20/24 17:15 Sputum, Induced/Lukens Respiratory Culture - Final Mixed normal respiratory sridhar. No Streptococcus pneumoniae, beta-hemolytic Streptococcus or Staphylococcus aureus isolated. 09/20/24 14:00 Urine, Catheterized Urine Culture - Final Culture exhibits no growth. 09/20/24 14:00 Urine Catheter - Rowe Legionella Antigen - Final 09/20/24 14:00 Urine Catheter - Rowe Streptococcus pneumoniae Antigen (M - Final 09/20/24 13:49 Mucosa - Nose SARS-CoV-2, Influenza & RSV (PCR) - Final Influenzae A Radiography Diagnostic Testing: Radiology Impression Chest X-Ray 10/03/24 09:30 IMPRESSION: Bilateral airspace opacities, greater on the right, and small bilateral pleural effusions. [facility] Rhythm Strip Rhythm Strip: Atrially paced rhythm at 80 bpm Rate: 80 Ectopy: None Physical Exam Const alert and no apparent distress Constitutional Narrative: Hard of hearing. General Appearance: cooperative HEENT normocephalic, head/scalp atraumatic and moist oral mucous membranes General Ear: hearing grossly impaired Eyes EOMs intact bilaterally, conjunctivae normal and no scleral icterus Neck supple General: trachea midline and CVC in place Chest inspection of chest normal Resp normal respiratory effort and no use of accessory muscles Auscultation: diminished lung sounds Cardio regular rate and regular rhythm GI soft to palpation and non-tender Extremity General Extremity: edema bilateral lower extremity; Negative for clubbing Skin no rashes or lesions noted Neuro CN's II-XII intact bilaterally, moves all extremities and no focal motor deficits Psych Mood & Affect: flat affect Charges/Coding Visit Charges Inpatient E&M: 42547 Subs Hosp L2
--- NOTE | 2024-10-04 11:58 | PCM.PN.REN ---
Subjective Subjective Patient is resting in bed. More drowsy today. Oxygen requirement Airvo. Denies any nausea or vomiting. Objective Data Objective Data Vital Signs: Vital Signs Temp Pulse Resp BP Pulse Ox O2 Del Method O2 Flow Rate 97.6 F L 69 20 H 111/61 91 Airvo 60 10/04/24 09:22 10/04/24 09:30 10/04/24 09:22 10/04/24 09:22 10/04/24 09:22 10/04/24 10:00 10/04/24 10:00 FiO2 60 10/04/24 10:00 Oxygen Flow Rate (L/min) 60 Oxygen Delivery Method Airvo Weight: 81 kg Body Mass Index (BMI) 29.7 Intake & Output: Intake and Output for Last 24 Hours 10/02/24 10/03/24 10/04/24 23:59 23:59 23:59 Intake Total 340 / 400 380 / 480 270 / 270 Output Total 850 / 1100 500 / 500 Balance 340 / 250 -470 / -620 -230 / -230 Lab / Micro Data 10/04/24 04:22 10/04/24 04:22 Labs: Laboratory Results - last 24 hr 10/04/24 04:22: WBC 21.2 H, RBC 2.93 L, Hgb 10.0 L, Hct 30.0 L, MCV 102.4 H, MCH 34.1 H, MCHC 33.3, RDW Std Deviation 54.9 H, RDW Coeff of Harvinder 14.6, Plt Count 163, MPV 10.9, Sodium 140, Potassium 4.8, Chloride 102, Carbon Dioxide 29.6, Anion Gap 9, BUN 99 H, Creatinine 2.59 H, Estim Creat Clear Calc 20.82 L, Est GFR (MDRD) Non-Af 24 L, BUN/Creatinine Ratio 38.4 H, Glucose 157 H, Calcium 8.1, NT pro BNP II 5921 H Micro: Microbiology 09/28/24 23:30 Sputum, Expectorated/Coughed Gram Stain - Final 09/28/24 23:30 Sputum, Expectorated/Coughed Respiratory Culture - Final Presumptive C albicans 09/29/24 10:05 Mucosa - Nasopharyngeal Respiratory Panel (PCR) - Final Influenza A (Subtype H1) 09/20/24 13:49 Blood Culture (Wb) - Line Draw Blood Culture - Final No growth in 5 days. 09/20/24 13:53 Blood Culture (Wb) - Anticubital Right Blood Culture - Final No growth in 5 days. 09/20/24 17:15 Sputum, Induced/Lukens Gram Stain - Final 09/20/24 17:15 Sputum, Induced/Lukens Respiratory Culture - Final Mixed normal respiratory sridhar. No Streptococcus pneumoniae, beta-hemolytic Streptococcus or Staphylococcus aureus isolated. 09/20/24 14:00 Urine, Catheterized Urine Culture - Final Culture exhibits no growth. 09/20/24 14:00 Urine Catheter - Wade Legionella Antigen - Final 09/20/24 14:00 Urine Catheter - Wade Streptococcus pneumoniae Antigen (M - Final 09/20/24 13:49 Mucosa - Nose SARS-CoV-2, Influenza & RSV (PCR) - Final Influenzae A Rhythm Strip Rhythm Strip: Atrially paced rhythm at 80 bpm Rate: 80 Ectopy: None Physical Exam Narrative Alert and oriented x 3, no apparent stress, drowsy S1, S2, rhythm regular, rate controlled Lung sounds diminished with faint rales Abdomen soft, positive bowel sounds, nondistended +1 pitting edema bilateral lower legs, R>L Assessment & Plan Assessment/Plan (1) MUSA (acute kidney injury): (2) Acute hypoxemic respiratory failure: (3) HFrEF (heart failure with reduced ejection fraction): PLAN: Plan This is an 83-year-old male with past medical history significant for A-fib on Xarelto, BPH, hypertension, CAD status post CABG, ICD and pacemaker admitted to hospital on September 20 for acute hypoxic respiratory failure, influenza A, initially admitted to ICU for acute hypoxemic respiratory failure, influenza A, acute decompensated congestive heart failure with brief cardiac arrest with successful ROSC. Nephrology consulted in view of rising serum creatinine. - MUSA on possible CKD stage IIIa: In reviewing past serum creatinine trends baseline creatinine may be ranging around 1 to 1.4 mg/dL. Creatinine on March 02, 2024 was 1.41 mg/dL. SCr 1.57 on day of hospital admission. Since admission there has been some fluctuations in serum creatinine. Renal ultrasound without any hydronephrosis Urine sodium was low, likely cardiorenal physiology Echocardiogram with low ejection fraction 20-25% Urine analysis showed some proteinuria, sent urine protein creatinine ratio which resulted at 697 mg. Has been on IV Lasix--> lasix dose was decreased as there was rise in SCr but oxygen requirements have worsened, patient is back on Airvo, increase Lasix 40 mg IV twice daily. Has been net negative every day, per cumulative I&O patient is now net -5 L. UOP ~900 ml yesterday (patient has wade). Okay to continue IV Lasix. Some increase in creatinine is to be expected. SCr 2.59 today. Will send renal serologies. No acute indication for [employer] at this time. Will continue to follow. Assessment and plan reviewed with Dr. Shukla
--- NOTE | 2024-10-04 17:32 | PCM.PN.HOSP ---
Reason for Visit Reason for Visit: Diagnoses Sepsis, unspecified organism (09/20/24) Anemia, unspecified (09/20/24) Thrombocytopenia, unspecified (09/20/24) Atherosclerotic heart disease of [place] coronary artery without angina pectoris (09/20/24) Cardiac arrest, cause unspecified (09/20/24) Paroxysmal atrial fibrillation (09/20/24) Unspecified systolic (congestive) heart failure (09/20/24) Influenza due to other identified influenza virus with other respiratory manifestations (09/20/24) Pneumonia, unspecified organism (09/20/24) Acute respiratory failure with hypoxia (09/20/24) Acute kidney failure, unspecified (09/20/24) Severe sepsis with septic shock (09/20/24) Subjective Subjective Patient was seen and examined today, I talked briefly with pulmonary medicine about his care, pulmonary medicine stated that they talked with the patient's daughter who was at bedside today. Patient is currently on Airvo at 60 L/min. Beta natruretic peptide was elevated today and I elected to increase the patient's Lasix, I talked briefly with nephrology about this. Patient's creatinine was elevated today at 2.59 as compared with 2.29 yesterday. Due to the fact the patient is on high flow oxygen, I did not think there was a choice concerning whether to increase the patient's Lasix or not. Objective Data Objective Data Vital Signs: Vital Signs Temp Pulse Resp BP Pulse Ox O2 Del Method O2 Flow Rate 97.8 F 60 16 109/54 L 90 Airvo 60 10/04/24 14:11 10/04/24 14:11 10/04/24 14:11 10/04/24 14:11 10/04/24 16:01 10/04/24 15:40 10/04/24 15:40 FiO2 60 10/04/24 16:01 Oxygen Flow Rate (L/min) 60 Oxygen Delivery Method Airvo Weight: 81 kg Body Mass Index (BMI) 29.7 Intake & Output: Intake and Output for Last 24 Hours 10/02/24 10/03/24 10/04/24 23:59 23:59 23:59 Intake Total 340 / 400 380 / 480 530 / 530 Output Total 850 / 1100 500 / 500 Balance 340 / 250 -470 / -620 30 / 30 Lab / Micro Data 10/04/24 04:22 10/04/24 04:22 Labs: Laboratory Results - last 24 hr 10/04/24 04:22: WBC 21.2 H, RBC 2.93 L, Hgb 10.0 L, Hct 30.0 L, MCV 102.4 H, MCH 34.1 H, MCHC 33.3, RDW Std Deviation 54.9 H, RDW Coeff of Harvinder 14.6, Plt Count 163, MPV 10.9, Sodium 140, Potassium 4.8, Chloride 102, Carbon Dioxide 29.6, Anion Gap 9, BUN 99 H, Creatinine 2.59 H, Estim Creat Clear Calc 20.82 L, Est GFR (MDRD) Non-Af 24 L, BUN/Creatinine Ratio 38.4 H, Glucose 157 H, Calcium 8.1, NT pro BNP II 5921 H Micro: Microbiology 09/28/24 23:30 Sputum, Expectorated/Coughed Gram Stain - Final 09/28/24 23:30 Sputum, Expectorated/Coughed Respiratory Culture - Final Presumptive C albicans 09/29/24 10:05 Mucosa - Nasopharyngeal Respiratory Panel (PCR) - Final Influenza A (Subtype H1) 09/20/24 13:49 Blood Culture (Wb) - Line Draw Blood Culture - Final No growth in 5 days. 09/20/24 13:53 Blood Culture (Wb) - Anticubital Right Blood Culture - Final No growth in 5 days. 09/20/24 17:15 Sputum, Induced/Lukens Gram Stain - Final 09/20/24 17:15 Sputum, Induced/Lukens Respiratory Culture - Final Mixed normal respiratory sridhar. No Streptococcus pneumoniae, beta-hemolytic Streptococcus or Staphylococcus aureus isolated. 09/20/24 14:00 Urine, Catheterized Urine Culture - Final Culture exhibits no growth. 09/20/24 14:00 Urine Catheter - Rowe Legionella Antigen - Final 09/20/24 14:00 Urine Catheter - Rowe Streptococcus pneumoniae Antigen (M - Final 09/20/24 13:49 Mucosa - Nose SARS-CoV-2, Influenza & RSV (PCR) - Final Influenzae A Rhythm Strip Rhythm Strip: Atrially paced rhythm at 80 bpm Rate: 80 Ectopy: None Physical Exam Const alert, oriented x3 and no apparent distress Constitutional Narrative: Patient appears older than his stated age, he appears frail General Appearance: cooperative, well kempt and well developed Orientation / Consciousness: awake, oriented to person, oriented to place and oriented to time HEENT normocephalic, head/scalp atraumatic and moist oral mucous membranes Eyes PERRL, EOMs intact bilaterally and conjunctivae normal Neck supple, no JVD, thyroid normal and no carotid bruits General: trachea midline Resp normal respiratory effort, no retractions, no use of accessory muscles and clear to auscultation bilaterally Auscultation: Negative for rales, rhonchi or wheezes Cardio regular rate, regular rhythm, S1 normal heart sound, S2 normal heart sound, no murmurs, no rub and no gallops GI normal to inspection, nondistended, normoactive bowel sounds, soft to palpation, non-tender and non-distended Extremity no clubbing, cyanosis or edema Skin no rashes or lesions noted General Skin Exam: no breakdown Neuro oriented x3, CN's II-XII intact bilaterally, moves all extremities, no focal motor deficits and no sensory deficits noted Sensorium / Orientation: awake and alert Speech: speech normal Psych Psych Narrative: Patient has flat affect Assessment & Plan Assessment/Plan (1) Cardiopulmonary arrest with successful resuscitation: PLAN: Plan 1. Acute hypoxic respiratory failure-likely secondary to influenza A with acute systolic congestive heart failure-pulmonary medicine is participating in his care, continue IV Lasix, monitor renal functions #2 acute systolic congestive heart failure-patient is on Lasix and hydralazine as well as spironolactone, continue to monitor BMP, patient's EF is 20% #3 paroxysmal atrial fibrillation-patient is on Xarelto, amiodarone, and metoprolol, patient is currently in an atrial paced rhythm #4 coronary artery disease-complicates care, management, recovery, and prognosis #5 status post PEA arrest-complicates care, management, recovery, and prognosis #6 BPH-patient is on Flomax Total clinical time spent by myself addressing the patient's medical issues, reviewing all of his data, and collaborating with patient's care team: 50-minutes Charges/Coding Visit Charges Inpatient E&M: 86733 [facility] Hosp L3
[2024-10-04] MEDS: Rivaroxaban 15 MG Tablet PO (17:54)
[2024-10-04] MEDS: Tamsulosin HCl 0.4 MG Capsule PO (17:54)
[2024-10-05] VITALS (21 sets, daily range): BP systolic 96–124; BP diastolic 49–67; PULSE 60–99; RESP 12–32; TEMP 35.9–36.6; O2SAT 89–95; BMI 27.6
[2024-10-05] MEDS: hydrALAZINE 50 MG Tablet PO ×2 (06:54→13:31)
--- NOTE | 2024-10-05 07:26 | RAD_ITS ---
PROCEDURE: Portable upright chest radiograph, one view 10/05/2024 REASON FOR EXAM: Respiratory failure TECHNIQUE: Portable AP upright chest radiograph obtained. COMPARISON: 10/03/2024 FINDINGS: Low depth of inspiration and similar prominence of the cardiomediastinal silhouette. Sternotomy wires, left pacemaker device, and right central line remain in place. Bones are osteopenic, grossly intact. No pneumothorax or significant pulmonary vascular congestion. Moderate patchy airspace opacities projecting over the mid to lower left lung in the lower 2/3 of the right lung are not significantly changed. There are similar probable tiny bilateral pleural effusions. RAD/Chest 1 View (Portable) IMPRESSION: Patchy opacities projecting over both lungs as described above, greatest on the right, concerning for multifocal pneumonia. Similar probable tiny bilateral pleural effusions. Recommend continued radiolo gic follow-up to document resolution. Reading [facility]
[2024-10-05 07:36] LABS: Absolute Lymphocyte Count 0.49 X10^3/uL (0.83-4.51); Absolute Neutrophil Count 21.8 X10^3/uL (2.0-7.7); Basophil# 0.03 X10^3/uL; Basophil% 0.1 % (0-1); Hematocrit 30.5 % (40-54); Hemoglobin 10.2 g/dL (13.0-16.5); Lymphocyte # 0.49 X10^3/ul (0.83-4.51); Mean Corp Hgb Conc 33.4 g/dL (32-36); Mean Corpuscular Hgb 33.7 pg (27.0-32.0); Mean Corpuscular Volume 100.7 fL (80-94); Mean Platelet Vol. 11.5 fl (6.2-12.0); Monocyte# 1.67 X10^3/uL; Monocyte% 6.8 % (0-10); NRBC Flagged by Analyzer 0 % (0-5); Neutrophil # 21.82 X10^3/uL (2.7-7.7); Neutrophil % 89.4 % (47-70); POSITIVE DIFFERENTIAL YES; Platelet Count 167 K/mm3 (150-450); RBC Distribution Width CV 14.9 % (11.6-14.6); RBC Distribution Width SD 54.8 fl (35.1-43.9); Red Blood Count 3.03 M/mm3 (4.6-6.2); White Blood Count 24.4 K/mm3 (4.4-11.0)
[2024-10-05 07:45] LABS: Differential Indicated SCAN CRITERIA MET
[2024-10-05 08:37] LABS: Anion Gap 12 (5-15); BUN 125 mg/dL (4-19); Calcium,Total 7.9 mg/dL (7.6-11.0); Carbon Dioxide 26.7 mmol/L (21.0-32.0); Chloride 102 mmol/L (98-108); Creatinine, Serum 3.05 mg/dL (0.70-1.20); EST Glomerular Filtration Rate 20 (>60); Estimated Creatinine Clearance 17.02 ml/min (50-250); Glucose 162 mg/dL (70-99); Potassium 5.4 mmol/L (3.3-5.1); Sodium Level 141 mmol/L (133-145)
--- NOTE | 2024-10-05 08:56 | PN.CC_ITS ---
Assessment & Plan Assessment/Plan (1) Acute hypoxemic respiratory failure: (2) Influenza A: PLAN: Plan RECOMMENDATIONS: 1. Continue to wean FiO2 to maintain oxygen saturations at or above 90%. 2. Holding diuretics given worsening renal function. 3. Given tenuous respiratory status, will restart antimicrobials. 4. Continue corticosteroids as ordered. 5. Continue Xarelto. 6. Encourage incentive spirometer use and mobilize patient as tolerated. 7. Ongoing goals of care discussion with the patient and family. IMPRESSIONS: 1. Acute hypoxemic respiratory failure The patient was initially evaluated in the emergency department after developing a syncopal event of unclear etiology, with resultant acute hypoxemic respiratory failure, which is likely the consequence of influenza A coupled with possible superimposed decompensated congestive heart failure. The patient does have a known history of coronary artery disease status post CABG and is status post ICD. In light of his presenting symptoms, device interrogation was completed. He did demonstrate an acute drop in his LVEF on echocardiogram, for which cardiology was consulted. The patient had improved with supportive care from a respiratory perspective and was ultimately able to be extubated on September 23. The patient completed a treatment course of Tamiflu. His repeat chest imaging continues to demonstrate stigmata of congestive heart failure. Although the patient's antimicrobials were previously discontinued, given negative infectious workup, I have elected to restart them this morning in light of his tenuous respiratory status. Unfortunately, the patient's underlying renal insufficiency will preclude ongoing attempts at further diuresis. PE is extremely unlikely, given that the patient remains systemically anticoagulated on Xarelto. Continue systemic steroids as ordered. Agree with ongoing goals of care discussion with the patient and family. 2. Acute decompensated congestive heart failure/brief cardiac arrest with ROSC Continue current supportive measures. There was no evidence of VT or VF noted on interrogation of his device on the day of his arrest. 3. Anemia/thrombocytopenia The patient was evaluated by gastroenterology with EGD performed, which revealed grade 1 esophageal varices and an oozing gastric ulcer which was clipped. The patient will be continued on PPI therapy per plan. 4. History of atrial fibrillation/history of four-vessel CABG/hypertension/hyperlipidemia Complicates care, management, recovery and prognosis. Continue supportive measures as noted above. Physical therapy to continue to work with the patient. This note was generated with [employer] software. It may contain incorrect words, spelling, and punctuation that were not noted in checking the note before signing. Subjective Subjective The patient was seen and examined at the bedside this morning. Events from the last 24 hours have been reviewed. The patient is currently afebrile, hemodynamically stable and maintaining appropriate oxygen saturations on heated high flow with an FiO2 requirement of 78% and flow rate of 60 L/min. The patient is documented to be overall net -5 L for the hospitalization. White blood cell count is elevated at 24,000. Hemoglobin and platelet count are stable. Unfortunately, the patient's renal function has worsened with a BUN of 125 and creatinine of 3.05. Chest imaging from this morning continues to demonstrate patchy infiltrates bilaterally. BNP remains elevated at 5968. Objective Data Objective Data The patient's most recent lab work, culture data and imaging studies have all been personally reviewed. Surface echocardiogram demonstrated severe LV systolic dysfunction with an ejection fraction of 20 to 25% Influenza A PCR was positive on September 20. Blood, urine and sputum cultures have not demonstrated any growth to date. Vital Signs: Vital Signs Temp Pulse Resp BP Pulse Ox O2 Del Method O2 Flow Rate 97.1 F L 68 16 120/62 91 Bi-pap 60 10/05/24 03:38 10/05/24 06:54 10/05/24 06:50 10/05/24 06:54 10/05/24 06:50 10/05/24 06:11 10/04/24 21:58 FiO2 90 10/05/24 06:50 Oxygen Flow Rate (L/min) 60 Oxygen Delivery Method Bi-pap Weight: 165 lb 9.074 oz Body Mass Index (BMI) 27.6 Intake & Output: Intake and Output for Last 24 Hours 10/03/24 10/04/24 10/05/24 23:59 23:59 23:59 Intake Total 380 / 480 1060 / 1060 Output Total 850 / 1100 950 / 950 450 / 450 Balance -470 / -620 110 / 110 -450 / -450 Lab / Micro Data Attestation: I reviewed the patient's lab results. 10/05/24 07:00 10/05/24 07:00 Labs: Laboratory Results - last 24 hr 10/05/24 07:00: WBC 24.4 H, RBC 3.03 L, Hgb 10.2 L, Hct 30.5 L, MCV 100.7 H, MCH 33.7 H, MCHC 33.4, RDW Std Deviation 54.8 H, RDW Coeff of Harvinder 14.9 H, Plt Count 167, MPV 11.5, Immature Gran % (Auto) 1.700 H, Neut % (Auto) 89.4 H, Lymph % (Auto) 2.0 L, [place] % (Auto) 6.8, Eos % (Auto) 0.0, Baso % (Auto) 0.1, Absolute Neuts (auto) 21.8 H, Absolute Lymphs (auto) 0.49 L, Nucleated RBC % 0, Sodium 141, Potassium 5.4 H, Chloride 102, Carbon Dioxide 26.7, Anion Gap 12, BUN 125 H*, Creatinine 3.05 H, Estim Creat Clear Calc 17.02 L, Est GFR (MDRD) Non-Af 20 L, BUN/Creatinine Ratio 41.0 H, Glucose 162 H, Calcium 7.9 Micro: Microbiology 09/28/24 23:30 Sputum, Expectorated/Coughed Gram Stain - Final 09/28/24 23:30 Sputum, Expectorated/Coughed Respiratory Culture - Final Presumptive C albicans 09/29/24 10:05 Mucosa - Nasopharyngeal Respiratory Panel (PCR) - Final Influenza A (Subtype H1) 09/20/24 13:49 Blood Culture (Wb) - Line Draw Blood Culture - Final No growth in 5 days. 09/20/24 13:53 Blood Culture (Wb) - Anticubital Right Blood Culture - Final No growth in 5 days. 09/20/24 17:15 Sputum, Induced/Lukens Gram Stain - Final 09/20/24 17:15 Sputum, Induced/Lukens Respiratory Culture - Final Mixed normal respiratory sridhar. No Streptococcus pneumoniae, beta-hemolytic Streptococcus or Staphylococcus aureus isolated. 09/20/24 14:00 Urine, Catheterized Urine Culture - Final Culture exhibits no growth. 09/20/24 14:00 Urine Catheter - Rowe Legionella Antigen - Final 09/20/24 14:00 Urine Catheter - Rowe Streptococcus pneumoniae Antigen (M - Final 09/20/24 13:49 Mucosa - Nose SARS-CoV-2, Influenza & RSV (PCR) - Final Influenzae A Radiography Diagnostic Testing: Radiology Impression Chest X-Ray 10/05/24 07:26 IMPRESSION: Patchy opacities projecting over both lungs as described above, greatest on the right, concerning for multifocal pneumonia. Similar probable tiny bilateral pleural effusions. Recommend continued radiologic follow-up to document resolution. [facility] Rhythm Strip Rhythm Strip: Atrially paced rhythm at 80 bpm Rate: 80 Ectopy: None Physical Exam Const alert and no apparent distress Constitutional Narrative: Hard of hearing. General Appearance: cooperative HEENT normocephalic, head/scalp atraumatic and moist oral mucous membranes General Ear: hearing grossly impaired Eyes EOMs intact bilaterally, conjunctivae normal and no scleral icterus Neck supple General: trachea midline and CVC in place Chest inspection of chest normal Resp normal respiratory effort and no use of accessory muscles Auscultation: diminished lung sounds Cardio regular rate and regular rhythm GI soft to palpation and non-tender Extremity General Extremity: edema bilateral lower extremity; Negative for clubbing Skin no rashes or lesions noted Neuro CN's II-XII intact bilaterally, moves all extremities and no focal motor deficits Psych Mood & Affect: flat affect Charges/Coding Visit Charges Inpatient E&M: 99295 Subs Hosp L3
[2024-10-05 09:24] LABS: Pathologist Review May foll
[2024-10-05 10:03] LABS: Pro- Brain NATRIURETIC PEPTIDE 5968 pg/mL (<=1800)
[2024-10-05] MEDS: Metoprolol Tartrate 50 MG Tablet PO (10:03)
[2024-10-05] MEDS: Atorvastatin Calcium 80 MG Tablet PO (10:03)
[2024-10-05] MEDS: Amiodarone 200 MG Tablet PO (10:03)
[2024-10-05] MEDS: Furosemide 40 MG/4 ML Vial IV (10:03)
[2024-10-05] MEDS: guaiFENesin/D-Methorphan TAB.SR.12H 2 TABLET PO ×2 (10:03→22:09)
[2024-10-05] MEDS: Methylprednisolone Sod Succ 40 MG/ML VIAL IV ×2 (10:04→22:13)
[2024-10-05] MEDS: Aspirin 81 MG TAB.CHEW PO (10:04)
[2024-10-05] MEDS: Isosorbide Mononitrate 30 MG Tablet PO (10:11)
[2024-10-05] MEDS: Pantoprazole Sodium 40 MG in 0.9% Normal Saline (100mL MB+) 100 ML 330 MG IV ×2 (10:11→22:16)
[2024-10-05] MEDS: Piperacil/Tazobactam 3.375 GM in 0.9% Normal Saline (50mL MB+) 50 ML IV ×2 (10:31→23:09)
[2024-10-05] MEDS: Polyethylene Glycol 3350 17 GM PACKET PO (10:34)
[2024-10-05 10:36] LABS: Procalcitonin 0.24 ng/mL (<=0.10)
[2024-10-05] MEDS: Vancomycin HCl 2,000 MG in 0.9% Normal Saline (500mL Bag) 500 ML 250 MG IV (10:49)
--- NOTE | 2024-10-05 11:55 | PN.RENAL_ITS ---
Subjective Subjective Patient resting in bed, no overnight events. Objective Data Objective Data Vital Signs: Vital Signs Temp Pulse Resp BP Pulse Ox O2 Del Method O2 Flow Rate 97.5 F L 69 20 H 111/64 90 Airvo 60 10/05/24 08:15 10/05/24 11:00 10/05/24 11:00 10/05/24 08:15 10/05/24 11:00 10/05/24 08:15 10/05/24 08:50 FiO2 78 10/05/24 11:00 Oxygen Flow Rate (L/min) 60 Oxygen Delivery Method Airvo Weight: 75.1 kg Body Mass Index (BMI) 27.6 Intake & Output: Intake and Output for Last 24 Hours 10/03/24 10/04/24 10/05/24 23:59 23:59 23:59 Intake Total 380 / 480 1060 / 1060 110 / 110 Output Total 850 / 1100 950 / 950 450 / 450 Balance -470 / -620 110 / 110 -340 / -340 Lab / Micro Data 10/05/24 07:00 10/05/24 07:00 Labs: Laboratory Results - last 24 hr 10/05/24 07:00: WBC 24.4 H, RBC 3.03 L, Hgb 10.2 L, Hct 30.5 L, MCV 100.7 H, MCH 33.7 H, MCHC 33.4, RDW Std Deviation 54.8 H, RDW Coeff of Harvinder 14.9 H, Plt Count 167, MPV 11.5, Immature Gran % (Auto) 1.700 H, Neut % (Auto) 89.4 H, Lymph % (Auto) 2.0 L, [place] % (Auto) 6.8, Eos % (Auto) 0.0, Baso % (Auto) 0.1, Absolute Neuts (auto) 21.8 H, Absolute Lymphs (auto) 0.49 L, Nucleated RBC % 0, Differential Comment COMMENT, Diff Path Review November, Sodium 141, Potassium 5.4 H, Chloride 102, Carbon Dioxide 26.7, Anion Gap 12, BUN 125 H*, Creatinine 3.05 H, Estim Creat Clear Calc 17.02 L, Est GFR (MDRD) Non-Af 20 L, B UN/Creatinine Ratio 41.0 H, Glucose 162 H, Calcium 7.9, NT pro BNP II 5968 H, P rocalcitonin 0.24 H Micro: Microbiology 09/28/24 23:30 Sputum, Expectorated/Coughed Gram Stain - Final 09/28/24 23:30 Sputum, Expectorated/Coughed Respiratory Culture - Final Presumptive C albicans 09/29/24 10:05 Mucosa - Nasopharyngeal Respiratory Panel (PCR) - Final Influenza A (Subtype H1) 09/20/24 13:49 Blood Culture (Wb) - Line Draw Blood Culture - Final No growth in 5 days. 09/20/24 13:53 Blood Culture (Wb) - Anticubital Right Blood Culture - Final No growth in 5 days. 09/20/24 17:15 Sputum, Induced/Lukens Gram Stain - Final 09/20/24 17:15 Sputum, Induced/Lukens Respiratory Culture - Final Mixed normal respiratory sridhar. No Streptococcus pneumoniae, beta-hemolytic Streptococcus or Staphylococcus aureus isolated. 09/20/24 14:00 Urine, Catheterized Urine Culture - Final Culture exhibits no growth. 09/20/24 14:00 Urine Catheter - Wade Legionella Antigen - Final 09/20/24 14:00 Urine Catheter - Wade Streptococcus pneumoniae Antigen (M - Final 09/20/24 13:49 Mucosa - Nose SARS-CoV-2, Influenza & RSV (PCR) - Final Influenzae A Radiography Diagnostic Testing: Radiology Impression Chest X-Ray 10/05/24 07:26 IMPRESSION: Patchy opacities projecting over both lungs as described above, greatest on the right, concerning for multifocal pneumonia. Similar probable tiny bilateral pleural effusions. Recommend continued radiologic follow-up to document resolution. [facility] Rhythm Strip Rhythm Strip: Atrially paced rhythm at 80 bpm Rate: 80 Ectopy: None Physical Exam Narrative Alert and oriented x 3, no apparent stress, drowsy S1, S2, rhythm regular, rate controlled Lung sounds diminished, no rales or rhonchi Abdomen soft, positive bowel sounds, nondistended trace pitting edema bilateral lower legs, R>L, edema seems to have improved Assessment & Plan Assessment/Plan (1) MUSA (acute kidney injury): (2) Acute hypoxemic respiratory failure: (3) HFrEF (heart failure with reduced ejection fraction): PLAN: Plan This is an 83-year-old male with past medical history significant for A-fib on Xarelto, BPH, hypertension, CAD status post CABG, ICD and pacemaker admitted to hospital on September 20 for acute hypoxic respiratory failure, influenza A, initially admitted to ICU for acute hypoxemic respiratory failure, influenza A, acute decompensated congestive heart failure with brief cardiac arrest with successful ROSC. Nephrology consulted in view of rising serum creatinine. - MUSA on possible CKD stage IIIa: In reviewing past serum creatinine trends baseline creatinine may be ranging around 1 to 1.4 mg/dL. Creatinine on March 02, 2024 was 1.41 mg/dL. SCr 1.57 on day of hospital admission. Since admission there has been some fluctuations in serum creatinine. Renal ultrasound without any hydronephrosis Urine sodium was low, likely cardiorenal physiology Echocardiogram with low ejection fraction 20-25% Urine analysis showed some proteinuria, sent urine protein creatinine ratio which resulted at 697 mg. Has been on IV Lasix--> lasix dose was decreased as there was rise in SCr but oxygen requirements worsened and patient put back on Airvo with increase Lasix 40 mg IV twice daily. Per cumulative I&O patient is net -5 L. UOP ~1 ml yesterday (patient has wade). SCr up to 3.05, BUN 125 today. Hemoglobin 10.2. K+ 5.4, low K+ diet restrictions ordered. Oxygen requirement BiPAP to Airvo. Patient has been on methylprednisolone 40 mg IV twice daily since around October 01. Chest x-ray from today reviewed. Holding Lasix and giving gentle IV fluids. Restarted back on IV antibiotics, Zosyn and vancomycin today. Renal serologies sent and are pending. No acute indication for [facility] at this time. Labs ordered for am. Nephrology plan reviewed with Dr. Davila. Assessment and plan reviewed with Dr. Shukla
[2024-10-05] MEDS: Dext 5%-0.45% NS 1,000 ML 75 ML IV (13:22)
--- NOTE | 2024-10-05 13:54 | PCM.RX.CS ---
Consult Antibiotic Management Pharmacy has been consulted to manage selected antibiotic: Vancomycin Type of Intervention Type of Consult: New start Suspected Infection Suspected Infection: Other Labs Labs: Sodium 141 mmol/L (133-145) 10/05/24 07:00 Potassium 5.4 mmol/L (3.3-5.1) H 10/05/24 07:00 Chloride 102 mmol/L (98-108) 10/05/24 07:00 Carbon Dioxide 26.7 mmol/L (21.0-32.0) 10/05/24 07:00 Anion Gap 12 (5-15) 10/05/24 07:00 BUN 125 mg/dL (4-19) H* 10/05/24 07:00 Creatinine 3.05 mg/dL (0.70-1.20) H 10/05/24 07:00 Est GFR (MDRD) Non-Af 20 (>60) L 10/05/24 07:00 BUN/Creatinine Ratio 41.0 RATIO (10-20) H 10/05/24 07:00 Glucose 162 mg/dL (70-99) H 10/05/24 07:00 Microbiology Microbiology: Microbiology 09/28/24 23:30 Sputum, Expectorated/Coughed Gram Stain - Final 09/28/24 23:30 Sputum, Expectorated/Coughed Respiratory Culture - Final Presumptive C albicans 09/29/24 10:05 Mucosa - Nasopharyngeal Respiratory Panel (PCR) - Final Influenza A (Subtype H1) 09/20/24 13:49 Blood Culture (Wb) - Line Draw Blood Culture - Final No growth in 5 days. 09/20/24 13:53 Blood Culture (Wb) - Anticubital Right Blood Culture - Final No growth in 5 days. 09/20/24 17:15 Sputum, Induced/Lukens Gram Stain - Final 09/20/24 17:15 Sputum, Induced/Lukens Respiratory Culture - Final Mixed normal respiratory sridhar. No Streptococcus pneumoniae, beta-hemolytic Streptococcus or Staphylococcus aureus isolated. 09/20/24 14:00 Urine, Catheterized Urine Culture - Final Culture exhibits no growth. 09/20/24 14:00 Urine Catheter - Rowe Legionella Antigen - Final 09/20/24 14:00 Urine Catheter - Rowe Streptococcus pneumoniae Antigen (M - Final 09/20/24 13:49 Mucosa - Nose SARS-CoV-2, Influenza & RSV (PCR) - Final Influenzae A Goal Trough Goal Trough: 15-20 mcg/mL Pharmacy Plan for Drug Dosing Pharmacy Plan for Drug Dosing: NEW START IV VANCOMYCIN Consulting Physician: Dr. Gonzalez Indication: Respiratory Failure Goal Trough: 15-20 SrCr: 3.05 CrCl: 17 mL/min Comments: A loading dose of vanco 2000mg IV x1 ordered and administered 10/05 @1049 Vancomycin Dose: Patient with MUSA, CrCl <20. Due to this, will dose vancomycin based off random levels until renal function improves. No scheduled dosing will be entered at this time. Pending Level: *RANDOM* 10/07/24 @0600 per protocol Pharmacy Service will continue to monitor and adjust dosing as required.
[2024-10-05] MEDS: Tamsulosin HCl 0.4 MG Capsule PO (18:05)
[2024-10-05] MEDS: Rivaroxaban 15 MG Tablet PO (18:05)
--- NOTE | 2024-10-05 18:23 | PCM.PN.HOSP ---
Reason for Visit Reason for Visit: Diagnoses Sepsis, unspecified organism (09/20/24) Anemia, unspecified (09/20/24) Thrombocytopenia, unspecified (09/20/24) Atherosclerotic heart disease of [place] coronary artery without angina pectoris (09/20/24) Cardiac arrest, cause unspecified (09/20/24) Paroxysmal atrial fibrillation (09/20/24) Unspecified systolic (congestive) heart failure (09/20/24) Influenza due to other identified influenza virus with other respiratory manifestations (09/20/24) Pneumonia, unspecified organism (09/20/24) Acute respiratory failure with hypoxia (09/20/24) Acute kidney failure, unspecified (09/20/24) Severe sepsis with septic shock (09/20/24) Subjective Subjective Patient was seen and examined today, he remains on high flow oxygen at this time, BUN/creatinine were more elevated today, I talked at length with pulmonary medicine and nephrology, we made the decision today to give the patient some fluids and stop his Lasix. I talked to the daughter briefly by phone today and let her know what was going on medically with the patient, I told her we may need to make a decision about whether to proceed with dialysis if his kidney functions worsen, she states that she will check with the patient tomorrow and have a discussion with him concerning this. Objective Data Objective Data Vital Signs: Vital Signs Temp Pulse Resp BP Pulse Ox O2 Del Method O2 Flow Rate 96.7 F L 72 18 110/65 91 Airvo 60 10/05/24 17:55 10/05/24 17:55 10/05/24 17:55 10/05/24 17:55 10/05/24 17:55 10/05/24 17:55 10/05/24 17:55 FiO2 78 10/05/24 17:55 Oxygen Flow Rate (L/min) 60 Oxygen Delivery Method Airvo Weight: 75.1 kg Body Mass Index (BMI) 27.6 Intake & Output: Intake and Output for Last 24 Hours 10/03/24 10/04/24 10/05/24 23:59 23:59 23:59 Intake Total 380 / 480 1060 / 1060 700 / 700 Output Total 850 / 1100 950 / 950 450 / 450 Balance -470 / -620 110 / 110 250 / 250 Lab / Micro Data 10/05/24 07:00 10/05/24 07:00 Labs: Laboratory Results - last 24 hr 10/05/24 07:00: WBC 24.4 H, RBC 3.03 L, Hgb 10.2 L, Hct 30.5 L, MCV 100.7 H, MCH 33.7 H, MCHC 33.4, RDW Std Deviation 54.8 H, RDW Coeff of Harvinder 14.9 H, Plt Count 167, MPV 11.5, Immature Gran % (Auto) 1.700 H, Neut % (Auto) 89.4 H, Lymph % (Auto) 2.0 L, [place] % (Auto) 6.8, Eos % (Auto) 0.0, Baso % (Auto) 0.1, Absolute Neuts (auto) 21.8 H, Absolute Lymphs (auto) 0.49 L, Nucleated RBC % 0, Differential Comment COMMENT, Diff Path Review November, Sodium 141, Potassium 5.4 H, Chloride 102, Carbon Dioxide 26.7, Anion Gap 12, BUN 125 H*, Creatinine 3.05 H, Estim Creat Clear Calc 17.02 L, Est GFR (MDRD) Non-Af 20 L, BUN/Creatinine Ratio 41.0 H, Glucose 162 H, Calcium 7.9, NT pro BNP II 5968 H, Procalcitonin 0.24 H Micro: Microbiology 09/28/24 23:30 Sputum, Expectorated/Coughed Gram Stain - Final 09/28/24 23:30 Sputum, Expectorated/Coughed Respiratory Culture - Final Presumptive C albicans 09/29/24 10:05 Mucosa - Nasopharyngeal Respiratory Panel (PCR) - Final Influenza A (Subtype H1) 09/20/24 13:49 Blood Culture (Wb) - Line Draw Blood Culture - Final No growth in 5 days. 09/20/24 13:53 Blood Culture (Wb) - Anticubital Right Blood Culture - Final No growth in 5 days. 09/20/24 17:15 Sputum, Induced/Lukens Gram Stain - Final 09/20/24 17:15 Sputum, Induced/Lukens Respiratory Culture - Final Mixed normal respiratory sridhar. No Streptococcus pneumoniae, beta-hemolytic Streptococcus or Staphylococcus aureus isolated. 09/20/24 14:00 Urine, Catheterized Urine Culture - Final Culture exhibits no growth. 09/20/24 14:00 Urine Catheter - Rowe Legionella Antigen - Final 09/20/24 14:00 Urine Catheter - Rowe Streptococcus pneumoniae Antigen (M - Final 09/20/24 13:49 Mucosa - Nose SARS-CoV-2, Influenza & RSV (PCR) - Final Influenzae A Radiography Diagnostic Testing: Radiology Impression Chest X-Ray 10/05/24 07:26 IMPRESSION: Patchy opacities projecting over both lungs as described above, greatest on the right, concerning for multifocal pneumonia. Similar probable tiny bilateral pleural effusions. Recommend continued radiologic follow-up to document resolution. Reading [facility] Rhythm Strip Rhythm Strip: Atrially paced rhythm at 80 bpm Rate: 80 Ectopy: None Physical Exam Narrative alert, oriented x3 and no apparent distress Constitutional Narrative: Patient appears older than his stated age, he appears frail General Appearance: cooperative, well kempt and well developed Orientation / Consciousness: awake-somewhat lethargic, oriented to person, oriented to place HEENT normocephalic, head/scalp atraumatic and moist oral mucous membranes Eyes PERRL, EOMs intact bilaterally and conjunctivae normal Neck supple, no JVD, thyroid normal and no carotid bruits General: trachea midline Resp normal respiratory effort, no retractions, no use of accessory muscles and clear to auscultation bilaterally Auscultation: Negative for rales, rhonchi or wheezes Cardio regular rate, regular rhythm, S1 normal heart sound, S2 normal heart sound, no murmurs, no rub and no gallops GI normal to inspection, nondistended, normoactive bowel sounds, soft to palpation, non-tender and non-distended Extremity no clubbing, cyanosis or edema Skin no rashes or lesions noted General Skin Exam: no breakdown Neuro CN's II-XII intact bilaterally, moves all extremities, no focal motor deficits and no sensory deficits noted Sensorium / Orientation: Patient is lethargic but does awaken to questions, patient is oriented as to person and place Speech: speech normal Psych Psych Narrative: Patient has flat affect Assessment & Plan Assessment/Plan (1) Ischemic cardiomyopathy: (2) Cardiopulmonary arrest with successful resuscitation: PLAN: Plan 1. Acute hypoxic respiratory failure-likely secondary to influenza A with acute systolic congestive heart failure-pulmonary medicine is participating in his care, IV Lasix was stopped due to concerns of his fluid status being negative, patient was placed on IV fluids at 75/h, labs will be rechecked tomorrow #2 acute systolic congestive heart failure-patient remains on hydralazine and metoprolol #3 paroxysmal atrial fibrillation-patient is on Xarelto, amiodarone, and metoprolol, patient is currently in an atrial paced rhythm #4 coronary artery disease-complicates care, management, recovery, and prognosis #5 status post PEA arrest-complicates care, management, recovery, and prognosis #6 BPH-patient is on Flomax #7 acute kidney injury on a backdrop of stage IIIa chronic kidney disease-again patient will be given IV fluids and labs will be rechecked tomorrow Total clinical time spent by myself addressing the patient's medical issues, reviewing all of his data, and collaborating with patient's care team: 50-minutes Charges/Coding Visit Charges Inpatient E&M: 09052 [facility] Hosp L3
[2024-10-05] MEDS: 0.9% Saline Lock 10 ML Syringe IV (22:22)
[2024-10-06] VITALS (7 sets, daily range): BP systolic 109–123; BP diastolic 59–65; PULSE 60–66; RESP 14–22; TEMP 36.6; O2SAT 90–93; BMI 30.9
[2024-10-06] MEDS: Dext 5%-0.45% NS 1,000 ML 75 ML IV (02:53)
[2024-10-06 06:28] LABS: Anion Gap 11 (5-15); BUN 144 mg/dL (4-19); BUN/Creat Ratio 41.4 RATIO (10-20); Calcium,Total 7.2 mg/dL (7.6-11.0); Carbon Dioxide 24.1 mmol/L (21.0-32.0); Chloride 99 mmol/L (98-108); Creatinine, Serum 3.48 mg/dL (0.70-1.20); EST Glomerular Filtration Rate 17 (>60); Estimated Creatinine Clearance 15.76 ml/min (50-250); Glucose 211 mg/dL (70-99); Potassium 5.9 mmol/L (3.3-5.1); Sodium Level 135 mmol/L (133-145)
--- NOTE | 2024-10-06 08:02 | PCM.PN.TICU ---
Objective Data Objective Data Vital Signs: Vital Signs Last response Temperature 36.6 C 10/06/24 06:15 Temperature Source Oral 10/06/24 06:15 Pulse Rate 66 10/06/24 06:15 Pulse Strength Weak (1+) 10/05/24 19:37 Respiratory Rate 22 H 10/06/24 06:15 Respiratory Effort Normal, Non-Labored 10/05/24 10:00 Respiratory Depth Normal 10/04/24 21:49 Respiratory Pattern Tachypnea 10/06/24 02:59 Blood Pressure 123/59 H 10/06/24 06:15 Blood Pressure Mean 80 10/06/24 06:15 Blood Pressure Source Monitor 10/06/24 06:15 Blood Pressure Position Semi-Fowlers 10/06/24 06:15 Blood Pressure Location Right Arm 10/06/24 06:15 Pulse Ox 90 10/06/24 06:15 Oxygen Delivery Method Airvo 10/06/24 06:15 Oxygen Flow Rate (L/min) 60 10/06/24 06:15 Fraction of Inspired Oxygen (FIO2) 95 10/06/24 06:15 I&O: I&O Last 24 Hours 10/05/24 10/05/24 10/06/24 11:59 23:59 11:59 Intake Total 110 / 1290 1180 / 1290 1050 / 1050 Output Total 450 / 950 500 / 950 225 / 225 Balance -340 / 340 680 / 340 825 / 825 I&O: Total Stay 09/20/24 12:44 thru 10/06/24 06:17 Intake Total 31598.73 Output Total 99445 Balance -3546.27 Current Meds Ordered / Administered: Current meds ordered / Administered Generic Name Dose Route Start Last Admin Trade Name Freq PRN Reason Stop Dose Admin Acetaminophen 650 mg 09/20/24 17:08 09/26/24 10:23 Acetaminophen 325 Mg Tablet PO 650 mg Q6H PRN PRN Administration Pain 1-10 Or Fever>100.7 Albuterol Sulfate 2.5 mg 09/26/24 06:45 09/26/24 07:22 Albuterol 2.5 Mg/3 Ml Vial.Neb. INHALATION 2.5 mg Q2H PRN PRN Administration Dyspnea, wheezing Amiodarone HCl 200 mg 09/30/24 10:00 10/05/24 10:03 Amiodarone 200 Mg Tablet PO 200 mg DAILY TAPAN Administration Aspirin 81 mg 09/24/24 08:00 10/05/24 10:04 Aspirin 81 Mg Tab.Chew PO 81 mg BREAKFAST TAPAN Administration Atorvastatin Calcium 80 mg 09/24/24 10:00 10/05/24 10:03 Atorvastatin Calcium 80 Mg Tablet PO 80 mg DAILY TAPAN Administration Guaifenesin 2 tablet 09/25/24 10:00 10/05/24 22:09 Guaifenesin/D-Methorphan Tab.Sr.12h PO 2 tablet BID TAPAN Administration Hydralazine HCl 50 mg 09/29/24 14:00 10/06/24 06:39 Hydralazine 50 Mg Tablet PO Not Given TID TAPAN Protocol Sodium Chloride 100 mls @ 15 mls/hr 09/20/24 17:24 09/23/24 11:14 IV Infused .Q6H40M PRN Infusion Saline Flush Sodium Chloride 100 mls @ 15 mls/hr 09/20/24 17:24 IV .Q6H40M PRN Additional IVPB Infusion Pantoprazole Sodium 40 mg/ 110 mls @ 330 mls/hr 09/21/24 10:00 10/05/24 22:40 Sodium Chloride IV Infused Q12 TAPAN Infusion Piperacillin Sod/Tazobactam 50 mls @ 12.5 mls/hr 10/05/24 09:00 10/06/24 04:17 Sod 3.375 gm/ Sodium Chloride IV Infused Q12 TAPAN Infusion Vancomycin IV-PHARMACY TO DOSE 500 mls @ 250 mls/hr 10/05/24 08:46 1 each/ Sodium Chloride IV PRN PRN Rx to Dose Protocol Dextrose/Sodium Chloride 1,000 mls @ 75 mls/hr 10/05/24 12:05 10/06/24 02:53 IV 75 mls/hr .[id number] TAPAN Administration Isosorbide Mononitrate 30 mg 09/27/24 10:00 10/05/24 10:11 Isosorbide Mononitrate 30 Mg Tablet PO 30 mg DAILY TAPAN Administration Protocol Methylprednisolone Sodium Succinate 40 mg 10/01/24 22:00 10/05/24 22:13 Methylprednisolone Sod Succ 40 Mg/Ml Vial IV 40 mg Q12 TAPAN Administration Metoprolol Tartrate 50 mg 09/27/24 22:00 10/05/24 22:12 Metoprolol Tartrate 50 Mg Tablet PO Not Given BID [facility] Protocol Ondansetron HCl 4 mg 09/20/24 17:08 Ondansetron 4 Mg/2 Ml Vial IV Q8H PRN PRN NAUSEA/VOMITING Polyethylene Glycol 17 gm 09/24/24 14:15 10/05/24 10:34 Polyethylene Glycol 3350 17 Gm Packet PO 17 gm DAILY TAPAN Administration Rivaroxaban 15 mg 10/03/24 17:00 10/05/24 18:05 Rivaroxaban 15 Mg Tablet PO 15 mg DINNER [facility] Administration Senna 2 tablet 09/25/24 10:00 10/05/24 22:13 Senna Tablet PO Not Given BID [facility] Sodium Chloride 10 - 40 ml 09/20/24 17:24 10/05/24 22:22 0.9% Saline Lock 10 Ml Syringe IV 20 ml UD PRN Administration SALINE FLUSH Sodium Chloride 2 spray 09/30/24 15:35 10/01/24 22:19 Sodium Chloride 0.65% 1 [place].Btl NASAL 2 spray BID PRN PRN Administration NASAL DRYNESS Tamsulosin HCl 0.4 mg 09/27/24 17:30 10/05/24 18:05 Tamsulosin Hcl 0.4 Mg Capsule PO 0.4 mg DAILY@1730 [facility] Administration Vancomycin Protocol 1 lab 10/07/24 05:00 Vancomycin Trough/Random Due MC 10/07/24 07:00 DAILY [facility] Lab / Micro Data 10/05/24 07:00 10/06/24 05:29 Labs: Laboratory Results - last 24 hr 10/05/24 07:00: Differential Comment COMMENT, Diff Path Review November, Sodium 141, Potassium 5.4 H, Chloride 102, Carbon Dioxide 26.7, Anion Gap 12, BUN 125 H*, Creatinine 3.05 H, Estim Creat Clear Calc 17.02 L, Est GFR (MDRD) Non-Af 20 L, BUN/Creatinine Ratio 41.0 H, Glucose 162 H, Calcium 7.9, NT pro BNP II 5968 H, Procalcitonin 0.24 H 10/06/24 05:29: Sodium 135, Potassium 5.9 H, Chloride 99, Carbon Dioxide 24.1, Anion Gap 11, BUN 144 H*, Creatinine 3.48 H, Estim Creat Clear Calc 15.76 L, Est GFR (MDRD) Non-Af 17 L, BUN/Creatinine Ratio 41.4 H, Glucose 211 H, Calcium 7.2 L Micro: Microbiology 10/05/24 18:10 Nasal Secretion MRSA (PCR) - Final 10/05/24 18:26 Urine Catheter - Rowe Legionella Antigen - Final 10/05/24 18:26 Urine Catheter - Rowe Streptococcus pneumoniae Antigen (M - Final Rhythm Strip Rhythm Strip: Atrially paced rhythm at 80 bpm Rate: 80 Ectopy: None Assessment and Plan . Assessment and plan: Subjective: No acute events o/n. Pt intermittently refusing medications now, stating he wants to stop treatments Physical Exam: Gen - NAD, ill-appearing, elderly HEENT - MMM. Sclera anicteric Resp - Diminished BS. Breathing nonlabored CV - RRR. No m/g/r Abd - Soft, NT, ND Ext - No c/c. +edema Skin - No rashes? Neuro - Grossly nonfocal. Drowsy but arousable, can answer some simple questions but falls asleep quickly I have reviewed the pertinent vital sign, laboratory, and imaging data. ASSESSMENT: # Acute hypoxic respiratory failure - extubated 09/23 # Influenza A # PNA # CHF exacerbation - EF 20-25% # MUSA on CKD # Cardiac arrest - reported brief duration of arrest, no VT/VF on device interrogation # s/p ICD # Afib on xarelto # Anemia # Thrombocytopenia # CAD s/p CABG # HTN # HLD PLAN: -Cont HHFNC 95%/60L, wean to keep sats > 90%. Cont NIV PRN. -Pt is currently refusing treatments and stating he wants to stop care. Daughter will be coming up today to see pt and discuss possible hospice -Monitor mental status. Repeat blood gas now, check ammonia, TSH -Cont empiric vanc/zosyn. Ordered repeat colin-cultures as well. MRSA neg, urine strep/legionella neg -IV solumedrol, duonebs -s/p tamiflu -Nephrology following. Medical management for hyperkalemia. Diuretics stopped given worsening MUSA, giving gentle IVF back -Cont amio, metop. Monitor for worsening Afib/RVR -Switch xarelto to heparin gtt given worsening MUSA/oliguria FEN/GI: PO diet Proph DVT/GI: Heparin gtt, protonix Code status: FULL Poor prognosis, possible consideration of hospice as above Critical Care Time: 50 mins The entirety of this encounter was done via telemedicine using both audio and video. Consent was obtained.
[2024-10-06] MEDS: Pantoprazole Sodium 40 MG in 0.9% Normal Saline (100mL MB+) 100 ML 330 MG IV (09:12)
[2024-10-06] MEDS: Methylprednisolone Sod Succ 40 MG/ML VIAL IV (09:20)
[2024-10-06] MEDS: Piperacil/Tazobactam 3.375 GM in 0.9% Normal Saline (50mL MB+) 50 ML IV (09:51)
--- NOTE | 2024-10-06 10:18 | PCM.PN.REN ---
Subjective Subjective Patient is resting quietly, alert. Patient is asking to be discharged, states he wants to go home. Objective Data Objective Data Vital Signs: Vital Signs Temp Pulse Resp BP Pulse Ox O2 Del Method O2 Flow Rate 97.8 F 60 20 H 115/65 90 Airvo 60 10/06/24 08:00 10/06/24 08:00 10/06/24 08:00 10/06/24 08:00 10/06/24 08:00 10/06/24 08:00 10/06/24 08:00 FiO2 95 10/06/24 08:00 Oxygen Flow Rate (L/min) 60 Oxygen Delivery Method Airvo Weight: 84.4 kg Body Mass Index (BMI) 30.9 Intake & Output: Intake and Output for Last 24 Hours 10/04/24 10/05/24 10/06/24 23:59 23:59 23:59 Intake Total 1060 / 1060 1290 / 1290 1160 / 1160 Output Total 950 / 950 950 / 950 225 / 225 Balance 110 / 110 340 / 340 935 / 935 Lab / Micro Data 10/05/24 07:00 10/06/24 05:29 Labs: Laboratory Results - last 24 hr 10/05/24 07:00: Procalcitonin 0.24 H 10/06/24 05:29: Sodium 135, Potassium 5.9 H, Chloride 99, Carbon Dioxide 24.1, Anion Gap 11, BUN 144 H*, Creatinine 3.48 H, Estim Creat Clear Calc 15.76 L, Est GFR (MDRD) Non-Af 17 L, BUN/Creatinine Ratio 41.4 H, Glucose 211 H, Calcium 7.2 L Micro: Microbiology 10/05/24 18:10 Nasal Secretion MRSA (PCR) - Final 10/05/24 18:26 Urine Catheter - Rowe Legionella Antigen - Final 10/05/24 18:26 Urine Catheter - Rowe Streptococcus pneumoniae Antigen (M - Final 09/28/24 23:30 Sputum, Expectorated/Coughed Gram Stain - Final 09/28/24 23:30 Sputum, Expectorated/Coughed Respiratory Culture - Final Presumptive C albicans 09/29/24 10:05 Mucosa - Nasopharyngeal Respiratory Panel (PCR) - Final Influenza A (Subtype H1) 09/20/24 13:49 Blood Culture (Wb) - Line Draw Blood Culture - Final No growth in 5 days. 09/20/24 13:53 Blood Culture (Wb) - Anticubital Right Blood Culture - Final No growth in 5 days. 09/20/24 17:15 Sputum, Induced/Lukens Gram Stain - Final 09/20/24 17:15 Sputum, Induced/Lukens Respiratory Culture - Final Mixed normal respiratory sridhar. No Streptococcus pneumoniae, beta-hemolytic Streptococcus or Staphylococcus aureus isolated. 09/20/24 14:00 Urine, Catheterized Urine Culture - Final Culture exhibits no growth. 09/20/24 14:00 Urine Catheter - Rowe Legionella Antigen - Final 09/20/24 14:00 Urine Catheter - Rowe Streptococcus pneumoniae Antigen (M - Final 09/20/24 13:49 Mucosa - Nose SARS-CoV-2, Influenza & RSV (PCR) - Final Influenzae A Rhythm Strip Rhythm Strip: Atrially paced rhythm at 80 bpm Rate: 80 Ectopy: None Physical Exam Narrative Alert and oriented x 3, no apparent stress, drowsy S1, S2, rhythm regular, rate controlled Lung sounds diminished Abdomen soft, positive bowel sounds, nondistended trace to 1+ pitting edema bilateral lower legs, R>L Rowe with straw-colored urine in bag Assessment & Plan Assessment/Plan (1) MUSA (acute kidney injury): (2) Acute hypoxemic respiratory failure: (3) HFrEF (heart failure with reduced ejection fraction): PLAN: Plan This is an 83-year-old male with past medical history significant for A-fib on Xarelto, BPH, hypertension, CAD status post CABG, ICD and pacemaker admitted to hospital on September 20 for acute hypoxic respiratory failure, influenza A, initially admitted to ICU for acute hypoxemic respiratory failure, influenza A, acute decompensated congestive heart failure with brief cardiac arrest with successful ROSC. Nephrology consulted in view of rising serum creatinine. - MUSA on possible CKD stage IIIa: In reviewing past serum creatinine trends baseline creatinine may be ranging around 1 to 1.4 mg/dL. Creatinine on March 02, 2024 was 1.41 mg/dL. SCr 1.57 on day of hospital admission. Since admission there has been some fluctuations in serum creatinine. Renal ultrasound without any hydronephrosis Urine sodium was low, likely cardiorenal physiology Echocardiogram with low ejection fraction 20-25% Urine analysis showed some proteinuria, sent urine protein creatinine ratio which resulted at 697 mg. Patient had been on IV Lasix--> lasix dose was decreased as there was rise in SCr but oxygen requirements worsened and patient put back on Airvo with increase Lasix 40 mg IV twice daily Friday. SCr up to 3.05, BUN 125 yesterday therefore Lasix stopped and patient was started on gentle IV fluids. Oxygen requirement not improving, patient is back between BiPAP to Airvo. Patient has been on methylprednisolone 40 mg IV twice daily since around October 01. Chest x-ray yesterday concerning for multifocal pneumonia, tiny bilateral pleural effusions, restarted back on IV antibiotics, Zosyn and vancomycin. Renal serologies sent and are pending. Urine output yesterday about 1 L, today SCr 3.48, BUN 144, potassium 5.9, bicarb 24. Yesterday I had discussion with patient that renal function was worsening and he could be heading towards needing renal replacement therapy. Family friend also in room during discussion. Patient voiced understanding and questions were answered. Today kidney function is worsening, patient states he does not want any heroic measures, does not want dialysis and wants to go home. Kayexalate was ordered as potassium is 5.9, patient is not wanting to take anything by mouth. Patient has not been eating much either. Discussed nephrology plan with Dr. Davila, he has also spoke to patient's daughter with update. Contacting hospice. Assessment and plan reviewed with Dr. Shukla
[2024-10-06] MEDS: Morphine 4 MG/ML Syringe 6 MG IV (11:24)
[2024-10-06] MEDS: Lorazepam 2 MG/ML WCH Syringe 1 MG IV ×2 (11:25→13:08)
--- NOTE | 2024-10-06 11:52 | CASEMGMT ---
Physician spoke with patient and he wishes to stop care and go hospice. Physician called and notified patient's daughter Eliza. Eliza called THANH and stated she would like to see if her dad could still go to [facility] so her parents could be together. SW told Eliza SW will look into this. [facility] However, [facility] said they would have to get a contract with [facility] and that could take awhile. Physician then notified SW he was going to turn down patient's O2 and did not feel patient would make it out of the hospital. THANH spoke with patient's daughter and she confirmed that is what the physician told her. SW provided emotional support and let Eliza know that SW is available. THANH updated [facility]. Sanam SQUIRES
--- NOTE | 2024-10-06 13:14 | PCM.HOSP.N ---
Hospitalist Note Patient was seen and examined today, he told me this morning that he was ready to go, he wants to know what can be done to help him, I talked to the daughter by phone and she came into the hospital to talk with the patient and there was a discussion whether to have him go to his [facility]s penitentiary to see her but I do not feel that he is able to do that due to his oxygen demand. Daughter agreed with the patient's wishes and the patient was made a comfort care today, he was taken off Airvo and placed on nasal cannula oxygen and given Ativan and morphine for pain and restlessness. I expect that the patient will probably sometime today. On examination he appeared overall uncomfortable. Vital signs as documented. Skin warm and dry and without overt rashes. Neck without JVD, neck was supple, trachea midline, thyroid was normal. Lungs-breath sounds are diminished bilaterally, patient had shallow respirations. Heart exam notable for regular rhythm, normal sounds and absence of murmurs, rubs or gallops. Abdomen unremarkable and without evidence of organomegaly, masses, or abdominal aortic enlargement. Bowel sounds are present, abdomen is not distended. Extremities nonedematous, no cyanosis was noted, no clubbing was noted. Neuro: Cranial nerves II through XII are grossly intact, no focal motor deficits were noted, sensation to light touch and pinprick intact, motor exam 5/5 throughout. Psych: Patient is alert and oriented x2, he does not appear anxious or depressed, he does not appear agitated.
--- NOTE | 2024-10-06 14:05 | NURSING ---
PT NOTED TO HAVE . NO BP,HR,RESP NOTED BY THIS NURSE, CONFIRMED BY LOLITA LINDSAY. DR GALINDO NOTIFIED. FAMILY AND PT'S AKANKSHA PRESENT-EMOTIONAL SUPPORT PROVIDED.
--- NOTE | 2024-10-06 14:21 | NURSING ---
ALL PERSONAL BELONGINGS SENT WITH DAUGHTER, INCLUDING DENTURES AND HEARING AIDES.
--- NOTE | 2024-10-06 14:28 | NURSING ---
[facility] notified of . Reference number [id number], hold for [facility] at this time.
--- NOTE | 2024-10-06 14:32 | EXP.PCM_ITS ---
Preliminary Cause of Preliminary Cause of Preliminary Cause of : Hypoxic respiratory failure secondary to pneumonia Date of Admission: 09/20/24 Date of : 10/06/24 Principle Diagnosis Principal diagnosis: #1 hypoxic respiratory failure secondary to pneumonia #2 community-acquired pneumonia #3 acute systolic congestive heart failure #4 acute renal failure #5 paroxysmal atrial fibrillation #6 PEA arrest #7 ischemic cardiomyopathy #8 influenza A #9 gastric ulcerss Problem List: Active and Suspected Problems (Updated 09/30/24 @ 09:51 by Shruthi Guidry) MUSA (acute kidney injury) (Acute) Thrombocytopenia (Acute) Anemia (Acute) CAD (coronary atherosclerotic disease) without angina pectoris (Acute) HFrEF (heart failure with reduced ejection fraction) (Acute) Abrasion of scalp (Acute) Closed head injury (Acute) Influenza A (Acute) Paroxysmal A-fib (Acute) Cardiopulmonary arrest with successful resuscitation (Acute) Acute hypoxemic respiratory failure (Acute) Pneumonia (Acute) Septic shock (Acute) Hospital Course This 83-year-old white male was seen in the emergency room at [facility] for evaluation following a syncopal event in the emergency room at [facility] while visiting his who is a patient in the emergency room. Patient had a syncopal event which led to him falling to the floor and hitting his head, going to the family he had been dealing with upper respiratory symptoms over the course of a week. Shortly after initial evaluation by the emergency room physician, patient was noted to be pulseless and ACLS was initiated and patient was intubated. Patient was given epinephrine with subsequent return of spontaneous circulation, lab was obtained which showed a normal white blood cell count, hemoglobin was in the normal range INR was 3.1. Beta natruretic peptide was noted to be elevated at 4777, lactic acid was elevated at 5.5. CT of the head revealed no acute abnormality, chest x-ray demonstrated cardiomegaly with bilateral pulmonary infiltrates, patient's influenza A PCR was positive. Patient was placed on antimicrobials and Tamiflu and admitted to the intensive care unit and seen by critical care. An echocardiogram was obtained which showed severe LV dysfunction with an ejection fraction of 20 to 25%, right ventricular systolic pressure is noted to be 50. Patient was seen by cardiology in consultation, he was also seen by gastroenterology because he had blood coming from his ET tube and NG tube, gastroenterology performed an EGD which showed grade 1 esophageal varices and oozing gastric ulcers, clip was placed. Patient stabilized enough for extubation, he was transferred out to PCU but required high flow oxygen via Airvo. Patient's respiratory status did not improve significantly on PCU and he remained on this high oxygen setting. Patient was finally placed back on antibiotic coverage and his renal functions deteriorated and nephrology saw the patient. Patient was treated for acute systolic CHF with IV Lasix, his respiratory status did not improve however and t he patient wished all aggressive treatment to be stopped and he was made a DNR CC arrest. On 10/06/2024, patient was seen and examined (please refer to earlier hospitalist note on 10/06/2024), the patient was lucid and ask for all aggressive treatment to be stopped, patient's daughter agreed with this and the patient's medications were stopped and IV morphine and Ativan were given due to patient's complaints of severe pain. On 10/06/2024 at 1405, patient was noted to be apneic and pulseless and was pronounced at that time. Visit Charges Inpatient E&M: 51289 Disch Hosp >30min
--- NOTE | 2024-10-06 14:44 | CHAPLAIN ---
Type of Pastoral Visit ___ Initial Visit _x__ Follow-up Visit ___ On-call Visit ___ General Patient Visit ___ Spiritual Assessment ___ Family Conference _x__ Bereavement ___ Rapid Response ___ Code Blue ___ Other (describe below) Pastoral Care Referral From ___ Patient ___ Family ___ Nurse ___ Physician ___ Powder Hand ___ Sec Accountant _x__ Other (describe below) Sacrament/Intervention _x__ Active listening ___ Anointing ___ Hoahaoism _x__ Bereavement ___ Communion ___ Arminda exploration ___ ___ Life review _x__ Prayer ___ Reconciliation ___ Sacrament of Sick _x__ Supportive presence ___ Wedding ___ Other (describe below) Pastoral Comments patient had been seen previously in ED and in ICU; during rounds in PCU this screw machine tender became aware of the white cart indicating an end-of-life situation for this patient; inquired of staff about the status and entered the room; son and daughter are present as well as the mri technologist from the patient's [employer]; the family members have been met before and they have indicated thankfulness for spiritual care support; pt was taken off of any life prolonging equipment earlier today; pt is at agonal breathing and unresponsive; offer of support and seeking of what is needed by the family or mri technologist; prayer is welcomed; as prayer is given the patient expires; there are some tears by the daughter but also words of gratitude by the family for the good care received; spouse of the patient is in a custodial and will have to be told by the family; offer of ongoing support given; appreciation spoken to the mri technologist who came to be present with the family
--- NOTE | 2024-10-06 14:56 | NURSING ---
[facility] called and stated ok to release to home, daughter does not wish for donation.
[2024-10-07 14:09] LABS: Anti-Glomerular Basement Memb 0.2 units (0.0-0.9); Complement C3 162 mg/dL (82-167); Complement CH50 57 U/mL (>41); Cytoplasmic Ab (C-ANCA) <1:20 titer (Neg:<1:20); Immunofixation Result, Serum Comment: (.); Immunoglobulin A 430 mg/dL (61-437); Immunoglobulin G 1064 mg/dL (603-1613); Immunoglobulin M 48 mg/dL (15-143); Perinuclear Ab (P-ANCA) <1:20 titer (Neg:<1:20)
== END 2024-10-06 14:05 | DRG 296 ==
LOC: ED 14:09 → ICU 16:41 → MS2 09-25 02:29 → PCU 09-29 19:53
PROVIDERS: Family Medicine; Internal Medicine; Internal Medicine Critical Care Medicine; Internal Medicine Gastroenterology; Internal Medicine Nephrology; Nurse Practitioner Adult Health; Admitting Provider Hospitalist; Emergency Provider Emergency Medicine; PCP Family Medicine; Visit Provider Internal Medicine
PROC: 0DJ08ZZ Inspection of Upper Intestinal Tract, Via Natural or Artificial Opening Endoscopic (ICD-10-PCS; CPT 43235; principal; 2024-09-22 12:55)
DX: I46.9 Cardiac arrest, cause unspecified (principal); J80 Acute respiratory distress syndrome; R65.21 Severe sepsis with septic shock; I50.21 Acute systolic (congestive) heart failure; J18.9 Pneumonia, unspecified organism; K25.4 Chronic or unspecified gastric ulcer with hemorrhage; I85.00 Esophageal varices without bleeding; I13.0 Hypertensive heart and chronic kidney disease with heart failure and stage 1 through stage 4 chronic kidney disease, or unspecified chronic kidney disease; D68.32 Hemorrhagic disorder due to extrinsic circulating anticoagulants; N17.9 Acute kidney failure, unspecified; N13.8 Other obstructive and reflux uropathy; R57.0 Cardiogenic shock; D63.1 Anemia in chronic kidney disease; N18.31 Chronic kidney disease, stage 3a; D50.0 Iron deficiency anemia secondary to blood loss (chronic); Z68.31 Body mass index [BMI] 31.0-31.9, adult; I47.20 Ventricular tachycardia, unspecified; I48.92 Unspecified atrial flutter; I12.9 Hypertensive chronic kidney disease with stage 1 through stage 4 chronic kidney disease, or unspecified chronic kidney disease; I48.0 Paroxysmal atrial fibrillation; I44.7 Left bundle-branch block, unspecified; W18.09XA Striking against other object with subsequent fall, initial encounter; I25.10 Atherosclerotic heart disease of native coronary artery without angina pectoris; E78.5 Hyperlipidemia, unspecified; I25.5 Ischemic cardiomyopathy; J10.1 Influenza due to other identified influenza virus with other respiratory manifestations; I25.2 Old myocardial infarction; S09.90XA Unspecified injury of head, initial encounter; D69.6 Thrombocytopenia, unspecified; K25.9 Gastric ulcer, unspecified as acute or chronic, without hemorrhage or perforation; R79.1 Abnormal coagulation profile; Z79.01 Long term (current) use of anticoagulants; E66.811 Obesity, class 1; Z79.891 Long term (current) use of opiate analgesic; Z79.82 Long term (current) use of aspirin; Z95.1 Presence of aortocoronary bypass graft; Z79.2 Long term (current) use of antibiotics; N40.1 Benign prostatic hyperplasia with lower urinary tract symptoms; R80.9 Proteinuria, unspecified; Z95.0 Presence of cardiac pacemaker; Z95.810 Presence of automatic (implantable) cardiac defibrillator
CPT/HCPCS: 31500; 31720; 36415; 36556; 36600; 51702; 70450; 71045; 74019; 76770; 80048; 81001; 82436; 82550; 82570; 82784; 82803; 82962; 83520; 83605; 83735; 83880; 84133; 84145; 84156; 84300; 84478; 84484; 84540; 85014; 85018; 85025; 85027; 85610; 85730; 86037; 86160; 86162; 86334; 87040; 87070; 87086; 87205; 87449; 87631; 87633; 87641; 92526; 92610; 92612; 92950; 93005; 93306; 94002; 94003; 94640; 94660; 94668; 94762; 97110; 97116; 97162; 97166; 97530; 97535; 97802; 97803; 99285; A4216; C1751; J0696; J1940; J7165